=== PATIENT | male | born 1950 | race Caucasian/White ===

== ENCOUNTER 2020-09-08 09:23 | Observation (INO) | payer OTHER, MEDICARE, SELFPAY ==
[2020-09-08] VITALS (26 sets, daily range): BP systolic 119–148; BP diastolic 59–76; PULSE 53–84; RESP 10–21; TEMP 36–36.6; O2SAT 89–100; BMI 27.9
--- NOTE | 2020-09-08 09:50 | CT_ITS ---
WS: [id number] CT HEAD NONCONTRAST HISTORY: altered mental status TECHNIQUE: Contiguous axial imaging performed through the brain in 2.5 mm imaging. Bone and soft tiss ue windows. Sagittal and coronal reformats reviewed. All CT scans at [facility] use at ast one of these dose optimization techniques: automated exposure control; mA and/or kV adjustment pe r patient size (includes targeted exams where dose is matched to clinical indication); or iterative r econstruction. DLP: 1007.57 mGy.cm COMPARISON: 10/17/2017 No acute intracranial hemorrhage, midline shift or mass effect. Mild atrophy and mild chronic microvascular ischemic disease. No prior infarcts. Ventricles: Normal size with no hydrocephalus. No inferior displacement of the cerebellar tonsils. Paranasal sinuses: As visualized are clear. Mastoid air cells: Well pneumatized. Calvarium and scalp: Skull is intact with no soft tissue edema or swelling. CT/CT head wo con* 11032 IMPRESSION: 1. No acute intracranial hemorrhage or edema. 2. Mild atrophy and mild chronic microvascular ischemic disease. Similar to th e prior studies.
--- NOTE | 2020-09-08 09:50 | ECG_ITS ---
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 Measurements Intervals [place] Rate: 54 P: 44 [place]: 173 QRS: 5 QRSD: 89 T: 36 QT: 411 QTc: 390 Interpretive Statements SINUS BRADYCARDIA Compared to ECG 10/17/2017 16:15:09 No significant changes Electronically Signed On 09-08-2020 12:31:00 CDT by Gilmer Solomon M.D. [email or web address] Prenatalhighland community hospitalAltair Prepknox community hospitalNavis Holdings/store/OM/[id number]
--- NOTE | 2020-09-08 09:52 | PC.NURSE ---
Pt to CT
--- NOTE | 2020-09-08 10:09 | PC.NURSE ---
Pt returned from CT
--- NOTE | 2020-09-08 10:11 | PC.NURSE ---
RT at bedside to do EKG and ABG
[2020-09-08 10:12] LABS: Basophils % 0.2 %; Eosinophils % 0.3 %; Hematocrit 42.1 % (42.0-52.0); Hemoglobin 14.6 g/dL (11.7-16.6); Lymphocytes # 1.2 10^3/uL (0.8-4.8); Lymphocytes % 8.6 %; Mean Corpuscular HGB Conc 34.7 g/dL (30.0-36.0); Mean Platelet Volume 11.1 fL (7.4-10.4); Monocytes # 0.7 10^3/uL (0.2-0.9); Monocytes % 5.1 %; Neutrophils % 85.5 %; Nucleated Red Blood Cells % 0 %; Platelet Count 108 10^3/cmm (130-400); Red Blood Count 4.43 10^6/uL (4.1-5.3); Red Cell Distribution Width 13.2 % (12.1-15.1); White Blood Count 13.8 10^3/uL (4.0-10.0)
[2020-09-08 10:22] LABS: ABG PH Result 7.43 (7.35-7.45); Alveolar-Arterial Oxygen Gradi 3.2 mmHg (5-10); Arterial Blood Gas Hematocrit 47.3 % (42-52); Base Excess ABG 1.8 mmol/L (-2.0-2.0); Blood Gas Allen Test Pos; Blood Gas Operator Identificat MONRO; Blood Gas Sample Site Radial, left; Blood Gas Sample Type Arterial; Carboxyhemoglobin 1.8 %THgb (0.4-20.1); HCO3 ABG 26.3 mmol/L (22-26); Ionized Calcium Level - ABG 1.2 mmol/L (1.1-1.4); Methemoglobin 0.2 % (0.4-1.5); Oxygen Device ROOM AIR; PO2 ABG 74.7 mmHg (80.0-100.0); Potassium Level - ABG 4.1 mmol/L (3.5-5.0); Total Hemoglobin 15.4 g/dL (14-18)
[2020-09-08 10:31] LABS: Slide Review Slide Review Perform
[2020-09-08 10:34] LABS: Troponin(5th) Baseline 47 ng/L (0-15)
--- NOTE | 2020-09-08 10:36 | ED_ITS ---
HPI - Altered Mental Status General: Chief Complaint: Altered Mental Status Stated Complaint: Possible Seizure this morning/Sent from [place] Time Seen by Provider: 09/08/20 09:36 History of Present Illness: HPI narrative: 70-year-old male presents emergency room after an episode this morning in bed where he was twitching or groaning and did not seem to be very responsive. Patient has sleep apnea got up around 5 AM went to the bathroom he recalls he came back to bed and he seemed okay he did not put his CPAP on he was sleeping on his side and a little while later he began groaning and moaning described as twitching contractures of his upper extremities. He has no recollection of the event. He is not postictal at this time he remembers everything up to when this happened and recalls when the ambulance came to pick him up. He has no known history of seizures he had some episode of transient global ischemia evidently a few years ago which she was completely obtunded for a brief period of time and then resolved. He is not had a recurrence. Remote head injury as a child but has no significant long-term effects from it. Denies any chest pain or shortness of breath. MD complaint: altered mental status, confusion and decreased responsiveness Onset (ago): hour(s) Timing confirmed by: spouse Severity: moderate Context: diabetes Associated symptoms: Deny auditory hallucinations, visual hallucinations, delusions, depression, homicidal ideation, racing thoughts or suicidal ideation Review of Systems Const: Denies: fever(s), chills, body aches, change in appetite, fatigue or malaise ENMT: Denies: throat pain, ear or mastoid pain, nasal discharge or nasal congestion Card: Denies: chest pain, edema, dyspnea on exertion or orthopnea Resp: Denies: dyspnea, productive cough or non-productive cough GI: Denies: abdominal pain, nausea, vomiting, hematemesis, coffee ground emesis, diarrhea, constipation, bloating, hematochezia or melena : Denies: flank pain, dysuria, urinary frequency or urinary urgency Skin/Breast: Denies: rash or pruritus Psych: Denies: depression, visual hallucinations, auditory hallucinations, suicidal ideation or homicidal ideation [facility] ED PFSH: Medical History ASHD (arteriosclerotic heart disease) Bradycardia Cryptogenic stroke Diabetes Hyperlipidemia Hypertension Surgical History History of hernia repair History of loop recorder History of loop recorder Hx of shoulder surgery Stented coronary artery Family History Other CAD (coronary artery disease) Cancer Diabetes Social History Smoking and tobacco status: current some day smoker Alcohol intake: never Physical Exam Const: COMMON NORMALS: no acute distress GENERAL APPEARANCE: cooperative and comfortable ORIENTATION/CONSCIOUSNESS: Yes awake, Yes oriented to person, Yes oriented to place and Yes oriented to time HENMT: COMMON NORMALS: normocephalic, atraumatic, hearing grossly normal bilaterally and external ears normal HEAD & SCALP: normocephalic and atraumatic EXTERNAL EAR: Yes external ears normal Neck/C-Spine: COMMON NORMALS: no JVD Resp: COMMON NORMALS: normal respiratory effort, No retractions, No use of accessory muscles and clear to auscultation bilaterally AUSCULTATION: clear to auscultation bilaterally Cardio: COMMON NORMALS: no JVD, regular rate, regular rhythm and No murmurs present (Cardio) RATE: regular rate RHYTHM: regular rhythm GI: COMMON NORMALS: Soft to palpation and No hepatosplenomegaly present AUSCULTATION: Yes normoactive bowel sounds PALPATION: Yes Soft to palpation, No Tenderness to palpation present (GI), No Guarding due to palpation present (GI) and Yes No hepatosplenomegaly present Extremity: COMMON NORMALS: normal to inspection, capillary refill normal, no clubbing, cyanosis or edema, no calf tenderness and no pedal edema Neuro: SENSORIUM/ORIENTATION: Yes oriented to person, Yes oriented to place and Yes oriented to time Psych: THOUGHT CONTENT: No delusions Skin: COMMON NORMALS: no rashes or lesions noted GENERAL SKIN EXAM: no rashes or lesions noted Course ED course: Patient is feeling much better he was never really postictal when I talked to him he could remember everything except a particular event surrounding the episodes of his significant other called EMS for. His second troponin however was elevated EKGs did not show anything acute we will go ahead and admit him to observation for further evaluation as discussed Dr. Maher orders written. In addition of the cardiology work-up he may need further evaluation including possible EEG and MRI of the head Vital Signs: Vital signs: Vital Signs Temperature 96.8 F L 09/08/20 09:30 Pulse Rate 60 09/08/20 13:58 Respiratory Rate 18 09/08/20 13:58 Blood Pressure 148/76 09/08/20 13:58 Pulse Oximetry 96 09/08/20 13:58 MDM - Altered Mental Status Lab Data: Labs: Lab Results 09/08/20 09/08/20 09/08/20 Range/Units 10:02 10:02 10:02 WBC 13.8 H (4.0-10.0) 10^3/ uL RBC 4.43 (4.1-5.3) 10^6/u L Hgb 14.6 (11.7-16.6) g/dL Hct 42.1 (42.0-52.0) % MCV 95.0 H (80-94) fL MCH 33.0 (28.0-34.0) pg MCHC 34.7 (30.0-36.0) g/dL RDW 13.2 (12.1-15.1) % Plt Count 108 L (130-400) 10^3/c mm MPV 11.1 H (7.4-10.4) fL Neut % (Auto) 85.5 % Lymph % (Auto) 8.6 % Crane % (Auto) 5.1 % Eos % (Auto) 0.3 % Baso % (Auto) 0.2 % Neut # (Auto) 11.80 H (1.8-7.7) 10^3/u L Lymph # (Auto) 1.2 (0.8-4.8) 10^3/u L Crane # (Auto) 0.7 (0.2-0.9) 10^3/u L Eos # (Auto) 0.0 (0.0-0.8) 10^3/u L Baso # (Auto) 0.0 (0.0-0.1) 10^3/u L Nucleated RBC % (a uto) 0 % Nucleated RBCs # 0.0 /100WBC Specimen Type Sample Site ABG pH (7.35-7.45) ABG pCO2 (35-45) mmHg ABG pO2 (80.0-100.0) mmH g ABG HCO3 (22-26) mmol/L ABG O2 Saturation ABG Base Excess (-2.0-2.0) mmol/ L Bethel Test A-a O2 Gradient (5-10) mmHg Hematocrit (42-52) % Hgb O2 Saturation (95-100) % Carboxyhemoglobin (0.4-20.1) %THgb Methemoglobin (0.4-1.5) % Total Hemoglobin (14-18) g/dL Ionized Calcium (1.1-1.4) mmol/L O2 Delivery Device FiO2 % Product Manager E Commerce ID Sodium 139 (136-145) mmol/L Potassium 4.4 (3.5-5.1) mmol/L Chloride 102 (98-107) mmol/L Carbon Dioxide 28 (22-29) mmol/L Anion Gap 13.4 (5-19) BUN 14 (8-23) mg/dL Creatinine 0.9 (0.7-1.2) mg/dL GFR Calculation Not Reportable Glucose 137 H (65-115) mg/dL Calculated Osmolal ity 291 (285-295) mOsm/k g Lactic Acid 1.7 (0.5-2.2) mmol/L Calcium 8.8 (8.5-10.5) mg/dL Total Bilirubin 1.0 (0.15-1.2) mg/dL AST 17 (0-40) U/L ALT 14 (0-41) U/L Alkaline Phosphata se 95 (40-130) IU/L Creatine Kinase 157 (39-308) U/L Troponin T Baselin e (0-15) ng/L Troponin T 120 Min habematolel (0-15) ng/L Delta Troponin T (0-10) ABS# Total Protein 6.7 (6.6-8.7) g/dL Albumin 4.1 (3.5-5.2) g/dL Globulin 2.6 (1.3-4.6) g/dL Urine Color (Yellow) Urine Appearance (CLEAR) Urine pH (5-7) Ur Specific Gravit y (1.005-1.030) Urine Protein (Negative) Urine Glucose (UA) (Normal) Urine Ketones (Negative) Urine Blood (Negative) Urine Nitrate (Negative) Urine Bilirubin (Negative) Urine Urobilinogen (Negative) mg/dL Ur Leukocyte Raiza ase (Negative) 09/08/20 09/08/20 09/08/20 Range/Units 10:02 10:08 11:50 WBC (4.0-10.0) 10^3/ uL RBC (4.1-5.3) 10^6/u L Hgb (11.7-16.6) g/dL Hct (42.0-52.0) % MCV (80-94) fL MCH (28.0-34.0) pg MCHC (30.0-36.0) g/dL RDW (12.1-15.1) % Plt Count (130-400) 10^3/c mm MPV (7.4-10.4) fL Neut % (Auto) % Lymph % (Auto) % Crane % (Auto) % Eos % (Auto) % Baso % (Auto) % Neut # (Auto) (1.8-7.7) 10^3/u L Lymph # (Auto) (0.8-4.8) 10^3/u L Crane # (Auto) (0.2-0.9) 10^3/u L Eos # (Auto) (0.0-0.8) 10^3/u L Baso # (Auto) (0.0-0.1) 10^3/u L Nucleated RBC % (a uto) % Nucleated RBCs # /100WBC Specimen Type Arterial Sample Site Radial, left ABG pH 7.43 (7.35-7.45) ABG pCO2 40.0 (35-45) mmHg ABG pO2 74.7 L (80.0-100.0) mmH g ABG HCO3 26.3 H (22-26) mmol/L ABG O2 Saturation 96.0 ABG Base Excess 1.8 (-2.0-2.0) mmol/ L Bethel Test Pos A-a O2 Gradient 3.2 L (5-10) mmHg Hematocrit 47.3 (42-52) % Hgb O2 Saturation 94.0 L (95-100) % Carboxyhemoglobin 1.8 (0.4-20.1) %THgb Methemoglobin 0.2 L (0.4-1.5) % Total Hemoglobin 15.4 (14-18) g/dL Ionized Calcium 1.2 (1.1-1.4) mmol/L O2 Delivery Device Room air FiO2 21.0 % Product Manager E Commerce ID [place] Sodium 139.0 (136-145) mmol/L Potassium 4.1 (3.5-5.1) mmol/L Chloride (98-107) mmol/L Carbon Dioxide (22-29) mmol/L Anion Gap (5-19) BUN (8-23) mg/dL Creatinine (0.7-1.2) mg/dL GFR Calculation Glucose 133.0 H (65-115) mg/dL Calculated Osmolal ity (285-295) mOsm/k g Lactic Acid (0.5-2.2) mmol/L Calcium (8.5-10.5) mg/dL Total Bilirubin (0.15-1.2) mg/dL AST (0-40) U/L ALT (0-41) U/L Alkaline Phosphata se (40-130) IU/L Creatine Kinase (39-308) U/L Troponin T Baselin e 47 H (0-15) ng/L Troponin T 120 Min habematolel (0-15) ng/L Delta Troponin T (0-10) ABS# Total Protein (6.6-8.7) g/dL Albumin (3.5-5.2) g/dL Globulin (1.3-4.6) g/dL Urine Color Dark yellow (Yellow) Urine Appearance Clear (CLEAR) Urine pH 6 (5-7) Ur Specific Gravit y 1.010 (1.005-1.030) Urine Protein Neg (Negative) Urine Glucose (UA) Norm (Normal) Urine Ketones Negative (Negative) Urine Blood Neg (Negative) Urine Nitrate Negative (Negative) Urine Bilirubin Neg (Negative) Urine Urobilinogen Norm (Negative) mg/dL Ur Leukocyte Raiza ase Negative (Negative) 09/08/20 Range/Units 12:30 WBC (4.0-10.0) 10^3/ uL RBC (4.1-5.3) 10^6/u L Hgb (11.7-16.6) g/dL Hct (42.0-52.0) % MCV (80-94) fL MCH (28.0-34.0) pg MCHC (30.0-36.0) g/dL RDW (12.1-15.1) % Plt Count (130-400) 10^3/c mm MPV (7.4-10.4) fL Neut % (Auto) % Lymph % (Auto) % Crane % (Auto) % Eos % (Auto) % Baso % (Auto) % Neut # (Auto) (1.8-7.7) 10^3/u L Lymph # (Auto) (0.8-4.8) 10^3/u L Crane # (Auto) (0.2-0.9) 10^3/u L Eos # (Auto) (0.0-0.8) 10^3/u L Baso # (Auto) (0.0-0.1) 10^3/u L Nucleated RBC % (a uto) % Nucleated RBCs # /100WBC Specimen Type Sample Site ABG pH (7.35-7.45) ABG pCO2 (35-45) mmHg ABG pO2 (80.0-100.0) mmH g ABG HCO3 (22-26) mmol/L ABG O2 Saturation ABG Base Excess (-2.0-2.0) mmol/ L Bethel Test A-a O2 Gradient (5-10) mmHg Hematocrit (42-52) % Hgb O2 Saturation (95-100) % Carboxyhemoglobin (0.4-20.1) %THgb Methemoglobin (0.4-1.5) % Total Hemoglobin (14-18) g/dL Ionized Calcium (1.1-1.4) mmol/L O2 Delivery Device FiO2 % Product Manager E Commerce ID Sodium (136-145) mmol/L Potassium (3.5-5.1) mmol/L Chloride (98-107) mmol/L Carbon Dioxide (22-29) mmol/L Anion Gap (5-19) BUN (8-23) mg/dL Creatinine (0.7-1.2) mg/dL GFR Calculation Glucose (65-115) mg/dL Calculated Osmolal ity (285-295) mOsm/k g Lactic Acid (0.5-2.2) mmol/L Calcium (8.5-10.5) mg/dL Total Bilirubin (0.15-1.2) mg/dL AST (0-40) U/L ALT (0-41) U/L Alkaline Phosphata se (40-130) IU/L Creatine Kinase (39-308) U/L Troponin T Baselin e (0-15) ng/L Troponin T 120 Min habematolel 55.95 H (0-15) ng/L Delta Troponin T 8.95 (0-10) ABS# Total Protein (6.6-8.7) g/dL Albumin (3.5-5.2) g/dL Globulin (1.3-4.6) g/dL Urine Color (Yellow) Urine Appearance (CLEAR) Urine pH (5-7) Ur Specific Gravit y (1.005-1.030) Urine Protein (Negative) Urine Glucose (UA) (Normal) Urine Ketones (Negative) Urine Blood (Negative) Urine Nitrate (Negative) Urine Bilirubin (Negative) Urine Urobilinogen (Negative) mg/dL Ur Leukocyte Raiza ase (Negative) Discharge Plan Discharge Patient Disposition: Admitted As Inpatient Admit Provider: Narcisa Maher Clinical Impression: Elevated troponin, Diabetes, Hypertension, Central sleep apnea Condition: Stable Coding Level of Care Code ED Director Of Assisted Living for Noa Abdi
[2020-09-08 10:37] LABS: Lactic Sepsis W/Reflex 1.7 mmol/L (0.5-2.2)
--- NOTE | 2020-09-08 10:41 | PC.NURSE ---
Patient states he is unable to provide UA at this time.
[2020-09-08 10:57] LABS: Alanine Aminotransferase 14 U/L (0-41); Albumin Level 4.1 g/dL (3.5-5.2); Alkaline Phosphatase 95 IU/L (40-130); Anion Gap 13.4 (5-19); Aspartate Amino Transferase 17 U/L (0-40); Blood Urea Nitrogen 14 mg/dL (8-23); Calcium 8.8 mg/dL (8.5-10.5); Carbon Dioxide 28 mmol/L (22-29); Chloride 102 mmol/L (98-107); Creatine Phosphokinase 157 U/L (39-308); Globulin 2.6 g/dL (1.3-4.6); Glucose 137 mg/dL (65-115); Osmolality Calculated 291 mOsm/kg (285-295); Potassium 4.4 mmol/L (3.5-5.1); Sodium 139 mmol/L (136-145); Total Protein 6.7 g/dL (6.6-8.7)
--- NOTE | 2020-09-08 11:10 | PC.NURSE ---
Pt reports he is unable to void at this time.
--- NOTE | 2020-09-08 11:50 | ECG_ITS ---
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 Measurements Intervals [place] Rate: 52 P: 38 [place]: 177 QRS: -1 QRSD: 88 T: 35 QT: 419 QTc: 391 Interpretive Statements SINUS BRADYCARDIA Compared to ECG 09/08/2020 10:11:30 No significant changes Electronically Signed On 09-08-2020 12:34:54 CDT by Gilmer Solomon M.D. [email or web address] river gulfportHythiamuniversity hospitals [email or web address].Incipient/store/[id number]
[2020-09-08 12:06] LABS: Add Urine Microscopic? NO; Charge for UA Resulting for Rev; Urine Color Dark Yellow (Yellow)
[2020-09-08 12:07] LABS: Bilirubin Urine Neg (Negative); Blood Urine Neg (Negative); Glucose Urine UA Norm (Normal); Ketones Urine Negative (Negative); Leukocyte Esterase Urine Negative (Negative); Nitrate Urine Negative (Negative); Protein Urine Neg (Negative); Urine Appearance Clear (CLEAR); Urobilinogen Urine Norm (Negative); pH Urine 6 (5-7)
[2020-09-08 12:59] LABS: Troponin 5 2HR 55.95 ng/L (0-15); Troponin 5 2HR Delta 8.95 ABS# (0-10)
[2020-09-08] MEDS: enoxaparin 100 mg/mL Syringe SUBCUT (13:34)
--- NOTE | 2020-09-08 15:50 | ECG_ITS ---
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 Measurements Intervals [place] Rate: 55 P: 43 [place]: 176 QRS: 0 QRSD: 93 T: 31 QT: 425 QTc: 409 Interpretive Statements SINUS BRADYCARDIA Compared to ECG 09/08/2020 12:00:39 No significant changes Electronically Signed On 09-08-2020 19:08:40 CDT by Gilmer Solomon M.D. [email or web address].[employer]/store/[id number]
[2020-09-08 17:15] LABS: Troponin 5 6HR 40.02 ng/L (0-15)
[2020-09-08 17:16] LABS: Troponin 5 6HR Delta -6.98 ng/L (0-12)
--- NOTE | 2020-09-08 22:24 | PM.HP ---
Providers/Chief Complaint Admitting Physician: Narcisa Maher MD Primary Care Provider: Pietro Watts DO Chief Complaint: Possible Seizure this morning/Sent from CT History of Present Illness Enmanuel Ring is a 70 year old male with PMH as noted below presented emergency room after an episode this morning in bed where he was twitching or groaning and did not seem to be very responsive per his . Patient has sleep apnea got up around 5 AM went to the bathroom he recalls he came back to bed and he seemed okay he did not put his CPAP on he was sleeping on his side and a little while later he began groaning and moaning described as twitching contractures of his upper extremities. He has no recollection of the event. no incontinence. Tongue bite+. COnfused after the event for 10-15 minutes. . He has no known history of seizures he had some episode of transient global amnesia evidently a few years ago which resolved. He is not had a recurrence. Similar episode one month ago when while playing golf patient;s eyes glazed over and he was swinging from side to side as if to pass out. He has an imaplantable loop recorder that has not been transmitting recently per patient. He has previously been noted to have asymptomatic bradycardia with HR 40-50, often numbers as low as 30 during sleep. He did not check VS at time of events. Not hypoglycemic during events. ROS+ diarrhea 2 days ago, 4-5 episodes which resolved. no fever. chronic smoker's cough+ no chest pain, dyspnea, palpitations. Ekg without acute st-t changes, tropinins elevated but without significant delta. Review of Systems General: Reports: 10 or more systems reviewed and unremarkable except in HPI and below Const: Denies: fever(s), chills or body aches Eyes: Denies: change in vision, blurry vision or photophobia ENMT: Reports: hoarseness; Denies: throat pain, enlarged tonsils, odynophagia or nasal congestion Card: Denies: chest pain, palpitations, irregular heart rhythm, edema, swelling of feet/ankles, lightheadedness, pre-syncope, dyspnea on exertion or orthopnea Resp: Denies: dyspnea, productive cough, non-productive cough, wheezing, stridor, pain on inspiration, change in phlegm color, hemoptysis or chest congestion GI: Denies: abdominal pain, nausea, vomiting, hematemesis, coffee ground emesis, dysphagia, heartburn, diarrhea, constipation, GI cramping, change in stool character, hematochezia or melena : Denies: flank pain, dysuria, urinary frequency, urinary urgency, urinary hesitancy or hematuria Musc: Denies: neck pain, back pain, extremity pain, joint swelling, joint warmth or deformity Neuro: Denies: headache(s), numbness in extremities, weakness in extremities, sensory changes, difficulty walking, frequent falls, dizziness, vertigo, behavioral changes, Slurred speech present or seizure-like activity Psych: Denies: anxiety, depression, suicidal ideation or homicidal ideation Endo: Denies: polyuria, polydipsia, tired all the time, cold intolerance or hot flashes Roland/Lymph: Denies: easy bruising or easy bleeding Medications/Allergies Home Medications Medication Instructions Recorded Confirmed Last Taken Type allopurinol 300 mg tablet 300 mg PO DAILY 11/06/19 09/08/20 09/07/20 History amlodipine 10 mg tablet 10 mg PO DAILY 11/06/19 09/08/20 09/07/20 History aspirin 81 mg tablet,delayed 81 mg PO DAILY 11/06/19 09/08/20 09/07/20 History release atenolol 25 mg tablet 25 mg PO QA 11/06/19 09/08/20 09/07/20 History folic acid 1 mg tablet 1 mg PO QAM 11/06/19 09/08/20 09/07/20 History glipizide 5 mg tablet 2.5 mg PO QA 11/06/19 09/08/20 09/07/20 History lisinopril 40 mg tablet 20 mg PO DAILY 11/06/19 09/08/20 09/07/20 History multivitamin 1 tab PO DAILY 11/06/19 09/08/20 09/07/20 History simvastatin 20 mg tablet 20 mg PO DAILY 11/06/19 09/08/20 09/07/20 History turmeric 400 mg PO DAILY 09/08/20 09/08/20 09/07/20 History Allergies Allergy/AdvReac Type Severity Reaction Status Date / Time No Known Allergies Allergy Verified 09/08/20 11:56 PFSH Acute PFSH: Medical History (Updated 09/08/20 @ 22:32 by Narcisa Maher MD) ASHD (arteriosclerotic heart disease) Bradycardia Cryptogenic stroke Diabetes Hyperlipidemia Hypertension Surgical History History of hernia repair History of loop recorder History of loop recorder Hx of shoulder surgery Stented coronary artery Family History Other CAD (coronary artery disease) Cancer Diabetes Social History Smoking and tobacco status: current some day smoker Alcohol intake: never Vitals/I&O/Wt Last Vital Signs Temp 98 F 09/08/20 19:42 Pulse 59 L 09/08/20 19:42 Resp 21 H 09/08/20 19:42 BP 120/63 09/08/20 19:42 Pulse Ox 92 09/08/20 19:42 09/08/20 09/08/20 09/08/20 06:59 14:59 22:59 Intake Total 120 / 120 Balance 120 / 120 Weight last 48 hrs Weight 96.162 kg Physical Exam Narrative: EXAM NARRATIVE: General: No acute distress, AO x3 HEENT: PERRLA, pupils bilaterally equal and reactive, pallors not present Chest: Normal vesicular breath sounds, no added sounds, equal good air entry bilaterally CVS: S1-S2 regular, no murmurs, no tachycardia, no gallops, no rubs Abdomen: Soft, nontender, no organomegaly, bowel sounds present Neuro: No focal deficits, no facial deformity, AO x3, power 5/5 in all limbs Extremities: no edema clubbing Data : 09/08/20 10:02 09/08/20 10:02 A&P Assessment and plan (1) Witnessed seizure-like activity: Unclear if patient suffereed from seizure episode, it would be very unusual to present with first seizure at age 70 CT head negative differentials include TIA, transient hypoxia as a result of bradycardia, arrhythmia investigate loop recorder monitor on tele overnight Syncopal event cannot be excluded carotid duplex,echo Status: Acute (2) Bradycardia: Status: Acute (3) ASHD (arteriosclerotic heart disease): Status: Acute (4) Elevated troponin: Status: Acute Attestations Medical Necessity Statement*: anticipate less than 2 midnight Coding Level of Care Code Acute Accounting Coordinator for Chg Fwd Diagnoses Witnessed seizure-like activity R56.9 Bradycardia R00.1 ASHD (arteriosclerotic heart disease) I25.10 Elevated troponin R77.8
[2020-09-09 03:17] VITALS: BP 114/59; PULSE 50; RESP 22; TEMP 36.8; O2SAT 91
[2020-09-09 05:07] LABS: Basophils % 0.3 %; Eosinophils # 0.1 10^3/uL (0.0-0.8); Eosinophils % 1.6 %; Hematocrit 40.3 % (42.0-52.0); Hemoglobin 13.9 g/dL (11.7-16.6); Lymphocytes # 1.9 10^3/uL (0.8-4.8); Lymphocytes % 20.6 %; Mean Corpuscular HGB Conc 34.5 g/dL (30.0-36.0); Mean Corpuscular Hemoglobin 33.3 pg (28.0-34.0); Mean Corpuscular Volume 96.4 fL (80-94); Mean Platelet Volume 11.8 fL (7.4-10.4); Monocytes # 0.6 10^3/uL (0.2-0.9); Monocytes % 6.4 %; Neutrophils # 6.37 10^3/uL (1.8-7.7); Neutrophils % 70.7 %; Nucleated Red Blood Cells % 0 %; Platelet Count 108 10^3/cmm (130-400); Red Blood Count 4.18 10^6/uL (4.1-5.3); Red Cell Distribution Width 13.2 % (12.1-15.1)
[2020-09-09 05:20] VITALS: PULSE 48
[2020-09-09 05:26] LABS: Alanine Aminotransferase 11 U/L (0-41); Albumin Level 3.8 g/dL (3.5-5.2); Alkaline Phosphatase 86 IU/L (40-130); Anion Gap 15.4 (5-19); Aspartate Amino Transferase 16 U/L (0-40); Blood Urea Nitrogen 15 mg/dL (8-23); Calcium 8.3 mg/dL (8.5-10.5); Carbon Dioxide 24 mmol/L (22-29); Chloride 102 mmol/L (98-107); Creatinine Clr Calc Pharmacy 102.0057; Glucose 98 mg/dL (65-115); Osmolality Calculated 285 mOsm/kg (285-295); Potassium 4.4 mmol/L (3.5-5.1); Sodium 137 mmol/L (136-145); Total Bilirubin 1.1 mg/dL (0.15-1.2); Total Protein 5.8 g/dL (6.6-8.7)
[2020-09-09] MEDS: atenolol 50 mg Tablet 25 MG PO (05:49)
[2020-09-09] MEDS: folic acid 1 mg Tablet PO (05:49)
[2020-09-09 07:23] VITALS: BP 121/64; PULSE 50; RESP 15; TEMP 36.9; O2SAT 94
[2020-09-09 08:00] VITALS: BP 120/64; BP 122/76; BP 124/72
[2020-09-09] MEDS: lisinopril 20 mg Tablet PO (08:43)
[2020-09-09] MEDS: allopurinol 300 mg Tablet PO (08:43)
[2020-09-09] MEDS: atorvastatin 40 mg Tablet 20 MG PO (08:44)
[2020-09-09] MEDS: amlodipine 10 mg Tablet PO (08:44)
[2020-09-09] MEDS: aspirin 81 mg EC Tablet PO (08:44)
[2020-09-09 11:06] VITALS: BP 112/59; PULSE 47; RESP 12; TEMP 36.9; O2SAT 94
[2020-09-09 13:20] VITALS: PULSE 48
--- NOTE | 2020-09-09 15:26 | P.DS_ITS ---
Discharge Providers Date of Admission: 09/08/20 14:16 Date of Discharge: September 09, 2020 Attending Provider at Admission: Narcisa Maher MD Attending Provider at Discharge: Narcisa Maher MD Primary Care Provider: Pietro Watts DO Diagnoses at Discharge Discharge Diagnosis (1) Witnessed seizure-like activity: Status: Acute (2) Bradycardia: Status: Acute (3) ASHD (arteriosclerotic heart disease): Status: Acute (4) Elevated troponin: Status: Acute Reason for Visit Reason for Visit: Possible Seizure this morning/Sent from [place] Hospital Course Hospital Course Enmanuel Ring is a 70 year old male with PMH ASHD/high blood pressure/dyslipidemia/cryptogenic CVA who presented yesterday after an episode this morning in bed where he was twitching or groaning and did not seem to be very responsive per his . He was admitted to observation due to concern for possible seizures, no further episodes were noted in the hospital. CT head negative. Orthostatics were normal, Differentials include TIA, transient hypoxia after removing CPAP. loop recorder was investigated to check for any bradycardia events, however there were no events with HR less than 40. At a baseline patient's HR varies between 40-50 at a baseline for several years. No arrhythmia was noted on telemetry. Syncopal event could not be excluded- carotid duplex,echo were performed, remains pending at discharge. To follow up the latter at his appointment with Dr. Mcneil next week. If episodes are recurrent, recommend follow up with Dr. Chand, he was previously seen by neurology due to transient global amnesia. Physical Exam Narrative: EXAM NARRATIVE: GEN: Awake, alert and oriented, no acute distress CVS: S1S2 N RS: CTA B/L Abd: Soft, nt/nd , bs+ PROBATE PARALEGAL: no focal neuro deficits Discharge Data Data Completed and Pending: Completed Studies During Hospitalization Category Date Time Status CT head wo con* [id number] Stat Cat Scan 09/08/20 09:50 Completed Pending at discharge Category Date Time Status CV carotid duplex BI* [id number] Routine Ultrasound 09/09/20 22:45 Taken CV echo complete* [id number] Routine Ultrasound 09/09/20 22:45 Taken Labs from last 24 hours 09/09/20 09/09/20 09/08/20 04:21 04:21 16:20 WBC 9.0 RBC 4.18 Hgb 13.9 Hct 40.3 L MCV 96.4 H MCH 33.3 MCHC 34.5 RDW 13.2 Plt Count 108 L MPV 11.8 H Neut % (Auto) 70.7 Lymph % (Auto) 20.6 [place] % (Auto) 6.4 Eos % (Auto) 1.6 Baso % (Auto) 0.3 Neut # (Auto) 6.37 Lymph # (Auto) 1.9 [place] # (Auto) 0.6 Eos # (Auto) 0.1 Baso # (Auto) 0.0 Nucleated RBC % (a uto) 0 Nucleated RBCs # 0.0 Sodium 137 Potassium 4.4 Chloride 102 Carbon Dioxide 24 Anion Gap 15.4 BUN 15 Creatinine 0.7 GFR Calculation Not Reportable Glucose 98 Calculated Osmolal ity 285 Calcium 8.3 L Total Bilirubin 1.1 AST 16 ALT 11 Alkaline Phosphata se 86 Troponin T Hi Sens 6Hr 40.02 H Troponin T Hi Sens 6Hr Delta -6.98 L Total Protein 5.8 L Albumin 3.8 Globulin 2.0 Vitals: Last Vital Signs Temp 98.4 F 09/09/20 11:06 Pulse 48 L 09/09/20 13:20 Resp 12 09/09/20 11:06 BP 112/59 09/09/20 11:06 Pulse Ox 94 09/09/20 11:06 Discharge Plan Discharge Patient Disposition: Home Condition: Stable Prescriptions: Continued aspirin [Adult Low Dose Aspirin] 81 mg tablet,delayed release (DR/EC) 81 mg PO DAILY RF: 0 multivitamin Tablet 1 tab PO DAILY RF: 0 atenolol 25 mg tablet 25 mg PO QAM RF: 0 folic acid 1 mg tablet 1 mg PO QAM RF: 0 allopurinol 300 mg tablet 300 mg PO DAILY RF: 0 amlodipine 10 mg tablet 10 mg PO DAILY RF: 0 glipizide 5 mg tablet 2.5 mg PO QAM RF: 0 simvastatin 20 mg tablet 20 mg PO DAILY RF: 0 lisinopril 40 mg tablet 20 mg PO DAILY RF: 0 turmeric 400 mg Capsule 400 mg PO DAILY RF: 0 Discharge Orders: Discharge Order (Routine); Ordered 09/09/20 Ordered By: Narcisa Maher Referrals: Letitia Mcneil MD [Physician] - 1 week Pietro Watts DO [Primary Care Provider] - Discharge Diet: Cardiac Discharge Activity: Resume usual activity Patient Instructions: Opioid Safety Activity Restrictions/Additional Instructions: Case Management will call with appointments for an MRI and EEG and neurology follow up Discharge Attestations Time Spent in Discharge Care*: less than 30 min Quality Metrics Clinical Quality Measures During this hospital stay, did patient experience: None Coding Level of Care Code Acute Chg FW DC note Diagnoses Witnessed seizure-like activity R56.9 Bradycardia R00.1 ASHD (arteriosclerotic heart disease) I25.10 Elevated troponin R77.8
--- NOTE | 2020-09-09 22:45 | USCV_ITS ---
Enmanuel Ring Age: 70 Gender: M : 1950 Exam Date: 09/09/2020 06:43 Ordering Phys: Narcisa Maher MD Technologist: Yandy Hassan [place] [facility] [place]: SYNCOPE Risk Factors: Previous Vascular Surgery: Right Brachial BP: / Left Brachial BP: / Right Left Velocity (cm/s) Spectral Plaque Velocity (cm/s) Spectral Plaque Syst/Diast Broadening Syst/Diast Broadening 89.30/ 14.30 Prox CCA 81.00 / 12.10 66.20/ 13.20 Mid CCA 82.00 / 13.20 69.50/ 16.50 Distal CCA 70.90 / 10.10 40.80/ 16.50 Prox ICA 60.70 / 16.20 48.10/ 10.60 Mid ICA 61.70 / 15.20 73.00/ 17.30 Distal ICA 85.00 / 21.30 97.00 ECA 87.00 1.10 ICA/CCA 1.04 Antegrade Vertebral Antegrade 29.80/ 7.40 cm/s 27.80/ 9.10 cm/s Tri Subclavian Bi 100.9 121.9 0 0 FINDINGS Mild diffuse plaques of the bifurcations and the internal carotid arteries bilaterally. Intimal thickening and minimal plaques in the common carotid arteries bilaterally. Antegrade flow in the vertebral arteries bilaterally. No Doppler flow velocities in the extracranial vessels. CONCLUSIONS Mild diffuse plaques at the bifurcations and the internal carotid arteries bilaterally. No significant stenosis, based on the above findings Dr Letitia Mcneil MD [facility] (Electronically Signed) Final Date: 09 September 2020 16:06 S
--- NOTE | 2020-09-09 22:45 | USCV_ITS ---
Enmanuel Ring Age: 70 Gender: M : 1950 Exam Date: 09/09/2020 06:17 Ordering Phys: Narcsia Maher MD Technologist: Yandy Hassan Exam Location: [facility] – [place] Indication: SYNCOPE BP: 114 / 59 HR: 44 Rhythm: Sinus Technical Quality: Technically difficult study MEASUREMENTS (Male / Female) Normal Values 2D ECHO LV Diastolic Diameter PLAX 5.1 cm 4.2 - 5.9 / 3.9 - 5.3 cm LV Systolic Diameter PLAX 3.3 cm IVS Diastolic Thickness 1.0 cm 0.6 - 1.0 / 0.6 - 0.9 cm IVS Systolic Thickness 1.5 cm LVPW Diastolic Thickness 1.2 cm 0.6 - 1.0 / 0.6 - 0.9 cm LVPW Systolic Thickness 1.3 cm LVOT Diameter 2.0 cm LV Ejection Fraction 2D Teich 64.3 % LV Ejection Fraction MOD 2C 64.9 % LV Ejection Fraction 2C AL 66.5 % LA Diameter 3.5 cm LA Width 3.1 cm LA Height 4.6 cm RA Width 3.4 cm RA Height 4.7 cm Aorta at Sinotubular Diameter 2.2 cm M-MODE Aortic Annulus Diameter 2.9 cm LA Ao Ratio MM 1.1 MV E Point Septal Separation 0.4 cm DOPPLER AV Peak Velocity 131.0 cm/s LVOT Peak Velocity 83.0 cm/s AV Area Cont Eq vti 2.4 cm squared AV Area Cont Eq pk 2.0 cm squared MV Area PHT 5.0 cm squared Mitral E to A Ratio 0.8 MV E' Velocity 66.0 cm/s Mitral E to LV E' Septal Ratio 10.8 TR Peak Velocity 277.0 cm/s TR Peak Gradient 30.7 mmHg Right Atrial Pressure 3.0 mmHg Pulmonary Artery Systolic Pressu 33.7 mmHg PV Peak Velocity 111.0 cm/s RV Acceleration Time 0.1 s RV Ejection Time 0.4 s RV AcT/ET 0.3 FINDINGS Left Ventricle Normal left ventricular size and systolic function, EF 67 %. No regional wall motion abnormalities. Mild left ventricular hypertrophy. Grade I/IV diastolic dysfunction (abnormal relaxation filling pattern), normal to mildly elevated filling pressures. Right Ventricle Possibly normal RV size ejection fraction Right Atrium The right atrium is normal in size. Left Atrium The left atrium is normal in size. Mitral Valve No gross abnormalities noted Aortic Valve No gross abnormalities noted Tricuspid Valve Tricuspid valve not well visualized. Pulmonic Valve Pulmonic valve not well visualized. Pericardium Normal pericardium without effusion. Aorta Normal aortic annulus size. CONCLUSIONS Normal left ventricular size and systolic function, EF 67 %. No regional wall motion abnormalities. Mild left ventricular hypertrophy. Grade I/IV diastolic dysfunction (abnormal relaxation filling pattern), normal to mildly elevated filling pressures. The aortic and mitral appears to be of normal morphology. Possibly no significant stenotic or regurgitant lesions. Technically difficult study because of the poor ultrasonic window. Dr Letitia Mcneil MD [facility] (Electronically Signed) Final Date: 09 September 2020 17:21 S
--- NOTE | 2020-09-10 15:03 | PC.RESP ---
SMOKING CESSATION INFORMATION SENT TO PATIENT.
--- NOTE | 2020-09-12 09:35 | DCPLANNER ---
repertoire manager had message to schedule an outpatient MRI and EEG for patient and then a follow up with neurology. repertoire manager faxed signed order to centralized scheduling and to Dr. Murry office. repertoire manager emailed patients information to Krystal at Dr. Murry office for the EEG and the follow up. Patients information will be printed and reviewed. Clinic will call patient with appointment information.
--- NOTE | 2020-09-17 11:32 | DCPLANNER ---
Addendum entered by Sylvia العراقي 10/10/20 07:40: Patient has [facility] insurance, so patient will have to see Dr. Chand and she would have to be the one to order the EEG, for the [facility] to pay for the visit.. Patient seen Dr. Chand on 10.02.20 and attended that appointment. Patient has a EEG scheduled for 11.11.20. Addendum entered by Sylvia العراقي 09/17/20 11:40: hotel assistant manager sent patients records to [place] with [facility] for the authorization process could be started. Original Note: Patient has a follow up appointment scheduled for Tuesday, September 29, 2020 at 10:[address] Murry office will contact patient with appointment information.
== END 2020-09-09 16:03 | disposition home or self-care (01) ==
LOC: ER 13:02 → CSU 13:55
PROVIDERS: Admitting Provider Student in an Organized Health Care Education/Training Program; Emergency Provider Family Medicine; PCP Emergency Medicine Emergency Medical Services; Visit Provider Student in an Organized Health Care Education/Training Program
DX: R56.9 Unspecified convulsions (principal); I25.10 Atherosclerotic heart disease of native coronary artery without angina pectoris; R00.1 Bradycardia, unspecified; R77.8 Other specified abnormalities of plasma proteins; Z86.73 Personal history of transient ischemic attack (TIA), and cerebral infarction without residual deficits; R55 Syncope and collapse; I65.23 Occlusion and stenosis of bilateral carotid arteries; Z79.82 Long term (current) use of aspirin; E78.5 Hyperlipidemia, unspecified; F17.210 Nicotine dependence, cigarettes, uncomplicated
CPT/HCPCS: 36415; 36600; 70450; 80051; 80053; 81003; 82330; 82550; 82805; 83605; 84484; 85025; 93005; 93306; 93880; 96372; 99285; G0378; J1650

== ENCOUNTER → 2020-10-02 12:25 | Outpatient (BNVA) | payer OTHER, SELFPAY | PROVIDERS: PCP Emergency Medicine Emergency Medical Services; Visit Provider Specialist | DX: R56.9 Unspecified convulsions (principal); F17.210 Nicotine dependence, cigarettes, uncomplicated | CPT/HCPCS: 99205 ==

== ENCOUNTER → 2020-11-11 07:51 | Outpatient (BNVA) | payer OTHER, SELFPAY | PROVIDERS: PCP Emergency Medicine Emergency Medical Services; Referring Provider Specialist; Visit Provider Specialist | DX: R56.9 Unspecified convulsions (principal); F17.200 Nicotine dependence, unspecified, uncomplicated | CPT/HCPCS: 95816 ==

== ENCOUNTER 2020-11-17 10:42 | Outpatient (CLI) | payer OTHER, SELFPAY ==
--- NOTE | 2020-11-17 10:45 | MR_ITS ---
WS: [id number] MRI BRAIN WITH AND WITHOUT CONTRAST HISTORY: SEIZURE COMPARISON: 11/02/2017 TECHNIQUE: Multiplanar imaging performed through the brain with MultiHance 20 ml's IV. No acute infarcts are seen. Doran-white matter differentiation is well preserved. Numerous T2 and FLAI R signal hyperintensities throughout the white matter in a subcortical and periventricular distributi on. Very mild progression since the prior study from 2018. No focal cortical dysplasia. Hippocampal f ormations are symmetric without mesial temporal sclerosis. No susceptibility artifacts or prior lacunar infarcts. Ventricles and extra-axial spaces are normal. Clivus and pituitary gland are normal. Visualized posterior fossa and brainstem are also normal. Postcontrast images are negative for masses or vascular malformations. Dural venous sinuses are normal. Paranasal sinuses: Well aerated with no significant disease. Mastoid air cells: Normal. Calvarium and scalp: Normal. MR/MR head wo/w con [id number] IMPRESSION: 1. No acute infarct or hemorrhage. 2. No focal cortical dysplasia or mesial temporal sclerosis. 3. Moderate scattered T2 and FLAIR signal hyperintensities. This can be seen w ith history of smoking, small vessel ischemic disease, hypertension and migrain es. Mild progression since 2018.
[2020-11-17] MEDS: gadobenate dimeglumine 20 mL vial IV (12:53)
== END 2020-11-17 10:43 | disposition home or self-care (01) ==
LOC: RADSHAW 10:44
PROVIDERS: PCP Emergency Medicine Emergency Medical Services; Visit Provider Family Medicine
DX: R56.9 Unspecified convulsions (principal)
CPT/HCPCS: 70553; A9577

== ENCOUNTER 2020-11-20 09:36 | Outpatient (CLI) | payer OTHER, SELFPAY ==
--- NOTE | 2020-11-20 10:45 | NMCV_ITS ---
NM eneida perf SPECT r/s* [id number] Enmanuel Ring Age: 70 Gender: M : 1950 Exam Date: 11/20/2020 11:15 Ordering Phys: Letitia Mcneil MD ([email or web address]) Technologist: FLAVIA Day Exam Location: [facility] Indications: SHORTNESS OF BREATH STRESS TEST Please see separate stress test report in [facility] for full findings IMAGE PROTOCOL Rest/Stress 1 Lexiscan Day Radiopharmaceutical Dose (mCi) Administration Site Administered by Rest: Tc-99m 11.0 IV FLAVIA Davey Sestamibi Stress:Tc-99m 32.6 IV FLAVIA Davey Sestamibi Rest: 20-Nov-2020 60 Discovery 630 Stress: 20-Nov-2020 30 Discovery 630 0.4mg Lexiscan. Images obtained in supine and prone position. SPECT RESULTS Technical Quality: Excellent Raw Data Analysis: Normal Image Corrections: No attenuation or motion correction applied Summed Stress Score: 2 Summed Rest Score: 1 Summed Difference Score: 1 PERFUSION FINDINGS Small to moderate area of minimally decreased tracer uptake in the basal and mid inferolateral region with some reversibility in the mid inferolateral region, with the supine imaging. However the prone imaging, there was no significant reversibility FUNCTIONAL RESULTS (calculated via Gated SPECT) Stress Image LV EF (%): 64 Stress EDV (mL):127 TID: 0.86 Stress ESV (mL):46 FUNCTIONAL FINDINGS: Segmental wall motion analysis revealing no gross wall motion normalities. IMPRESSIONS 1. Myocardial perfusion imaging revealing small to moderate area of decreased tracer uptake in the basal and mid inferolateral region, with some reversibility suggesting ischemia in the distribution of the left circumflex artery. However in view of the inconsistency with the prone imaging, most likely this is artifactual. Clinical correlation is recommended. 2. Normal LV ejection fraction of 64%. 3. LV wall motion analysis revealing no gross wall motion normalities. 4. Near normal LV volume. No similar previous studies are available for comparison Dr Letitia Mcneil MD [facility] (Electronically Signed) Final Date: 20 November 2020 18:36 S
--- NOTE | 2020-11-20 10:45 | ECG_ITS ---
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 Interpretive Statements NAME OF STUDY: LEXISCAN SESTAMIBI STRESS TEST INDICATION: ASHD PROCEDURE: At the baseline, the EKG revealed sinus bradycardia with a rate of [address]-T changes. The baseline blood pressure was 155/78 mm Hg with a heart rate of44 beats/min. Lexiscan was infused over a period of 20 seconds. A total of 0.4 milligrams of Lexiscan was infused. The stress phase was continued for a total of 5 minutes. Heart rate at the end of the stress phase was 55 with a blood pressure 145/61. The EKG at the peak infusion revealed no significant changes. Sestamibi was injected 20 seconds after the Lexiscan infusion. Blood pressure at the end of the recovery phase was 136/67 with a heart rate of 53 per minute. CONCLUSION: 1. No significant EKG changes with the LexiScan infusion 2. No LexiScan induced chest pain or cardiac arrhythmia 3. Normal blood pressure and heart rate response 4. Sestamibi/sestamibi perfusion scan pending; see separate report. Electronically Signed On 11-21-2020 18:58:49 CDT by Letitia Mcneil M.D. [id number]
[2020-11-20 10:49] VITALS: BMI 28.5
[2020-11-20] MEDS: regadenoson 0.4 Mg/5 ml Syringe IVP (11:58)
[2020-11-20 12:20] VITALS: BP 155/63; PULSE 53
== END 2020-11-20 09:37 | disposition home or self-care (01) ==
LOC: RAD 09:39 → CDL 10:47
PROVIDERS: PCP Emergency Medicine Emergency Medical Services; Visit Provider Internal Medicine Cardiovascular Disease
DX: I25.10 Atherosclerotic heart disease of native coronary artery without angina pectoris (principal); R06.02 Shortness of breath
CPT/HCPCS: 78452; 93017; A9500; J2785

== ENCOUNTER 2020-11-24 01:37 | Emergency (ER) | payer OTHER, SELFPAY ==
[2020-11-24 01:54] VITALS: BP 162/110; PULSE 61; RESP 20; TEMP 36.7; O2SAT 95; BMI 28.5
--- NOTE | 2020-11-24 02:09 | XRR_ITS ---
PROCEDURE INFORMATION: Exam: XR Chest Exam date and time: 11/24/2020 2:09 AM Age: 70 years old Clinical indication: Other: Upper abd pain TECHNIQUE: Imaging protocol: XR of the chest. Views: 1 view. COMPARISON: CT chest w con* [id number] 12/12/2017 8:15 AM FINDINGS: Lungs: No CHF/pulmonary edema. Poor inspiration somewhat limits evaluation, especially of the lung bases. Stable small calcified granuloma in the right lateral mid lung. Visible lungs otherwise appear essentially clear. Pleural spaces: No visible pneumothorax. No definite pleural fluid. Heart/Mediastinum: Heart size is within normal limits. Bones/joints: No significant acute finding. XR/XR chest 1V portable [id number] IMPRESSION: 1. No CHF or pneumonia. 2. Other findings discussed above.
--- NOTE | 2020-11-24 02:09 | ECG_ITS ---
[facility] Test Date: 2020-11-24 Pat Name: Enmanuel Ring Department: Room: Gender: Male K 12 Principal: : 1950 Requested By: Kiko Eugene Order Number: [id number] Capo MD: Haylie Hansen M.D. Measurements Intervals [place] Rate: 57 P: 57 SC: 165 QRS: 12 QRSD: 96 T: 42 QT: 445 QTc: 434 Interpretive Statements SINUS BRADYCARDIA Compared to ECG 09/08/2020 17:16:47 No significant changes Electronically Signed On 11-24-2020 13:05:06 CDT by Haylie Hansen M.D. [id number]
--- NOTE | 2020-11-24 02:10 | W.ED.ABDPA2 ---
Documented by User: JOSELITO Xiong 11/24/20 02:12 HPI - Abdominal Pain General: Chief Complaint: Abdominal Pain Stated Complaint: Pain In ABD Time Seen by Provider: 11/24/20 02:10 History of Present Illness: HPI narrative: Patient complains about upper abdominal pain that started couple hours ago. Went to bed at 10 woke him up about 12 with pain right in the upper abdomen area he denies shortness of breath chest pain chest pressure diaphoresis nausea or vomiting. Has had 2 seizures recently was on Keppra. Has history of 2 stents placed in 2002. Patient sugars have been doing fine they state. MD elicited complaint: abdominal pain Pertinent past history: other (Heart stents) Onset (ago): hour(s) Pain Consistency: constant Location: Epigastric Severity: severe Quality: aching and sharp Radiation: none Migration to: no migration Exacerbating factors: nothing Relieving factors: nothing Associated Symptoms: Reports no associated symptoms and heartburn; Denies chills, fever(s), nausea and vomiting Review of Systems Const: Denies: fever(s), chills or body aches Eyes: Denies: change in vision or blurry vision ENMT: Denies: throat pain or nasal congestion Card: Denies: chest pain or dyspnea on exertion Resp: Denies: dyspnea, productive cough or non-productive cough GI: Reports: abdominal pain (Upper GI pain that woke him from his sleep of an hour or 2 after going to s) and heartburn; Denies: nausea or vomiting : Denies: difficulty urinating Musc: Denies: extremity pain Skin/Breast: Denies: rash Neuro: Denies: headache(s) Psych: Denies: anxiety or depression Roland/Lymph: Denies: easy bruising PFSH ED PFSH: Medical History ASHD (arteriosclerotic heart disease) Bradycardia Central sleep apnea Cryptogenic stroke Diabetes Elevated troponin Hyperlipidemia Hypertension Surgical History History of hernia repair History of loop recorder History of loop recorder Hx of shoulder surgery Stented coronary artery Family History Other CAD (coronary artery disease) Cancer Diabetes Suicide Denies family history of Clotting disorder Dementia Chronic kidney disease (CKD) Anesthesia complication Bleeding disorder Lung disease Stroke Social History Smoking and tobacco status: current some day smoker Alcohol intake: never History of recent travel: No Physical Exam Const: COMMON NORMALS: no acute distress, average body habitus and patient oriented x3 HENMT: COMMON NORMALS: normocephalic HEAD & SCALP: normal to inspection and normocephalic FACE & SINUS: normal facial exam Eye: COMMON NORMALS: conjunctivae normal GENERAL EYE: appearance normal, both eyes and all related structures CONJUNCTIVA: Yes conjunctivae normal Neck/C-Spine: COMMON NORMALS: no JVD Chest: COMMONS NORMALS: normal inspection of the chest Resp: COMMON NORMALS: normal respiratory effort and clear to auscultation bilaterally AUSCULTATION: clear to auscultation bilaterally Cardio: COMMON NORMALS: no JVD, regular rate and regular rhythm RATE: regular rate RHYTHM: regular rhythm GI: COMMON NORMALS: Normal to inspection, nondistended, normoactive bowel sounds present PALPATION: Yes Tenderness to palpation present (GI) (Upper epigastric area) Extremity: COMMON NORMALS: normal to inspection and full ROM Neuro: COMMON NORMALS: patient oriented x3 Course Vital Signs: Vital signs: Vital Signs Temperature 98.0 F 11/24/20 05:27 Pulse Rate 64 11/24/20 05:27 Respiratory Rate 16 11/24/20 05:27 Blood Pressure 126/63 11/24/20 05:27 Pulse Oximetry 94 11/24/20 05:27 MDM - Abdominal Pain Lab Data: Labs: Lab Results 11/24/20 11/24/20 11/24/20 Range/Units 02:30 02:30 02:30 WBC 9.0 (4.0-10.0) 10^3/ uL RBC 4.31 (4.1-5.3) 10^6/u L Hgb 14.5 (11.7-16.6) g/dL Hct 42.2 (42.0-52.0) % MCV 97.9 H (80-94) fl MCH 33.6 (28.0-34.0) pg MCHC 34.4 (30.0-36.0) g/dL RDW 13.3 (12.1-15.1) % Plt Count 113 L (130-400) 10^3/c mm MPV 11.5 H (7.4-10.4) fL Neut % (Auto) 75.4 % Lymph % (Auto) 17.4 % [place] % (Auto) 5.2 % Eos % (Auto) 1.3 % Baso % (Auto) 0.4 % Neut # (Auto) 6.79 (1.8-7.7) 10^3/u L Lymph # (Auto) 1.6 (0.8-4.8) 10^3/u L [place] # (Auto) 0.5 (0.2-0.9) 10^3/u L Eos # (Auto) 0.1 (0.0-0.8) 10^3/u L Baso # (Auto) 0.0 (0.0-0.1) 10^3/u L Nucleated RBC % (a uto) 0 % Nucleated RBCs # 0.0 /100WBC Sodium 142 (136-145) mmol/L Potassium 4.1 (3.5-5.1) mmol/L Chloride 103 (98-107) mmol/L Carbon Dioxide 29 (22-29) mmol/L Anion Gap 14.1 (5-19) BUN 16 (8-23) mg/dL Creatinine 0.7 (0.7-1.2) mg/dL GFR Calculation Not Reportable Glucose 148 H (65-115) mg/dL Calculated Osmolal ity 298 H (285-295) mOsm/k g Calcium 9.0 (8.5-10.5) mg/dL Total Bilirubin 0.8 (0.15-1.2) mg/dL AST 18 (0-40) U/L ALT 22 (0-41) U/L Alkaline Phosphata se 110 (40-130) IU/L Troponin T Baselin e 10 (0-15) ng/L Total Protein 6.5 L (6.6-8.7) g/dL Albumin 4.4 (3.5-5.2) g/dL Globulin 2.1 (1.3-4.6) g/dL Urine Color (Yellow) Urine Appearance (CLEAR) Urine pH (5-7) Ur Specific Gravit y (1.005-1.030) Urine Protein (Negative) Urine Glucose (UA) (Normal) Urine Ketones (Negative) Urine Blood (Negative) Urine Nitrate (Negative) Urine Bilirubin (Negative) Urine Urobilinogen (Negative) mg/dL Ur Leukocyte Raiza ase (Negative) 11/24/20 Range/Units 02:30 WBC (4.0-10.0) 10^3/ uL RBC (4.1-5.3) 10^6/u L Hgb (11.7-16.6) g/dL Hct (42.0-52.0) % MCV (80-94) fl MCH (28.0-34.0) pg MCHC (30.0-36.0) g/dL RDW (12.1-15.1) % Plt Count (130-400) 10^3/c mm MPV (7.4-10.4) fL Neut % (Auto) % Lymph % (Auto) % [place] % (Auto) % Eos % (Auto) % Baso % (Auto) % Neut # (Auto) (1.8-7.7) 10^3/u L Lymph # (Auto) (0.8-4.8) 10^3/u L [place] # (Auto) (0.2-0.9) 10^3/u L Eos # (Auto) (0.0-0.8) 10^3/u L Baso # (Auto) (0.0-0.1) 10^3/u L Nucleated RBC % (a uto) % Nucleated RBCs # /100WBC Sodium (136-145) mmol/L Potassium (3.5-5.1) mmol/L Chloride (98-107) mmol/L Carbon Dioxide (22-29) mmol/L Anion Gap (5-19) BUN (8-23) mg/dL Creatinine (0.7-1.2) mg/dL GFR Calculation Glucose (65-115) mg/dL Calculated Osmolal ity (285-295) mOsm/k g Calcium (8.5-10.5) mg/dL Total Bilirubin (0.15-1.2) mg/dL AST (0-40) U/L ALT (0-41) U/L Alkaline Phosphata se (40-130) IU/L Troponin T Baselin e (0-15) ng/L Total Protein (6.6-8.7) g/dL Albumin (3.5-5.2) g/dL Globulin (1.3-4.6) g/dL Urine Color Yellow (Yellow) Urine Appearance Clear (CLEAR) Urine pH 7 (5-7) Ur Specific Gravit y 1.010 (1.005-1.030) Urine Protein Neg (Negative) Urine Glucose (UA) Norm (Normal) Urine Ketones Negative (Negative) Urine Blood Neg (Negative) Urine Nitrate Negative (Negative) Urine Bilirubin Neg (Negative) Urine Urobilinogen Norm (Negative) mg/dL Ur Leukocyte Raiza ase Negative (Negative) Discharge Plan Discharge Patient Disposition: Home Clinical Impression: Gastritis Qualifiers: Gastritis type: unspecified gastritis Chronicity: acute Gastritis bleeding: without bleeding Qualified Code(s): K29.00 - Acute gastritis without bleeding Condition: Stable Prescriptions: New Prevacid 30 mg capsule,delayed release(DR/EC) 30 mg PO DAILY Qty: 30 RF: 1 Carafate 1 gram tablet 1 g PO Q6H 28 Days Qty: 112 RF: 0 No Action sennosides 8.6 mg tablet 8.6 mg PO DAILY RF: 0 cholecalciferol (vitamin D3) 125 mcg (5,000 unit) capsule 125 mcg PO DAILY RF: 0 aspirin [Adult Low Dose Aspirin] 81 mg tablet,delayed release (DR/EC) 81 mg PO DAILY RF: 0 multivitamin Tablet 1 tab PO DAILY RF: 0 atenolol 25 mg tablet 25 mg PO QAM RF: 0 folic acid 1 mg tablet 1 mg PO QAM RF: 0 allopurinol 300 mg tablet 300 mg PO DAILY RF: 0 amlodipine 10 mg tablet 10 mg PO DAILY RF: 0 glipizide 5 mg tablet 2.5 mg PO QAM RF: 0 simvastatin 20 mg tablet 20 mg PO DAILY RF: 0 lisinopril 40 mg tablet 20 mg PO DAILY RF: 0 levetiracetam 750 mg tablet 375 mg PO BID RF: 0 citalopram 20 mg tablet 20 mg PO DAILY Qty: 30 RF: 3 turmeric 400 mg Capsule 400 mg PO DAILY RF: 0 Discharge Orders: Discharge ED (Routine); Ordered 11/24/20 Ordered By: Rolando Bautista Referrals: Tom Carreon MD [Physician] - 2 weeks Stefanie,Pietro D, DO [Primary Care Provider] - Patient Instructions: Gastritis (ED) Activity Restrictions/Additional Instructions: Return for return of or worsening pain, vomiting liquids or medications, fever greater than 100, shortness of breath, any other concerning symptoms. Medications as directed. Use the sucralfate 30 minutes at least prior to meals. Coding Level of Care Code ED Farm Operations Technical Director for Chg Fwd Exam Comprehensive Documented by User: Rolando Bautista DO 11/24/20 05:39 HPI - Abdominal Pain General: Chief Complaint: Abdominal Pain Stated Complaint: Pain In ABD Time Seen by Provider: 11/24/20 02:10 PFSH ED PFSH: Medical History ASHD (arteriosclerotic heart disease) Bradycardia Central sleep apnea Cryptogenic stroke Diabetes Elevated troponin Hyperlipidemia Hypertension Surgical History History of hernia repair History of loop recorder History of loop recorder Hx of shoulder surgery Stented coronary artery Family History Other CAD (coronary artery disease) Cancer Diabetes Suicide Denies family history of Clotting disorder Dementia Chronic kidney disease (CKD) Anesthesia complication Bleeding disorder Lung disease Stroke Social History Smoking and tobacco status: current some day smoker Alcohol intake: never History of recent travel: No Course Vital Signs: Vital signs: Vital Signs Temperature 98.0 F 11/24/20 05:27 Pulse Rate 64 11/24/20 05:27 Respiratory Rate 16 11/24/20 05:27 Blood Pressure 126/63 11/24/20 05:27 Pulse Oximetry 94 11/24/20 05:27 MDM - Abdominal Pain MDM Narrative: Medical decision making narrative: 70-year-old male originally seen by JOSELITO [place]. I agree with his history, evaluation, and treatment. This gentleman presents with epigastric that woke him from sleep. It radiated up into the lower chest to some degree. He is not short of breath. He does not have a fever. His white blood cell count is 9. His platelet count is 113, but I believe he has a history of thrombocytopenia. CMP is not remarkable. Troponin is normal, and this patient had a stress test last week which he passed. His EKG showed a sinus bradycardia with a normal axis and no acute ST changes. CT of the abdomen and pelvis shows cholelithiasis. It also shows thickening of the gastric wall likely due to gastritis and some mild esophagitis. We will treat this. We will have him follow-up with surgery as an outpatient in case further testing is needed such as EGD, HIDA scan, etc. Lab Data: Labs: Lab Results 11/24/20 11/24/20 11/24/20 Range/Units 02:30 02:30 02:30 WBC 9.0 (4.0-10.0) 10^3/ uL RBC 4.31 (4.1-5.3) 10^6/u L Hgb 14.5 (11.7-16.6) g/dL Hct 42.2 (42.0-52.0) % MCV 97.9 H (80-94) fl MCH 33.6 (28.0-34.0) pg MCHC 34.4 (30.0-36.0) g/dL RDW 13.3 (12.1-15.1) % Plt Count 113 L (130-400) 10^3/c mm MPV 11.5 H (7.4-10.4) fL Neut % (Auto) 75.4 % Lymph % (Auto) 17.4 % [place] % (Auto) 5.2 % Eos % (Auto) 1.3 % Baso % (Auto) 0.4 % Neut # (Auto) 6.79 (1.8-7.7) 10^3/u L Lymph # (Auto) 1.6 (0.8-4.8) 10^3/u L [place] # (Auto) 0.5 (0.2-0.9) 10^3/u L Eos # (Auto) 0.1 (0.0-0.8) 10^3/u L Baso # (Auto) 0.0 (0.0-0.1) 10^3/u L Nucleated RBC % (a uto) 0 % Nucleated RBCs # 0.0 /100WBC Sodium 142 (136-145) mmol/L Potassium 4.1 (3.5-5.1) mmol/L Chloride 103 (98-107) mmol/L Carbon Dioxide 29 (22-29) mmol/L Anion Gap 14.1 (5-19) BUN 16 (8-23) mg/dL Creatinine 0.7 (0.7-1.2) mg/dL GFR Calculation Not Reportable Glucose 148 H (65-115) mg/dL Calculated Osmolal ity 298 H (285-295) mOsm/k g Calcium 9.0 (8.5-10.5) mg/dL Total Bilirubin 0.8 (0.15-1.2) mg/dL AST 18 (0-40) U/L ALT 22 (0-41) U/L Alkaline Phosphata se 110 (40-130) IU/L Troponin T Baselin e 10 (0-15) ng/L Total Protein 6.5 L (6.6-8.7) g/dL Albumin 4.4 (3.5-5.2) g/dL Globulin 2.1 (1.3-4.6) g/dL Urine Color (Yellow) Urine Appearance (CLEAR) Urine pH (5-7) Ur Specific Gravit y (1.005-1.030) Urine Protein (Negative) Urine Glucose (UA) (Normal) Urine Ketones (Negative) Urine Blood (Negative) Urine Nitrate (Negative) Urine Bilirubin (Negative) Urine Urobilinogen (Negative) mg/dL Ur Leukocyte Raiza ase (Negative) 11/24/20 Range/Units 02:30 WBC (4.0-10.0) 10^3/ uL RBC (4.1-5.3) 10^6/u L Hgb (11.7-16.6) g/dL Hct (42.0-52.0) % MCV (80-94) fl MCH (28.0-34.0) pg MCHC (30.0-36.0) g/dL RDW (12.1-15.1) % Plt Count (130-400) 10^3/c mm MPV (7.4-10.4) fL Neut % (Auto) % Lymph % (Auto) % [place] % (Auto) % Eos % (Auto) % Baso % (Auto) % Neut # (Auto) (1.8-7.7) 10^3/u L Lymph # (Auto) (0.8-4.8) 10^3/u L [place] # (Auto) (0.2-0.9) 10^3/u L Eos # (Auto) (0.0-0.8) 10^3/u L Baso # (Auto) (0.0-0.1) 10^3/u L Nucleated RBC % (a uto) % Nucleated RBCs # /100WBC Sodium (136-145) mmol/L Potassium (3.5-5.1) mmol/L Chloride (98-107) mmol/L Carbon Dioxide (22-29) mmol/L Anion Gap (5-19) BUN (8-23) mg/dL Creatinine (0.7-1.2) mg/dL GFR Calculation Glucose (65-115) mg/dL Calculated Osmolal ity (285-295) mOsm/k g Calcium (8.5-10.5) mg/dL Total Bilirubin (0.15-1.2) mg/dL AST (0-40) U/L ALT (0-41) U/L Alkaline Phosphata se (40-130) IU/L Troponin T Baselin e (0-15) ng/L Total Protein (6.6-8.7) g/dL Albumin (3.5-5.2) g/dL Globulin (1.3-4.6) g/dL Urine Color Yellow (Yellow) Urine Appearance Clear (CLEAR) Urine pH 7 (5-7) Ur Specific Gravit y 1.010 (1.005-1.030) Urine Protein Neg (Negative) Urine Glucose (UA) Norm (Normal) Urine Ketones Negative (Negative) Urine Blood Neg (Negative) Urine Nitrate Negative (Negative) Urine Bilirubin Neg (Negative) Urine Urobilinogen Norm (Negative) mg/dL Ur Leukocyte Raiza ase Negative (Negative) Discharge Plan Discharge Patient Disposition: Home Clinical Impression: Gastritis Qualifiers: Gastritis type: unspecified gastritis Chronicity: acute Gastritis bleeding: without bleeding Qualified Code(s): K29.00 - Acute gastritis without bleeding Condition: Stable Prescriptions: New Prevacid 30 mg capsule,delayed release(DR/EC) 30 mg PO DAILY Qty: 30 RF: 1 Carafate 1 gram tablet 1 g PO Q6H 28 Days Qty: 112 RF: 0 No Action sennosides 8.6 mg tablet 8.6 mg PO DAILY RF: 0 cholecalciferol (vitamin D3) 125 mcg (5,000 unit) capsule 125 mcg PO DAILY RF: 0 aspirin [Adult Low Dose Aspirin] 81 mg tablet,delayed release (DR/EC) 81 mg PO DAILY RF: 0 multivitamin Tablet 1 tab PO DAILY RF: 0 atenolol 25 mg tablet 25 mg PO QAM RF: 0 folic acid 1 mg tablet 1 mg PO QAM RF: 0 allopurinol 300 mg tablet 300 mg PO DAILY RF: 0 amlodipine 10 mg tablet 10 mg PO DAILY RF: 0 glipizide 5 mg tablet 2.5 mg PO QAM RF: 0 simvastatin 20 mg tablet 20 mg PO DAILY RF: 0 lisinopril 40 mg tablet 20 mg PO DAILY RF: 0 levetiracetam 750 mg tablet 375 mg PO BID RF: 0 citalopram 20 mg tablet 20 mg PO DAILY Qty: 30 RF: 3 turmeric 400 mg Capsule 400 mg PO DAILY RF: 0 Discharge Orders: Discharge ED (Routine); Ordered 11/24/20 Ordered By: Rolando Bautista Referrals: Tom Carreon MD [Physician] - 2 weeks Pietro Watts DO [Primary Care Provider] - Patient Instructions: Gastritis (ED) Activity Restrictions/Additional Instructions: Return for return of or worsening pain, vomiting liquids or medications, fever greater than 100, shortness of breath, any other concerning symptoms. Medications as directed. Use the sucralfate 30 minutes at least prior to meals. Coding Level of Care Code ED Farm Operations Technical Director for Chg Fwd Exam Comprehensive
[2020-11-24] MEDS: lidocaine 2% viscous 15 ML, aluminum-mag hydrox-simethicon 30 ML, sucralfate oral liq 1 GM PO (02:22)
[2020-11-24] MEDS: ondansetron 2 mg/ML SDV 2 mL 4 MG IVP (02:23)
[2020-11-24] MEDS: morphine 4 mg/mL SDV 1 mL IVP (02:23)
[2020-11-24] MEDS: sodium chloride 0.9% 1,000 ML 999 ML IV (02:23)
--- NOTE | 2020-11-24 02:36 | PC.NURSE ---
advised pt we need UA and provided him with urinal. pt states he will try to void soon. states he just went INTERLOCKER
[2020-11-24 02:49] LABS: Basophils % 0.4 %; Eosinophils # 0.1 10^3/uL (0.0-0.8); Eosinophils % 1.3 %; Hematocrit 42.2 % (42.0-52.0); Hemoglobin 14.5 g/dL (11.7-16.6); Lymphocytes # 1.6 10^3/uL (0.8-4.8); Lymphocytes % 17.4 %; Mean Corpuscular HGB Conc 34.4 g/dL (30.0-36.0); Mean Corpuscular Hemoglobin 33.6 pg (28.0-34.0); Mean Corpuscular Volume 97.9 fl (80-94); Mean Platelet Volume 11.5 fL (7.4-10.4); Monocytes # 0.5 10^3/uL (0.2-0.9); Monocytes % 5.2 %; Neutrophils # 6.79 10^3/uL (1.8-7.7); Neutrophils % 75.4 %; Nucleated Red Blood Cells % 0 %; Platelet Count 113 10^3/cmm (130-400); Red Blood Count 4.31 10^6/uL (4.1-5.3); Red Cell Distribution Width 13.3 % (12.1-15.1)
[2020-11-24 03:07] LABS: Troponin(5th) Baseline 10 ng/L (0-15)
[2020-11-24 03:09] LABS: Alanine Aminotransferase 22 U/L (0-41); Albumin Level 4.4 g/dL (3.5-5.2); Alkaline Phosphatase 110 IU/L (40-130); Anion Gap 14.1 (5-19); Aspartate Amino Transferase 18 U/L (0-40); Blood Urea Nitrogen 16 mg/dL (8-23); Carbon Dioxide 29 mmol/L (22-29); Chloride 103 mmol/L (98-107); Globulin 2.1 g/dL (1.3-4.6); Glucose 148 mg/dL (65-115); Osmolality Calculated 298 mOsm/kg (285-295); Potassium 4.1 mmol/L (3.5-5.1); Sodium 142 mmol/L (136-145); Total Bilirubin 0.8 mg/dL (0.15-1.2); Total Protein 6.5 g/dL (6.6-8.7)
[2020-11-24 03:47] LABS: Add Urine Microscopic? NO; Charge for UA Resulting for Rev
--- NOTE | 2020-11-24 03:52 | CTR_ITS ---
PROCEDURE INFORMATION: Exam: CT Abdomen And Pelvis With Contrast Exam date and time: 11/24/2020 3:52 AM Age: 70 years old Clinical indication: Abdominal pain; Epigastric; Prior surgery; Surgery date: 6+ months; Surgery type: Hernia; Additional info: Epigastric pain TECHNIQUE: Imaging protocol: Computed tomography of the abdomen and pelvis with contrast. Radiation optimization: All CT scans at this facility use at least one of these dose optimization techniques: automated exposure control; mA and/or kV adjustment per patient size (includes targeted exams where dose is matched to clinical indication); or iterative reconstruction. Contrast material: VISI; Contrast volume: 95 ml; Contrast route: INTRAVENOUS (IV); COMPARISON: CT chest w con* [id number] 12/12/2017 8:15 AM RADIATION DOSE METRICS: Total DLP (mGy-cm): 1882.68 FINDINGS: Lungs: The lung bases are clear. Mediastinal space: There may be some mucosal/wall thickening involving the lower esophagus. This is nonspecific, but could represent evidence for esophagitis. Neoplasm not entirely excluded. Please correlate clinically. Liver: There is mild periportal edema in the liver. This is a nonspecific finding, that can be seen in hepatitis and other hepatic abnormalities. It can also be a nonsignificant finding, sometimes seen in overhydration. Please correlate clinically. Gallbladder and bile ducts: Suspect a few small faintly calcified gallstones within the gallbladder, difficult to be completely certain. Ultrasound would be more specific/sensitive for detecting gallstones, if clinically needed. Possible mild gallbladder wall thickening. No definite pericholecystic inflammation or fluid. No biliary tree dilation. Pancreas: Unremarkable. Spleen: Unremarkable. Adrenal glands: Unremarkable. Kidneys and ureters: Mild perinephric stranding bilaterally. This is a nonspecific appearance and could well be chronic. Possibility of pyelonephritis is not entirely excluded, please correlate clinically. No hydronephrosis of either kidney. No visible ureteral calculus. Likely benign renal cysts bilaterally, largest in the right lower pole measures up 5 cm. The kidneys otherwise enhance homogeneously. Stomach and bowel: Possibility of slightly thickened mucosa/wall in the distal antrum of the stomach. This is a nonspecific appearance, and could be transient on CT, but could also represent evidence for gastritis or peptic ulcer disease. Please correlate clinically. There is diverticulosis involving the sigmoid and descending colon, without CT evidence of diverticulitis. Appendix: The appendix is visualized and appears normal. Intraperitoneal space: No free air, ascites, or significant bowel distention. Vasculature: No evidence for abdominal aortic aneurysm. Lymph nodes: No retroperitoneal adenopathy. Urinary bladder: There appears to be mild diffuse urinary bladder wall thickening. This may be related to the prostate enlargement. While nonspecific, this could also indicate evidence for cystitis. Please correlate clinically. Reproductive: Prominent prostate enlargement with transverse diameter of 7.0 cm. Correlation with PSA levels may be useful to help exclude prostate malignancy. Bones/joints: Moderate degenerative disc changes and facet joint arthritis in the lumbar spine. Soft tissues: No significant acute finding. CT/CT abdomen pelvis w con* [id number] IMPRESSION: 1. Suspected cholelithiasis, see additional details above. 2. Normal appendix. 3. Possible thickened mucosa/wall in the distal stomach, see above discussion. 4. Mild periportal edema in the liver, see above. 5. No free air or significant bowel distention. 6. Mild perinephric stranding bilaterally, see above discussion. No hydronephrosis of either kidney. No visible ureteral calculus. 7. Prostate enlargement and urinary bladder wall thickening, see above. 8. Possibly some thickening of the lower esophagus, see above discussion. 9. Other findings discussed above. COMMENTS: Consistent with the [employer]'s Incidental Findings Committee white paper (J Am Krishan Radiol 2018): Any incidental renal lesion less than 1 cm or classified as too small to characterize, or any incidental cystic renal lesion characterized as simple-appearing, is likely benign. No follow-up imaging is recommended for these lesions per consensus recommendations based on imaging criteria. Radiation Dose CTDIVOL = (mGy): DLP = 1882.68 (mGy-cm)
[2020-11-24 03:53] LABS: Bilirubin Urine Neg (Negative); Blood Urine Neg (Negative); Glucose Urine UA Norm (Normal); Ketones Urine Negative (Negative); Leukocyte Esterase Urine Negative (Negative); Nitrate Urine Negative (Negative); Protein Urine Neg (Negative); Urine Appearance Clear (CLEAR); Urine Color Yellow (Yellow); Urobilinogen Urine Norm (Negative); pH Urine 7 (5-7)
[2020-11-24] MEDS: iodixanol 320 mg/mL 100mL Btl IV (04:16)
[2020-11-24 05:27] VITALS: BP 126/63; PULSE 64; RESP 16; TEMP 36.7; O2SAT 94
[2020-11-24 06:08] LABS: Troponin 5 2HR 9.36 ng/L (0-15)
[2020-11-24 06:09] LABS: Troponin 5 2HR Delta -0.64 ABS# (0-10)
[2020-11-24 06:15] LABS: INR 1.08 (0.8-1.2)
== END 2020-11-24 05:28 | disposition home or self-care (01) ==
PROVIDERS: Nurse Practitioner Family; Emergency Provider Emergency Medicine; PCP Emergency Medicine Emergency Medical Services
DX: K29.00 Acute gastritis without bleeding (principal); K80.20 Calculus of gallbladder without cholecystitis without obstruction; E78.5 Hyperlipidemia, unspecified; I10 Essential (primary) hypertension; I25.10 Atherosclerotic heart disease of native coronary artery without angina pectoris; F17.200 Nicotine dependence, unspecified, uncomplicated; Z95.5 Presence of coronary angioplasty implant and graft
CPT/HCPCS: 36415; 71045; 74177; 80053; 81003; 84484; 85025; 85610; 93005; 96361; 96374; 96375; 99284; J2270; J2405; J7030; Q9967

== ENCOUNTER → 2020-12-10 12:40 | Outpatient (BNVA) | payer OTHER, SELFPAY | PROVIDERS: PCP Emergency Medicine Emergency Medical Services; Visit Provider Specialist | DX: R56.9 Unspecified convulsions (principal) | CPT/HCPCS: 99213 ==

== ENCOUNTER → 2021-01-26 11:33 | Outpatient (BNVA) | payer OTHER, SELFPAY | PROVIDERS: PCP Emergency Medicine Emergency Medical Services; Visit Provider Internal Medicine Cardiovascular Disease | DX: R06.02 Shortness of breath (principal); I25.10 Atherosclerotic heart disease of native coronary artery without angina pectoris | CPT/HCPCS: 85025 ==

== ENCOUNTER 2021-01-28 11:27 | Outpatient (CLI) | payer OTHER, SELFPAY ==
[2021-01-28 11:52] VITALS: BP 139/69; PULSE 48; RESP 16; TEMP 36.6; O2SAT 97; BMI 27.4
--- NOTE | 2021-01-28 12:47 | W.PM.OPSUD ---
Surgery/Procedure H&P Update DATE OF PROCEDURE: January 28, 2021 DATE H&P PERFORMED: 01/26/21 H&P UPDATE INFORMATION: I have reviewed H&P completed within last 30 days, I have examined patient prior to procedure, No changes to prior documentation, Changes to prior documentation as noted here and H&P to be scanned into chart PLANNED PROCEDURE: Operation Date: 01/28/21 12:00 Proposed Procedures p Loop Recorder Removal(Left) - Letitia Mcneil MD
--- NOTE | 2021-01-28 12:49 | P.OP_ITS ---
Operative Report Date of procedure: January 28, 2021 Procedure: LOCATION: [facility] REFERRING PROVIDER: Dr. Mcneil PREOPERATIVE DIAGNOSIS: Recurrent syncope. POSTOPERATIVE DIAGNOSIS: same ESTIMATED BLOOD LOSS: None COMPLICATIONS: None. BRIEF HISTORY: This is a 70-year-old white male with a history of recurrent syncope, had an ICM placement on 11/18/2017. This patient had no significant arrhythmias so far to explain the syncope. Device has reached end-of-life. So it was decided to explant the device PROCEDURE: The procedure was explained to the patient in detail with the risks and benefits. The patient understood this well and consented to proceed. The patient was brought to the [facility]. The left side of the neck and the precordial region were cleaned and draped in a sterile fashion. 1% Xylocaine was used as local anesthetic agent. A 1/3 inch long incision was made at the previous implantation scar. By sharp and blunt dissection, the residential monitor pocket was accessed. The device was delivered from the pocket. Complete he mostasis was achieved. The wound was approximated with a 3-0 absorbable suture. The Steri-Strips were applied over the skin. Complete hemostasis achieved EXPLANTED DEVICE: Reveal LINQ Model number: [id number] Serial number: [id number] Make: ConteXtream Pressure dressing was applied over the insertion site. The patient tolerated the procedure well. No complications.
[2021-01-28] MEDS: cephALEXin 500 mg Capsule 2000 MG PO (13:23)
[2021-01-28 13:28] VITALS: BP 133/70; PULSE 50; RESP 16; O2SAT 98
--- NOTE | 2021-01-28 13:29 | PC.NURSE ---
Loop recorder removal Loop recorder removed using sterile technique per Dr Mcneil. One suture placed in L upper chest after recorder removed. Pressure held and site steri-striped. No bleeding noted. Pt given discharge instructions and PO abx per Dr Mcneil orders. Walked pt and to front entrance and discharged from hospital via private vehicle.
== END 2021-01-28 11:28 | disposition home or self-care (01) ==
PROVIDERS: PCP Emergency Medicine Emergency Medical Services; Visit Provider Internal Medicine Cardiovascular Disease
PROC: (CPT 33286; principal; 2021-01-28 12:00)
DX: R55 Syncope and collapse (principal)
CPT/HCPCS: 33286; C1769

== ENCOUNTER → 2021-02-05 10:45 | Outpatient (BNVA) | payer OTHER, SELFPAY | PROVIDERS: PCP Emergency Medicine Emergency Medical Services | DX: K20.90 Esophagitis, unspecified without bleeding (principal); Z20.822 Contact with and (suspected) exposure to COVID-19 | CPT/HCPCS: 87635 ==

== ENCOUNTER 2021-02-11 06:45 | Day surgery (SDC) | payer OTHER, SELFPAY ==
[2021-02-09 11:54] VITALS: BMI 27.0
--- NOTE | 2021-02-11 06:58 | P.HP_ITS ---
Same Day Surgery H&P Indication for Procedure/HPI DATE OF PROCEDURE: February 11, 2021 CHIEF COMPLAINT/INDICATIONFOR SURGICAL PROCEDURE: Epigastric discomfort PREOP DIAGNOSIS: Epigastric pain PLANNED PROCEDRUE: Operation Date: 02/11/21 08:00 Proposed Procedures p EGD 75608 K20.90(Not Applicable) - Liam Vazquez MD 12/25/2020 This is a pleasant 70 years old gentleman recently was evaluated at the emergency department because of epigastric discomfort. Patient undergone a CT scan of the abdomen and pelvis. And findings shown below; 1. Suspected cholelithiasis, see additional details above. 2. Normal appendix. 3. Possible thickened mucosa/wall in the distal stomach, see above discussion. 4. Mild periportal edema in the liver, see above. 5. No free air or significant bowel distention. 6. Mild perinephric stranding bilaterally, see above discussion. No hydronephrosis of either kidney. No visible ureteral calculus. 7. Prostate enlargement and urinary bladder wall thickening, see above. 8. Possibly some thickening of the lower esophagus, see above discussion. Patient denies history of fatty dyspepsia or symptoms related to the incidental finding of the cholelithiasis. Yet because of the epigastric pain in the presence of esophagitis findings on the CT scan in addition to gastritis. But most importantly it was stated on the CT scan that neoplasm not entirely excluded on the comment of esophagitis, subsequently the patient is referred to me for EGD evaluation. Interim history 02/11/2021. Patient comes today for diagnostic EGD ROS All systems have been reviewed negative except as per the above or per problem list Medications/Allergies* Home Medications Medication Instructions Recorded Confirmed Type allopurinol 300 mg tablet 300 mg PO DAILY 11/06/19 02/09/21 History amlodipine 10 mg tablet 10 mg PO DAILY 11/06/19 02/09/21 History aspirin 81 mg tablet,delayed 81 mg PO DAILY 11/06/19 02/09/21 History release atenolol 25 mg tablet 25 mg PO QAM 11/06/19 02/09/21 History folic acid 1 mg tablet 1 mg PO QAM 11/06/19 02/09/21 History glipizide 5 mg tablet 2.5 mg PO QAM 11/06/19 02/09/21 History lisinopril 40 mg tablet 20 mg PO DAILY 11/06/19 02/09/21 History multivitamin 1 tab PO DAILY 11/06/19 02/09/21 History simvastatin 20 mg tablet 20 mg PO DAILY 11/06/19 02/09/21 History turmeric 400 mg PO DAILY 09/08/20 02/09/21 History cholecalciferol (vitamin D3) 125 125 mcg PO DAILY 10/02/20 02/09/21 History mcg (5,000 unit) capsule sennosides 8.6 mg tablet 8.6 mg PO DAILY 10/02/20 02/09/21 History Georgian Amarilis 2 tab PO BID 02/11/21 History Allergies/Adverse Reactions Allergy/AdvReac Type Severity Reaction Status Date / Time No Known Allergies Allergy Verified 01/26/21 08:18 Pertinent History/Comorbid Conditions* Medical History (Updated 01/26/21 @ 11:32 by Letitia Mcneil MD) ASHD (arteriosclerotic heart disease) Bradycardia Central sleep apnea Cryptogenic stroke Diabetes Elevated troponin Hyperlipidemia Hypertension Surgical History (Updated 11/06/19 @ 11:55 by Letitia Mcneil MD) History of hernia repair History of loop recorder History of loop recorder Hx of shoulder surgery Stented coronary artery Family History (Updated 10/27/20 @ 10:17 by Nina Ashley RN) Diabetes CAD (coronary artery disease) Suicide Cancer Denies family history of Clotting disorder Dementia Chronic kidney disease (CKD) Anesthesia complication Bleeding disorder Lung disease Stroke Social History Alcohol intake: never History of recent travel: No Pertinent Exam Findings alert, oriented x 3, regular rate & rhythm and procedure specific exam findings Recommendations Surgery/Procedure today (Diagnostic EGD) Other Plans: Plan of care; After thorough history and physical examination and reviewing the chart, plan to perform a diagnostic esophagogastroduodenoscopy with possible biopsy in the GI lab. I discussed with the patient in detail the risk,benefits,alternatives and indications.The risk of aspiration, bleeding, soft tissue injury, perforation of the stomach/esophagus and other potential concomitant complications were explained to the patient in details,aslo the potential need for Thoracic and or Abdominal surgery to repair any complications.The patient understood this well and did agree to proceed. Rationale was carefully and clearly discussed with the patient.Appropriate informed consent have been reviewed and signed All questions have been answered and all concerns have been addressed to patient's satisfaction. Coding Level of Care Code Acute Senior Chemical Engineer for Noa Abdi
--- NOTE | 2021-02-11 06:59 | ANES.PREANE2 ---
Pre-Anesthetic Assessment Pre-Anesthetic Assessment: Height/Weight: Height 1.85 m Weight 92.986 kg Preop Diagnosis: Epigastric pain Proposed Procedure: Operation Date: 02/11/21 08:00 Proposed Procedures p EGD 12367 K20.90(Not Applicable) - Liam Vazquez MD Familial anesthetic complications: none Was Beta Otis taken within 24 hours: Yes Was Clonidine taken within 24 hours: N/A Last intake: > 8hrs Social: Social History: Tobacco and No alcohol Exam: Pre-Anes Outpt Exam: alert, oriented x 3, clear to auscultation bilaterally and regular rate & rhythm Airway: Cervical ROM: WNL MP: 3 Dentition: Full Pulmonary: Pulmonary: Sleep apnea CV/HEM: CV/HEM: CAD (2 stents (2002)), HTN and MD (2002) Comments: loop recorder removed - HR was low, usually runs 48 to 50s Able to achieve 4 METS GI: Comments: esophagitis Metabolic: Metabolic: DM Neuropsych: Neuropsych: Seizure (last one october 15 - epilepsy) Anesthetic Plan: ASA status: 3 Anesthesia: MAC PFSH Anesthesia PFSH: Medical History ASHD (arteriosclerotic heart disease) Bradycardia Central sleep apnea Cryptogenic stroke Diabetes Elevated troponin Hyperlipidemia Hypertension Surgical History History of hernia repair History of loop recorder History of loop recorder Hx of shoulder surgery Stented coronary artery Family History Other CAD (coronary artery disease) Cancer Diabetes Suicide Denies family history of Clotting disorder Dementia Chronic kidney disease (CKD) Anesthesia complication Bleeding disorder Lung disease Stroke Social History Alcohol intake: never History of recent travel: No Data Anesthesia Cardiac Studies: No Data to Display
[2021-02-11 07:20] VITALS: BP 121/68; PULSE 45; RESP 18; TEMP 36.5; O2SAT 100
[2021-02-11] MEDS: sodium chloride 0.9% 1,000 ML 30 ML IV (07:56)
[2021-02-11 08:48] VITALS: BP 103/57; PULSE 49; RESP 16; TEMP 36.2; O2SAT 90
[2021-02-11 09:02] VITALS: BP 108/60; PULSE 43; RESP 16; O2SAT 92
--- NOTE | 2021-02-11 15:37 | ANE.PACU2 ---
Inpatient post-anesthesia follow up: Airway intact: Yes Vital signs: Temperature 97.2 F Pulse Rate 43 Respiratory Rate 16 Blood Pressure 108/60 Pulse Oximetry 92 Oxygen Delivery Me thod Room Air Oxygen Flow Rate Fraction of Inspir ed Oxygen Hydration adequate: Yes Nausea and vomiting: No Pain level: 1 Mental status: Baseline
[2021-02-18 12:32] LABS: Glucose Point of Care 97 mg/dL (70-110)
== END 2021-02-11 09:20 | disposition home or self-care (01) ==
PROVIDERS: PCP Emergency Medicine Emergency Medical Services; Visit Provider Surgery
PROC: 0DJ08ZZ Inspection of Upper Intestinal Tract, Via Natural or Artificial Opening Endoscopic (ICD-10-PCS; CPT 43235; principal; 2021-02-11 08:00)
DX: R93.5 Abnormal findings on diagnostic imaging of other abdominal regions, including retroperitoneum (principal); R11.0 Nausea; K21.00 Gastro-esophageal reflux disease with esophagitis, without bleeding; K29.80 Duodenitis without bleeding; K29.50 Unspecified chronic gastritis without bleeding; I25.10 Atherosclerotic heart disease of native coronary artery without angina pectoris; I10 Essential (primary) hypertension; E11.9 Type 2 diabetes mellitus without complications; G40.909 Epilepsy, unspecified, not intractable, without status epilepticus; G47.31 Primary central sleep apnea; E78.5 Hyperlipidemia, unspecified; Z95.5 Presence of coronary angioplasty implant and graft; I25.2 Old myocardial infarction
CPT/HCPCS: 36416; 43239; 82962; 88305; 96360; J2704; J7030

== ENCOUNTER 2021-06-05 18:08 | Emergency (ER) | payer OTHER, MEDICARE, SELFPAY ==
[2021-06-05 18:19] VITALS: BP 156/86; PULSE 53; RESP 16; TEMP 36.7; O2SAT 95; BMI 28.5
--- NOTE | 2021-06-05 18:31 | CTR_ITS ---
PROCEDURE INFORMATION: Exam: CT Angiography Head With Contrast, Arteriography Exam date and time: 06/05/2021 6:31 PM Age: 71 years old Clinical indication: Patient HX: C/O R sided weakness since fall 06/02 TECHNIQUE: Imaging protocol: Computed tomography angiography of the head with contrast. Exam focused on the arteries. 3D rendering (Not supervised by radiologist): MIP and/or 3D reconstructed images were created by the technologist. Radiation optimization: All CT scans at this facility use at least one of these dose optimization techniques: automated exposure control; mA and/or kV adjustment per patient size (includes targeted exams where dose is matched to clinical indication); or iterative reconstruction. Contrast material: VISI 320; Contrast volume: 90 ml; Contrast route: INTRAVENOUS (IV); COMPARISON: CT head wo con* [id number] 06/05/2021 8:13 PM RADIATION DOSE METRICS: Total DLP (mGy-cm): 2422.37 FINDINGS: ANTERIOR CIRCULATION: Right internal carotid artery: Unremarkable. Intracranial segment is patent with no significant stenosis. No aneurysm. Right middle cerebral artery: Unremarkable. No occlusion or significant stenosis. No aneurysm. Right anterior cerebral artery: Unremarkable. No occlusion or significant stenosis. No aneurysm. Left internal carotid artery: Unremarkable. Intracranial segment is patent with no significant stenosis. No aneurysm. Left middle cerebral artery: Unremarkable. No occlusion or significant stenosis. No aneurysm. Left anterior cerebral artery: There is a possible occlusion in the distal A3 segment area of the left anterior cerebral artery. POSTERIOR CIRCULATION: Right vertebral artery: Unremarkable. No occlusion or significant stenosis. No aneurysm. Left vertebral artery: Unremarkable. No occlusion or significant stenosis. No aneurysm. Basilar artery: Unremarkable. No occlusion or significant stenosis. No aneurysm. Right posterior cerebral artery: Unremarkable. No occlusion or significant stenosis. No aneurysm. Left posterior cerebral artery: Unremarkable. No occlusion or significant stenosis. No aneurysm. Brain: No definite mass, mass effect, or midline shift. Cerebral ventricles: No ventriculomegaly. Bones/joints: Unremarkable. No acute fracture. Soft tissues: Unremarkable. PROCEDURE INFORMATION: Exam: CT Angiography Neck With Contrast Exam date and time: 06/05/2021 6:31 PM Age: 71 years old Clinical indication: Patient HX: C/O R sided weakness since fall 06/02 TECHNIQUE: Imaging protocol: Computed tomography angiography of the neck with contrast. 3D rendering (Not supervised by radiologist): MIP and/or 3D reconstructed images were created by the technologist. Radiation optimization: All CT scans at this facility use at least one of these dose optimization techniques: automated exposure control; mA and/or kV adjustment per patient size (includes targeted exams where dose is matched to clinical indication); or iterative reconstruction. Contrast material: VISI 320; Contrast volume: 90 ml; Contrast route: INTRAVENOUS (IV); COMPARISON: CT head wo con* [id number] 06/05/2021 8:13 PM RADIATION DOSE METRICS: Total DLP (mGy-cm): 2422.37 FINDINGS: Right common carotid artery: No stenosis. No dissection or occlusion. Right internal carotid artery: No stenosis of the extracranial segment. No dissection or occlusion. Right external carotid artery: No occlusion or stenosis of the origin. Left common carotid artery: No stenosis. No dissection or occlusion. Left internal carotid artery: No stenosis of the extracranial segment. No dissection or occlusion. Left external carotid artery: No occlusion or stenosis of the origin. Right vertebral artery: No stenosis. No dissection or occlusion. Left vertebral artery: No stenosis. No dissection or occlusion. Soft tissues: Normal. No significant soft tissue swelling. Bones/joints: No acute fracture. CT/CT angio headneck* [id number] IMPRESSION: Possible occlusion in the distal A3 segment of the left anterior cerebral artery, however difficult to resolve. IMPRESSION: 1. Less than 50% carotid artery stenosis. 2. Negative for vascular occlusion in the neck. REFERENCES: NASCET CRITERIA. The degree of internal carotid artery stenosis is based on NASCET criteria. Normal is no stenosis. Mild is less than 50% stenosis. Moderate is 50-69% stenosis. Severe is 70% to 99% stenosis. Total occlusion is no detectable patent lumen.
--- NOTE | 2021-06-05 18:31 | ECG_ITS ---
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 Measurements Intervals [place] Rate: 55 P: 50 ID: [id number] QRS: -15 QRSD: 101 T: 13 QT: 444 QTc: 428 Interpretive Statements SINUS BRADYCARDIA WITH ISOLATED PVC'S NON SPECIFIC T WAVE CHANGES Compared to ECG 11/24/2020 02:09:33 No significant changes Electronically Signed On 06-06-2021 8:27:38 RECORDING ENGINEER by Haylie Hansen M.D. [email or web address] medical centerDomain [email or web address] Groupmercy [id number]
--- NOTE | 2021-06-05 18:31 | XRR_ITS ---
PROCEDURE INFORMATION: Exam: XR Chest Exam date and time: 06/05/2021 6:31 PM Age: 71 years old Clinical indication: Dyspnea; Additional info: Weakness TECHNIQUE: Imaging protocol: XR of the chest. Views: 1 view. COMPARISON: CR (CHEST, ) 11/24/2020 2:38 AM FINDINGS: Lungs: Unremarkable. No consolidation. Pleural spaces: Unremarkable. No pleural effusion. No pneumothorax. Heart/Mediastinum: Unremarkable. No cardiomegaly. Bones/joints: Unremarkable. XR/XR chest 1V portable [id number] IMPRESSION: No acute findings.
--- NOTE | 2021-06-05 18:31 | CTR_ITS ---
PROCEDURE INFORMATION: Exam: CT Head Without Contrast Exam date and time: 06/05/2021 6:31 PM Age: 71 years old Clinical indication: Weakness, extremity; Right; Patient HX: C/O R sided weakness since fall 06/02; Additional info: Symptoms of acute stroke TECHNIQUE: Imaging protocol: Computed tomography of the head without contrast. Radiation optimization: All CT scans at this facility use at least one of these dose optimization techniques: automated exposure control; mA and/or kV adjustment per patient size (includes targeted exams where dose is matched to clinical indication); or iterative reconstruction. COMPARISON: MR head wo/w con [id number] 11/17/2020 11:59 AM RADIATION DOSE METRICS: Total DLP (mGy-cm): 1009.05 FINDINGS: Brain: Normal. No hemorrhage. Unremarkable white matter. No mass effect. Cerebral ventricles: No ventriculomegaly. Paranasal sinuses: Visualized sinuses are unremarkable. No fluid levels. Mastoid air cells: Visualized mastoid air cells are well aerated. Bones/joints: Unremarkable. No acute fracture. Soft tissues: Unremarkable. CT/CT head wo con* [id number] IMPRESSION: No acute intracranial abnormality.
--- NOTE | 2021-06-05 19:11 | W.ED.WEAKNES ---
HPI - Weakness General: Chief complaint: Weakness Stated complaint: Lethargic/dragging leg Time Seen by Provider: 06/05/21 18:30 Source: patient and family History of Present Illness: 71-year-old male with a history of diabetes. He presents after having some on Tuesday, 4 days ago of problems with speech, and right-sided weakness. His speech seemed to improve, but his right side, particularly the right lower extremity is weak. No vision changes. No significant other language changes. He has been tired all week. Not had much energy. Denies headache or other illness including fever, does not believe his sugar has gotten low Complaint: focal weakness Onset (ago): day(s) Duration: constant Location: RUE and RLE Severity: mild Quality: tingling Relieving factors: none Exacerbating factors: none Associated symptoms: Denies chest pain, confusion, melena, fever(s), headache(s), nausea, short of breath, syncope or vomiting Review of Systems Const: Denies: fever(s) Eyes: Denies: change in vision or blurry vision Card: Denies: chest pain or syncope Resp: Denies: dyspnea GI: Denies: nausea, vomiting or melena Neuro: Denies: headache(s) or confusion PFSH ED PFSH: Medical History ASHD (arteriosclerotic heart disease) Bradycardia Central sleep apnea Cholelithiasis Cryptogenic stroke Diabetes Elevated troponin Hyperlipidemia Hypertension Surgical History History of hernia repair History of loop recorder History of loop recorder Hx of shoulder surgery Stented coronary artery Family History Other CAD (coronary artery disease) Cancer Diabetes Suicide Denies family history of Clotting disorder Dementia Chronic kidney disease (CKD) Anesthesia complication Bleeding disorder Lung disease Stroke Social History Alcohol intake: never History of recent travel: No Physical Exam Const: COMMON NORMALS: alert GENERAL APPEARANCE: cooperative and comfortable ORIENTATION/CONSCIOUSNESS: Yes awake, Yes oriented to person, Yes oriented to place and Yes oriented to time; not confused HENMT: COMMON NORMALS: normocephalic, atraumatic and Normal external nose present HEAD & SCALP: normocephalic and atraumatic FACE & SINUS: normal facial exam NOSE: Normal external nose present MOUTH: Normal oral and palatal mucosa present Eye: COMMON NORMALS: Equal, round and reactive pupils present and EOMs intact bilaterally PUPIL: Yes Equal, round and reactive pupils present Resp: COMMON NORMALS: normal respiratory effort, No use of accessory muscles and clear to auscultation bilaterally AUSCULTATION: clear to auscultation bilaterally Cardio: COMMON NORMALS: regular rate and regular rhythm RATE: regular rate and bradycardic RHYTHM: regular rhythm GI: COMMON NORMALS: Normal to inspection, nondistended, normoactive bowel sounds present Neuro: MARIBELL COMA SCALE: document GCS findings Maribell coma scale eye opening: Spontaneous Isabella coma scale verbal response: Orientated Isabella coma scale motor response: Obey commands Isabella coma scale total score: 15 SENSORIUM/ORIENTATION: Yes alert, Yes oriented to person, Yes oriented to place and Yes oriented to time COORDINATION/BALANCE: [id number]-[id number] test normal and mony-qk-lbmf test normal SPEECH: speech normal and abnormal speech MOTOR EXAM: Pronator motor function not present COORDINATION: rniqdg-lx-qspt test normal and kkcw-ol-bstz test normal Psych: COMMON NORMALS: cooperative and speech normal SPEECH: Yes normal speech Course Consultations: Consultation #1: yaima Vital Signs: Vital signs: Vital Signs Temperature 98.1 F 06/05/21 18:19 Pulse Rate 53 L 06/05/21 21:57 Respiratory Rate 16 06/05/21 21:57 Blood Pressure 178/85 06/05/21 21:57 Pulse Oximetry 97 06/05/21 21:57 MDM - Weakness Medical Decision Making NIH is 1 for very mild LE weakness. he does not drift. no sensory changes. CT pending. CT of the head reveals no acute ischemic event. However, CTA of the head and neck shows likely occlusion in a branch of the left anterior cerebral artery, which is consistent with his symptoms. Symptoms have been present for 4 days essentially. They are not worsening. I spoke with neurology. Recommendations are increasing simvastatin to 80, adding Plavix to 81 mg aspirin he is on. She will see him on Tuesday she notes if the patient wishes to stay, we can continue work-up as an inpatient versus further work-up as an outpatient. I discussed the risks and potential benefits with the patient and family. They chose to go home with outpatient work-up and neurology follow-up on Tuesday. Lab Data : 06/05/21 19:55 06/05/21 19:55 Radiology Impressions Chest X-Ray 06/05/21 18:31 IMPRESSION: No acute findings. Head CT 06/05/21 18:31 IMPRESSION: No acute intracranial abnormality. Head/Neck CTA 06/05/21 18:31 IMPRESSION: Possible occlusion in the distal A3 segment of the left anterior cerebral artery, however difficult to resolve. IMPRESSION: 1. Less than 50% carotid artery stenosis. 2. Negative for vascular occlusion in the neck. REFERENCES: NASCET CRITERIA. The degree of internal carotid artery stenosis is based on NASCET criteria. Normal is no stenosis. Mild is less than 50% stenosis. Moderate is 50-69% stenosis. Severe is 70% to 99% stenosis. Total occlusion is no detectable patent lumen. Laboratory Results WBC 9.9 10^3/uL (4.0-10.0) 06/05/21 19:55 RBC 4.66 10^6/uL (4.1-5.3) 06/05/21 19:55 Hgb 15.3 g/dL (11.7-16.6) 06/05/21 19:55 Hct 45.0 % (42.0-52.0) 06/05/21 19:55 MCV 96.6 fl (80-94) H 06/05/21 19:55 MCH 32.8 pg (28.0-34.0) 06/05/21 19:55 MCHC 34.0 g/dL (30.0-36.0) 06/05/21 19:55 RDW 12.6 % (12.1-15.1) 06/05/21 19:55 Plt Count 110 10^3/cmm (130-400) L 06/05/21 19:55 MPV 11.1 fL (7.4-10.4) H 06/05/21 19:55 Neut % (Auto) 68.2 % 06/05/21 19:55 Lymph % (Auto) 24.2 % 06/05/21 19:55 [place] % (Auto) 5.6 % 06/05/21 19:55 Eos % (Auto) 1.3 % 06/05/21 19:55 Baso % (Auto) 0.4 % 06/05/21 19:55 Neut # (Auto) 6.72 10^3/uL (1.8-7.7) 06/05/21 19:55 Lymph # (Auto) 2.4 10^3/uL (0.8-4.8) 06/05/21 19:55 [place] # (Auto) 0.6 10^3/uL (0.2-0.9) 06/05/21 19:55 Eos # (Auto) 0.1 10^3/uL (0.0-0.8) 06/05/21 19:55 Baso # (Auto) 0.0 10^3/uL (0.0-0.1) 06/05/21 19:55 Nucleated RBC % (auto) 0 % 06/05/21 19:55 Nucleated RBCs # 0.0 /100WBC 06/05/21 19:55 PT 14.20 SECONDS (12.1-14.9) 06/05/21 19:55 INR 1.07 (0.8-1.2) 06/05/21 19:55 APTT 85.8 SECONDS (23.9-36.7) H 06/05/21 19:55 Sodium 137 mmol/L (136-145) 06/05/21 19:55 Potassium 4.5 mmol/L (3.5-5.1) 06/05/21 19:55 Chloride 101 mmol/L (98-107) 06/05/21 19:55 Carbon Dioxide 25 mmol/L (22-29) 06/05/21 19:55 Anion Gap 15.5 (5-19) 06/05/21 19:55 BUN 17 mg/dL (8-23) 06/05/21 19:55 Creatinine 0.9 mg/dL (0.7-1.2) 06/05/21 19:55 GFR Calculation Not Reportable 06/05/21 19:55 Glucose 91 mg/dL (65-115) 06/05/21 19:55 Calculated Osmolality 285 mOsm/kg (285-295) 06/05/21 19:55 Calcium 9.9 mg/dL (8.5-10.5) 06/05/21 19:55 Total Bilirubin 0.8 mg/dL (0.15-1.2) 06/05/21 19:55 AST 18 U/L (0-40) 06/05/21 19:55 ALT 17 U/L (0-41) 06/05/21 19:55 Alkaline Phosphatase 115 IU/L (40-130) 06/05/21 19:55 Total Protein 7.2 g/dL (6.6-8.7) 06/05/21 19:55 Albumin 4.5 g/dL (3.5-5.2) 06/05/21 19:55 Globulin 2.7 g/dL (1.3-4.6) 06/05/21 19:55 Urine Color Yellow (Yellow) 06/05/21 19:55 Urine Appearance Clear (CLEAR) 06/05/21 19:55 Urine pH 6.5 (5-7) 06/05/21 19:55 Ur Specific [place] 1.010 (1.005-1.030) 06/05/21 19:55 Urine Protein Neg (Negative) 06/05/21 19:55 Urine Glucose (UA) Norm (Normal) 06/05/21 19:55 Urine Ketones Negative (Negative) 06/05/21 19:55 Urine Blood Neg (Negative) 06/05/21 19:55 Urine Nitrate Negative (Negative) 06/05/21 19:55 Urine Bilirubin Neg (Negative) 06/05/21 19:55 Urine Urobilinogen Norm mg/dL (Negative) 06/05/21 19:55 Ur Leukocyte Esterase Negative (Negative) 06/05/21 19:55 Discharge Plan Discharge Patient Disposition: Home Clinical Impression: Arterial ischemic stroke, HAL (anterior cerebral artery), left, acute Condition: Stable Prescriptions: New Plavix 75 mg tablet 75 mg PO DAILY Qty: 15 0RF Changed simvastatin 20 mg tablet 80 mg PO DAILY Qty: 15 0RF No Action sennosides 8.6 mg tablet 8.6 mg PO DAILY 0RF cholecalciferol (vitamin D3) 125 mcg (5,000 unit) capsule 125 mcg PO DAILY 0RF citalopram 20 mg tablet 10 mg PO DAILY Qty: 30 0RF Rx Instructions: take a half a tab then stop levetiracetam 750 mg tablet 375 mg PO BID Qty: 30 5RF aspirin [Adult Low Dose Aspirin] 81 mg tablet,delayed release (DR/EC) 81 mg PO DAILY 0RF Hold Instructions: Resume on 02/16/21. multivitamin Tablet 1 tab PO DAILY 0RF atenolol 25 mg tablet 25 mg PO QAM 0RF folic acid 1 mg tablet 1 mg PO QAM 0RF allopurinol 300 mg tablet 300 mg PO DAILY 0RF amlodipine 10 mg tablet 10 mg PO DAILY 0RF glipizide 5 mg tablet 2.5 mg PO QAM 0RF lisinopril 40 mg tablet 20 mg PO DAILY 0RF turmeric 400 mg Capsule 400 mg PO DAILY 0RF Eritrean Amarilis 2 tab PO BID 0RF Protonix 40 mg tablet,delayed release (DR/EC) 40 mg PO DAILY 30 Days Qty: 30 3RF Carafate 1 gram tablet 1 g PO BID 56 Days Qty: 112 1RF Discharge Orders: Discharge ED (Routine); Ordered 06/05/21 Ordered By: Rolando Bautista Referrals: Aicha Chand MD [Physician] - 4-7 days (as scheduled) Pietro Watts DO [Primary Care Provider] - 4-7 days Patient Instructions: Ischemic Stroke (DC) Activity Restrictions/Additional Instructions: Return immediately to the emergency room for worsening weakness, language problems, vision problems, syncope or passing out, any other concerning symptoms. Medications as ordered. Follow-up with your neurologist as scheduled. Coding Level of Care Code ED Door Operator for Noa Fwd Exam Comprehensive
[2021-06-05 20:02] VITALS: BP 138/75; PULSE 55; RESP 16; O2SAT 95
[2021-06-05 20:06] LABS: Add Urine Microscopic? NO; Charge for UA Resulting for Rev
[2021-06-05 20:12] LABS: Basophils % 0.4 %; Eosinophils # 0.1 10^3/uL (0.0-0.8); Eosinophils % 1.3 %; Hemoglobin 15.3 g/dL (11.7-16.6); Lymphocytes # 2.4 10^3/uL (0.8-4.8); Lymphocytes % 24.2 %; Mean Corpuscular Hemoglobin 32.8 pg (28.0-34.0); Mean Corpuscular Volume 96.6 fl (80-94); Mean Platelet Volume 11.1 fL (7.4-10.4); Monocytes # 0.6 10^3/uL (0.2-0.9); Monocytes % 5.6 %; Neutrophils # 6.72 10^3/uL (1.8-7.7); Neutrophils % 68.2 %; Nucleated Red Blood Cells % 0 %; Platelet Count 110 10^3/cmm (130-400); Red Blood Count 4.66 10^6/uL (4.1-5.3); Red Cell Distribution Width 12.6 % (12.1-15.1); White Blood Count 9.9 10^3/uL (4.0-10.0)
[2021-06-05 20:15] LABS: Bilirubin Urine Neg (Negative); Blood Urine Neg (Negative); Glucose Urine UA Norm (Normal); Ketones Urine Negative (Negative); Leukocyte Esterase Urine Negative (Negative); Nitrate Urine Negative (Negative); Protein Urine Neg (Negative); Urine Appearance Clear (CLEAR); Urine Color Yellow (Yellow); Urobilinogen Urine Norm (Negative); pH Urine 6.5 (5-7)
[2021-06-05] MEDS: iodixanol 320 mg/mL 100mL Btl IV (20:15)
[2021-06-05 20:19] LABS: INR 1.07 (0.8-1.2)
[2021-06-05 20:23] LABS: Alanine Aminotransferase 17 U/L (0-41); Albumin Level 4.5 g/dL (3.5-5.2); Alkaline Phosphatase 115 IU/L (40-130); Anion Gap 15.5 (5-19); Aspartate Amino Transferase 18 U/L (0-40); Blood Urea Nitrogen 17 mg/dL (8-23); Calcium 9.9 mg/dL (8.5-10.5); Carbon Dioxide 25 mmol/L (22-29); Chloride 101 mmol/L (98-107); Globulin 2.7 g/dL (1.3-4.6); Glucose 91 mg/dL (65-115); Osmolality Calculated 285 mOsm/kg (285-295); Potassium 4.5 mmol/L (3.5-5.1); Sodium 137 mmol/L (136-145); Total Bilirubin 0.8 mg/dL (0.15-1.2); Total Protein 7.2 g/dL (6.6-8.7)
[2021-06-05 20:29] LABS: Partial Thromboplastin Time 85.8 SECONDS (23.9-36.7)
[2021-06-05 21:57] VITALS: BP 178/85; PULSE 53; RESP 16; O2SAT 97
== END 2021-06-05 22:19 | disposition home or self-care (01) ==
PROVIDERS: Emergency Provider Emergency Medicine; PCP Emergency Medicine Emergency Medical Services
DX: I63.89 Other cerebral infarction (principal); Z79.82 Long term (current) use of aspirin; Z79.84 Long term (current) use of oral hypoglycemic drugs; E11.9 Type 2 diabetes mellitus without complications; E78.5 Hyperlipidemia, unspecified; I10 Essential (primary) hypertension
CPT/HCPCS: 70450; 70496; 70498; 71045; 80053; 81003; 85025; 85610; 85730; 93005; 99283; Q9967

== ENCOUNTER → 2021-06-10 10:58 | Outpatient (BNVA) | payer OTHER, SELFPAY | PROVIDERS: PCP Emergency Medicine Emergency Medical Services; Visit Provider Specialist | DX: I69.398 Other sequelae of cerebral infarction (principal); R53.83 Other fatigue; F32.A Depression, unspecified; G40.909 Epilepsy, unspecified, not intractable, without status epilepticus; D69.6 Thrombocytopenia, unspecified; G47.33 Obstructive sleep apnea (adult) (pediatric) | CPT/HCPCS: 99215 ==

== ENCOUNTER 2021-06-18 12:18 | Outpatient (CLI) | payer OTHER, SELFPAY ==
--- NOTE | 2021-06-18 12:30 | USCV_ITS ---
Enmanuel Ring Age: 71 Gender: M : 1950 Exam Date: 06/18/2021 12:36 Ordering Phys: Aicha Chand MD Technologist: Ariella Villalpando Exam Location: [facility] [place] Indication: CHES PAIN CVA 3 WEEKS AGO BP: 147 / 62 HR: 55 Rhythm: Sinus Technical Quality: Adequate MEASUREMENTS (Male / Female) Normal Values 2D ECHO LV Diastolic Diameter PLAX 4.4 cm 4.2 - 5.9 / 3.9 - 5.3 cm LV Systolic Diameter PLAX 2.8 cm LV Chamber Size 3.9 cm IVS Diastolic Thickness 1.0 cm 0.6 - 1.0 / 0.6 - 0.9 cm IVS Systolic Thickness 1.7 cm LVPW Diastolic Thickness 1.3 cm 0.6 - 1.0 / 0.6 - 0.9 cm LVPW Systolic Thickness 1.5 cm RV Chamber Size 3.0 cm LVOT Diameter 2.0 cm LV Ejection Fraction 2D Teich 67.0 % LV Ejection Fraction MOD 2C 54.6 % LV Ejection Fraction 2C AL 55.5 % LA Diameter 3.0 cm LA Width 3.1 cm LA Height 3.8 cm RA Width 2.8 cm RA Height 3.8 cm Aorta at Sinotubular Diameter 2.7 cm DOPPLER AV Peak Velocity 157.0 cm/s LVOT Peak Velocity 111.3 cm/s AV Area Cont Eq vti 2.2 cm squared AV Area Cont Eq pk 2.3 cm squared MV Area PHT 2.2 cm squared Mitral E to A Ratio 1.2 MV E' Velocity 55.5 cm/s Mitral E to MV E' Ratio 10.1 Mitral E to LV E' Lateral Ratio 10.7 Mitral E to LV E' Septal Ratio 9.7 TR Peak Velocity 175.3 cm/s TR Peak Gradient 12.3 mmHg TR Mean Velocity 119.1 cm/s TR Mean Gradient 6.6 mmHg TR Velocity Time Integral 42.8 cm TV Peak E Velocity 60.0 cm/s Right Atrial Pressure 3.0 mmHg Pulmonary Artery Systolic Pressu 15.3 mmHg PV Peak Velocity 78.0 cm/s RV Acceleration Time 0.1 s RV Ejection Time 0.3 s RV AcT/ET 0.3 FINDINGS Left Ventricle Normal left ventricular size. LV systolic function is normal with EF of 55-60%. No regional wall motion abnormalities. Normal diastolic filling pattern. Right Ventricle The right ventricle is normal in size and function. Right Atrium The right atrium is normal in size. Left Atrium The left atrium is normal in size. Mitral Valve Structurally normal mitral valve without significant stenosis or prolapse. There is trace mitral regurgitation. Aortic Valve Structurally normal aortic valve without significant sclerosis or stenosis. There is no aortic regurgitation. Tricuspid Valve Structurally normal tricuspid valve without significant stenosis or regurgitation. Pulmonary artery systolic pressure is normal. Pulmonic Valve Structurally normal pulmonic valve without significant stenosis. There is no pulmonic regurgitation. Pericardium Normal pericardium without effusion. Aorta Normal ascending aorta dimension. CONCLUSIONS LV systolic function is normal with EF of 55-60% Normal diastolic function Trace mitral regurgitation Compared to prior echocardiogram from 09/09/2020, no significant changes are seen Gilmer Solomon MD (Electronically Signed) Final Date: 30 June 2021 12:18 S
== END 2021-06-18 12:19 | disposition home or self-care (01) ==
LOC: RAD 12:22
PROVIDERS: PCP Emergency Medicine Emergency Medical Services; Visit Provider Specialist
DX: R00.2 Palpitations (principal); R07.9 Chest pain, unspecified; I63.9 Cerebral infarction, unspecified; I34.0 Nonrheumatic mitral (valve) insufficiency
CPT/HCPCS: 93306

== ENCOUNTER → 2021-06-25 12:53 | Outpatient (BNVA) | payer OTHER, SELFPAY | PROVIDERS: PCP Emergency Medicine Emergency Medical Services; Visit Provider Internal Medicine Cardiovascular Disease | DX: I63.9 Cerebral infarction, unspecified (principal); R00.1 Bradycardia, unspecified | CPT/HCPCS: 93270 ==

== ENCOUNTER → 2021-07-31 09:55 | Outpatient (BNVA) | payer OTHER, SELFPAY | PROVIDERS: PCP Emergency Medicine Emergency Medical Services; Visit Provider Internal Medicine Cardiovascular Disease | DX: I25.10 Atherosclerotic heart disease of native coronary artery without angina pectoris (principal); I10 Essential (primary) hypertension; G47.33 Obstructive sleep apnea (adult) (pediatric); Z86.73 Personal history of transient ischemic attack (TIA), and cerebral infarction without residual deficits; Z95.5 Presence of coronary angioplasty implant and graft; F17.210 Nicotine dependence, cigarettes, uncomplicated | CPT/HCPCS: 99213 ==

== ENCOUNTER → 2021-09-01 10:12 | Outpatient (BNVA) | payer OTHER, SELFPAY | PROVIDERS: PCP Emergency Medicine Emergency Medical Services; Visit Provider Specialist | DX: I69.354 Hemiplegia and hemiparesis following cerebral infarction affecting left non-dominant side (principal); M31.4 Aortic arch syndrome [Takayasu]; D69.6 Thrombocytopenia, unspecified; R56.9 Unspecified convulsions | CPT/HCPCS: 85025; 99214 ==

== ENCOUNTER → 2021-10-02 09:34 | Outpatient (BNVA) | payer OTHER, SELFPAY | PROVIDERS: PCP Emergency Medicine Emergency Medical Services; Visit Provider Surgery | DX: Z86.010 Personal history of colon polyps (principal) | CPT/HCPCS: 99203 ==

== ENCOUNTER → 2022-02-04 09:52 | Outpatient (BNVA) | payer OTHER, SELFPAY | PROVIDERS: PCP Emergency Medicine Emergency Medical Services; Visit Provider Internal Medicine Cardiovascular Disease | DX: I25.10 Atherosclerotic heart disease of native coronary artery without angina pectoris (principal); E78.2 Mixed hyperlipidemia; I10 Essential (primary) hypertension; G47.33 Obstructive sleep apnea (adult) (pediatric); R00.1 Bradycardia, unspecified; F17.200 Nicotine dependence, unspecified, uncomplicated; Z86.73 Personal history of transient ischemic attack (TIA), and cerebral infarction without residual deficits | CPT/HCPCS: 99214 ==

== ENCOUNTER 2022-02-10 06:26 | Day surgery (SDC) | payer OTHER, SELFPAY ==
[2022-02-08 14:25] VITALS: BMI 28.7
[2022-02-10 06:56] VITALS: BP 156/74; PULSE 48; RESP 18; O2SAT 96
[2022-02-10] MEDS: sodium chloride 0.9% 1,000 ML 30 ML IV (07:10)
--- NOTE | 2022-02-10 07:52 | ANES.PREANE2 ---
Pre-Anesthetic Assessment Height/Weight: Height 1.83 m Weight 96.162 kg Pulse Resp BP Pulse Ox O2 Del Method 48 L 18 156/74 96 02/10/22 06:56 02/10/22 06:56 02/10/22 06:56 02/10/22 06:56 02/10/22 06:56 Preop Diagnosis: Epigastric pain Operation Date: 02/10/22 08:00 Proposed Procedures p Colonoscopy 88795,Z86.010(Not Applicable) - Andrez Stewart DO Familial anesthetic complications: none Was Beta Otis taken within 24 hours: N/A Was Clonidine taken within 24 hours: N/A Last intake: Intake Last Liquid Date 02/09/22 Last Liquid Time 22:00 Last Solid Date 02/08/22 Last Solid Time 14:00 Last Intake: 22:00 Social No alcohol and No tobacco Exam alert and oriented x 3 Airway Submandibular: within normal limits Cervical ROM: within normal limits Mallampati: Class III Pulmonary Sleep Apnea (cpap) CV/HEM Coronary Artery Disease (stents x2) and Hypertension None reported Hepatic None reported GI Gastroesophageal Reflux Disease Metabolic Diabetes Mellitus and Hyperlipidemia [facility] [place] None reported Neuropsych Seizure (seizures x2- on linda sanchez[facility] dr erwin) and Transient Ischemic Attack (no residual) Anesthetic Plan ASA status: 3 Anesthesia: Anesthesia Evaluation and MAC Medications/Allergies Home Medications Medication Instructions Recorded Confirmed Last Taken Type amlodipine 10 mg tablet 10 mg PO DAILY 11/06/19 02/10/22 02/09/22 History aspirin 81 mg tablet,delayed 81 mg PO DAILY 11/06/19 02/10/22 02/09/22 History release (Adult Low Dose Aspirin) glipizide 5 mg tablet 2.5 mg PO QAM see pharmacy comment 11/06/19 02/10/22 02/08/22 History multivitamin 1 tab PO DAILY 11/06/19 02/10/22 02/09/22 History turmeric 400 mg capsule 400 mg PO DAILY 09/08/20 02/10/22 02/09/22 History cholecalciferol (vitamin D3) 125 125 mcg PO DAILY 10/02/20 02/10/22 02/09/22 History mcg (5,000 unit) capsule citalopram 20 mg tablet 10 mg PO DAILY #30 tabs 12/10/20 02/10/22 02/09/22 Rx [place] Amarilis 2 tab PO BID 02/11/21 02/10/22 02/08/22 History clopidogrel 75 mg tablet (Plavix) 75 mg PO DAILY #15 tabs 06/05/21 02/10/22 02/02/22 Rx simvastatin 20 mg tablet 80 mg PO DAILY #15 tabs 06/05/21 02/10/22 02/09/22 Rx levetiracetam 750 mg tablet 375 mg PO DAILY 02/04/22 02/10/22 02/09/22 History atenolol 50 mg tablet 50 mg PO DAILY 02/08/22 02/10/22 02/09/22 History peg 3350-electrolytes 236 240 ml PO Q10M #4,000 mL 02/09/22 02/09/22 Rx gram-22.74 gram-6.74 gram-5.86 gram solution (Golytely) Current Medications Generic Name Dose Route Start Last Admin Trade Name Freq PRN Reason Stop Dose Admin Sodium Chloride 1,000 mls @ 30 mls/hr 02/10/22 06:45 02/10/22 07:10 Sodium Chloride 0.9% IV 02/11/22 06:44 30 mls/hr .Q24H DELBERT Administration PFSH Anesthesia Medical History ASHD (arteriosclerotic heart disease) Bradycardia Central sleep apnea Cholelithiasis Cryptogenic stroke Diabetes Elevated troponin Grand mal seizure Hx of colonic polyps Hyperlipidemia Hypertension Surgical History History of hernia repair History of loop recorder History of loop recorder Hx of cataract extraction Hx of shoulder surgery Stented coronary artery Family History Other CAD (coronary artery disease) Cancer Diabetes Suicide Denies family history of Clotting disorder Dementia Chronic kidney disease (CKD) Anesthesia complication Bleeding disorder Lung disease Stroke Social History Smoking and tobacco status: current some day smoker Alcohol intake: never History of recent travel: No Data Anesthesia Cardiac Studies: Echocardiogram 06/18/21 Echocardiogram Ultrasound 09/09/20 Sestamibi Stress Test (Cardiology) 11/20/20 Cardiac Event Monitor 06/25/21
--- NOTE | 2022-02-10 08:05 | PM.HP ---
Providers/Chief Complaint Primary Care Provider: Pietro Watts DO Chief Complaint: Z86.010 History of Present Illness Enmanuel Ring is a 72 year old male here for colonoscopy Medications/Allergies Home Medications Medication Instructions Recorded Confirmed Last Taken Type amlodipine 10 mg tablet 10 mg PO DAILY 11/06/19 02/10/22 02/09/22 History aspirin 81 mg tablet,delayed 81 mg PO DAILY 11/06/19 02/10/22 02/09/22 History release (Adult Low Dose Aspirin) glipizide 5 mg tablet 2.5 mg PO QAM see pharmacy comment 11/06/19 02/10/22 02/08/22 History multivitamin 1 tab PO DAILY 11/06/19 02/10/22 02/09/22 History turmeric 400 mg capsule 400 mg PO DAILY 09/08/20 02/10/22 02/09/22 History cholecalciferol (vitamin D3) 125 125 mcg PO DAILY 10/02/20 02/10/22 02/09/22 History mcg (5,000 unit) capsule citalopram 20 mg tablet 10 mg PO DAILY #30 tabs 12/10/20 02/10/22 02/09/22 Rx Citizen Of [place] Amarilis 2 tab PO BID 02/11/21 02/10/22 02/08/22 History clopidogrel 75 mg tablet (Plavix) 75 mg PO DAILY #15 tabs 06/05/21 02/10/22 02/02/22 Rx simvastatin 20 mg tablet 80 mg PO DAILY #15 tabs 06/05/21 02/10/22 02/09/22 Rx levetiracetam 750 mg tablet 375 mg PO DAILY 02/04/22 02/10/22 02/09/22 History atenolol 50 mg tablet 50 mg PO DAILY 02/08/22 02/10/22 02/09/22 History peg 3350-electrolytes 236 240 ml PO Q10M #4,000 mL 02/09/22 02/09/22 Rx gram-22.74 gram-6.74 gram-5.86 gram solution (Golytely) PFSH Acute PFSH: Medical History ASHD (arteriosclerotic heart disease) Bradycardia Central sleep apnea Cholelithiasis Cryptogenic stroke Diabetes Elevated troponin Grand mal seizure Hx of colonic polyps Hyperlipidemia Hypertension Surgical History History of hernia repair History of loop recorder History of loop recorder Hx of cataract extraction Hx of shoulder surgery Stented coronary artery Family History Other CAD (coronary artery disease) Cancer Diabetes Suicide Denies family history of Clotting disorder Dementia Chronic kidney disease (CKD) Anesthesia complication Bleeding disorder Lung disease Stroke Social History Smoking and tobacco status: current some day smoker Alcohol intake: never History of recent travel: No Vitals/I&O/Wt Last Vital Signs Pulse 48 L 02/10/22 06:56 Resp 18 02/10/22 06:56 BP 156/74 02/10/22 06:56 Pulse Ox 96 02/10/22 06:56 O2 Del Method 02/10/22 06:56 Weight last 48 hrs Weight 212 lb A&P Assessment and plan (1) History of colon polyps: Plan Colonoscopy Attestations Medical Necessity Statement*: Home Coding Level of Care Code Acute Telephone Surveyor for Chg Fwd Diagnoses History of colon polyps Z86.010
[2022-02-10 08:47] VITALS: BP 153/87; PULSE 49; RESP 16; TEMP 36.3; O2SAT 93
--- NOTE | 2022-02-10 08:47 | ANE.PACU2 ---
Inpatient post-anesthesia follow up: Airway intact: Yes Vital signs: Temperature Pulse Rate 48 Respiratory Rate 18 Blood Pressure 156/74 Pulse Oximetry 96 Oxygen Delivery Me thod Room Air Oxygen Flow Rate Fraction of Inspir ed Oxygen Hydration adequate: Yes Nausea and vomiting: No Pain level: 1 Mental status: Baseline
[2022-02-10 08:50] VITALS: BP 158/76; PULSE 47; RESP 16; O2SAT 93
[2022-02-10 09:00] VITALS: BP 140/77; PULSE 45; RESP 14; O2SAT 97
[2022-02-10 11:06] LABS: Glucose Point of Care 106 mg/dL (70-110)
== END 2022-02-10 09:20 | disposition home or self-care (01) ==
PROVIDERS: PCP Emergency Medicine Emergency Medical Services; Visit Provider Surgery
PROC: 0DJD8ZZ Inspection of Lower Intestinal Tract, Via Natural or Artificial Opening Endoscopic (ICD-10-PCS; CPT 45378; principal; 2022-02-10 08:00)
DX: D12.0 Benign neoplasm of cecum (principal); D12.5 Benign neoplasm of sigmoid colon; Z86.010 Personal history of colon polyps; G47.30 Sleep apnea, unspecified; I25.10 Atherosclerotic heart disease of native coronary artery without angina pectoris; Z95.5 Presence of coronary angioplasty implant and graft; I10 Essential (primary) hypertension; K21.9 Gastro-esophageal reflux disease without esophagitis; E11.9 Type 2 diabetes mellitus without complications; E78.5 Hyperlipidemia, unspecified; Z86.73 Personal history of transient ischemic attack (TIA), and cerebral infarction without residual deficits; Z79.82 Long term (current) use of aspirin; F17.210 Nicotine dependence, cigarettes, uncomplicated
CPT/HCPCS: 36416; 45385; 82962; 88305; J2704; J7030

== ENCOUNTER → 2022-03-01 10:42 | Outpatient (BNVA) | payer OTHER, SELFPAY | PROVIDERS: PCP Emergency Medicine Emergency Medical Services; Visit Provider Specialist | DX: D12.6 Benign neoplasm of colon, unspecified (principal); R20.0 Anesthesia of skin; R20.2 Paresthesia of skin; I70.0 Atherosclerosis of aorta; G40.89 Other seizures; Z86.73 Personal history of transient ischemic attack (TIA), and cerebral infarction without residual deficits; F17.200 Nicotine dependence, unspecified, uncomplicated; Z79.01 Long term (current) use of anticoagulants | CPT/HCPCS: 36415; 85025; 99212; 99213 ==

== ENCOUNTER → 2022-06-03 11:27 | Outpatient (BNVA) | payer OTHER, SELFPAY | PROVIDERS: PCP Emergency Medicine Emergency Medical Services; Visit Provider Internal Medicine Cardiovascular Disease | DX: I25.10 Atherosclerotic heart disease of native coronary artery without angina pectoris (principal); I10 Essential (primary) hypertension; E78.2 Mixed hyperlipidemia; Z86.73 Personal history of transient ischemic attack (TIA), and cerebral infarction without residual deficits; F17.200 Nicotine dependence, unspecified, uncomplicated; Z79.82 Long term (current) use of aspirin | CPT/HCPCS: 36415; 80048; 99214 ==

== ENCOUNTER → 2022-12-23 09:55 | Outpatient (BNVA) | payer OTHER, SELFPAY | PROVIDERS: PCP Emergency Medicine Emergency Medical Services; Visit Provider Internal Medicine Cardiovascular Disease | DX: I25.10 Atherosclerotic heart disease of native coronary artery without angina pectoris (principal); E78.2 Mixed hyperlipidemia; I10 Essential (primary) hypertension; G47.33 Obstructive sleep apnea (adult) (pediatric); M79.89 Other specified soft tissue disorders; E11.9 Type 2 diabetes mellitus without complications; Z79.84 Long term (current) use of oral hypoglycemic drugs; Z86.73 Personal history of transient ischemic attack (TIA), and cerebral infarction without residual deficits; F17.200 Nicotine dependence, unspecified, uncomplicated | CPT/HCPCS: 99214 ==

== ENCOUNTER 2022-12-29 15:42 | Emergency (ER) | payer OTHER, SELFPAY ==
[2022-12-29 16:00] VITALS: BP 120/71; PULSE 77; RESP 18; TEMP 36.4; O2SAT 98
[2022-12-29 17:17] VITALS: RESP 18; O2SAT 95
[2022-12-29] MEDS: ondansetron 2 mg/ML SDV 2 mL 4 MG IVP (17:17)
[2022-12-29] MEDS: methylPREDNISolone sod succ 125 MG in water for injection-sterile 2 ML 24 MG IM (17:17)
[2022-12-29] MEDS: HYDROmorphone 1 mg/mL INJ 1 mL 0.5 MG IVP (17:17)
--- NOTE | 2022-12-29 18:38 | W.ED.ANIMALB ---
HPI - Animal Bite General: Chief Complaint: Animal Bite Stated Complaint: multiple yellow jacket stings Time Seen by Provider: 12/29/22 16:37 History of Present Illness: This patient is a 72-year-old white male who presents to the emergency department after being stung by numerous yellow jackets at 3:15 PM today. His did administer Benadryl and applied calamine lotion. Patient is having significant amount of pain. He is not having any swelling in his throat or difficulty breathing. Review of Systems General: Reports: 10 or more systems reviewed and unremarkable except in HPI and below PFSH ED PFSH: Medical History ASHD (arteriosclerotic heart disease) Bradycardia Central sleep apnea Cholelithiasis Cryptogenic stroke Diabetes Elevated troponin Grand mal seizure Hx of colonic polyps Hyperlipidemia Hypertension Tubular adenoma of colon Surgical History History of hernia repair History of loop recorder History of loop recorder Hx of cataract extraction Hx of shoulder surgery Stented coronary artery Family History Other CAD (coronary artery disease) Cancer Diabetes Suicide Denies family history of Clotting disorder Dementia Chronic kidney disease (CKD) Anesthesia complication Bleeding disorder Lung disease Stroke Social History Smoking and tobacco status: current some day smoker Alcohol intake: never Substance/Drug Use: never Physical Exam Const: COMMON NORMALS: no acute distress, patient oriented x3 and no limitations GENERAL APPEARANCE: cooperative and comfortable HENMT: COMMON NORMALS: normocephalic, atraumatic, Normal nasal mucous membranes and turbinates present, moist oral mucous membranes and oropharynx normal HEAD & SCALP: normal to inspection, normocephalic and atraumatic FACE & SINUS: normal facial exam NOSE: Normal nasal mucous membranes and turbinates present Eye: COMMON NORMALS: Equal, round and reactive pupils present, EOMs intact bilaterally and conjunctivae normal GENERAL EYE: appearance normal, both eyes and all related structures CONJUNCTIVA: Yes conjunctivae normal PUPIL: Yes Equal, round and reactive pupils present Neck/C-Spine: COMMON NORMALS: supple and no JVD Chest: COMMONS NORMALS: normal inspection of the chest Resp: COMMON NORMALS: normal respiratory effort and clear to auscultation bilaterally AUSCULTATION: clear to auscultation bilaterally Cardio: COMMON NORMALS: no JVD, regular rate, regular rhythm, No gallops present (Cardio), No murmurs present (Cardio) and No rub (Cardio) RATE: regular rate RHYTHM: regular rhythm GI: COMMON NORMALS: Normal to inspection, nondistended, normoactive bowel sounds present, Soft to palpation and non-tender AUSCULTATION: Yes normoactive bowel sounds PALPATION: Yes Soft to palpation : COMMON NORMALS: Yes no CVA tenderness BLADDER/KIDNEY EXAM: Yes no CVA tenderness Back/Pelvis: COMMON NORMALS: no CVA tenderness and thoracic and lumbar spine normal to inspection Extremity: COMMON NORMALS: normal to inspection Neuro: COMMON NORMALS: patient oriented x3 and CN's II-XII intact bilaterally Psych: COMMON NORMALS: mental status grossly normal, Normal thought process present and cooperative THOUGHT PROCESS: Normal thought process present Skin: OTHER: Numerous erythematous papules consistent with bee stings over the upper and lower extremities. Course Vital Signs: Vital signs: Vital Signs Temperature 97.5 F L 12/29/22 16:00 Pulse Rate 77 12/29/22 16:00 Respiratory Rate 18 12/29/22 17:17 Blood Pressure 120/71 12/29/22 16:00 Pulse Oximetry 95 12/29/22 17:17 Oxygen Delivery Me thod Room Air 12/29/22 16:00 MDM - Animal Bite Medical Decision Making Patient was given 125 mg of Solu-Medrol IV, Zofran and 0.5 mg of Dilaudid IV for his pain. On reexam he is feeling much better. Again lungs are clear and no swelling in the throat. He was discharged in stable condition with a prescription for prednisone burst and taper. Recommended he take Pepcid [id number] as well as Benadryl [id number] as needed for the itching and swelling. I also prescribed a short course of hydrocodone that he can take as needed for his pain. Follow-up with primary care physician as needed. No radiology studies performed this visit Discharge Plan Discharge Patient Disposition: Home Clinical Impression: Accidental bee sting Condition: Stable Prescriptions: New prednisone 5 mg tablets,dose pack See Rx Instructions .ROUTE .COMPLEX Qty: 21 0RF Rx Instructions: prednisone 5 mg: take 8 tablets (40 mg) on Day 1; 7 tablets (35 mg) on Day 2; then decrease by 1 tablet every day until finished hydrocodone-acetaminophen 5-325 mg tablet 1 tab PO Q4H PRN (Reason: pain) Qty: 10 0RF No Action cholecalciferol (vitamin D3) 125 mcg (5,000 unit) capsule 125 mcg PO DAILY levetiracetam 750 mg tablet 375 mg PO DAILY aspirin [Adult Low Dose Aspirin] 81 mg tablet,delayed release (DR/EC) 81 mg PO DAILY Hold Instructions: Resume on 02/16/21. multivitamin Tablet 1 tab PO DAILY amlodipine 10 mg tablet 10 mg PO DAILY glipizide 5 mg tablet 2.5 mg PO QAM carvedilol 6.25 mg tablet 6.25 mg PO BID 90 Days Qty: 180 0RF Rx Instructions: must administer with a meal/food chlorthalidone 25 mg tablet 25 mg PO DAILY 30 Days Qty: 30 5RF tamsulosin 0.4 mg capsule 0.4 mg PO DAILY peg 3350-electrolytes [Golytely] 236-22.74-6.74 -5.86 gram recon soln 240 ml PO Q10M Qty: 4000 0RF Rx Instructions: until fecal effluent is clear turmeric 400 mg Capsule 400 mg PO DAILY [place] Amarilis 2 tab PO BID clopidogrel [Plavix] 75 mg tablet 75 mg PO DAILY Qty: 15 0RF Hold Instructions: Resume on 02/12/22. 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
== END 2022-12-29 19:05 | disposition home or self-care (01) ==
PROVIDERS: Emergency Provider Emergency Medicine; PCP Emergency Medicine Emergency Medical Services
DX: T63.461A Toxic effect of venom of wasps, accidental (unintentional), initial encounter (principal); Z79.82 Long term (current) use of aspirin; Z79.02 Long term (current) use of antithrombotics/antiplatelets; Z79.84 Long term (current) use of oral hypoglycemic drugs; E11.9 Type 2 diabetes mellitus without complications; E78.5 Hyperlipidemia, unspecified; I10 Essential (primary) hypertension; F17.210 Nicotine dependence, cigarettes, uncomplicated
CPT/HCPCS: 96372; 96374; 96375; 99284; J1170; J2405; J2930

== ENCOUNTER → 2023-03-01 12:32 | Outpatient (BNVA) | payer OTHER, SELFPAY | PROVIDERS: PCP Emergency Medicine Emergency Medical Services; Visit Provider Specialist | DX: I63.429 Cerebral infarction due to embolism of unspecified anterior cerebral artery (principal) | CPT/HCPCS: 99213 ==

== ENCOUNTER → 2023-05-31 14:21 | Outpatient (BNVA) | payer OTHER, SELFPAY | PROVIDERS: PCP Emergency Medicine Emergency Medical Services; Visit Provider Podiatrist Foot & Ankle Surgery | DX: L60.0 Ingrowing nail (principal); E11.9 Type 2 diabetes mellitus without complications | CPT/HCPCS: 11750; 99203; A6219 ==

== ENCOUNTER → 2023-06-14 12:39 | Outpatient (BNVA) | payer OTHER, SELFPAY | PROVIDERS: PCP Emergency Medicine Emergency Medical Services; Visit Provider Podiatrist Foot & Ankle Surgery | DX: L60.0 Ingrowing nail (principal); E11.9 Type 2 diabetes mellitus without complications | CPT/HCPCS: 99213 ==

== ENCOUNTER → 2023-07-13 10:16 | Outpatient (BNVA) | payer OTHER, SELFPAY | PROVIDERS: PCP Emergency Medicine Emergency Medical Services; Visit Provider Nurse Practitioner Family | DX: I25.10 Atherosclerotic heart disease of native coronary artery without angina pectoris (principal); I10 Essential (primary) hypertension; F17.200 Nicotine dependence, unspecified, uncomplicated | CPT/HCPCS: 99214 ==

== ENCOUNTER → 2024-01-09 14:00 | Outpatient (BNVA) | payer OTHER, SELFPAY | PROVIDERS: PCP Emergency Medicine Emergency Medical Services; Visit Provider Internal Medicine Cardiovascular Disease | DX: I25.10 Atherosclerotic heart disease of native coronary artery without angina pectoris (principal); E78.2 Mixed hyperlipidemia; I10 Essential (primary) hypertension; D69.6 Thrombocytopenia, unspecified; F17.200 Nicotine dependence, unspecified, uncomplicated | CPT/HCPCS: 99214 ==

== ENCOUNTER 2024-02-29 23:56 | Emergency (ER) | payer OTHER, SELFPAY ==
[2024-03-01 00:05] VITALS: BP 122/70; PULSE 64; RESP 18; O2SAT 97; BMI 30.5
--- NOTE | 2024-03-01 00:22 | ED_ITS ---
HPI - Epistaxis General: Chief complaint: Epistaxis Stated complaint: nose bleed wont stop Time Seen by Provider: 03/01/24 00:15 History of Present Illness: 74-year-old man with a history of hypert ension, hyperlipidemia and diabetes who presents emergency room with nosebleed today. He is on 81 mg aspirin but no other anticoagulation. Says this started about 3 hours ago and he has been unable to get it stopped. On exam he does have some dried blood but does not appear to be actively bleeding any longer. Blood pressure is normal on presentation. Related Data Home Medications Medication Instructions Recorded Confirmed amlodipine 10 mg tablet 10 mg PO DAILY 11/06/19 02/21/24 aspirin 81 mg tablet,delayed 81 mg PO DAILY 11/06/19 02/21/24 release (Adult Low Dose Aspirin) glipizide 5 mg tablet 2.5 mg PO QAM see pharmacy comment 11/06/19 02/21/24 multivitamin 1 tab PO DAILY 11/06/19 02/21/24 turmeric 400 mg capsule 400 mg PO DAILY 09/08/20 02/21/24 cholecalciferol (vitamin D3) 125 125 mcg PO DAILY 10/02/20 02/21/24 mcg (5,000 unit) capsule Polish Amarilis 2 tab PO BID 02/11/21 02/21/24 tamsulosin 0.4 mg capsule 0.4 mg PO DAILY 12/23/22 02/21/24 Previous Rx's Medication Instructions Recorded clopidogrel 75 mg tablet (Plavix) 75 mg PO DAILY #15 tabs 06/05/21 simvastatin 20 mg tablet 80 mg (4 x 20 mg) PO DAILY #15 tabs 06/05/21 carvedilol 6.25 mg tablet 6.25 mg PO BID 90 days #180 tabs 03/01/22 chlorthalidone 25 mg tablet 25 mg PO DAILY 30 days #30 tabs 06/03/22 levetiracetam 750 mg tablet 750 mg PO DAILY #90 tabs 03/01/23 hydralazine 25 mg tablet 25 mg PO TID #90 tabs 01/09/24 Allergies Allergy/AdvReac Type Severity Reaction Status Date / Time No Known Allergies Allergy Verified 03/01/24 00:14 Review of Systems Narrative: Constitutional symptoms: Negative except as documented in HPI. Skin symptoms: Negative except as documented in HPI. Eye symptoms: Negative except as documented in HPI. ENMT symptoms: Negative except as documented in HPI. Respiratory symptoms: Negative except as documented in HPI. Cardiovascular symptoms: Negative except as documented in HPI. Gastrointestinal symptoms: Negative except as documented in HPI. Genitourinary symptoms: Negative except as documented in HPI. Musculoskeletal symptoms: Negative except as documented in HPI. Neurologic symptoms: Negative except as documented in HPI. Psychiatric symptoms: Negative except as documented in HPI. Endocrine symptoms: Negative except as documented in HPI. PFSH ED PFSH: Medical History Tubular adenoma of colon Grand mal seizure Hx of colonic polyps Cholelithiasis Elevated troponin Central sleep apnea Cryptogenic stroke Bradycardia ASHD (arteriosclerotic heart disease) Hypertension Hyperlipidemia Diabetes Surgical History Hx of cataract extraction History of loop recorder History of hernia repair Hx of shoulder surgery Stented coronary artery History of loop recorder Family History Other CAD (coronary artery disease) Cancer Diabetes Suicide Denies family history of Clotting disorder Dementia Chronic kidney disease (CKD) Anesthesia complication Bleeding disorder Lung disease Stroke Social History Smoking and tobacco/nicotine status: former use of tobacco/nicotine Alcohol intake: never Substance/Drug Use: never Physical Exam Narrative: EXAM NARRATIVE: General: Alert, no acute distress. Skin: warm and dry Head: Normocephalic Neck: Trachea midline Eye: Extraocular movements are intact. Ears, nose, mouth and throat: Oral mucosa moist, no blood in the posterior pharynx. He does have some dried blood in the left nare. No obvious active bleeding at this point in time. Respiratory: Respirations are non-labored Musculoskeletal: Normal ROM Neurological: Alert and oriented, No focal neurological deficit observed. Psychiatric: Cooperative, appropriate mood & affect. Course Vital Signs: Vital signs: Vital Signs Pulse Rate 61 03/01/24 01:30 Respiratory Rate 18 03/01/24 00:38 Blood Pressure 135/70 03/01/24 01:30 Pulse Oximetry 93 03/01/24 01:30 Oxygen Delivery Me thod Room Air 03/01/24 00:05 MDM - Epistaxis Medical Decision Making Patient has had no further bleeding while here. I did give some oxymetazoline while here and sent him home with some. Assessment and plan: Epistaxis - Discharged home - Discussed plan with patient. Answered any questions. - Evaluation and treatment of this problem were appropriate in the emergency setting. XR interpretation done by ED provider, pending radiology final review Discharge Plan Discharge Patient Disposition: Home Clinical Impression: Epistaxis Condition: Stable Prescriptions: No Action cholecalciferol (vitamin D3) 125 mcg (5,000 unit) capsule 125 mcg PO DAILY aspirin [Adult Low Dose Aspirin] 81 mg tablet,delayed release (DR/EC) 81 mg PO DAILY Hold Instructions: Resume on 02/16/21. multivitamin Tablet 1 tab PO DAILY amlodipine 10 mg tablet 10 mg PO DAILY glipizide 5 mg tablet 2.5 mg PO QAM carvedilol 6.25 mg tablet 6.25 mg PO BID 90 Days Qty: 180 0RF Rx Instructions: must administer with a meal/food chlorthalidone 25 mg tablet 25 mg PO DAILY 30 Days Qty: 30 5RF tamsulosin 0.4 mg capsule 0.4 mg PO DAILY hydralazine 25 mg tablet 25 mg PO TID Qty: 90 5RF levetiracetam 750 mg tablet 750 mg PO DAILY Qty: 90 3RF turmeric 400 mg Capsule 400 mg PO DAILY Polish Amarilis 2 tab PO BID clopidogrel [Plavix] 75 mg tablet 75 mg PO DAILY Qty: 15 0RF Hold Instructions: Resume on 02/12/22. simvastatin 20 mg tablet 80 mg PO DAILY Qty: 15 0RF Discharge Orders: Discharge ED (Routine); Ordered 03/01/24 Ordered By: Pily Nathan Referrals: Ellen Jang APRN [Primary Care Provider] - Discharge Diet: Usual diet Discharge Activity: Increase activity as tolerated Patient Instructions: Nosebleed (ED), Opioid Safety, Pain Management Activity Restrictions/Additional Instructions: Thank you for choosing [facility] for your healthcare needs today. Please realize this is an emergency room and that we are providing you with a medical screening exam and this may not be complete and all inclusive of all the testing and or work up that you may need to determine your ailment or severity of your illness. You have been screened and evaluated and felt safe for discharge. Health conditions do change or evolve sometimes and as such it is important that you follow up with your Primary Doctor to be re checked, 3-5 days is a general good time frame for follow up. You are always welcome to return to the ED for re assessment if your symptoms are worsening or you have new concerns Coding Level of Care Code ED Silo Worker for Noa Abdi
[2024-03-01] MEDS: oxymetazoline 0.05% Nasal Spray 15 mL 4 SPRAY NOSTRIL-L (00:29)
[2024-03-01 00:38] VITALS: BP 155/77; PULSE 57; RESP 18; O2SAT 93
[2024-03-01 01:30] VITALS: BP 135/70; PULSE 61; O2SAT 93
== END 2024-03-01 01:32 | disposition home or self-care (01) ==
PROVIDERS: Emergency Provider Emergency Medicine; PCP Nurse Practitioner Family
DX: R04.0 Epistaxis (principal); Z79.02 Long term (current) use of antithrombotics/antiplatelets; Z79.82 Long term (current) use of aspirin; Z87.891 Personal history of nicotine dependence; E11.9 Type 2 diabetes mellitus without complications; I10 Essential (primary) hypertension; E78.5 Hyperlipidemia, unspecified
CPT/HCPCS: 99283

== ENCOUNTER → 2024-03-27 07:41 | Outpatient (BNVA) | payer OTHER, SELFPAY | PROVIDERS: PCP Nurse Practitioner Family; Visit Provider Specialist | DX: I63.429 Cerebral infarction due to embolism of unspecified anterior cerebral artery (principal); R56.9 Unspecified convulsions | CPT/HCPCS: 99213 ==

== ENCOUNTER → 2024-07-10 13:44 | Outpatient (BNVA) | payer OTHER, SELFPAY | PROVIDERS: PCP Nurse Practitioner Family; Visit Provider Internal Medicine Cardiovascular Disease | DX: I25.10 Atherosclerotic heart disease of native coronary artery without angina pectoris (principal); E78.2 Mixed hyperlipidemia; I10 Essential (primary) hypertension; D69.6 Thrombocytopenia, unspecified; Z87.891 Personal history of nicotine dependence; Z86.73 Personal history of transient ischemic attack (TIA), and cerebral infarction without residual deficits | CPT/HCPCS: 99214 ==

== ENCOUNTER 2024-09-25 15:10 | Emergency (ER) | payer OTHER, SELFPAY ==
--- OUTSIDE RECORDS SUMMARY | 2023-11-16 10:00 | XMS_ITS | Encounter Summary ---
Author Name [facility] [place] [facility] [place] Address [address] [place] [address] Care Team Providers Care Imaging Account Manager Name Role Phone HOBSON, DINESH Primary Care Provider Unavailabl e Insurance Providers: All historical and current Section Date Range: From patient's date of to the date document was created. This section includes the names of all active insurance providers for the patient. Insurance Provider Type of Coverage Plan Name Start of Policy Coverage End of Policy Coverage Group Number Member ID Insurance Provider's Telephone Number Policy Martinez's Name Patient's Relationship to Policy Martinez MEDICARE (WNR) MEDICARE (M) PART A Jan 02, 2013 PART A [id number] [phone] [place] PATIENT MEDICARE (WNR) MEDICARE (M) PART A Jan 02, 2013 PART A [id number] [place] PATIENT Selected Encounter This section includes the information on record at [place] for the Encounter. 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 Date/Time Primary/Secondary Diagnosis Diagnosis Name Provider Source Nov 17, 2023 09:28 AM PRIMARY Segmental and somatic dysfunction of thoracic region [facility] Nov 17, 2023 09:28 AM SECONDARY Other intervertebral disc degeneration, lumbosacral region [facility] Nov 17, 2023 09:28 AM SECONDARY Pain in thoracic spine [facility] Nov 17, 2023 09:28 AM SECONDARY Segmental and somatic dysfunction of lumbar region [facility] Nov 17, 2023 09:28 AM SECONDARY Segmental and somatic dysfunction of pelvic region [facility] Plan of Treatment: Future Appointments (+ 6 months) and Future Tests (+/- 45 days) The Plan of Treatment section includes future care activities for the patient from all [place] [facility]. This section includes future appointments and future orders which are active, pending or scheduled. Future Appointments This section includes appointments that were scheduled to occur 6 months from the date of the Encounter, up to a maximum of 20 appointments. The data comes from all [place] treatment facilities. Appointment Date/Time Appointment Type Appointme nt Facility Name Nov 21, 2023 02:00 PM AMBULATORY - [facility]ICINE [facility] Dec 20, 2023 09:00 AM AMBULATORY - MEDICINE [facility] Jan 03, 2024 09:00 AM AMBULATORY - MEDICINE [facility] Jan 17, 2024 08:45 AM AMBULATORY - MEDICINE [facility] Jan 17, 2024 09:00 AM AMBULATORY - MEDICINE [facility] Jan 31, 2024 09:00 AM AMBULATORY - MEDICINE [facility] Feb 14, 2024 09:00 AM AMBULATORY - MEDICINE [facility] Feb 28, 2024 09:00 AM [facility] [place] [facility] [facility] Mar 06, 2024 09:00 AM AMBULATORY - MEDICINE [facility] Mar 16, 2024 01:30 PM AMBULATORY - NONE [facility] Mar 20, 2024 09:00 AM AMBULATORY - MEDICINE [facility] Mar 27, 2024 08:00 AM [facility]ORY [facility]IC[facility] Mar 30, 2024 10:45 AM AMBULATORY - MEDICINE [facility] Mar 30, 2024 12:00 PM AMBULATORY - MEDICINE [facility] Apr 10, 2024 11:00 AM AMBULATORY - MEDICINE [facility] Apr 10, 2024 11:30 AM AMBULATORY - MEDICINE [facility] May 08, 2024 09:20 AM AMBULATORY - MEDICINE [facility] May 17, 2024 10:00 AM AMBULATORY - MEDICINE [facility] Vital Signs: All taken on the encounter date This section contains inpatient and outpatient Vital Signs collected on the date of the Encounter. Date/Time Temperature Pulse Blood Pressure Respiratory Rate SP02 Pain Height Weight Body Mass Index Source Nov 16, 2023 03:00 PM 98.1 57 174/70 [facility] Social History: Smoking Status (Most current) and Tobacco Use (All prior to encounter date) This section includes the most current, and the historical, smoking and tobacco- related health factors from the [place] facility where the Encounter took place. Current Smoking Status This section includes the most current smoking, or tobacco-related health factor, from the [place] facility where the Encounter took place. Date/Time Current Smoking Status Comment Facil ity Oct 03, 2023 08:30 AM VA-TOBACCO FORMER USER [facility] Tobacco Use History This section includes a history of the smoking, or tobacco-related health factors, that were collected on or before the date of the Encounter. The data comes from the [place] facility where the Encounter took place. 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 NO [facility] Sep 18, 2021 10:30 AM VA-TOBACCO USE MED NO [facility] Sep 18, 2021 10:30 AM VA-TOBACCO USER SOME DAYS [facility] Sep 15, 2020 01:00 PM VA-TOBACCO DOESNT USE WI 30 MIN WAKEUP [facility] Sep 15, 2020 01:00 PM VA-TOBACCO USE 5 T O 15 YEARS [facility] Sep 15, 2020 01:00 PM VA-TOBACCO USE ADVICE [facility] Sep 15, 2020 01:00 PM VA-TOBACCO USE FREIGHT RATE CLERK NO [facility] Sep 15, 2020 01:00 PM VA-TOBACCO USE MED NO [facility] Sep 15, 2020 01:00 PM VA-TOBACCO USER EVERY DAY [facility] Nov 28, 2017 12:02 PM CURRENT TOBACCO USER [facility] Nov 28, 2017 12:02 PM CURRENT TOBACCO US ER (NOT READY TO QUIT) [facility] Nov 28, 2017 12:02 PM TOBACCO CESSATION REFERRAL DECLINED [facility] Nov 28, 2017 12:02 PM TOBACCO MEDS OFFER ED BUT DECLINED [facility] Nov 28, 2017 12:02 PM TOBACCO USER OFFERED MEDS [facility] Oct 14, 2017 01:11 PM CURRENT TOBACCO USER [facility] Oct 14, 2017 01:11 PM CURRENT TOBACCO US ER (NOT READY TO QUIT) [facility] Oct 14, 2017 01:11 PM TOBACCO CESSATION REFERRAL DECLINED [facility] Oct 14, 2017 01:11 PM TOBACCO MEDS OFFER ED BUT DECLINED [facility] Oct 14, 2017 01:11 PM TOBACCO USER OFFERED MEDS [facility] August 05, 2017 02:42 PM CURRENT TOBACCO USER [facility] August 05, 2017 02:42 PM CURRENT TOBACCO US ER (NOT READY TO QUIT) [facility] August 05, 2017 02:42 PM TOBACCO CESSATION REFERRAL DECLINED [facility] August 05, 2017 02:42 PM TOBACCO MEDS OFFER ED BUT DECLINED [facility] August 05, 2017 02:42 PM TOBACCO USER OFFERED MEDS [facility] Mar 18, 2017 09:26 AM CURRENT TOBACCO USER [facility] Mar 18, 2017 09:26 AM CURRENT TOBACCO US ER (NOT READY TO QUIT) [facility] Mar 18, 2017 09:26 AM TOBACCO CESSATION REFERRAL DECLINED [facility] Mar 18, 2017 09:26 AM TOBACCO MEDS OFFER ED BUT DECLINED [facility] Mar 18, 2017 09:26 AM TOBACCO USER OFFERED MEDS [facility] Apr 28, 2016 07:17 AM CURRENT TOBACCO USER [facility] Apr 28, 2016 07:[address] [facility] Aug 01, 2009 10:10 AM QUIT TOBACCO >7 YEARS AGO [facility] Sep 26, 2007 09:34 AM QUIT TOBACCO >7 YEARS AGO [facility] August 06, 2005 09:10 AM CURRENT NON-TOBACC O USER-HX OF USE [facility] Mar 23, 2005 08:38 AM CURRENT NON-TOBACC O USER-HX OF USE [facility] Oct 01, 2004 09:41 AM CURRENT NON-TOBACC O USER-HX OF USE [facility] Apr 07, 2004 09:49 AM CURRENT NON-TOBACC O USER-HX OF USE [facility] Oct 11, 2003 10:41 AM CURRENT NON-TOBACC O USER-HX OF USE [facility] Apr 05, 2003 10:43 AM CURRENT NON-TOBACC O USER-HX OF USE Quit 15 years ago. [facility] Oct 25, 2002 09:24 AM CURRENT NON-TOBACC O USER-HX OF USE [facility] Nov 17, 2001 10:31 AM TOB-CURRENT NON-SM OKER BUT HX [facility] Jul 27, 2001 01:43 PM CURRENT NON-TOBACC O USER-HX OF USE [facility] May 16, 2001 10:35 AM CURRENT NON-TOBACC O USER-HX OF USE Quit 18 years ago. [facility] Nov 29, 2000 02:03 PM CURRENT NON-TOBACC O USER-HX OF USE QUIT 13 YRS AGO, 1 PK DAY [facility] Encounter Notes: All associated encounter notes This section contains the clinical notes associated to the Encounter. Date/Time Encounter Note(s) Provider Source Nov 16, 2023 04:24 PM CHIROPRACTIC CONSU LT: LOCAL TITLE: CHIROPRACTIC INITIAL ASSESSMENT CONSULT PB STANDARD TITLE: CHIROPRACTIC CONSULT DATE OF NOTE: NOV 16, 2023@16:24 ENTRY DATE: NOV 16, 2023@16:24:15 AUTHOR: ALVAREZ FRITZ COSIGNER: URGENCY: STATUS: COMPLETED INITIAL CHIROPRACTOR ASSESSMENT The is a 73 year old MALE being seen in the Chiropractic clinic for the first time. The [place] reports today with a chief complaint of back pain. Patient's language preference for health information is Lithuanian. SUBJECTIVE: Onset of Event: The is seeking chiropractic treatment for his ongoing lower back pain. He states the lower back has been an issue for him for at least the past thirty years. He describes the lower back pain as a constant strong ache which becomes sharp with movement at the L/S junction with frequent radiating pain down the right leg to the right foot. The has been told that he has multiple bulging/herniated disc in his lower back, but has not sought treatment for the issues beyond frequent chiropractic treatment. The seeks chiropractic treatment when the lower back pain becomes severe, with his last adjustment 6-8 weeks ago. The rates his pain level as a 3-8/10 with today's pain level as a 6/10. PAST MEDICAL HISTORY: see problem list SOCIO-ECONOMIC HISTORY: Tobacco: No Prior Tobacco Use Status Available Alcohol: ____ ALLERGIES/ADVERSE REACTIONS: LISINOPRIL VITAL SIGNS Pulse: 57 (11/16/2023 15:00) Blood Pressure: 174/70 (11/16/2023 15:00) Respiratory Rate: 20 (10/03/2023 08:39) Temperature: 98.1 F [36.7 C] (11/16/2023 15:00) Weight: 230.2 lb [104.42 kg] (10/03/2023 08:39) Height: 73 in [185.4 cm] (09/12/2018 10:41) Pain: 5 (10/03/2023 08:39) OBJECTIVE: MOVEMENT/POSTURE: The ambulates_. SEGMENTAL DYSFUNCTION: Joint dysfunction was noted at T10, L4, and the right SI joint. PALPATION: Bone landmarks tender to palpation: T10, L4, and the right PSIS. LUMBAR ACTIVE RANGE OF MOTION: Moderate restrictions in all planes of motion with the reporting pain at the L/S junction. ORTHOPEDIC TESTING: Milgram's Test positive. Valsalva's Test negative. Bilateral Leg Raising Test positive. SLR (left) negative. SLR (right) negative. Fabere/Eric Test (left) negative. Fabere/Eric Test (right) negative. NEUROLOGICAL EVALUATION: DTRs: Patellar reflex +2 left +2 right. Achilles reflex +2 left +2 right. Muscle Testing: Hip flexors +5 left +5 right. Hip abductors +5 left +5 right. Hip adductors +5 left +5 right. Knee extension +5 left +5 right. Knee flexion +5 left +5 right. REVIEW OF DIAGNOSTIC IMAGING: No data available ASSESSMENT: Thoracic spine, lumbar spine, and SI joint dysfunction with associated myofascial pain. PLAN: I discussed the potential risks/benefits of Chiropractic treatment and alternative treatment options and the [place] agreed to a treatment trial. We will treat The L[place] once every two weeks for six treatments. Prognosis: Fair Today's treatment of the consisted of chiropractic spinal adjustment of the thoracic spine (prone), lumbar spine (prone), and the pelvis (prone) using Arthrostim and Zuniga technique. The treatment was well tolerated by the . GOALS: The goals of treatment include: 1) The reduction of symptomatology. 2) Instructing the in home exercises to improve core strength and flexibility. 3) Helping the to understand the benefits of long-term continuation of the home exercise program and to commit to a bed bug exterminator exercise plan. /[facility]ia esther/ [facility] Signed: 11/17/2023 11:12 ALVAREZ FRITZ
--- OUTSIDE RECORDS SUMMARY | 2023-12-20 04:00 | XMS_ITS | Encounter Summary ---
Author Name [facility] [place] [facility] [place] Address [address] [place] [address] Care Team Providers Care Educational Psychology Teacher Name Role Phone HOBSONDINESH Primary Care Provider Unavailabl e Insurance Providers: [...] PART A Jan 02, 2013 PART A [id number] [place] PATIENT MEDICARE (WNR) MEDICARE (M) PART A Jan 02, 2013 PART A [id number] [place] PATIENT Selected Encounter This section includes the information on record at [place] for the Encounter. 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 Date/Time Primary/Secondary Diagnosis Diagnosis Name Provider Source Dec 20, 2023 09:12 AM PRIMARY Segmental and somatic dysfunction of thoracic region [facility] Dec 20, 2023 09:12 AM SECONDARY Other intervertebral disc degeneration, lumbosacral region [facility] Dec 20, 2023 09:12 AM SECONDARY Pain in thoracic spine [facility] Dec 20, 2023 09:12 AM SECONDARY Segmental and somatic dysfunction of lumbar region [facility] Dec 20, 2023 09:12 AM SECONDARY Segmental and somatic dysfunction of pelvic region [facility] Plan of Treatment: Future Appointments (+ 6 months) and Future Tests (+/- 45 days) The Plan of Treatment section includes future care activities for the patient from all [place] [facility]. This section includes future appointments and future orders which are active, pending or scheduled. Future Appointments This section includes appointments that were scheduled to occur 6 months from the date of the Encounter, up to a maximum of 20 appointments. The data comes from all [place] treatment facilities. Appointment Date/Time Appointment Type Appointme nt Facility Name Jan 03, 2024 09:00 AM AMBULATORY - MEDICINE [facility] Jan 17, 2024 08:45 AM AMBULATORY - MEDICINE [facility] Jan 17, 2024 09:00 AM AMBULATORY - MEDICINE [facility] Jan 31, 2024 09:00 AM AMBULATORY - MEDICINE [facility] Feb 14, 2024 09:00 AM AMBULATORY - MEDICINE [facility] Feb 28, 2024 09:00 AM AMBULATORY - MEDICINE [facility] Mar 06, 2024 09:00 AM AMBULATORY - MEDICINE [facility] Mar 16, 2024 01:30 PM AMBULATORY - NONE [facility] Mar 20, 2024 09:00 AM AMBULATORY - MEDICINE [facility] Mar 27, 2024 08:00 AM AM[facility] - [facility] Mar 30, 2024 10:45 AM AMBULATORY - MEDICINE [facility] Mar 30, 2024 12:00 PM AMBULATORY - MEDICINE [facility] Apr 10, 2024 11:00 AM AMBULATORY - MEDICINE [facility] Apr 10, 2024 11:30 AM AMBULATORY - MEDICINE [facility] May 08, 2024 09:20 AM AMBULATORY - MEDICINE [facility] May 17, 2024 10:00 AM AMBULATORY - MEDICINE [facility] Jun 05, 2024 09:20 AM AMBULATORY - MEDICINE [facility] Vital Signs: All taken on the encounter date This section contains inpatient and outpatient Vital Signs collected on the date of the Encounter. Date/Time Temperature Pulse Blood Pressure Respiratory Rate SP02 Pain Height Weight Body Mass Index Source Dec 20, 2023 09:00 AM 98.1 43 134/68 [facility] Social History: Smoking Status (Most current) and Tobacco Use (All prior to encounter date) This section includes the most current, and the historical, smoking and tobacco- related health factors from the [place] facility where the Encounter took place. Current Smoking Status This section includes the most current smoking, or tobacco-related health factor, from the [place] facility where the Encounter took place. Date/Time Current Smoking Status Comment Facil ity Oct 03, 2023 08:30 AM VA-TOBACCO FORMER USER [facility] Tobacco Use History This section includes a history of the smoking, or tobacco-related health factors, that were collected on or before the date of the Encounter. The data comes from the [place] facility where the Encounter took place. Date/Time Smoking Status/Tobacco Use Comment F acility Oct 03, 2023 08:30 AM VA-TOBACCO QUIT 1 TO < 5 YRS [facility] Sep 18, 2021 10:30 AM VA-TOBACCO DOESNT USE WI 30 MIN WAKEUP [facility] Sep 18, 2021 10:30 AM VA-TOBACCO USE 30 YEARS OR MORE [facility] Sep 18, 2021 10:30 AM VA-TOBACCO USE ADVICE [facility] Sep 18, 2021 10:30 AM VA-TOBACCO USE MASTER OF CEREMONIES NO [facility] Sep 18, 2021 10:30 AM VA-TOBACCO USE MED NO [facility] Sep 18, 2021 10:30 AM VA-TOBACCO USER SOME DAYS [facility] Sep 15, 2020 01:00 PM VA-TOBACCO DOESNT USE WI 30 MIN WAKEUP [facility] Sep 15, 2020 01:00 PM VA-TOBACCO USE 5 T O 15 YEARS [facility] Sep 15, 2020 01:00 PM VA-TOBACCO USE ADVICE [facility] Sep 15, 2020 01:00 PM VA-TOBACCO USE MASTER OF CEREMONIES NO [facility] Sep 15, [...] 28, 2016 07:[address] [facility] Aug 01, 2009 10:10 AM QUIT TOBACCO >7 YEARS AGO [facility] Sep 26, 2007 09:34 AM QUIT TOBACCO >7 YEARS AGO [facility] August 06, 2005 09:10 AM CURRENT [facility]ACC O [facility] Mar 23, 2005 08:38 AM CURRENT NON-TOBACC O [facility] [place] [facility] Oct 01, 2004 09:41 AM CURRENT NON-TOBACC O [facility] [place] [facility] Apr 07, 2004 09:49 AM CURRENT NON-TOBACC O USER-HX OF USE [facility] Oct 11, 2003 10:41 AM CURRENT NON-TOBACC O USER-HX OF USE [facility] Apr 05, 2003 10:43 AM CURRENT NON-TOBACC O USER-HX OF USE Quit 15 years ago. [facility] [place] [facility] Oct 25, 2002 09:24 AM CURRENT NON-TOBACC O [facility] [place] [facility] Nov 17, 2001 10:31 AM TOB-CURRENT NON-SM OKER BUT [facility]X [facility] [place] [facility] Jul 27, 2001 01:43 PM CURRENT NON-TOBACC O USER-HX OF USE [facility] May 16, 2001 10:35 AM CURRENT NON-TOBACC O USER-HX OF USE Quit 18 years ago. [facility] [place] [facility] Nov 29, 2000 02:03 PM CURRENT NON-TOBACC O USER-HX OF USE QUIT 13 YRS AGO, 1 PK DAY [facility] Encounter Notes: All associated encounter notes This section contains the clinical notes associated to the Encounter. Date/Time Encounter Note(s) Provider Source Dec 20, 2023 09:01 AM CHIROPRACTIC NOTE: LOCAL TITLE: CHIROPRACTIC FOLLOW UP NOTE PB STANDARD TITLE: CHIROPRACTIC NOTE DATE OF NOTE: DEC 20, 2023@09:01 ENTRY DATE: DEC 20, 2023@09:01:16 AUTHOR: ALVAREZ FRITZ COSIGNER: URGENCY: STATUS: COMPLETED CHIROPRACTIC FOLLOW-UP VISIT Patient's language preference for health information: Vincentian Other Communication Methods Needed: SUBJECTIVE: The Alto is a 73 year old MALE being seen in the Chiropractic clinic for follow-up visit. The [place] reports slight relief of his lower back pain following his initial adjustment last month. He describes his lower back and right hip as sore. The rates his pain level as a 3/10. PAST MEDICAL HISTORY: see problem list SOCIO-ECONOMIC HISTORY: Tobacco: No Prior Tobacco Use Status Available Alcohol: ____ ALLERGIES/ADVERSE REACTIONS: LISINOPRIL OBJECTIVE: MOVEMENT/POSTURE: The Alto ambulates without issue. SEGMENTAL DYSFUNCTION: Joint dysfunction was noted at T10, L4, and the right SI joint. PALPATION: Bone landmarks tender to palpation: T10, L4, and the right PSIS. LUMBAR ACTIVE RANGE OF MOTION: Moderate restrictions in all planes of motion with the reporting pain at the L/S junction. REVIEW OF DIAGNOSTIC IMAGING: No data available ASSESSMENT: Thoracic spine, lumbar spine, and SI joint dysfunction with associated myofascial pain. PLAN: This is the first follow up treatment for the of a planned six treatments. We will treat The once every two weeks for six treatments. [...] exercise program and to commit to a jail exercise plan. /maria esther/ [facility] Signed: 12/20/2023 09:11 ALVAREZ FRITZ
--- OUTSIDE RECORDS SUMMARY | 2024-01-03 04:00 | XMS_ITS | Encounter Summary ---
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 Date/Time Primary/Secondary Diagnosis Diagnosis Name Provider Source Jan 03, 2024 10:00 AM PRIMARY Segmental and somatic dysfunction of thoracic region ALVAREZ FRITZ [facility] Jan 03, 2024 10:00 AM SECONDARY Intvrt disc disorders w radiculopathy, lumbosacral region [place]ARE[place] FRITZ [facility] Jan 03, 2024 10:00 AM SECONDARY Pain in thoracic spine ALVAREZ FRITZ [facility] Jan 03, 2024 10:00 AM SECONDARY Segmental and somatic dysfunction of lumbar region [facility] FRIT[facility] Jan 03, 2024 10:00 AM SECONDARY Segmental and somatic dysfunction of pelvic region ALVAREZ FRITZ [facility] Plan of Treatment: Future Appointments (+ 6 months) and Future Tests (+/- 45 days) The Plan of Treatment section includes future care activities for the patient from all [place] [facility]. This section includes future appointments and future orders which are active, pending or scheduled. Future Appointments This section includes appointments that were scheduled to occur 6 months from the date of the Encounter, up to a maximum of 20 appointments. The data comes from all [place] treatment facilities. Appointment Date/Time Appointment Type Appointme nt Facility Name Jan 17, 2024 08:45 AM AMBULATORY - MEDICINE [facility] Jan 17, 2024 09:00 AM AMBULATORY - MEDICINE [facility] Jan 31, 2024 09:00 AM AMBULATORY - MEDICINE [facility] Feb 14, 2024 09:00 AM AMBULATORY - MEDICINE [facility] Feb 28, 2024 09:00 AM AMBULATORY - MEDICINE [facility] Mar 06, 2024 09:00 AM AMBULATORY - MEDICINE [facility] Mar 16, 2024 01:30 PM AMBULATORY - NONE [facility] Mar 20, 2024 09:00 AM AMBULATORY - MEDICINE [facility] Mar 27, 2024 08:00 AM AMBULATORY - MEDICINE [place] [facility] Mar 30, 2024 10:45 AM AMBULATORY - MEDICINE [facility] Mar 30, 2024 12:00 PM AMBULATORY - MEDICINE [facility] Apr 10, 2024 11:00 AM AMBULATORY - MEDICINE [facility] Apr 10, 2024 11:30 AM AMBULATORY - MEDICINE [facility] May 08, 2024 09:20 AM AMBULATORY - MEDICINE [facility] May 17, 2024 10:00 AM AMBULATORY - MEDICINE [facility] Jun 05, 2024 09:20 AM AMBULATORY - MEDICINE [facility] Jun 19, 2024 09:00 AM AMBULATORY - MEDICINE [facility] Vital Signs: All taken on the encounter date This section contains inpatient and outpatient Vital Signs collected on the date of the Encounter. Date/Time Temperature Pulse Blood Pressure Respiratory Rate SP02 Pain Height Weight Body Mass Index Source Jan 03, 2024 09:00 AM 98 49 147/79 [facility] Social History: Smoking Status (Most current) and Tobacco Use (All prior to encounter date) This section includes the most current, and the historical, smoking and tobacco- related health factors from the [place] facility where the Encounter took place. Current Smoking Status This section includes the most current smoking, or tobacco-related health factor, from the [place] facility where the Encounter took place. Date/Time Current Smoking Status Comment Facil ity Oct 03, 2023 08:30 AM VA-TOBACCO FORMER USER [facility] Tobacco Use History This section includes a history of the smoking, or tobacco-related health factors, that were collected on or before the date of the Encounter. The data comes from the [place] facility where the Encounter took place. 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 [facility] Sep 18, 2021 10:30 AM VA-TOBACCO USE MED NO [facility] Sep 18, 2021 10:30 AM VA-TOBACCO USER SOME DAYS [facility] Sep 15, 2020 01:00 PM VA-TOBACCO DOESNT USE [place] 30 MIN WAKEUP [facility] Sep 15, 2020 01:00 PM VA-TOBACCO USE 5 T O 15 YEARS [facility] Sep 15, 2020 01:00 PM VA-TOBACCO USE ADVICE [place] [facility] Sep 15, 2020 01:00 PM 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 USE 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 [place] [facility] Sep 15, [...] AM TOBACCO OFFERED ST OP SMOKING CLINIC [facility] Aug 01, 2009 10:10 AM QUIT TOBACCO >7 YEARS AGO [facility] Sep 26, 2007 09:34 AM QUIT TOBACCO >7 YEARS AGO [facility] August 06, 2005 09:10 AM CURRENT NON-TOBACC O USER-HX OF USE [facility] Mar 23, 2005 08:38 AM CURRENT NON-TOBACC O USER-HX OF USE [facility] Oct 01, 2004 09:41 AM CURRENT NON-TOBACC O USER-HX OF USE [facility] Apr 07, 2004 09:49 AM CURRENT NON-TOBACC O USER-HX OF USE [facility] Oct 11, 2003 10:41 AM CURRENT NON-TOBACC O USER-HX OF USE [facility] Apr 05, 2003 10:43 AM CURRENT NON-TOBACC O USER-HX OF USE Quit 15 years ago. [facility] Oct 25, 2002 09:24 AM CURRENT NON-TOBACC O USER-HX OF USE [facility] Nov 17, 2001 10:31 AM TOB-CURRENT NON-SM OKER BUT HX [facility] Jul 27, 2001 01:43 PM CURRENT NON-TOBACC O USER-HX OF USE [facility] May 16, 2001 10:35 AM CURRENT NON-TOBACC O USER-HX OF USE Quit 18 years ago. [facility] Nov 29, 2000 02:03 PM CURRENT NON-TOBACC O USER-HX OF USE QUIT 13 YRS AGO, 1 PK DAY [facility] Encounter Notes: All associated encounter notes This section contains the clinical notes associated to the Encounter. Date/Time Encounter Note(s) Provider Source Jan 03, 2024 09:52 AM CHIROPRACTIC NOTE: LOCAL TITLE: CHIROPRACTIC FOLLOW UP NOTE PB STANDARD TITLE: CHIROPRACTIC NOTE DATE OF NOTE: JAN 03, 2024@09:52 ENTRY DATE: JAN 03, 2024@09:52:06 AUTHOR: ALVAREZ FRITZ COSIGNER: URGENCY: STATUS: COMPLETED CHIROPRACTIC FOLLOW-UP VISIT Patient's language preference for health information: Tongan Other Communication Methods Needed: SUBJECTIVE: The is a 73 year old MALE being seen in the Chiropractic clinic for follow-up visit. The [place] states his lower back into the right leg continues to bother him. He describes the lower back as achy with tingling sensation into the right leg. The rates his pain level as a 5/10. PAST MEDICAL HISTORY: see problem list SOCIO-ECONOMIC HISTORY: Tobacco: No Prior Tobacco Use Status Available Alcohol: ____ ALLERGIES/ADVERSE REACTIONS: LISINOPRIL OBJECTIVE: MOVEMENT/POSTURE: The ambulates without issue. SEGMENTAL DYSFUNCTION: Joint dysfunction [...] associated myofascial pain. PLAN: This is the second follow up treatment for the of a [...] exercise program and to commit to a longterm exercise plan. /maria esther/ [facility] Signed: 01/03/2024 09:59 ALVAREZ FRITZ
--- OUTSIDE RECORDS SUMMARY | 2024-01-17 04:00 | XMS_ITS | Encounter Summary ---
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 Date/Time Primary/Secondary Diagnosis Diagnosis Name Provider Source Jan 17, 2024 09:13 AM PRIMARY Segmental and somatic dysfunction of thoracic region [facility]Z [facility] Jan 17, 2024 09:13 AM SECONDARY Pain in thoracic spine AL[facility] FRITZ [facility] Jan 17, 2024 09:13 AM SECONDARY Segmental and somatic dysfunction of lumbar region [facility] Jan 17, 2024 09:13 AM SECONDARY Segmental and somatic dysfunction of pelvic region [facility] FRITZ [facility] Jan 17, 2024 09:13 AM SECONDARY Spondyls w/o myelopathy or radiculopathy, lumbosacr region ALVAREZ FRITZ [facility] Plan of Treatment: Future Appointments (+ 6 months) and Future Tests (+/- 45 days) The Plan of Treatment section includes future care activities for the patient from all [place] [facility]. This section includes future appointments and future orders which are active, pending or scheduled. Future Appointments This section includes appointments that were scheduled to occur 6 months from the date of the Encounter, up to a maximum of 20 appointments. The data comes from all [place] treatment facilities. Appointment Date/Time Appointment Type Appointme nt Facility Name Jan 31, 2024 09:00 AM AMBULATORY - MEDICINE [facility] Feb 14, 2024 09:00 AM AMBULATORY - MEDICINE [facility] Feb 28, 2024 09:00 AM AMBULATORY - MEDICINE [facility] Mar 06, 2024 09:00 AM AMBULATORY - MEDICINE [facility] Mar 16, 2024 01:30 PM AMBULATORY - NONE [facility] B [facility] Mar 20, 2024 09:00 AM AMBULATORY - MEDICINE [facility] Mar 27, 2024 08:00 AM AMBULATORY - MEDICINE [place] [facility] Mar 30, 2024 10:45 AM AMBULATORY - MEDICINE [facility] Mar 30, 2024 12:00 PM AMBULATORY - MEDICINE [facility] Apr 10, 2024 11:00 AM AMBULATORY - MEDICINE [facility] Apr 10, 2024 11:30 AM AMBULATORY - MEDICINE [facility] May 08, 2024 09:20 AM AMBULATORY - MEDICINE [facility] May 17, 2024 10:00 AM AMBULATORY - MEDICINE [facility] Jun 05, 2024 09:20 AM AM[place]ORY [place] MEDICINE [place] [facility] Jun 19, 2024 09:00 AM AMBULATORY [place] MEDICINE [place] [facility] Jul 05, 2024 09:20 AM AMBULATORY - MEDICINE [facility] Vital Signs: All taken on the encounter date This section contains inpatient and outpatient Vital Signs collected on the date of the Encounter. Date/Time Temperature Pulse Blood Pressure Respiratory Rate SP02 Pain Height Weight Body Mass Index Source Jan 17, 2024 09:00 AM 97.9 56 151/74 [facility] Social History: Smoking Status (Most current) and Tobacco Use (All prior to encounter date) This section includes the most current, and the historical, smoking and tobacco- related health factors from the [place] facility where the Encounter took place. Current Smoking Status This section includes the most current smoking, or tobacco-related health factor, from the [place] facility where the Encounter took place. Date/Time Current Smoking Status Comment Facil ity Oct 03, 2023 08:30 AM VA-TOBACCO FORMER USER [facility] Tobacco Use History This section includes a history of the smoking, or tobacco-related health factors, that were collected on or before the date of the Encounter. The data comes from the [place] facility where the Encounter took place. 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 [place] [facility] Sep 18, 2021 10:30 AM VA-TOBACCO USE MED NO [place] [facility] Sep 18, 2021 10:30 AM VA-TOBACCO USER SOME DAYS [place] [facility] Sep 15, 2020 01:00 PM VA-TOBACCO DOESNT USE [place] 30 MIN WAKEUP [place] [facility] Sep 15, 2020 01:00 PM VA-TOBACCO USE 5 T O 15 YEARS [place] [facility] Sep 15, 2020 01:00 PM VA-TOBACCO USE ADVICE [place] [facility] Sep 15, 2020 01:00 PM 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 [place] [facility] Sep 15, [...] AM QUIT TOBACCO >7 YEARS AGO [facility] [place] [facility] Sep 26, 2007 09:34 AM QUIT TOBACCO >7 YEARS AGO [facility] [place] [facility] August 06, 2005 09:10 AM CURRENT NON-TOBACC O USER-HX OF USE [place] [facility] Mar 23, 2005 08:38 AM CURRENT NON-TOBACC O USER-HX OF USE [place] [facility] Oct 01, 2004 09:41 AM CURRENT NON-TOBACC O USER-HX OF USE [place] [facility] Apr 07, 2004 09:49 AM CURRENT NON-TOBACC O USER-HX OF USE [place] [facility] Oct 11, 2003 10:41 AM CURRENT NON-TOBACC O USER-HX OF USE [place] [facility] Apr 05, 2003 10:43 AM CURRENT NON-TOBACC O USER-HX OF USE Quit 15 years ago. [place] [facility] Oct 25, 2002 09:24 AM CURRENT NON-TOBACC O USER-HX OF USE [facility] Nov 17, 2001 10:31 AM TOB-CURRENT NON-SM OKER BUT HX [place] [facility] Jul 27, 2001 01:43 PM CURRENT NON-TOBACC O USER-HX OF USE [facility] May 16, 2001 10:35 AM CURRENT NON-TOBACC O USER-HX OF USE Quit 18 years ago. [place] [facility] Nov 29, 2000 02:03 PM CURRENT NON-TOBACC O USER-HX OF USE QUIT 13 YRS AGO, 1 PK DAY [facility] Encounter Notes: All associated encounter notes This section contains the clinical notes associated to the Encounter. Date/Time Encounter Note(s) Provider Source Jan 17, 2024 08:58 AM CHIROPRACTIC NOTE: LOCAL TITLE: CHIROPRACTIC FOLLOW UP NOTE PB STANDARD TITLE: CHIROPRACTIC NOTE DATE OF NOTE: JAN 17, 2024@08:58 ENTRY DATE: JAN 17, 2024@08:58:13 AUTHOR: ALVAREZ FRITZ COSIGNER: URGENCY: STATUS: COMPLETED CHIROPRACTIC FOLLOW-UP VISIT Patient's language preference for health information: Bangladeshi Other Communication Methods Needed: SUBJECTIVE: The [place] is a 73 year old MALE being seen in the Chiropractic clinic for follow-up visit. The describes his back as doing well since his last adjustment. He notices mild lower back pain when he rolls over in bed or twists. The rates his pain level as a 2/10. PAST MEDICAL HISTORY: see problem list SOCIO-ECONOMIC HISTORY: Tobacco: No Prior Tobacco Use Status Available Alcohol: ____ ALLERGIES/ADVERSE REACTIONS: LISINOPRIL OBJECTIVE: MOVEMENT/POSTURE: The [place] ambulates without issue. SEGMENTAL DYSFUNCTION: Joint dysfunction [...] associated myofascial pain. PLAN: This is the third follow up treatment for the of a planned six treatments. We will treat The [place] once every two weeks for six treatments. 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 /maria esther/ [facility] Signed: 01/17/2024 09:11 ALVAREZ FRITZ
--- OUTSIDE RECORDS SUMMARY | 2024-01-31 04:00 | XMS_ITS | Encounter Summary ---
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 Date/Time Primary/Secondary Diagnosis Diagnosis Name Provider Source Jan 31, 2024 09:11 AM PRIMARY Segmental and somatic dysfunction of thoracic region [facility] Jan 31, 2024 09:11 AM SECONDARY Intvrt disc disorders w radiculopathy, lumbosacral region [facility] Jan 31, 2024 09:11 AM SECONDARY Pain in thoracic spine [facility] Jan 31, 2024 09:11 AM SECONDARY Segmental and somatic dysfunction of lumbar region [facility] Jan 31, 2024 09:11 AM SECONDARY Segmental and somatic dysfunction of pelvic region ALVAREZ FRITZ [facility] Plan of Treatment: Future Appointments (+ 6 months) and Future Tests (+/- 45 days) The Plan of Treatment section includes future care activities for the patient from all [place] [facility]. This section includes future appointments and future orders which are active, pending or scheduled. Future Appointments This section includes appointments that were scheduled to occur 6 months from the date of the Encounter, up to a maximum of 20 appointments. The data comes from all [place] treatment facilities. Appointment Date/Time Appointment Type Appointme nt Facility Name Feb 14, 2024 09:00 AM AMBULATORY - MEDICINE [facility] Feb 28, 2024 09:00 AM AMBULATORY - MEDICINE [facility] Mar 06, 2024 09:00 AM AMBULATORY - MEDICINE [facility] Mar 16, 2024 01:30 PM AMBULATORY - NONE [facility] Mar 20, 2024 09:00 AM AMBULATORY - MEDICINE [facility] Mar 27, 2024 08:00 AM AMBULATORY - MEDICINE [place] [facility] Mar 30, 2024 10:45 AM AMBULATORY - MEDICINE [facility] Mar 30, 2024 12:00 PM AMBULATORY - MEDICINE [facility] Apr 10, 2024 11:00 AM AMBULATORY - MEDICINE [facility] Apr 10, 2024 11:30 AM AM[place]IC[place] [facility] May 08, 2024 09:20 AM AMBULATORY - MEDICINE [facility] May 17, 2024 10:00 AM AMBULATORY - MEDICINE [facility] Jun 05, 2024 09:20 AM AMBULATORY - MEDICINE [facility] Jun 19, 2024 09:00 AM [facility]IC[place] [facility] Jul 05, 2024 09:20 AM [facility] [place]IC[place] [facility] Jul 19, 2024 09:20 AM AMBULATORY - MEDICINE [facility] Vital Signs: All taken on the encounter date This section contains inpatient and outpatient Vital Signs collected on the date of the Encounter. Date/Time Temperature Pulse Blood Pressure Respiratory Rate SP02 Pain Height Weight Body Mass Index Source Jan 31, 2024 09:00 AM 98 62 129/63 [facility] Social History: Smoking Status (Most current) and Tobacco Use (All prior to encounter date) This section includes the most current, and the historical, smoking and tobacco- related health factors from the [place] facility where the Encounter took place. Current Smoking Status This section includes the most current smoking, or tobacco-related health factor, from the [place] facility where the Encounter took place. Date/Time Current Smoking Status Comment Facil ity Oct 03, 2023 08:30 AM VA-TOBACCO FORMER USER [facility] Tobacco Use History This section includes a history of the smoking, or tobacco-related health factors, that were collected on or before the date of the Encounter. The data comes from the [place] facility where the Encounter took place. 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 [place] [facility] Sep 18, 2021 10:30 AM VA-TOBACCO USE MED NO [place] [facility] Sep 18, 2021 10:30 AM VA-TOBACCO USER SOME DAYS [place] [facility] Sep 15, 2020 01:00 PM VA-TOBACCO DOESNT USE WI 30 MIN WAKEUP [place] [facility] Sep 15, 2020 01:00 PM VA-TOBACCO USE 5 T O 15 YEARS [place] [facility] Sep 15, 2020 01:00 PM VA-TOBACCO USE ADVICE [place] [facility] Sep 15, 2020 01:00 PM 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 [place] [facility] Sep 15, [...] AM QUIT TOBACCO >7 YEARS AGO [facility] [place] [facility] Sep 26, 2007 09:34 AM QUIT TOBACCO >7 YEARS AGO [facility] [place] [facility] August 06, 2005 09:10 AM CURRENT NON-TOBACC O USER-HX OF USE [place] [facility] Mar 23, 2005 08:38 AM CURRENT NON-TOBACC O USER-HX OF USE [place] [facility] Oct 01, 2004 09:41 AM CURRENT NON-TOBACC O USER-HX OF USE [place] [facility] Apr 07, 2004 09:49 AM CURRENT NON-TOBACC O USER-HX OF USE [place] [facility] Oct 11, 2003 10:41 AM CURRENT NON-TOBACC O USER-HX OF USE [place] [facility] Apr 05, 2003 10:43 AM CURRENT NON-TOBACC O USER-HX OF USE Quit 15 years ago. [facility] Oct 25, 2002 09:24 AM CURRENT NON-TOBACC O USER-HX OF USE [facility] Nov 17, 2001 10:31 AM TOB-CURRENT NON-SM OKER BUT HX [place] [facility] Jul 27, 2001 01:43 PM CURRENT NON-TOBACC O USER-HX OF USE [facility] May 16, 2001 10:35 AM CURRENT NON-TOBACC O USER-HX OF USE Quit 18 years ago. [place] [facility] Nov 29, 2000 02:03 PM CURRENT NON-TOBACC O USER-HX OF USE QUIT 13 YRS AGO, 1 PK DAY [place] [facility] Encounter Notes: All associated encounter notes This section contains the clinical notes associated to the Encounter. Date/Time Encounter Note(s) Provider Source Jan 31, 2024 09:00 AM CHIROPRACTIC NOTE: LOCAL TITLE: CHIROPRACTIC FOLLOW UP NOTE PB STANDARD TITLE: CHIROPRACTIC NOTE DATE OF NOTE: JAN 31, 2024@09:00 ENTRY DATE: JAN 31, 2024@09:00:20 AUTHOR: ALVAREZ FRITZ COSIGNER: URGENCY: STATUS: COMPLETED CHIROPRACTIC FOLLOW-UP VISIT Patient's language preference for health information: French Other Communication Methods Needed: SUBJECTIVE: The is a 73 year old MALE being seen in the Chiropractic clinic for follow-up visit. The [place] states his lower back is a constantly painful, but better following his last adjustment. The rates his pain level as a 3/10. PAST MEDICAL HISTORY: see problem list SOCIO-ECONOMIC HISTORY: Tobacco: No Prior Tobacco Use Status Available Alcohol: ____ ALLERGIES/ADVERSE REACTIONS: LISINOPRIL OBJECTIVE: MOVEMENT/POSTURE: The [place] ambulates without issue. SEGMENTAL DYSFUNCTION: Joint dysfunction [...] associated myofascial pain. PLAN: This is the fourth follow up treatment for the of a [...] exercise program and to commit to a senior living exercise plan. /maria esther/ [facility] Signed: 01/31/2024 09:10 ALVAREZ FRITZ
--- OUTSIDE RECORDS SUMMARY | 2024-02-14 04:00 | XMS_ITS | Encounter Summary ---
Author Name [facility] [place] [facility] [place] Address [address] [place] [address] Care Team Providers Care Cable Installation Manager Name Role Phone HOBSONDINESH Primary Care Provider [...] PART A Jan 02, 2013 PART A [id number] [place] PATIENT MEDICARE ([place]NR) MEDICARE (M) PART A Jan 02, 2013 PART A [id number] [place] PATIENT Selected Encounter This section includes the information on record at [place] for the Encounter. 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 Date/Time Primary/Secondary Diagnosis Diagnosis Name Provider Source Feb 14, 2024 09:04 AM PRIMARY Segmental and somatic dysfunction of thoracic region [facility] Feb 14, 2024 09:04 AM SECONDARY Other intervertebral disc displacement, lumbosacral region [facility] Feb 14, 2024 09:04 AM SECONDARY Pain in thoracic spine [facility] Feb 14, 2024 09:04 AM SECONDARY Segmental and somatic dysfunction of lumbar region [facility] Feb 14, 2024 09:04 AM SECONDARY Segmental and somatic dysfunction of pelvic region [facility] Plan of Treatment: Future Appointments (+ 6 months) and Future Tests (+/- 45 days) The Plan of Treatment section includes future care activities for the patient from all [place] treatmentfacilities. This section includes future appointments and future orders which are active, pending or scheduled. Future Appointments This section includes appointments that were scheduled to occur 6 months from the date of the Encounter, up to a maximum of 20 appointments. The data comes from all [place] treatment facilities. Appointment Date/Time Appointment Type Appointme nt Facility Name Feb 28, 2024 09:00 AM [facility]BULATORY - [facility]IC[place] [facility] Mar 06, 2024 09:00 AM AM[facility]ATORY - MEDICINE [facility] Mar 16, 2024 01:30 PM AMBULATORY - NONE [facility] Mar 20, 2024 09:00 AM AMBULATORY - MEDICINE [facility] Mar 27, 2024 08:00 AM AMBULATORY - MEDICINE [facility] [facility] Mar 30, 2024 10:45 AM [facility] Mar 30, 2024 12:00 PM [facility] Apr 10, 2024 11:00 AM [facility] Apr 10, 2024 11:30 AM [facility] May 08, 2024 09:20 AM [facility] May 17, 2024 10:00 AM [facility] Jun 05, 2024 09:20 AM [facility] Jun 19, 2024 09:00 AM [facility] Jul 05, 2024 09:20 AM AMBULATORY - MEDICINE [facility] Jul 19, 2024 09:20 AM AMBULATORY - MEDICINE [facility] August 02, 2024 09:20 AM AMBULATORY - MEDICINE [facility] Vital Signs: All taken on the encounter date This section contains inpatient and outpatient Vital Signs collected on the date of the Encounter. Date/Time Temperature Pulse Blood Pressure Respiratory Rate SP02 Pain Height Weight Body Mass Index Source Feb 14, 2024 09:00 AM 97.9 57 147/67 [facility] Social History: Smoking Status (Most current) and Tobacco Use (All prior to encounter date) This section includes the most current, and the historical, smoking and tobacco- related health factors from the [place] facility where the Encounter took place. Current Smoking Status This section includes the most current smoking, or tobacco-related health factor, from the [place] facility where the Encounter took place. Date/Time Current Smoking Status Comment Facil ity Oct 03, 2023 08:30 AM VA-TOBACCO FORMER USER [facility] Tobacco Use History This section includes a history of the smoking, or tobacco-related health factors, that were collected on or before the date of the Encounter. The data comes from the [place] facility where the Encounter took place. Date/Time Smoking Status/Tobacco Use Comment F acility Oct 03, 2023 08:30 AM VA-TOBACCO QUIT 1 TO < 5 YRS [facility] Sep 18, 2021 10:30 AM VA-TOBACCO DOESNT USE WI 30 MIN WAKEUP [facility] Sep 18, 2021 10:30 AM VA-TOBACCO USE 30 YEARS OR MORE [facility] Sep 18, 2021 10:30 AM VA-TOBACCO USE ADVICE [facility] Sep 18, 2021 10:30 AM VA-TOBACCO USE DOCTOR OF DENTAL MEDICINE NO [facility] Sep 18, 2021 10:30 AM VA-TOBACCO USE MED NO [facility] Sep 18, 2021 10:30 AM VA-TOBACCO USER SOME DAYS [facility] Sep 15, 2020 01:00 PM VA-TOBACCO DOESNT USE WI 30 MIN WAKEUP [facility] Sep 15, 2020 01:00 PM VA-TOBACCO USE 5 T O 15 YEARS [facility] Sep 15, 2020 01:00 PM VA-TOBACCO USE ADVICE [facility] Sep 15, 2020 01:00 PM VA-TOBACCO USE DOCTOR OF DENTAL MEDICINE NO [facility] Sep 15, [...] 07:[address] [facility] Aug 01, 2009 10:10 AM QUIT TOBACCO >7 YEARS AGO [facility] [facility] Sep 26, 2007 09:34 AM QUIT TOBACCO >7 YEARS AGO [facility] August 06, 2005 09:10 AM CURRENT NON-TOBACC O USER-HX OF USE [facility] Mar 23, 2005 08:38 AM CURRENT NON-TOBACC O USER-HX OF USE [facility] Oct 01, 2004 09:41 AM CURRENT NON-TOBACC O USER-HX OF USE [facility] Apr 07, 2004 09:49 AM CURRENT NON-TOBACC O USER-HX OF USE [facility] Oct 11, 2003 10:41 AM CURRENT NON-TOBACC O USER-HX OF USE [facility] Apr 05, 2003 10:43 AM CURRENT NON-TOBACC O USER-HX OF USE Quit 15 years ago. [facility] Oct 25, 2002 09:24 AM CURRENT NON-TOBACC O USER-HX OF USE [facility] Nov 17, 2001 10:31 AM TOB-CURRENT NON-SM OKER BUT HX [facility] Jul 27, 2001 01:43 PM CURRENT NON-TOBACC O USER-HX OF USE [facility] May 16, 2001 10:35 AM CURRENT NON-TOBACC O USER-HX OF USE Quit 18 years ago. [facility] Nov 29, 2000 02:03 PM CURRENT NON-TOBACC O USER-HX OF USE QUIT 13 YRS AGO, 1 PK DAY [facility] Encounter Notes: All associated encounter notes This section contains the clinical notes associated to the Encounter. Date/Time Encounter Note(s) Provider Source Feb 14, 2024 08:53 AM CHIROPRACTIC NOTE: LOCAL TITLE: CHIROPRACTIC FOLLOW UP NOTE PB STANDARD TITLE: CHIROPRACTIC NOTE DATE OF NOTE: FEB 14, 2024@08:53 ENTRY DATE: FEB 14, 2024@08:53:55 AUTHOR: ALVAREZ FRITZ COSIGNER: URGENCY: STATUS: COMPLETED CHIROPRACTIC FOLLOW-UP VISIT Patient's language preference for health information: Hungarian Other Communication Methods Needed: SUBJECTIVE: The [place] is a 73 year old MALE being seen in the Chiropractic clinic for follow-up visit. The reports continued constant lower back pain. He states the lower back pain eased for about four days after his last adjustment. The rates his pain [...] associated myofascial pain. PLAN: This is the fifth follow up treatment for the of a planned six treatments. We will treat The [place] once every two weeks for six treatments. [...] exercise program and to commit to a detention exercise plan. /maria esther/ [facility] Signed: 02/14/2024 09:03 ALVAREZ FRITZ
--- OUTSIDE RECORDS SUMMARY | 2024-02-28 04:00 | XMS_ITS | Encounter Summary ---
Author Name [facility] [place] [facility] [place] Address [address] [place] [address] Care Team Providers Care Silk Screen Cutter Name Role Phone HOBSONDINESH Primary Care Provider [...] PART A Jan 02, 2013 PART A [id number] [place] PATIENT MEDICARE ([place]) MEDICARE (M) PART A Jan 02, 2013 PART A [id number] [place] PATIENT Selected Encounter This section includes the information on record at [place] for the Encounter. 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 Date/Time Primary/Secondary Diagnosis Diagnosis Name Provider Source Feb 28, 2024 09:20 AM PRIMARY Segmental and somatic dysfunction of thoracic region ALVAREZ FRITZ [facility] Feb 28, 2024 09:20 AM SECONDARY Oth intvrt disc degen, lumbosacr w discog bck & lw extrm pn [facility] Feb 28, 2024 09:20 AM SECONDARY Pain in thoracic spine [facility] Feb 28, 2024 09:20 AM SECONDARY Segmental and somatic dysfunction of lumbar region [facility] [place] [facility] Feb 28, 2024 09:20 AM SECONDARY Segmental and somatic dysfunction of pelvic region ALVAREZ FRITZ [facility] Plan of Treatment: Future Appointments (+ 6 months) and Future Tests (+/- 45 days) The Plan of Treatment section includes future care activities for the patient [facility] [place] [facility] This section includes future appointments and future orders which are active, pending or scheduled. Future Appointments This section includes appointments that were scheduled to occur 6 months from the date of the Encounter, up to a maximum of 20 appointments. The data comes from all [place] treatment facilities. Appointment Date/Time Appointment Type Appointme nt Facility Name Mar 06, 2024 09:00 AM AMBULATORY - MEDICINE [facility] Mar 16, 2024 01:30 PM AMBULATORY - NONE [facility] Mar 20, 2024 09:00 AM AMBULATORY - MEDICINE [facility] Mar 27, 2024 08:00 AM AMBULATORY - MEDICINE [facility] Mar 30, 2024 10:45 AM AMBULATORY - MEDICINE [facility] Mar 30, 2024 12:00 PM [facility] [facility] Apr 10, 2024 11:00 AM AMBULATORY - MEDICINE [facility] Apr 10, 2024 11:30 AM [facility] [place] [facility] May 08, 2024 09:20 AM AMBULATORY - MEDICINE [facility] May 17, 2024 10:00 AM [facility] [place] [facility] [place] [facility] Jun 05, 2024 09:20 AM [facility] [facility] Jun 19, 2024 09:00 AM [facility] [facility] Jul 05, 2024 09:20 AM AMBULATORY - MEDICINE [facility] Jul 19, 2024 09:20 AM AMBULATORY - MEDICINE [facility] August 02, 2024 09:20 AM AMBULATORY - MEDICINE [facility] August 16, 2024 09:20 AM AMBULATORY - MEDICINE [facility] August 23, 2024 09:00 AM AMBULATORY - MEDICINE [facility] Vital Signs: All taken on the encounter date This section contains inpatient and outpatient Vital Signs collected on the date of the Encounter. 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 [facility] Sep 18, 2021 10:30 AM VA-TOBACCO USE MED NO [facility] Sep 18, 2021 10:30 AM VA-TOBACCO USER SOME DAYS [place] [facility] Sep 15, 2020 01:00 PM VA-TOBACCO DOESNT USE WI 30 MIN WAKEUP [facility] Sep 15, 2020 01:00 PM VA-TOBACCO USE 5 T O 15 YEARS [place] [facility] Sep 15, 2020 01:00 PM VA-TOBACCO USE ADVICE [facility] Sep 15, 2020 01:00 PM VA-TOBACCO USE LINING CLOSER NO [facility] Sep 15, [...] 07:[address] [facility] Aug 01, 2009 10:10 AM QUIT TOBACCO >7 YEARS AGO [facility] Sep 26, 2007 09:34 AM QUIT TOBACCO >7 YEARS AGO [facility] August 06, 2005 09:10 AM CURRENT NON-TOBACC O USER-HX OF USE [facility] Mar 23, 2005 08:38 AM CURRENT NON-TOBACC O USER-HX OF USE [facility] Oct 01, 2004 09:41 AM CURRENT NON-TOBACC O USER-HX OF USE [facility] Apr 07, 2004 09:49 AM CURRENT NON-TOBACC O USER-HX OF USE [facility] Oct 11, 2003 10:41 AM CURRENT NON-TOBACC O USER-HX OF USE [facility] Apr 05, 2003 10:43 AM CURRENT NON-TOBACC O USER-HX OF USE Quit 15 years ago. [facility] Oct 25, 2002 09:24 AM CURRENT NON-TOBACC O USER-HX OF USE [facility] Nov 17, 2001 10:31 AM TOB-CURRENT NON-SM OKER BUT HX [facility] Jul 27, 2001 01:43 PM CURRENT NON-TOBACC O [facility] May 16, 2001 10:35 AM CURRENT NON-TOBACC O USER-HX OF USE Quit 18 years ago. [facility] Nov 29, 2000 02:03 PM CURRENT NON-TOBACC O USER-HX OF USE QUIT 13 YRS AGO, 1 PK [facility] Radiology Reports: +/- 30 days of the encounter Radiology Reports For cases when an order for radiology services may have been completed prior to the date of the Encounter, the report list includes the Radiology Reports that were completed up to 30 days before dateof the Encounter. For cases when an order for radiology services may have been completed after the date of the Encounter, the report list also includes the Radiology Reports that were completed up to30 days after date of the Encounter. The data comes from all [place] treatment facilities. 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 (Req'g Lo Img Loc: PB-CT IMAGING Service: Unknown ELENA MUSTAFA [facility] [place] SANTOS [id number] (Case [id number] COMPLETE) LDCT LUNG CANCER SCREENING (CT Detailed) CPT:81694 Reason for Study: smoker quit four years ago Clinical History: Responsible Attending: Ellen Jang Attending Contact Number: [id number] Resident Contact Number: Report Status: Verified Date Reported: MAR 16, 2024 Date Verified: MAR 16, 2024 [facility] E-Sig:/ES/ZOFIA MAHONEY Report: EXAM: LDCT LUNG CANCER SCREENING ADDITIONAL HISTORY: N/A COMPARISON: None PROTOCOL: Screening protocol, low dose, non-contrast CT chest was performed at the local [place] facility in accordance with Lung-Rads 2021. Additional coronal and sagittal reconstructions. MIP reconstructions were reviewed. Secondary computer-aided detection post-processing used. RADIATION DOSE: CTDI(vol): 2.8 mGy DLP: 109.9 mGy*cm INDEX NODULE: NONE OTHER NODULES: None. LUNG/AIRWAY FINDINGS: Interstitial scars. Rare calcified granuloma. No pleural effusion. No airway lesion. EMPHYSEMA: Mild HEART, MEDIASTINUM AND LYMPH NODES: 4.0 cm nondissecting aneurysmal dilatation of the ascending aorta. Conspicuous, though not obviously pathologic, mediastinal lymph nodes. VISUAL CORONARY ARTERY CALCIFICATIONS: Mild UPPER ABDOMEN: Unremarkable. BONES, SOFT TISSUES, AND ADDITIONAL FINDINGS: Degenerative skeletal changes with multilevel disc disease and small Schmorl's nodes. Minimal scoliosis. No acute osseous abnormality. Impression: 1. Chronic findings as noted 2. No acute intrathoracic process 3. No lung nodule 4. LUNG-RADS 1 LUNG-RADS: 1: Negative. RECOMMENDATION: 1 year follow-up low-dose CT LUNG-RADS MODIFIER: N/A. Primary Interpreting Staff: ZOFIA MAHONEY, RADIOLOGIST ([facility]) /ZOFIA Eason [facility] Encounter Notes: All associated encounter notes This section contains the clinical notes associated to the Encounter. Date/Time Encounter Note(s) Provider Source Feb 28, 2024 09:05 AM CHIROPRACTIC NOTE: LOCAL TITLE: CHIROPRACTIC FOLLOW UP NOTE PB STANDARD TITLE: CHIROPRACTIC NOTE DATE OF NOTE: FEB 28, 2024@09:05 ENTRY DATE: FEB 28, 2024@09:05:47 AUTHOR: ALVAREZ FRITZ EXP COSIGNER: URGENCY: STATUS: COMPLETED CHIROPRACTIC FOLLOW-UP VISIT Patient's language preference for health information: Togolese Other Communication Methods Needed: SUBJECTIVE: The [place] is a 74 year old MALE being seen in the Chiropractic clinic for follow-up visit. The describes his lower back as similar to past appointments, but with right hip burning pain into his right leg. The burning pain has lasted for the past 3-4 days, but has somewhat lessened in intensity. The rates his pain level as a 4/10. PAST MEDICAL HISTORY: see problem list SOCIO-ECONOMIC [...] associated myofascial pain. PLAN: This is the final follow up treatment for the of a planned six treatments. We will treat The [place] once every two weeks for six additional treatments. Prognosis: Fair Today's treatment of the [...] exercise program and to commit to a half-way exercise plan. /maria esther/ [facility] Signed: 02/28/2024 09:20 ALVAREZ FRITZ
--- OUTSIDE RECORDS SUMMARY | 2024-03-06 04:00 | XMS_ITS | Encounter Summary ---
Author Name [facility] [place] [facility] [place] Address [address] [place] [address] Care Team Providers Care Core Setter Name Role Phone JOCE DINESH Primary Care Provider Unavailabl e Insurance [...] PART A Jan 02, 2013 PART A [id number] [place] PATIENT MEDICARE (WNR) MEDICARE (M) PART A Jan 02, 2013 PART A [id number] [place] PATIENT Selected Encounter This section includes the information on record at [place] for the Encounter. Date/Time Encounter Type Encounter Description Reason Provider Source Mar 06, 2024 09:00 AM OFFICE O/P EST MOD 30 MIN PRIMARY CARE/MEDICINE ICD-10-CM J01.80 Other acute sinusitis ELLEN JANG Encounter Template Text not used by [facility] Assessments - Encounter Diagnoses This section includes the primary and secondary diagnoses documented for the Encounter. Date/Time Primary/Secondary Diagnosis Diagnosis Name Provider Source Mar 06, 2024 10:29 AM PRIMARY Other acute sinusitis ELLEN JANG [facility] Mar 06, 2024 10:29 AM SECONDARY Allergic rhinitis, unspecified ELLEN JAGN [facility] Mar 06, 2024 10:29 AM SECONDARY Benign prostatic hyperplasia with lower urinary tract symp ELLEN JANG [facility] Plan of Treatment: Future Appointments (+ 6 months) and Future Tests (+/- 45 days) The Plan of Treatment section includes future care activities for the patient from all [place] [facility] This section includes future appointments and future orders which are active, pending or scheduled. Future Appointments This section includes appointments that were scheduled to occur 6 months from the date of the Encounter, up to a maximum of 20 appointments. The data comes from all [place] treatment facilities. Appointment Date/Time Appointment Type Appointme nt Facility Name Mar 16, 2024 01:30 PM AMBULATORY - NONE [facility] Mar 20, 2024 09:00 AM AMBULATORY - MEDICINE [facility] Mar 27, 2024 08:00 AM AMBULATORY - MEDICINE [facility] Mar 30, 2024 10:45 AM AMBULATORY - [facility] Mar 30, 2024 12:00 PM [facility]BULATORY - [facility] Apr 10, 2024 11:00 AM AM[facility]ORY - [facility] Apr 10, 2024 11:30 AM [facility]ORY - [facility] May 08, 2024 09:20 AM [facility]ORY - [facility] May 17, 2024 10:00 AM [facility]ORY - [facility] Jun 05, 2024 09:20 AM AM[facility]ORY - [facility] Jun 19, 2024 09:00 AM [facility]ORY - [facility] Jul 05, 2024 09:20 AM [facility] Jul 19, 2024 09:20 AM [facility] August 02, 2024 09:20 AM [facility] August 16, 2024 09:20 AM [facility] August 23, 2024 09:00 AM AMBULATORY - MEDICINE [facility] Vital Signs: All taken on the encounter date This section contains inpatient and outpatient Vital Signs collected on the date of the Encounter. Date/Time Temperature Pulse Blood Pressure Respiratory Rate SP02 Pain Height Weight Body Mass Index Source Mar 06, 2024 09:13 AM 97.7 57 132/77 18 98 0 72.0 231.7 31 [facility] Social History: Smoking Status (Most current) and Tobacco Use (All prior to encounter date) This section includes the most current, and the historical, smoking and tobacco- related health factors from the [place] facility where the Encounter took place. Current Smoking Status This section includes the most current smoking, or tobacco-related health factor, from the [place] facility where the Encounter took place. Date/Time Current Smoking Status Comment Facil ity Oct 03, 2023 08:30 AM VA-TOBACCO FORMER USER [facility] Tobacco Use History This section includes a history of the smoking, or tobacco-related health factors, that were collected on or before the date of the Encounter. The data comes from the [place] facility where the Encounter took place. 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 [facility] Sep 18, 2021 10:30 AM VA-TOBACCO USE MED NO [facility] Sep 18, 2021 10:30 AM VA-TOBACCO USER SOME DAYS [facility] Sep 15, 2020 01:00 PM VA-TOBACCO DOESNT USE WI 30 MIN WAKEUP [facility] Sep 15, 2020 01:00 PM VA-TOBACCO USE 5 T O 15 YEARS [facility] Sep 15, 2020 01:00 PM VA-TOBACCO USE ADVICE [facility] Sep 15, 2020 01:00 PM VA-TOBACCO USE BIOLOGICAL SCIENCES 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 NO [facility] Sep 15, 2020 01:00 PM VA-TOBACCO USE MED NO [facility] Sep 15, 2020 01:00 PM [...] 2017 12:02 PM TOBACCO USER OFFERED MEDS [facility] Oct 14, 2017 01:11 [...] 2017 01:11 PM TOBACCO USER OFFERED MEDS [facility] August 05, 2017 02:42 PM CURRENT TOBACCO USER [facility] August 05, 2017 02:42 PM CURRENT TOBACCO US ER (NOT READY TO QUIT) [facility] August 05, 2017 02:42 PM TOBACCO CESSATION REFERRAL DECLINED [facility] August 05, 2017 02:42 PM TOBACCO MEDS OFFER ED BUT DECLINED [facility] August 05, 2017 02:42 PM TOBACCO USER OFFERED MEDS [facility] Mar 18, 2017 09:26 AM CURRENT TOBACCO USER [facility] Mar 18, 2017 09:26 AM CURRENT TOBACCO US ER (NOT READY TO QUIT) [facility] Mar 18, 2017 09:26 AM TOBACCO CESSATION REFERRAL DECLINED [facility] Mar 18, 2017 09:26 AM TOBACCO MEDS OFFER ED BUT DECLINED [facility] Mar 18, 2017 09:26 AM TOBACCO USER OFFERED MEDS [facility] Apr 28, 2016 07:17 AM CURRENT TOBACCO USER [facility] Apr 28, 2016 07:[address] [facility]MO[facility] Aug 01, 2009 10:10 AM QUIT TOBACCO >7 YEARS AGO [facility] Sep 26, 2007 09:34 AM QUIT TOBACCO >7 YEARS AGO [facility] August 06, 2005 09:10 AM CURRENT NON-TOBACC O USER-HX OF USE [facility] Mar 23, 2005 08:38 AM CURRENT NON-TOBACC O USER-HX OF USE [facility] Oct 01, 2004 09:41 AM CURRENT NON-TOBACC O USER-HX OF USE [facility] Apr 07, 2004 09:49 AM CURRENT NON-TOBACC O USER-HX OF USE [facility] Oct 11, 2003 10:41 AM CURRENT NON-TOBACC O USER-HX OF USE [facility] Apr 05, 2003 10:43 AM CURRENT NON-TOBACC O USER-HX OF USE Quit 15 years ago. [facility] Oct 25, 2002 09:24 AM CURRENT NON-TOBACC O USER-HX OF USE [facility] Nov 17, 2001 10:31 AM TOB-CURRENT NON-SM OKER BUT HX [facility] Jul 27, 2001 01:43 PM CURRENT NON-TOBACC O USER-HX OF USE [facility] May 16, 2001 10:35 AM CURRENT NON-TOBACC O USER-HX OF USE Quit 18 years ago. [facility] Nov 29, 2000 02:03 PM CURRENT NON-TOBACC O USER-HX OF USE QUIT 13 YRS AGO, 1 PK DAY [facility] Radiology Reports: +/- 30 days of the [...] the Encounter. The data comes from all [place] treatment facilities. Date/Time Radiology Report Provider Source Mar 16, 2024 01:12 PM LDCT LUNG CANCER S CREENING: NORMA PANDYA [id number] Exm Date: MAR 16, 2024@13:12 Req Phys: ELLEN JANG Loc: PB-RAGHU PACT NANDO MANAGER MEDICARE (Req'g Lo Img Loc: PB-CT IMAGING Service: Unknown ELENA MELENDEZNVMEY [facility] YAA SANTOS [id number] (Case [id number] COMPLETE) LDCT LUNG CANCER SCREENING (CT Detailed) CPT:08112 Reason for Study: smoker quit four years ago Clinical History: Responsible Attending: Ellen Jang Attending Contact Number: [id number] Resident Contact Number: Report Status: Verified Date Reported: MAR 16, 2024 Date Verified: MAR 16, 2024 Color Maker Formulator E-Sig:/ES/ZOFIA MAHONEY Report: EXAM: LDCT LUNG CANCER SCREENING ADDITIONAL HISTORY: N/A COMPARISON: None PROTOCOL: Screening protocol, low dose, non-contrast CT chest was performed at the local [place] facility in accordance with Lung-Rads 2021. Additional [...] LUNG-RADS MODIFIER: N/A. Primary Interpreting Staff: ZOFIA MAHONEY RADIOLOGIST (Color Maker Formulator) /ZOFIA Eason [facility] Encounter Notes: All associated encounter notes This section contains the clinical notes associated to the Encounter. Date/Time Encounter Note(s) Provider Source Mar 06, 2024 09:37 AM PRIMARY CARE PROGRESS NOTE: LOCAL TITLE: PRIMARY CARE CLINIC PROGRESS NOTE PB STANDARD TITLE: PRIMARY CARE PROGRESS NOTE DATE OF NOTE: MAR 06, 2024@09:37 ENTRY DATE: MAR 06, 2024@09:37:29 AUTHOR: ELLEN JANG EXP COSIGNER: URGENCY: STATUS: COMPLETED Date & Time:Mar@09:37 This is a 74 year old MALE Allergies: LISINOPRIL CC: sinus congestion HPI: Tima presented today for a scheduled appointment for nasal congestion for 2 weeks was seen in the ER about a week ago and told to use Afrin for 3 days and then stop has been using Afrin continually for quite some time he states this only way he can breathe does have some sinus congestion erythema noted in the oral and nasal membranes explained to how Afrin works and as a rebound effect and by continuing to use it will be down and caused him to be have nasal congestion. Tima understands and is willing to work to try and get off of that. Currently we are going to treat for a sinus infection call in some meds to help him rest and some steroids as well as switch over to Flonase and sertraline in agreement with this plan at this time I would like prescriptions called [facility] bilaterally bulging serous fluid noted, no erythema noted at this time. Temperature: 97.7 F [36.5 C] (03/06/2024 09:13) Respiratory Rate: 18 (03/06/2024 09:13) Pulse Rate: 57 (03/06/2024 09:13) Blood Pressure: 132/77 (03/06/2024 09:13) HT: 72.0 in [182.9 cm] (03/06/2024 09:13) WT: 231.7 lb [105.10 kg] (03/06/2024 09:13) BMI: 31.5 98% (03/06/2024 09:13) REVIEW OF SYSTEMS: HEENT: No headache. No blurry vision, vision loss, eye pain, red eyes, or foreign body. Runny nose with nasal congestion denies sinus headache but very congested eyes watering and irritated. No hearing loss, ringing in the ears, or vertigo. No sore throat or dental pain. RESPIRATORY: No cough, SOA, wheezing, or sputum production. MUSCULOSKELETAL: No muscle or joint pain. SKIN: No rash, lesions, or infection PSYCH: No depression and anxious at this time. Not suicidal. 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) 10) Tinea 11) Intertrigo * (ICD-9-CM 695.89) 12) Transient global amnesia (SNOMED CT 816662023) 13) Neck pain 14) Restless legs 15) Diabetes mellitus 16) Generalized seizure 17) Elevated PSA 18) CVA - Cerebrovascular accident 19) Bradycardia 20) Exposure to potentially hazardous substance Active Outpatient Medications (including Supplies): Active Outpatient Medications Status 1) AMLODIPINE BESYLATE 10MG TAB TAKE ONE TABLET BY MOUTH ACTIVE EVERY EVENING TO LOWER BLOOD PRESSURE 2) CALCIUM POLYCARBOPHIL 625MG TAB TAKE ONE TABLET BY ACTIVE MOUTH ONCE A DAY FOR FIBER SUPPLEMENTATION 3) CARVEDILOL 6.25MG TAB TAKE ONE TABLET BY MOUTH TWICE ACTIVE A DAY FOR HEART FAILURE TAKE WITH FOOD. 4) CHLORTHALIDONE 25MG TAB TAKE ONE TABLET BY MOUTH ONCE ACTIVE A DAY FOR HIGH BLOOD PRESSURE 5) CITALOPRAM HYDROBROMIDE 40MG TAB TAKE ONE-HALF TABLET ACTIVE BY MOUTH EVERY MORNING FOR DEPRESSION 6) CLOPIDOGREL BISULFATE 75MG TAB TAKE ONE TABLET BY ACTIVE MOUTH ONCE A DAY TO THIN BLOOD 7) FINASTERIDE 5MG TAB TAKE ONE TABLET BY MOUTH ONCE A ACTIVE DAY FOR 90 DAYS SWALLOW WHOLE, DO NOT CRUSH, SPLIT, OR CHEW. 8) GLIPIZIDE 5MG TAB TAKE ONE-HALF TABLET BY MOUTH ONCE ACTIVE (S) A DAY FOR DIABETES 30 MINUTES BEFORE MEAL(S) TO LOWER BLOOD SUGAR 9) HYDRALAZINE HCL 25MG TAB TAKE ONE TABLET BY MOUTH ACTIVE THREE TIMES A DAY 10) LEVETIRACETAM 750MG TAB TAKE ONE-HALF TABLET BY MOUTH ACTIVE TWICE A DAY FOR SEIZURES SWALLOW WHOLE, DO NOT CRUSH OR CHEW. 11) MUPIROCIN 2% OINT APPLY LIGHTLY TO AFFECTED AREA(S) ACTIVE TWICE DAILY NEEDED FOR BACTERIAL INFECTION EXTERNAL USE ONLY. 12) SENNOSIDES 8.6MG TAB TAKE THREE TABLETS BY MOUTH ONCE ACTIVE A DAY FOR CONSTIPATION 13) SIMVASTATIN 80MG TAB TAKE ONE TABLET BY MOUTH EVERY ACTIVE EVENING TO LOWER CHOLESTEROL (DO NOT TAKE WITH GRAPEFRUIT JUICE) 14) TAMSULOSIN HCL 0.4MG CAP TAKE TWO CAPSULES BY MOUTH ACTIVE EVERY EVENING FOR BENIGN PROSTATIC HYPERPLASIA APPROXIMATELY 30 MINUTES AFTER THE SAME MEAL EACH DAY 15) TRIAMCINOLONE ACETONIDE 0.1% CREAM APPLY SPARINGLY TO ACTIVE AFFECTED AREA(S) ... OF HANDS AND LEGS 2-3 TIMES WEEKLY NEEDED. MAY APPLY TWICE DAILY FOR UP TO 2 WEEKS FOR FLARES. (EXTERNAL USE ONLY) OBJECTIVE: Physical Exam General: NAD noted, A&Ox3, pleasant, appears stated age HEENT: NCAT, TM's bulging with serous fluid noted nares and oropharynx with erythema Neck: Supple with normal active ROM, lymphadenopathy noted to maxillary and neck Heart: RRR, no murmur, clicks, or rub Resp: Lungs CTA bilaterally, respirations even and unlabored Abdomen: Soft, non-distended, non-tender Ext: No clubbing, cyanosis, edema or obvious deformity Neuro: Grossly intact Psych: Affect normal, answers questions appropriately throughout visit Assessment/Plan: Sinusitis -current Plan to call Augmentin Flonase prednisone and Mucinex to [facility] in [place] Allergic rhinitis -current Plan to call prednisone Flonase and sertraline to [facility] in [place] BPH -current Plan to call short supply finasteride and tamsulosin to [facility] per request ran out and did not get it called in Follow-up: _ as needed. Discussed with patient that in the event of community imaging / testing being ordered in the future, once the imaging / testing has been completed, please notify PACT of completion at outside facility if not called with results within 1 week by a VA PACT member; this is due to intermittent lapses in notification of imaging completion within [facility]. All questions answered; agrees to plan of care. Follow up as listed above, annually, and as needed. Keep all appointments. Medications Reconciled. See AVS given to . Time spent 30 minutes. Ellen Jang OBSTETRICS GYNECOLOGY PHYSICIAN-BC Initial Lung Cancer Screen (Provider): No clinical exclusions, patient is a current candidate for the lung cancer screening program. Patient agrees to lung cancer screening. Lung cancer screening information provided and low dose CT will be ordered. /maria esther/ JOSELITO Delgado, MSN, Elena Castellano [facility] Signed: 03/06/2024 10:37 ELLEN JANG Kishore [facility] Mar 06, 2024 08:58 AM PRIMARY CARE NURSING NOTE: LOCAL TITLE: PRIMARY CARE NURSING PROGRESS NOTE (TEXT) NURSING P STANDARD TITLE: PRIMARY CARE NURSING NOTE DATE OF NOTE: MAR 06, 2024@08:58 ENTRY DATE: MAR 06, 2024@08:58:57 AUTHOR: SILVESTRE LANG EXP COSIGNER: URGENCY: STATUS: COMPLETED PRIMARY CARE NURSING PROGRESS NOTE (TEXT) NURSING PB Has ADDENDA Established Patient NORMA PANDYA IS A 74 YEAR OLD MALE BEING SEEN IN CLINIC MAR 06, 2024. REASON FOR VISIT: Nasal Congestion x 2 weeks started with cough which was better in 1 week. Went to ER 1 week ago for nose bleed and congestion was given afrin Nasal spray. is also taking OTC cold and sinus medicaiton with no relief. takes Tamsulosin and was taking finasteride 5mg for 90 days per urology and ahs completed the course but nor having urinary problem with urinary frequency Are you receiving care any where other than the [place]? No neurology, Urology, cardiology, podiatry, dermatology HEALTH AND SURGICAL HISTORY: no new surgeries Does patient report using home oxygen? No CURRENT ACTIVE MEDICATIONS FOR REVIEW: Allergies/ADRs (Tool #5) FACILITY ALLERGY/ADR -------- No Remote Allergy/ADR Data available for this patient [facility] LISINOPRIL Med. Reconciliation (Tool #1) INCLUDED IN THIS LIST: Alphabetical list of active outpatient prescriptions dispensed from this [place] (local) and dispensed from another [place] or [facility] facility (remote) as well as inpatient orders (local pending and active), local clinic medications, locally documented non-VA medications, and local prescriptions that have or been discontinued in the past 90 days. Non-VA Meds Last Documented On: Mar 15, 2018 NOTE The display of VA prescriptions dispensed from another [place] or [facility] facility (remote) is limited to active outpatient prescription entries matched to National Drug File at the originating site and may not include some items such as investigational drugs, compounds, etc. NOT INCLUDED IN THIS LIST: Medications self-entered by the patient into personal health records (i.e. [employer]) are NOT included in this list. Non-VA medications documented outside this [place], remote inpatient orders (regardless of status) and remote clinic medications are NOT included in this list. The patient and provider must always discuss medications the patient is taking, regardless of where the medication was dispensed or obtained. OUTPT AMLODIPINE BESYLATE 10MG TAB (Status = Active) TAKE ONE TABLET BY MOUTH EVERY EVENING TO LOWER BLOOD PRESSURE Rx# [id number] Last Released: 01/27/24 Qty/Days Supply: Rx Expiration Date: 03/11/24 Refills Remainin OUTPT CALCIUM POLYCARBOPHIL 625MG TAB (Status = Active) TAKE ONE TABLET BY MOUTH ONCE A DAY FOR FIBER SUPPLEMENTATION Rx# [id number] Last Released: 01/06/24 Qty/Days Supply: Rx Expiration Date: 10/03/24 Refills Remainin Indication: FOR FIBER SUPPLEMENTATION OUTPT CARVEDILOL 6.25MG TAB (Status = Active) TAKE ONE TABLET BY MOUTH TWICE A DAY FOR HEART FAILURE TAKE WITH FOOD. Rx# [id number] Last Released: 12/12/23 Qty/Days Supply: 180/90 Rx Expiration Date: 10/03/24 Refills Remainin Indication: FOR HEART FAILURE OUTPT CHLORTHALIDONE 25MG TAB (Status = Active) TAKE ONE TABLET BY MOUTH ONCE A DAY FOR HIGH BLOOD PRESSURE Rx# [id number] Last Released: 12/23/23 Qty/Days Supply: 90 Rx Expiration Date: 03/11/24 Refills Remainin Indication: FOR HIGH BLOOD PRESSURE OUTPT CITALOPRAM HYDROBROMIDE 40MG TAB (Status = Active) TAKE ONE-HALF TABLET BY MOUTH EVERY MORNING FOR DEPRESSION Rx# [id number] Last Released: 05/30/23 Qty/Days Supply: 45 Rx Expiration Date: 03/11/24 Refills Remainin OUTPT CLOPIDOGREL BISULFATE 75MG TAB (Status = Active) TAKE ONE TABLET BY MOUTH ONCE A DAY TO THIN BLOOD Rx# [id number] Last Released: 12/22/23 Qty/Days Supply: 90/ Rx Expiration Date: 03/11/24 Refills Remainin OUTPT FINASTERIDE 5MG TAB (Status = Active) TAKE ONE TABLET BY MOUTH ONCE A DAY FOR 90 DAYS SWALLOW WHOLE, DO NOT CRUSH, SPLIT, OR CHEW. Rx# [id number] Last Released: 11/25/23 Qty/Days Supply: 90 Rx Expiration Date: 11/21/24 Refills Remainin OUTPT GLIPIZIDE 5MG TAB (Status = Active/Suspended) TAKE ONE-HALF TABLET BY MOUTH ONCE A DAY FOR DIABETES 30 MINUTES BEFORE MEAL(S) TO LOWER BLOOD SUGAR Rx# [id number] Last Released: 02/09/24 Qty/Days Supply: 45 Rx Expiration Date: 10/03/24 Refills Remainin Indication: FOR DIABETES OUTPT HYDRALAZINE HCL 25MG TAB (Status = Active) TAKE ONE TABLET BY MOUTH THREE TIMES A DAY Rx# [id number] Last Released: 01/17/24 Qty/Days Supply: 270/90 Rx Expiration Date: 01/09/25 Refills Remainin OUTPT LEVETIRACETAM 750MG TAB (Status = Active) TAKE ONE-HALF TABLET BY MOUTH TWICE A DAY FOR SEIZURES SWALLOW WHOLE, DO NOT CRUSH OR CHEW. Rx# [id number] Last Released: 02/02/24 Qty/Days Supply: 90 Rx Expiration Date: 11/17/24 Refills Remainin Indication: FOR SEIZURES OUTPT MUPIROCIN 2% OINT (Status = Active) APPLY LIGHTLY TO AFFECTED AREA(S) TWICE DAILY NEEDED FOR BACTERIAL INFECTION EXTERNAL USE ONLY. Rx# [id number] Last Released: 07/12/23 Qty/Days Supply: Rx Expiration Date: 07/06/24 Refills Remainin Indication: FOR BACTERIAL INFECTION OUTPT SENNOSIDES 8.6MG TAB (Status = Active) TAKE THREE TABLETS BY MOUTH ONCE A DAY FOR CONSTIPATION Rx# [id number] Last Released: 01/06/24 Qty/Days Supply: 300/ Rx Expiration Date: 10/03/24 Refills Remainin Indication: FOR CONSTIPATION OUTPT SIMVASTATIN 80MG TAB (Status = Active) TAKE ONE TABLET BY MOUTH EVERY EVENING TO LOWER CHOLESTEROL (DO NOT TAKE WITH GRAPEFRUIT JUICE) Rx# [id number] Last Released: 01/06/24 Qty/Days Supply: 90 Rx Expiration Date: 03/11/24 Refills Remainin OUTPT TAMSULOSIN HCL 0.4MG CAP (Status = Active) TAKE TWO CAPSULES BY MOUTH EVERY EVENING FOR BENIGN PROSTATIC HYPERPLASIA APPROXIMATELY 30 MINUTES AFTER THE SAME MEAL EACH DAY Rx# [id number] Last Released: 02/29/24 Qty/Days Supply: 180/90 Rx Expiration Date: 03/11/24 Refills Remainin Indication: FOR BENIGN PROSTATIC HYPERPLASIA OUTPT TRIAMCINOLONE ACETONIDE 0.1% CREAM (Status = Active) APPLY SPARINGLY TO AFFECTED AREA(S) ... OF HANDS AND LEGS 2-3 TIMES WEEKLY NEEDED. MAY APPLY TWICE DAILY FOR UP TO 2 WEEKS FOR FLARES. (EXTERNAL USE ONLY) Rx# [id number] Last Released: 11/14/23 Qty/Days Supply: Rx Expiration Date: 11/09/24 Refills Remainin SUPPLIES OUTPT ACCU-CHEK GUIDE ME (GLUCOSE) METER (Status = ) USE GLUCOSE METER FOR DIRECTED FOR BLOOD SUGAR MONITORING -CONTACT COMPANY FOR REPLACEMENT OR PROBLEM Rx# [id number] Last Released: 10/18/23 Qty/Days Supply: Rx Expiration Date: 01/16/24 Refills Remainin Indication: FOR BLOOD SUGAR MONITORING PHARMACY TERMS AND POSSIBLE PATIENT ACTIONS INPT = MT inpatient order IV = MT intravenous medication OUTPT = [place] outpatient prescription PHARMACY POSSIBLE PATIENT TERMS EXPLANATION ACTIONS -------- - ACTIVE A prescription that can be If you have refills, filled at the local [place] pharmacy. you may request a refill of this prescription from your [place] pharmacy. CLINIC A medication you received during If you have questions a visit to a [place] clinic or about this medication emergency department. contact your [place] healthcare team. DISCONTINUED A prescription your provider has Contact your VA stopped. It is no longer healthcare team if you available to be sent to you or need more of this picked up at the [place] pharmacy medication. window. A prescription which is too old Contact your VA to fill. This does not refer to healthcare team if you the expiration date of the need more of this medication in the container. medication. NON-VA A medication that came from If this medication someplace other than a VA information is pharmacy. This may be a incorrect or out of prescription from either the VA date, please tell your or non VA providers that was VA healthcare team. filled outside the VA. Or, it may be an mwid-yod-liwuetk (OTC), herbal, dietary supplements or sample medication. ON HOLD An active prescription that will Contact your VA not be filled until pharmacy pharmacy when you need resolves the issue. more of this medication. PARKED An active prescription that will Contact your VA not be filled until the patient pharmacy when you need requests it. this medication. PENDING This prescription order has been If you have been sent to the pharmacy for review instructed to start and is not ready yet. this medication now, contact your VA pharmacy. SUSPENDED An active prescription that is Contact your VA not scheduled to be filled yet. pharmacy if you need You should receive it before this medication now. you run out. ==== Patient reports taking medications as Not taking finasteride or citipopram IS PATIENT TAKING ANY OVER THE COUNTER MEDICATIONS, SUCH VITAMINS OR HERBAL SUPPLEMENTS, INCLUDING ANY MEDICATIONS PRESCRIBED BY ANOTHER PHYSICIAN? Yes, List: turmeric, Aspirin 81mg, Multi Vitamin, Vitamin D3 ALLERGIES/ADVERSE REACTIONS: LISINOPRIL Does patient have any new allergies to report since last visit? NO VITALS: TEMPERATURE: 98 F [36.7 C] (02/28/2024 09:00) BP: 138/76 (02/28/2024 09:00) RESP: 20 (10/03/2023 08:39) PULSE: 59 (02/28/2024 09:00) HT: 73 in [185.4 cm] (09/12/2018 10:41) WT: 230.2 lb [104.42 kg] (10/03/2023 08:39) BMI: 30.4 PAIN ASSESSMENT: (Most Recent Pain Score in Vitals Package: 5 (10/03/2023 08:39) ) The patient indicated that they and their close contacts have not traveled outside of the [place] in the past 21 days. The patient reports the following symptoms: No symptoms present The patient is not immunocompromised. The patient does not report having a history of Multi Drug Resistant Organism (MDRO) within the last five years. The patient does not report having been exposed to measles, chickenpox, or zoster in last 30 days. Patient reports no pain at this visit. Pain Score = 0. STRESS: Thank you for your service. Now let us serve you. At the [facility], we strive to provide you with exceptional health care that improves your health and well-being. Are you feeling sad, empty, or depressed? No Do you need to talk about things in your life that worry you or cause you stress? No Do you need to talk about personal problems, family problems, alcohol use, drug use, or mental or emotional illness? No SUICIDE SCREENING: The patient was asked, Over the past two weeks, how often have you been bothered by thoughts that you would be better off or of hurting yourself in some way? Not At All SPIRITUAL ASSESSMENT: Are there gnosticism practices or spiritual concerns you want the direct care provider, your physician, and other health care team members to immediately know about? No Patient advised to call the clinic for any concerns, questions, or symptoms. Patient and/or caregiver verbalized understanding of plan of care. Frail/Elderly Screen: Falls Screen: One fall with no injury within the last 12 months. COVID-19 Immunization - L,N,P,PH,U: Refused Moderna Monovalent COVID-19 vaccine Immunization: COVID-19 (MODERNA), MRNA, LNP-S, PF, 50 MCG/0.5 ML (AGES 12+ YEARS) Refusal Reason: PATIENT DECISION Patient refuses all immunization(s) in the COVID-19 group Date Documented: 03/06/24 09:18 Pain Assessment: - PAIN ASSESSMENT: .. Patient reports no pain at this visit. Pain Score = 0. Patient's self identified pain goal: 0 HIV Screening-Routine: Patient has been offered HIV testing and has declined. I have explained that HIV testing is recommended for all adults, even if all risk factors are absent. Herpes Zoster (Shingles) Vaccine - L,N,P,PH,U: The patient declines to receive the recommended dose of zoster (shingles) vaccine. Immunization: ZOSTER RECOMBINANT Refusal Reason: PATIENT DECISION Patient refuses all immunization(s) in the ZOSTER group Date Documented: 03/06/24 09:19 Patient/Nurse Interview: * * Patient stated that adequate information was received regarding the condition and/or treatment. /maria esther/ LEELA Paulson [facility] Signed: 03/06/2024 09:19 03/06/2024 ADDENDUM STATUS: COMPLETED Per [facility] Directive 1605.06, wristband documentation: Patient wristband was removed and destroyed by (staff name) Silvestre lang and placed in the designated [employer] bin. /maria esther/ LEELA Paulson [facility] Signed: 03/06/2024 09:21 SILVESTRE LANG [facility]
--- OUTSIDE RECORDS SUMMARY | 2024-03-19 05:28 | XMS_ITS | Encounter Summary ---
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 Date/Time Encounter Type Encounter Description Reason Provider Source Mar 19, 2024 10:28 AM Outpatient Encounter ADMIN PAT ACTIVTIES (MASNONCT) SEGUN HINTON Encounter Template Text not used by VA Plan of Treatment: Future Appointments (+ 6 months) and Future Tests (+/- 45 days) The Plan of Treatment section includes future care activities for the patient from all VA treatmentfacilities. This section includes future appointments and future orders which are active, pending or scheduled. Future Appointments This section includes appointments that were scheduled to occur 6 months from the date of the Encounter, up to a maximum of 20 appointments. The data comes from all [place] treatment facilities. Appointment Date/Time Appointment Type Appointme nt Facility Name Mar 20, 2024 09:00 AM [facility] [place] [facility] Mar 27, 2024 08:00 AM AMBULATORY - MEDICINE [facility] Mar 30, 2024 10:45 AM [facility]BULATORY - MEDICINE [facility] Mar 30, 2024 12:00 PM [facility] [place] [facility] [place] [facility] Apr 10, 2024 11:00 AM [facility] [place] Apr 10, 2024 11:30 AM AMBULATORY - MEDICINE [facility] May 08, 2024 09:20 AM [facility] [place] [facility] May 17, 2024 10:00 AM [facility]BULATORY - MEDICINE [facility] Jun 05, 2024 09:20 AM [facility]BULATORY - MEDICINE [facility] Jun 19, 2024 09:00 AM [facility]BULATORY - MEDICINE [facility] Jul 05, 2024 09:20 AM [facility] [place] [facility] [facility] Jul 19, 2024 09:20 AM [facility] [place] [facility] August 02, 2024 09:20 AM [facility]BULATORY - MEDICINE [facility] August 16, 2024 09:20 AM [facility] [place] [facility] August 23, 2024 09:00 AM [facility]ATORY - MEDICINE [facility] Sep 06, 2024 09:20 AM [facility]ATORY - MEDICINE [facility] Sep 12, 2024 09:30 AM [facility] [place] [facility] [facility] Radiology Reports: +/- 30 days of [...] the Encounter. The data comes from all [place] treatment [facility]. Date/Time Radiology Report Provider Source Mar 16, 2024 01:12 PM LDCT LUNG CANCER S CREENING: NORMA PANDYA [id number] -1950 M Exm Date: MAR 16, 2024@13:12 Req Phys: ELLEN JANG Loc: PB-RAGHU PACT NANDO TRAFFIC CLERK (Req'g Lo Img Loc: PB-CT IMAGING Service: Unknown ELENA MUSTAFA [facility] [place] [id number] (Case [id number] COMPLETE) LDCT LUNG CANCER SCREENING (CT Detailed) CPT:64138 Reason for Study: smoker quit four years ago Clinical History: Responsible Attending: Ellen Jang Attending Contact Number: [id number] Resident Contact Number: Report Status: Verified Date Reported: MAR 16, 2024 Date Verified: MAR 16, 2024 [place] E-Sig:/ES/ZOFIA MAHONEY Report: EXAM: LDCT LUNG CANCER SCREENING ADDITIONAL HISTORY: N/A COMPARISON: None PROTOCOL: Screening protocol, low dose, non-contrast CT chest was performed at the local [place] facility in accordance with Lung-Rads 2021. Additional [...] N/A. Primary Interpreting Staff: ZOFIA MAHONEY, RADIOLOGIST ([place]) /ZOFIA Eason [facility] Encounter Notes: All associated encounter notes This section contains the clinical notes associated to the Encounter. Date/Time Encounter Note(s) Provider Source Mar 19, 2024 10:32 AM PRIMARY CARE YA RS: LOCAL TITLE: TEST RESULT LETTER PB STANDARD TITLE: PRIMARY CARE LETTERS DATE OF NOTE: MAR 19, 2024@10:32 ENTRY DATE: MAR 19, 2024@10:32:57 AUTHOR: SEGUN HINTON COSIGNER: URGENCY: STATUS: COMPLETED [facility] [address], [place] [address] MAR 19, 2024 NORMA PANDYA [address] [place], [place] [address] Dear Tima Nolascock, Thank you for completing your Lung Cancer Screening Imaging. You are very important to us. Lung cancer is treatable, and patients do better if it is found early. The national recommendation for Lung Cancer Screening is to continue through age 80 and/or until you have been cigarette free for 15 years. RADIOLOGY(NON-INVASIVE TEST RESULTS):Low Dose CT for Lung Cancer Screening DATE of EXAM: Lung-RADS category 1: Negative. MANAGEMENT RECOMMENDATION: Continue annual screening with low-dose CT in 12 months. You will be due for your next Lung Cancer Screen imaging March 2025. If you have a cold or any lung congestion when you are due for your next screen, it is best to reschedule for 3-4 weeks to allow time for potential mucous to clear. Lung cancer screening can detect lung cancer, but it does not prevent it. Rarely, a CT scan can miss a small lung cancer. Contact your primary care provider if you develop new symptoms like worsening shortness of breath, change in a cough, or coughing up blood. Should you have any questions, and/or need assistance to stop if remain smoking, please contact your Primary Care provider. Please continue to refrain from smoking as our records indicate you had quit. Great work! We understand that quitting cigarette smoking is difficult, but it is the best way to improve your health. FUTURE APPOINTMENTS: 03/20/2024 09:00 PB-RAGHU CHIRO 03/27/2024 08:00 [facility] CARE-NEUROLOGY [id number] 04/10/2024 11:00 PB-RAGHU CHIRO 04/12/2024 08:30 PB-RAGHU PACT COLLIER TRAFFIC CLERK 04/25/2024 09:00 PB-RAGHU CHIRO 05/08/2024 09:20 PB-RAGHU CHIRO 05/23/2024 09:00 PB-RAGHU CHIRO 06/05/2024 09:20 PB-RAGHU CHIRO SEGUN HINTON [facility] Mar 19, 2024 10:28 AM PRIMARY CARE DIAGN OSTIC STUDY NOTE: LOCAL TITLE: LDCT INITIAL NOTE PB STANDARD TITLE: PRIMARY CARE DIAGNOSTIC STUDY NOTE DATE OF NOTE: MAR 19, 2024@10:28 ENTRY DATE: MAR 19, 2024@10:28:30 AUTHOR: SEGUN HINTON COSIGNER: URGENCY: STATUS: COMPLETED NO LUNG NODULES or TRACKING OF NODULE NOT INDICATED per guidelines (e.g., clearly benign/some small nodules). Date of image: Date: March 16, 2024 LDCT Scan Results: Most recent LDCT Scan negative for lung nodules Lung RADS Score: 1 Incidental Findings: No incidental findings were noted. Plan: Continue routine annual lung cancer screening. Patient Notification of results: Results letter sent to patient. Comment: .5ppd x 50yrs. Quit in '. /maria esther/ Segun Hinton RN [facility] Signed: 03/19/2024 10:48 SEGUN HINTON [facility]
--- OUTSIDE RECORDS SUMMARY | 2024-03-20 04:00 | XMS_ITS | Encounter Summary ---
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 Date/Time Primary/Secondary Diagnosis Diagnosis Name Provider Source Mar 21, 2024 12:53 PM PRIMARY Segmental and somatic dysfunction of thoracic region [facility]VAREZ FRITZ [facility] Mar 21, 2024 12:53 PM SECONDARY Oth intvrt disc degen, lumbosacr w discog bck & lw extrm pn [facility] Mar 21, 2024 12:53 PM SECONDARY Pain in thoracic spine [facility] FR[facility] Mar 21, 2024 12:53 PM SECONDARY Segmental and somatic dysfunction of lumbar region [facility] Mar 21, 2024 12:53 PM SECONDARY Segmental and somatic dysfunction of pelvic region ALVAREZ FRITZ [facility] Plan of Treatment: Future Appointments (+ 6 months) and Future Tests (+/- 45 days) The Plan of Treatment section includes future care activities for the patient from all [place] treatmentfacilities. This section includes future appointments and future orders which are active, pending or scheduled. Future Appointments This section includes appointments that were scheduled to occur 6 months from the date of the Encounter, up to a maximum of 20 appointments. The data comes from all [place] treatment facilities. Appointment Date/Time Appointment Type Appointme nt Facility Name Mar 27, 2024 08:00 AM [facility] Mar 30, 2024 10:45 AM AMBULATORY - MEDICINE [facility] Mar 30, 2024 12:00 PM AMBULATORY - MEDICINE [facility] Apr 10, 2024 11:00 AM AMBULATORY - MEDICINE [facility] Apr 10, 2024 11:30 AM AMBULATORY - MEDICINE [facility] May 08, 2024 09:20 AM AMBULATORY - MEDICINE [facility] May 17, 2024 10:00 AM [facility] [place] [facility] Jun 05, 2024 09:20 AM [facility] Jun 19, 2024 09:00 AM [facility] Jul 05, 2024 09:20 AM [facility] Jul 19, 2024 09:20 AM [facility] August 02, 2024 09:20 AM [facility] August 16, 2024 09:20 AM [facility] August 23, 2024 09:00 AM [facility] [facility] Sep 06, 2024 09:20 AM [facility] Sep 12, 2024 09:30 AM [facility]ORY - MEDICINE [facility] Vital Signs: All taken on the encounter date This section contains inpatient and outpatient Vital Signs collected on the date of the Encounter. Date/Time Temperature Pulse Blood Pressure Respiratory Rate SP02 Pain Height Weight Body Mass Index Source Mar 20, 2024 09:00 AM 98.2 57 135/78 [facility] Social History: Smoking Status (Most current) and Tobacco Use (All prior to encounter date) This section includes the most current, and the historical, smoking and tobacco- related health factors from the [place] facility where the Encounter took place. Current Smoking Status This section includes the most current smoking, or tobacco-related health factor, from the [place] facility where the Encounter took place. Date/Time Current Smoking Status Comment Facil ity Oct 03, 2023 08:30 AM VA-TOBACCO FORMER USER [facility] Tobacco Use History This section includes a history of the smoking, or tobacco-related health factors, that were collected on or before the date of the Encounter. The data comes from the [place] facility where the Encounter took place. Date/Time Smoking Status/Tobacco Use Comment F acility Oct 03, 2023 08:30 AM VA-TOBACCO QUIT 1 TO < 5 YRS [facility] Sep 18, 2021 10:30 AM VA-TOBACCO DOESNT USE WI 30 MIN WAKEUP [facility] Sep 18, 2021 10:30 AM VA-TOBACCO USE 30 YEARS OR MORE [facility] Sep 18, 2021 10:30 AM VA-TOBACCO USE ADVICE [facility] Sep 18, 2021 10:30 AM VA-TOBACCO USE LSW NO [facility] Sep 18, 2021 10:30 AM VA-TOBACCO USE MED NO [facility] Sep 18, 2021 10:30 AM VA-TOBACCO USER SOME DAYS [facility] Sep 15, 2020 01:00 PM VA-TOBACCO DOESNT USE WI 30 MIN WAKEUP [facility] Sep 15, 2020 01:00 PM VA-TOBACCO USE 5 T O 15 YEARS [facility] Sep 15, 2020 01:00 PM VA-TOBACCO USE ADVICE [facility] Sep 15, 2020 01:00 PM VA-TOBACCO USE LSW NO [facility] Sep 15, [...] >7 YEARS AGO [facility] Sep 26, 2007 09:34 AM QUIT TOBACCO >7 YEARS AGO [facility] August 06, 2005 09:10 AM CURRENT NON-TOBACC O USER-HX OF USE [facility] Mar 23, 2005 08:38 AM CURRENT NON-TOBACC O [facility] Oct 01, 2004 09:41 AM CURRENT NON-TOBACC O USER-HX OF USE [facility] Apr 07, 2004 09:49 AM CURRENT NON-TOBACC O USER-HX OF USE [facility] Oct 11, 2003 10:41 AM CURRENT NON-TOBACC O USER-HX OF USE [facility] Apr 05, 2003 10:43 AM CURRENT NON-TOBACC O USER-HX OF USE Quit 15 years ago. [facility] Oct 25, 2002 09:24 AM CURRENT NON-TOBACC O USER-HX OF USE [facility] Nov 17, 2001 10:31 AM TOB-CURRENT NON-SM OKER BUT HX [facility] Jul 27, 2001 01:43 PM CURRENT NON-TOBACC O USER-HX OF USE [facility] May 16, 2001 10:35 AM CURRENT NON-TOBACC O USER-HX OF USE Quit 18 years ago. [facility] Nov 29, 2000 02:03 PM CURRENT NON-TOBACC O USER-HX OF USE QUIT 13 YRS AGO, 1 PK DAY [facility] Radiology Reports: +/- 30 days of [...] the Encounter. The data comes from all [place] treatment facilities. Date/Time Radiology Report Provider Source Mar 16, 2024 01:12 PM LDCT LUNG CANCER S CREENING: NORMA PANDYA [id number] -1950 M Exm Date: MAR 16, 2024@13:12 Req Phys: ELLEN JANG Loc: PB-RAGHU PACT COLLIER REGISTERED REPRESENTATIVE (Req'g Lo Img Loc: PB-CT IMAGING Service: Unknown [facility] [place] [id number] (Case [id number] COMPLETE) LDCT LUNG CANCER SCREENING (CT Detailed) CPT:15433 Reason for Study: smoker quit four years ago Clinical History: Responsible Attending: Ellen Jang Attending Contact Number: [id number] Resident Contact Number: Report Status: Verified Date Reported: MAR 16, 2024 Date Verified: MAR 16, 2024 Blood Bank Technologist E-Sig:/ES/ZOFIA MAHONEY Report: EXAM: LDCT LUNG CANCER SCREENING ADDITIONAL HISTORY: N/A COMPARISON: None PROTOCOL: Screening protocol, low dose, non-contrast CT chest was performed at the local [place] facility in accordance with Lung-Rads 2021. Additional [...] N/A. Primary Interpreting Staff: ZOFIA MAHONEY, RADIOLOGIST (Blood Bank Technologist) /ZOFIA [facility] Encounter Notes: All associated encounter notes This section contains the clinical notes associated to the Encounter. Date/Time Encounter Note(s) Provider Source Mar 20, 2024 09:02 AM CHIROPRACTIC NOTE: LOCAL TITLE: CHIROPRACTIC FOLLOW UP NOTE PB STANDARD TITLE: CHIROPRACTIC NOTE DATE OF NOTE: MAR 20, 2024@09:02 ENTRY DATE: MAR 20, 2024@09:02:40 AUTHOR: ALVAREZ FRITZ COSIGNER: URGENCY: STATUS: COMPLETED CHIROPRACTIC FOLLOW-UP VISIT Patient's language preference for health information: Lao Other Communication Methods Needed: SUBJECTIVE: [place] is a 74 year old MALE being seen in the Chiropractic clinic for follow-up visit. [place] states his back is similar to past appointments, with burning pain after sitting for an extended period of time, such as driving to [place]. The rates his pain level as a [...] exercise program and to commit to a extermination inspector exercise plan. /maria esther/ [facility] Signed: 03/20/2024 09:08 ALVAREZ FRITZ
--- OUTSIDE RECORDS SUMMARY | 2024-03-30 05:45 | XMS_ITS | Encounter Summary ---
Author Name [facility] [place] [facility] [place] Address [address] [place] [address] Care Team Providers Care Bank Guard Name Role Phone JOCE DINESH Primary Care [...] PART A Jan 02, 2013 PART A [id number] [phone] [place] PATIENT MEDICARE (WNR) MEDICARE (M) PART A Jan 02, 2013 PART A [id number] [place] PATIENT Selected Encounter This section includes the information on record at [place] for the Encounter. Date/Time Encounter Type Encounter Description Reason Provider Source Mar 30, 2024 10:45 AM OFF/OP EST AUGUST X REQ PHY/QHP PRIMARY CARE/MEDICINE ICD-10-CM R09.81 Nasal congestion SILVESTRE TOWNSEND IHLetha Encounter Template Text not used by VA Assessments - Encounter Diagnoses This section includes the primary and secondary diagnoses documented for the Encounter. Date/Time Primary/Secondary Diagnosis Diagnosis Name Provider Source Mar 30, 2024 12:41 PM PRIMARY Nasal congestion SILVESTRE TOWNSEND [facility] Plan of Treatment: Future Appointments (+ [...] Date/Time Appointment Type Appointme nt Facility Name Apr 10, 2024 11:00 AM AMBULATORY - MEDICINE [facility] Apr 10, 2024 11:30 AM [facility] May 08, 2024 09:20 AM [facility] [place] [facility] May 17, 2024 10:00 AM [facility] Jun 05, 2024 09:20 AM [facility] Jun 19, 2024 09:00 AM [facility] Jul 05, 2024 09:20 AM [facility] Jul 19, 2024 09:20 AM [facility] August 02, 2024 09:20 AM [facility] August 16, 2024 09:20 AM [facility] August 23, 2024 09:00 AM [facility] Sep 06, 2024 09:20 AM [facility] Sep 12, 2024 09:30 AM [facility] Sep 19, 2024 01:40 PM AMBULATORY - MEDICINE [place] [facility] Sep 24, 2024 02:40 PM [facility] Sep 25, 2024 02:20 PM [facility] Sep 25, 2024 02:30 PM [facility]ULATORY - MEDICINE [facility] Vital Signs: All taken on the encounter date This section contains inpatient and outpatient Vital Signs collected on the date of the Encounter. Date/Time Temperature Pulse Blood Pressure Respiratory Rate SP02 Pain Height Weight Body Mass Index Source Mar 30, 2024 11:19 AM 97.4 55 126/75 20 95 235.4 32 [facility] Social History: Smoking Status (Most current) [...] 03, 2023 08:30 AM VA-TOBACCO FORMER USER [facility] Tobacco Use History This section includes a history of the smoking, or tobacco-related health factors, that were collected on or before the date of the Encounter. The data comes from the [place] facility where the Encounter took place. Date/Time Smoking Status/Tobacco Use Comment F acility Oct 03, 2023 08:30 AM VA-TOBACCO QUIT 1 TO < 5 YRS [facility] Sep 18, 2021 10:30 AM VA-TOBACCO DOESNT USE WI 30 MIN WAKEUP [facility] Sep 18, 2021 10:30 AM VA-TOBACCO USE 30 YEARS OR MORE [facility] Sep 18, 2021 10:30 AM VA-TOBACCO USE ADVICE [facility] Sep 18, 2021 10:30 AM VA-TOBACCO USE WALLET ASSEMBLER NO [facility] Sep 18, 2021 10:30 AM VA-TOBACCO USE MED NO [facility] Sep 18, 2021 10:30 AM VA-TOBACCO USER SOME DAYS [facility] Sep 15, 2020 01:00 PM VA-TOBACCO DOESNT USE WI 30 MIN WAKEUP [facility] Sep 15, 2020 01:00 PM VA-TOBACCO USE 5 T O 15 YEARS [facility] Sep 15, 2020 01:00 PM VA-TOBACCO USE ADVICE [facility] Sep 15, 2020 01:00 PM VA-TOBACCO USE WALLET ASSEMBLER NO [facility] Sep 15, 2020 01:00 PM VA-TOBACCO USE MED NO [facility] Sep 15, 2020 01:00 PM VA-TOBACCO USER EVERY DAY [facility] Nov 28, 2017 12:02 PM CURRENT TOBACCO USER [facility] Nov 28, 2017 12:02 PM CURRENT TOBACCO US ER (NOT READY TO QUIT) [facility] Nov 28, 2017 12:02 PM TOBACCO CESSATION REFERRAL DECLINED [facility] Nov 28, 2017 12:02 PM TOBACCO MEDS OFFER ED BUT DECLINED [facility] Nov 28, 2017 12:02 PM TOBACCO USER OFFERED MEDS [facility] Oct 14, 2017 01:11 PM CURRENT TOBACCO USER [facility] Oct 14, 2017 01:11 PM CURRENT TOBACCO US ER (NOT READY TO QUIT) [facility] Oct 14, 2017 01:11 PM TOBACCO CESSATION REFERRAL DECLINED [facility] Oct 14, 2017 01:11 PM TOBACCO MEDS OFFER ED BUT DECLINED [facility] Oct 14, 2017 01:11 PM TOBACCO USER OFFERED MEDS [facility] August 05, 2017 02:42 PM CURRENT TOBACCO USER [facility] August 05, 2017 02:42 PM CURRENT TOBACCO US ER (NOT READY TO QUIT) [facility] August 05, 2017 02:42 PM TOBACCO CESSATION REFERRAL DECLINED [facility] August 05, 2017 02:42 PM TOBACCO MEDS OFFER ED BUT DECLINED [facility] August 05, 2017 02:42 PM TOBACCO USER OFFERED MEDS [facility] Mar 18, 2017 09:26 AM CURRENT TOBACCO USER [facility] Mar 18, 2017 09:26 AM CURRENT TOBACCO US ER (NOT READY TO QUIT) [facility] Mar 18, 2017 09:26 AM TOBACCO CESSATION REFERRAL DECLINED [facility] Mar 18, 2017 09:26 AM TOBACCO MEDS OFFER ED BUT DECLINED [facility] Mar 18, 2017 09:26 AM TOBACCO USER OFFERED MEDS [facility] Apr 28, 2016 07:17 AM CURRENT TOBACCO USER [facility] Apr 28, 2016 07:[address] [facility]MO[facility] Aug 01, 2009 10:10 AM QUIT TOBACCO >7 YEARS AGO [facility] Sep 26, 2007 09:34 AM QUIT TOBACCO >7 YEARS AGO [facility] August 06, 2005 09:10 AM CURRENT NON-TOBACC O USER-HX OF USE [facility] Mar 23, 2005 08:38 AM CURRENT NON-TOBACC O USER-HX OF USE [facility] Oct 01, 2004 09:41 AM CURRENT NON-TOBACC O USER-HX OF USE [facility] Apr 07, 2004 09:49 AM CURRENT NON-TOBACC O USER-HX OF USE [facility] Oct 11, 2003 10:41 AM CURRENT NON-TOBACC O USER-HX OF USE [facility] Apr 05, 2003 10:43 AM CURRENT NON-TOBACC O USER-HX OF USE Quit 15 years ago. [facility] Oct 25, 2002 09:24 AM CURRENT NON-TOBACC O USER-HX OF USE [facility] Nov 17, 2001 10:31 AM TOB-CURRENT NON-SM OKER BUT HX [facility] Jul 27, 2001 01:43 PM CURRENT NON-TOBACC O USER-HX OF USE [facility] May 16, 2001 10:35 AM CURRENT NON-TOBACC O USER-HX OF USE Quit 18 years ago. [facility] Nov 29, 2000 02:03 PM CURRENT NON-TOBACC O USER-HX OF USE QUIT 13 YRS AGO, 1 PK DAY [facility] Radiology Reports: +/- 30 days of [...] the Encounter. The data comes from all [place] treatment facilities. Date/Time Radiology Report Provider Source Mar 16, 2024 01:12 PM LDCT LUNG CANCER S CREENING: NORMA PANDYA [id number] -1950 M Exm Date: MAR 16, 2024@13:12 Req Phys: ELLEN JANG Pat Loc: PB-RAGHU PACT COLLIER BLAST SETTER (Diq'g Lo Img Loc: PB-CT IMAGING Service: Torie ELENA MELENDEZJUDY [facility] [place] [id number] (Case [id number] COMPLETE) LDCT LUNG CANCER SCREENING (CT Detailed) CPT:06629 Reason for Study: smoker quit four years ago Clinical History: Responsible Attending: Ellen Jang Attending Contact Number: [id number] Resident Contact Number: Report Status: Verified Date Reported: MAR 16, 2024 Date Verified: MAR 16, 2024 W[place] Site Coordinator E-Sig:/ES/ZOFIA MAHONEY Report: EXAM: LDCT LUNG CANCER SCREENING ADDITIONAL HISTORY: N/A COMPARISON: None PROTOCOL: Screening protocol, low dose, non-contrast CT chest was performed at the local [place] facility in accordance with Lung-Rads 2021. Additional [...] N/A. Primary Interpreting Staff: ZOFIA MAHONEY, RADIOLOGIST ([place] Site Coordinator) /ZOFIA Eason [facility] Encounter Notes: All associated encounter notes This section contains the clinical notes associated to the Encounter. Date/Time Encounter Note(s) Provider Source Mar 30, 2024 12:08 PM NURSING PROGRESS N OTE: LOCAL TITLE: NURSING NOTE PB STANDARD TITLE: NURSING PROGRESS NOTE DATE OF NOTE: MAR 30, 2024@12:08 ENTRY DATE: MAR 30, 2024@12:08:24 AUTHOR: SILVETSRE TOWNSEND COSIGNER: URGENCY: STATUS: COMPLETED NURSING NOTE PB Has ADDENDA This is a 74 year old MALE with known Allergies as noted: LISINOPRIL On the following Active Medications: Active Outpatient Medications (including Supplies): Active Outpatient Medications Status 1) ACCU-CHEK GUIDE (GLUCOSE) TEST STRIP USE 1 STRIP FOR BLOOD ACTIVE TEST TWO TIMES PER WEEK Indication: FOR BLOOD SUGAR MONITORING 2) AMLODIPINE BESYLATE 10MG TAB TAKE ONE TABLET BY MOUTH EVERY ACTIVE (S) EVENING TO LOWER BLOOD PRESSURE 3) CALCIUM POLYCARBOPHIL 625MG TAB TAKE ONE TABLET BY MOUTH ACTIVE ONCE A DAY Indication: FOR FIBER SUPPLEMENTATION 4) CARVEDILOL 6.25MG TAB TAKE ONE TABLET BY MOUTH TWICE A DAY ACTIVE TAKE WITH FOOD. Indication: FOR HEART FAILURE 5) CETIRIZINE HCL 10MG TAB TAKE ONE TABLET BY MOUTH ONCE A DAY ACTIVE Indication: FOR ALLERGY SYMPTOMS 6) CHLORTHALIDONE 25MG TAB TAKE ONE TABLET BY MOUTH ONCE A DAY HOLD Indication: FOR HIGH BLOOD PRESSURE 7) CLOPIDOGREL BISULFATE 75MG TAB TAKE ONE TABLET BY MOUTH ONCE ACTIVE (S) A DAY TO THIN BLOOD 8) FINASTERIDE 5MG TAB TAKE ONE TABLET BY MOUTH ONCE A DAY ACTIVE SWALLOW WHOLE, DO NOT CRUSH, SPLIT, OR CHEW. Indication: FOR BENIGN PROSTATIC HYPERPLASIA 9) FLUTICASONE PROP 50MCG 120D NASAL INHL INSTILL 1 SPRAY IN ACTIVE NOSTRIL(S) ONCE A DAY (MUST BE USED DIRECTED FOR MINIMUM OF 21 DAYS TO PROVIDE ADEQUATE BENEFITS) Indication: FOR RHINITIS 10) GLIPIZIDE 5MG TAB TAKE ONE-HALF TABLET BY MOUTH ONCE A DAY ACTIVE (S) 30 MINUTES BEFORE MEAL(S) TO LOWER BLOOD SUGAR Indication: FOR DIABETES 11) HYDRALAZINE HCL 25MG TAB TAKE ONE TABLET BY MOUTH THREE ACTIVE TIMES A DAY 12) LEVETIRACETAM 750MG TAB TAKE ONE-HALF TABLET BY MOUTH TWICE ACTIVE A DAY SWALLOW WHOLE, DO NOT CRUSH OR CHEW. Indication: FOR SEIZURES 13) MUPIROCIN 2% OINT APPLY LIGHTLY TO AFFECTED AREA(S) TWICE ACTIVE DAILY NEEDED EXTERNAL USE ONLY. Indication: FOR BACTERIAL INFECTION 14) SENNOSIDES 8.6MG TAB TAKE THREE TABLETS BY MOUTH ONCE A DAY ACTIVE Indication: FOR CONSTIPATION 15) SIMVASTATIN 80MG TAB TAKE ONE TABLET BY MOUTH EVERY EVENING ACTIVE TO LOWER CHOLESTEROL (DO NOT TAKE WITH GRAPEFRUIT JUICE) 16) TAMSULOSIN HCL 0.4MG CAP TAKE TWO CAPSULES BY MOUTH EVERY ACTIVE (S) EVENING APPROXIMATELY 30 MINUTES AFTER THE SAME MEAL EACH DAY Indication: FOR BENIGN PROSTATIC HYPERPLASIA 17) TRIAMCINOLONE ACETONIDE 0.1% CREAM APPLY SPARINGLY TO ACTIVE AFFECTED AREA(S) ... OF HANDS AND LEGS 2-3 TIMES WEEKLY NEEDED. MAY APPLY TWICE DAILY FOR UP TO 2 WEEKS FOR FLARES. (EXTERNAL USE ONLY) C/C: Sinus congestion S: Tima presents to the clinic as a walk-in. reports he is still having sinus congestion with occasional clear sinus drainage. Clarence is having no other symptoms. Clarence has been having these ongoing symptoms for approximately 6 weeks. was seen in clinic 03/06/24 for this. was treated with Ceftriaxone 1gm IM in clinic and Augmentin, Medrol dose pack, Flonase, cetirizine. reports he did start to feel better but then feels the same now. O/A: ambulated to exam room with steady gait and no assistance. Clarence alert and oriented x4 with unlabored breathing. sound like he has nasal congestion. Clarence eyes are watery and blood shot. Lungs clear to auscultation bilaterally. Unable to completely visualize TM r/t cerumen. No erythema noted in throat. Vital Signs: see cover sheet. Weight: 235.4 pounds P: Reviewed with Provider. Provider to call Levaquin and Azelastine nasal spray. to purchase OTC Xyzal. Immediate need called and form given to . Educated Clarence on the medications and to contact clinic and let us know if nasal spray is working so it can be ordered for him through the [place] mail program. voiced understanding and all questions and concerns addressed at this time. escorted to lobby in satisfactory condition. RTC: Advised to return to clinic as needed or report to ER if symptoms worsen. /maria esther/ Silvestre Townsend RN BSN ELENA Sprague [facility] Signed: 03/30/2024 12:39 Receipt Acknowledged By: 04/02/2024 06:54 /maria esther/ JOSELITO Delgado, MSN, Elena Sprague [facility] 03/30/2024 ADDENDUM STATUS: COMPLETED Per [facility] Directive 1605.06, wristband documentation: Patient wristband was removed and destroyed by (staff name) Silvestre Townsend and placed in the designated [employer] bin. /maria esther/ Silvestre Townsend RN BSN ELENA MELENDEZARMEY [facility] Signed: 03/30/2024 12:44 [facility]OWNSEND [facility]
--- OUTSIDE RECORDS SUMMARY | 2024-04-10 06:00 | XMS_ITS | Encounter Summary ---
Author Name [facility] [place] Address [address] [place] [address] Care Team Providers Care Production Underwriter Name Role Phone HOBSONDINESH Primary Care Provider [...] PART A Jan 02, 2013 PART A [id number] [place] PATIENT MEDICARE ([place]NR) MEDICARE ([place]) PART A Jan 02, 2013 PART A [id number] [place] PATIENT Selected Encounter This section includes the information on record at [place] for the Encounter. Date/Time Encounter Type Encounter Description Reason Provider Source Apr 10, 2024 11:00 AM CHIROPRACT MANJ 3-4 REGIONS READING ASSISTANT ICD-10-CM M99.02 Segmental and somatic dysfunction of thoracic region ALVAREZ FRITZ Encounter Template Text not used by VA Assessments - Encounter Diagnoses This section includes the primary and secondary diagnoses documented for the Encounter. Date/Time Primary/Secondary Diagnosis Diagnosis Name Provider Source Apr 10, 2024 11:01 AM PRIMARY Segmental and somatic dysfunction of thoracic region [facility] Apr 10, 2024 11:01 AM SECONDARY Oth intvrt disc degen, lumbosacr w discog bck & lw extrm pn [facility] Apr 10, 2024 11:01 AM SECONDARY Pain in thoracic spine [facility] Apr 10, 2024 11:01 AM SECONDARY Segmental and somatic dysfunction of lumbar region [facility] Apr 10, 2024 11:01 AM SECONDARY Segmental and somatic dysfunction of pelvic region ALVAREZ FRITZ [facility] Plan of Treatment: Future Appointments (+ 6 months) and Future Tests (+/- 45 days) The Plan of Treatment section includes future care activities for the patient from all [place] treatmentfacilities. This section includes future appointments and future orders which are active, pending or scheduled. Future Appointments This section includes appointments that were scheduled to occur 6 months from the date of the Encounter, up to a maximum of 20 appointments. The data comes from all [place] treatment facilities. Appointment Date/Time Appointment Type Appointme nt Facility Name May 08, 2024 09:20 AM AMBULATORY - MEDICINE [facility] May 17, 2024 10:00 AM AM[facility]UL[facility]ORY - MEDICINE [facility] Jun 05, 2024 09:20 AM AM[facility]ULATORY - MEDICINE [facility] Jun 19, 2024 09:00 AM AMBULATORY - MEDICINE [facility] Jul 05, 2024 09:20 AM [facility] - [facility]INE [facility] Jul 19, 2024 09:20 AM [facility] [place] [facility]IC[place] [facility] August 02, 2024 09:20 AM [facility]IC[facility] [place] [facility] August 16, 2024 09:20 AM [facility]ICINE [place] [facility] August 23, 2024 09:00 AM AM[facility]UL[facility]ORY [place] [facility]ICINE [place] [facility] Sep 06, 2024 09:20 AM [facility]ORY [facility]ICINE [place] [facility] Sep 12, 2024 09:30 AM [facility] Sep 19, 2024 01:40 PM AMB[facility]ORY - MEDICINE [facility] Sep 24, 2024 02:40 PM [facility]ORY - [facility]ICINE [place] [facility] Sep 25, 2024 02:20 PM AMBULATORY - MEDICINE [facility] Sep 25, 2024 02:30 PM AMBULATORY - MEDICINE [facility] Vital Signs: All taken on the encounter date This section contains inpatient and outpatient Vital Signs collected on the date of the Encounter. Date/Time Temperature Pulse Blood Pressure Respiratory Rate SP02 Pain Height Weight Body Mass Index Source Apr 10, 2024 11:30 AM 97.9 59 125/72 20 97 3 233.0 32 [facility] Apr 10, 2024 11:00 AM 97.9 57 144/66 [facility] Social History: Smoking Status (Most current) and Tobacco Use (All prior to encounter date) This section includes the most current, and the historical, smoking and tobacco- related health factors from the [place] facility where the Encounter took place. Current Smoking Status This section includes the most current smoking, or tobacco-related health factor, from the [place] facility where the Encounter took place. Date/Time Current Smoking Status Comment Facil ity Oct 03, 2023 08:30 AM VA-TOBACCO FORMER USER [facility] Tobacco Use History This section includes a history of the smoking, or tobacco-related health factors, that were collected on or before the date of the Encounter. The data comes from the [place] facility where the Encounter took place. Date/Time Smoking Status/Tobacco Use Comment F acility Oct 03, 2023 08:30 AM VA-TOBACCO QUIT 1 TO < 5 YRS [facility] Sep 18, 2021 10:30 AM VA-TOBACCO DOESNT USE WI 30 MIN WAKEUP [facility] Sep 18, 2021 10:30 AM VA-TOBACCO USE 30 YEARS OR MORE [facility] Sep 18, 2021 10:30 AM VA-TOBACCO USE ADVICE [facility] Sep 18, 2021 10:30 AM VA-TOBACCO USE SAWYER HELPER NO [facility] Sep 18, 2021 10:30 AM VA-TOBACCO USE MED NO [facility] Sep 18, 2021 10:30 AM VA-TOBACCO USER SOME DAYS [facility] Sep 15, 2020 01:00 PM VA-TOBACCO DOESNT USE WI 30 MIN WAKEUP [facility] Sep 15, 2020 01:00 PM VA-TOBACCO USE 5 T O 15 YEARS [facility] Sep 15, 2020 01:00 PM VA-TOBACCO USE ADVICE [facility] Sep 15, 2020 01:00 PM VA-TOBACCO USE SAWYER HELPER NO [facility] Sep 15, [...] AM TOBACCO [facility]ERED [facility] Aug 01, 2009 10:10 AM QUIT TOBACCO >7 YEARS AGO [facility] Sep 26, 2007 09:34 AM QUIT TOBACCO >7 YEARS AGO [facility] August 06, 2005 09:10 AM CURRENT NON-TOBACC O USER-HX OF USE [facility] Mar 23, 2005 08:38 AM CURRENT NON-TOBACC O USER-HX OF USE [facility] Oct 01, 2004 09:41 AM CURRENT NON-TOBACC O USER-HX OF USE [facility] Apr 07, 2004 09:49 AM CURRENT NON-TOBACC O USER-HX OF USE [facility] Oct 11, 2003 10:41 AM CURRENT NON-TOBACC O USER-HX [facility] Apr 05, 2003 10:43 AM CURRENT NON-TOBACC O USER-HX OF USE Quit 15 years ago. [facility] Oct 25, 2002 09:24 AM CURRENT NON-TOBACC O USER-HX OF [facility] [place] [facility] Nov 17, 2001 10:31 AM TOB-CURRENT NON-SM OKER BUT HX [facility] [place] [facility] Jul 27, 2001 01:43 PM CURRENT NON-TOBACC O USER-HX OF [facility] May 16, 2001 10:35 AM CURRENT NON-TOBACC O USER-HX OF USE Quit 18 years ago. [facility] Nov 29, 2000 02:03 PM CURRENT NON-TOBACC O USER-HX OF USE QUIT 13 YRS AGO, 1 PK DAY [facility] Radiology Reports: +/- 30 days of [...] the Encounter. The data comes from all [place] treatment facilities. Date/Time Radiology Report Provider Source Mar 16, 2024 01:12 PM LDCT LUNG CANCER S CREENING: NORMA PANDYA [id number] -1950 M Exm Date: MAR 16, 2024@13:12 Req Phys: ELLEN JANG Kishore Pat Loc: PB-RAGHU PACT COLLIER FLAVOR MAKER (Req'g Lo Img Loc: PB-CT IMAGING Service: Unknown ELENA MUSTAFA [facility] [place] [id number] (Case [id number] COMPLETE) LDCT LUNG CANCER SCREENING (CT Detailed) CPT:11374 Reason for Study: smoker quit four years ago Clinical History: Responsible Attending: Ellen Jang Attending Contact Number: [phone] Resident Contact Number: Report Status: Verified Date Reported: MAR 16, 2024 Date Verified: MAR 16, 2024 Animal Care Service Worker E-Sig:/ES/ZOFIA MAHONEY Report: EXAM: LDCT LUNG CANCER SCREENING ADDITIONAL HISTORY: N/A COMPARISON: None PROTOCOL: Screening protocol, low dose, non-contrast CT chest was performed at the local [place] facility in accordance with Lung-Rads 2021. Additional [...] N/A. Primary Interpreting Staff: ZOFIA MAHONEY, RADIOLOGIST (Animal Care Service Worker) /ZOFIA Eason [facility] Encounter Notes: All associated encounter notes This section contains the clinical notes associated to the Encounter. Date/Time Encounter Note(s) Provider Source Apr 10, 2024 10:50 AM CHIROPRACTIC NOTE: LOCAL TITLE: CHIROPRACTIC FOLLOW UP NOTE PB STANDARD TITLE: CHIROPRACTIC NOTE DATE OF NOTE: APR 10, 2024@10:50 ENTRY DATE: APR 10, 2024@10:50:31 AUTHOR: ALVAREZ FRITZ COSIGNER: URGENCY: STATUS: COMPLETED CHIROPRACTIC FOLLOW-UP VISIT Patient's language preference for health information: Samoan Other Communication Methods Needed: SUBJECTIVE: The is a 74 year old MALE being seen in the Chiropractic clinic for follow-up visit. The reports increasing lower back pain, which he attributes to the amount of time since his last chiropractic adjustment. He describes his lower back as very sore with pain into the right hip and leg. The rates his pain level as a 6/10. PAST MEDICAL [...] exercise program and to commit to a ch[facility] /[facility] Signed: 04/10/2024 11:00 ALVAREZ FRITZ
--- OUTSIDE RECORDS SUMMARY | 2024-04-10 06:30 | XMS_ITS | Encounter Summary ---
Author Name [facility] [place] [facility] [place] Address [address] [place] [address] Care Team Providers Care Operational Assistant Name Role Phone JOCE DINESH Primary Care [...] PART A Jan 02, 2013 PART A [id number] [place] PATIENT MEDICARE (WNR) MEDICARE (M) PART A Jan 02, 2013 PART A [id number] [place] PATIENT Selected Encounter This section includes the information on record at [place] for the Encounter. Date/Time Encounter Type Encounter Description Reason Provider Source Apr 10, 2024 11:30 AM OFFICE O/P EST MOD 30 MIN PRIMARY CARE/MEDICINE ICD-10-CM K59.00 Constipation, unspecified ELLEN JANG Encounter Template Text not used by VA Assessments - Encounter Diagnoses This section includes the primary and secondary diagnoses documented for the Encounter. Date/Time Primary/Secondary Diagnosis Diagnosis Name Provider Source Apr 10, 2024 11:58 AM PRIMARY Constipation, unspecified JANGRICKELLEN Kishore [facility] Plan of Treatment: Future Appointments (+ 6 months) and Future Tests (+/- 45 days) The Plan of Treatment section includes future care activities for the patient from [facility] [place] [facility] This section includes future appointments and future orders which are active, pending or scheduled. Future Appointments This section includes appointments that were scheduled to occur 6 months from the date of the Encounter, up to a maximum of 20 appointments. The data comes from all [place] treatment facilities. Appointment Date/Time Appointment Type Appointme nt Facility Name May 08, 2024 09:20 AM AMBULATORY - MEDICINE [facility] May 17, 2024 10:00 AM [facility] Jun 05, 2024 09:20 AM [facility] Jun 19, 2024 09:00 AM [facility] Jul 05, 2024 09:20 AM AMBULATORY - MEDICINE [facility] Jul 19, 2024 09:20 AM [facility] August 02, 2024 09:20 AM [facility] August 16, 2024 09:20 AM [facility] August 23, 2024 09:00 AM [facility] Sep 06, 2024 09:20 AM [facility] Sep 12, 2024 09:30 AM [facility] Sep 19, 2024 01:40 PM AMBULATORY - MEDICINE [facility] Sep 24, 2024 02:40 PM [facility] Sep 25, 2024 02:20 PM [facility] Sep 25, 2024 02:30 PM AMBULATORY - MEDICINE [facility] Vital Signs: All taken on the encounter date This section contains inpatient and outpatient Vital Signs collected on the date of the Encounter. Date/Time Temperature Pulse Blood Pressure Respiratory Rate SP02 Pain Height Weight Body Mass Index Source Apr 10, 2024 11:30 AM 97.9 59 125/72 20 97 3 233.0 32 [facility] Apr 10, 2024 11:00 AM 97.9 57 144/66 [facility] Social History: Smoking Status (Most current) and Tobacco Use (All prior to encounter date) This section includes the most current, and the historical, smoking and tobacco- related health factors from the [place] facility where the Encounter took place. Current Smoking Status This section includes the most current smoking, or tobacco-related health factor, from the [place] facility where the Encounter took place. Date/Time Current Smoking Status Comment Facil ity Oct 03, 2023 08:30 AM VA-TOBACCO FORMER USER [facility] Tobacco Use History This section includes a history of the smoking, or tobacco-related health factors, that were collected on or before the date of the Encounter. The data comes from the [place] facility where the Encounter took place. Date/Time Smoking Status/Tobacco Use Comment F acility Oct 03, 2023 08:30 AM VA-TOBACCO QUIT 1 TO < 5 YRS [facility] Sep 18, 2021 10:30 AM VA-TOBACCO DOESNT USE WI 30 MIN WAKEUP [facility] Sep 18, 2021 10:30 AM VA-TOBACCO USE 30 YEARS OR MORE [facility] Sep 18, 2021 10:30 AM VA-TOBACCO USE ADVICE [facility] Sep 18, 2021 10:30 AM VA-TOBACCO USE STAFF RADIOGRAPHER NO [facility] Sep 18, 2021 10:30 AM VA-TOBACCO USE MED NO [facility] Sep 18, 2021 10:30 AM VA-TOBACCO USER SOME DAYS [facility] Sep 15, 2020 01:00 PM VA-TOBACCO DOESNT USE WI 30 MIN WAKEUP [facility] Sep 15, 2020 01:00 PM VA-TOBACCO USE 5 T O 15 YEARS [facility] Sep 15, 2020 01:00 PM VA-TOBACCO USE ADVICE [facility] Sep 15, 2020 01:00 PM VA-TOBACCO USE STAFF RADIOGRAPHER NO [facility] Sep 15, 2020 01:00 PM VA-TOBACCO USE MED NO [facility] Sep 15, 2020 01:00 PM VA-TOBACCO USER EVERY DAY [facility] Nov 28, 2017 12:02 PM CURRENT TOBACCO USER [facility] Nov 28, 2017 12:02 PM CURRENT TOBACCO US ER (NOT READY TO QUIT) [facility] Nov 28, 2017 12:02 PM [...] 2017 09:26 AM TOBACCO USER OFFERED MEDS [facility] Apr 28, 2016 07:17 AM CURRENT TOBACCO USER [facility] Apr 28, 2016 07:[address] OP SMOKING CLINIC [facility] Aug 01, 2009 10:10 AM QUIT TOBACCO >7 YEARS AGO [facility] Sep 26, 2007 09:34 AM QUIT TOBACCO >7 YEARS AGO [facility] August 06, 2005 09:10 AM CURRENT NON-TOBACC O USER-HX OF USE [facility] Mar 23, 2005 08:38 AM CURRENT NON-TOBACC O USER-HX OF USE [facility] Oct 01, 2004 09:41 AM CURRENT NON-TOBACC O USER-HX OF USE [facility] Apr 07, 2004 09:49 AM CURRENT NON-TOBACC O USER-HX OF USE [facility] Oct 11, 2003 10:41 AM CURRENT NON-TOBACC O USER-HX OF USE [facility] Apr 05, 2003 10:43 AM CURRENT NON-TOBACC O USER-HX OF USE Quit 15 years ago. [facility] Oct 25, 2002 09:24 AM CURRENT NON-TOBACC O USER-HX OF USE [facility] Nov 17, 2001 10:31 AM TOB-CURRENT NON-SM OKER BUT HX [facility] Jul 27, 2001 01:43 PM CURRENT NON-TOBACC O USER-HX OF USE [facility] May 16, 2001 10:35 AM CURRENT NON-TOBACC O USER-HX OF USE Quit 18 years ago. [facility] Nov 29, 2000 02:03 PM CURRENT NON-TOBACC O USER-HX OF USE QUIT 13 YRS AGO, 1 PK DAY [facility] Radiology Reports: +/- 30 days [...] the Encounter. The data comes from all [place] treatment facilities. Date/Time Radiology Report Provider Source Mar 16, 2024 01:12 PM LDCT LUNG CANCER S CREENING: NORMA PANDYA [id number] -[id number] M Exm Date: MAR 16, 2024@13:12 Req Phys: ELLEN JANG Pat Loc: PB-RAGHU PACT COLLIER AMBULATORY ANALYST (Req'g Lo Img Loc: PB-CT IMAGING Service: Torie CASTELLANO [facility] YAA SANTOS [id number] (Case [id number] COMPLETE) LDCT LUNG CANCER SCREENING (CT Detailed) CPT:04286 Reason for Study: smoker quit four years ago Clinical History: Responsible Attending: Ellen Jang Attending Contact Number: [id number] Resident Contact Number: Report Status: Verified Date Reported: MAR 16, 2024 Date Verified: MAR 16, 2024 Director Video E-Sig:/ES/ZOFIA MAHONEY Report: EXAM: LDCT LUNG CANCER SCREENING ADDITIONAL HISTORY: N/A COMPARISON: None PROTOCOL: Screening protocol, low dose, non-contrast CT chest was performed at the local [facility] facility in accordance with Lung-Rads 2021. Additional [...] N/A. Primary Interpreting Staff: ZOFIA MAHONEY, RADIOLOGIST (Director Video) /ZOFIA Eason [facility] Encounter Notes: All associated encounter notes This section contains the clinical notes associated to the Encounter. Date/Time Encounter Note(s) Provider Source Apr 11, 2024 09:59 AM COMMUNICATION NOTE: LOCAL TITLE: SELF ALERT NOTE STANDARD TITLE: COMMUNICATION NOTE DATE OF NOTE: APR 11, 2024@09:59 ENTRY DATE: APR 11, 2024@09:59:59 AUTHOR: ELLEN JANG EXP COSIGNER: URGENCY: STATUS: COMPLETED Tickler/Reminder: remind me on: March 04, 2025@00:00 Tickler/Reminder Text: Remind me to schedule a abdominal aortic ultrasound related to incidental finding on LDCT from March 19, 2024 /JOSELITO Hopson, MSN, Elena Castellano [facility] Signed: 04/11/2024 10:01 Receipt Acknowledged By: 04/16/2024 16:31 /es/ Silvestre Townsend RN BSN ELENA CASTELLANO [facility] GAYLAELLEN [facility] Apr 10, 2024 11:35 AM PRIMARY CARE NURSING NOTE: LOCAL TITLE: PRIMARY CARE NURSING PROGRESS NOTE (TEXT) NURSING P STANDARD TITLE: PRIMARY CARE NURSING NOTE DATE OF NOTE: APR 10, 2024@11:35 ENTRY DATE: SEP 17, 2024@12:43:10 AUTHOR: SILVESTRE TOWNSEND EXP COSIGNER: URGENCY: STATUS: COMPLETED PRIMARY CARE NURSING PROGRESS NOTE (TEXT) NURSING PB Has ADDENDA Established Patient NORMA PANDYA IS A 74 YEAR OLD MALE BEING SEEN IN CLINIC APR 10, 2024. REASON FOR VISIT: 6 Month follow up for constipation. [place] was started on Sennosides 8.6mg 3 tabs daily. [place] reports this does not work for him. reports he has been taking Miralax with good results. Are you receiving care any where other than the [place]? No HEALTH AND SURGICAL HISTORY: No new surgeries Does patient report using home oxygen? No CURRENT ACTIVE MEDICATIONS FOR REVIEW: Allergies/ADRs (Tool #5) FACILITY ALLERGY/ADR -------- No Remote Allergy/ADR Data available for this patient [facility] No Known Allergies Med. Reconciliation (Tool #1) INCLUDED IN THIS LIST: Alphabetical list of active outpatient prescriptions dispensed from this [place] (local) and dispensed from another [place] or [facility] facility (remote) as well as inpatient orders (local pending and active), local clinic medications, locally documented non-VA medications, and local prescriptions that have or been discontinued in the past 90 days. Non-VA Meds Last Documented On: Feb 02, 2017 NOTE The display of VA prescriptions dispensed from another [place] or [facility] facility (remote) is limited to active outpatient prescription entries matched to National Drug File at the originating site and may not include some items such as investigational drugs, compounds, etc. NOT INCLUDED IN THIS LIST: Medications self-entered by the patient into personal health records (i.e. [employer]) are NOT included in this list. Non-VA medications documented outside this [place], remote inpatient orders (regardless of status) and remote clinic medications are NOT included in this list. The patient and provider must always discuss medications the patient is taking, regardless of where the medication was dispensed or obtained. OUTPT AMITRIPTYLINE HCL 10MG TAB (Status = Discontinued) TAKE ONE TABLET BY MOUTH AT BEDTIME FOR SLEEP Rx# [id number] Last Released: 12/28/23 Qty/Days Supply: Rx Expiration Date: 02/10/24 Refills Remainin OUTPT AMITRIPTYLINE HCL 10MG TAB (Status = Active) TAKE ONE TABLET BY MOUTH AT BEDTIME FOR SLEEP Rx# [id number] Last Released: 03/17/24 Qty/Days Supply: Rx Expiration Date: 03/16/25 Refills Remainin Non-VA ASPIRIN 81MG EC TAB TAKE ONE TABLET BY MOUTH ONCE A DAY Patient wants to buy from Non-VA pharmacy. OUTPT CETIRIZINE HCL 10MG TAB (Status = Active) TAKE ONE TABLET BY MOUTH ONCE A DAY FOR ALLERGY SYMPTOMS Rx# [id number] Last Released: 02/24/24 Qty/Days Supply: Rx Expiration Date: 09/16/24 Refills Remainin Indication: FOR ALLERGY SYMPTOMS OUTPT CHOLECALCIF 50MCG (D3-2,000UNIT) TAB (Status = Active) TAKE ONE TABLET BY MOUTH ONCE A DAY FOR VITAMIN D DEFICIENCY Rx# [id number] Last Released: 03/07/24 Qty/Days Supply: 100 Rx Expiration Date: 12/27/24 Refills Remainin Indication: FOR VITAMIN D DEFICIENCY OUTPT DICLOFENAC NA 1% TOP GEL (Status = Active) APPLY 4 GM TO AFFECTED AREA(S) FOUR TIMES A DAY FOR OSTEOARTHRITIS DO NOT EXCEED MORE THAN 16 GRAMS DAILY TO ANY LOWER EXTREMITY JOINT. NOT MORE THAN 8 GRAMS DAILY TO ANY UPPER EXTREMITY JOINT. MAX 32GM/DAY OVER ALL JOINTS. (MEASURE DOSE WITH RULER ATTACHED INSIDE BOX) Rx# [id number] Last Released: 07/07/23 Qty/Days Supply: 200 Rx Expiration Date: 07/06/24 Refills Remainin Indication: FOR OSTEOARTHRITIS OUTPT FAMOTIDINE 20MG TAB (Status = Active) TAKE ONE TABLET BY MOUTH TWICE A DAY TO LOWER STOMACH ACID Rx# [id number] Last Released: 02/27/24 Qty/Days Supply: 180/ Rx Expiration Date: 09/16/24 Refills Remainin OUTPT FLUTICASONE PROP 50MCG 120D NASAL INHL (Status = Active) INSTILL 1 SPRAY IN NOSTRIL(S) EVERY MORNING FOR RHINITIS (MUST BE USED DIRECTED FOR MINIMUM OF 21 DAYS TO PROVIDE ADEQUATE BENEFITS) Rx# [id number] Last Released: 02/17/24 Qty/Days Supply: Rx Expiration Date: 09/16/24 Refills Remainin Indication: FOR RHINITIS OUTPT HYDROCHLOROTHIAZIDE 25MG TAB (Status = Active) TAKE ONE TABLET BY MOUTH ONCE A DAY FOR HIGH BLOOD PRESSURE Rx# [id number] Last Released: 02/23/24 Qty/Days Supply: 90 Rx Expiration Date: 08/31/24 Refills Remainin Indication: FOR HIGH BLOOD PRESSURE OUTPT INSULIN,ASPART(EQV-NOVLG)100UN/ ML FLXPEN (Status = Active) INJECT 5 UNITS UNDER THE SKIN THREE TIMES A DAY BEFORE MEALS ADMINISTER 10 MINUTES BEFORE FOOD DIRECTED. REFRIGERATE UN-OPENED PENS. DISCARD CARTRIDGE 28 DAYS AFTER OPENING. Rx# [id number] Last Released: 03/29/24 Qty/Days Supply: Rx Expiration Date: 03/23/25 Refills Remainin OUTPT INSULIN,GLARGINE-YFGN 100UNIT/ML PEN 3ML (Status = Active) INJECT 19 UNITS UNDER THE SKIN ONCE A DAY FOR DIABETES ADMINISTER AT SAME TIME EACH DAY DIRECTED. DISCARD ANY OPEN CARTRIDGE AFTER 28 DAYS. Rx# [id number] Last Released: 10/10/23 Qty/Days Supply: Rx Expiration Date: 10/03/24 Refills Remainin Indication: FOR DIABETES OUTPT LATANOPROST 0.005% OPH SOLN (Status = Active) INSTILL 1 DROP IN BOTH EYES EVERY EVENING . KEEP REFRIGERATED UNTIL READY TO USE, THEN STORE AT ROOM TEMPERATURE FOR MAXIMUM OF 42 DAYS. Rx# [id number] Last Released: 01/13/24 Qty/Days Supply: Rx Expiration Date: 01/06/25 Refills Remainin OUTPT LIDOCAINE 5% PATCH (Status = Active) APPLY 1 PATCH TO SKIN SITE ONCE A DAY FOR LOCAL ANESTHESIA APPLY PATCH AND PRESS FIRMLY FOR 10-15 SECONDS. KEEP ON FOR 12 HOURS THEN REMOVE PATCH FOR 12 HOURS. Rx# [id number] Last Released: 07/11/23 Qty/Days Supply: Rx Expiration Date: 07/06/24 Refills Remainin Indication: FOR LOCAL ANESTHESIA OUTPT LISINOPRIL 40MG TAB (Status = ) TAKE ONE-HALF TABLET BY MOUTH ONCE A DAY FOR HEART OR BLOOD PRESSURE Rx# [id number] Last Released: 02/10/24 Qty/Days Supply: Rx Expiration Date: 02/10/24 Refills Remainin OUTPT LOVASTATIN 40MG TAB (Status = Discontinued) TAKE ONE TABLET BY MOUTH EVERY EVENING TO LOWER CHOLESTEROL (REPORT ANY MUSCLE PAIN OR WEAKNESS) Rx# [id number] Last Released: 11/11/23 Qty/Days Supply: Rx Expiration Date: 02/10/24 Refills Remainin OUTPT LOVASTATIN 40MG TAB (Status = Active) TAKE ONE TABLET BY MOUTH EVERY EVENING TO LOWER CHOLESTEROL (REPORT ANY MUSCLE PAIN OR WEAKNESS) Rx# [id number] Last Released: 02/16/24 Qty/Days Supply: Rx Expiration Date: 02/14/25 Refills Remainin OUTPT METFORMIN HCL 1000MG TAB (Status = Active) TAKE ONE-HALF TABLET BY MOUTH TWICE A DAY WITH MEALS FOR DIABETES TAKE WITH FOOD. AVOID ALCOHOL. DISCONTINUE BEFORE GETTING XRAY DYE. Rx# [id number] Last Released: 02/27/24 Qty/Days Supply: 9090 Rx Expiration Date: 10/03/24 Refills Remainin Indication: FOR DIABETES OUTPT METOPROLOL TARTRATE 100MG TAB (Status = ) TAKE ONE TABLET BY MOUTH TWICE A DAY FOR HEART/BLOOD PRESSURE. TAKE WITH OR IMMEDIATELY FOLLOWING FOOD. Rx# [id number] Last Released: 02/08/24 Qty/Days Supply: 180/90 Rx Expiration Date: 02/10/24 Refills Remainin OUTPT SITAGLIPTIN (EQV-ZITUVIO) 50MG TAB (Status = ) TAKE ONE TABLET BY MOUTH ONCE A DAY FOR DIABETES (REPLACES ALOGLIPTIN) Rx# [id number] Last Released: 01/28/24 Qty/Days Supply: 90 Rx Expiration Date: 02/10/24 Refills Remainin Indication: FOR DIABETES OUTPT TAMSULOSIN HCL 0.4MG CAP (Status = ) TAKE ONE CAPSULE BY MOUTH TWICE A DAY FOR BENIGN PROSTATIC HYPERPLASIA APPROXIMATELY 30 MINUTES AFTER THE SAME MEAL EACH DAY Rx# [id number] Last Released: 11/10/23 Qty/Days Supply: 180/90 Rx Expiration Date: 02/10/24 Refills Remainin Indication: FOR BENIGN PROSTATIC HYPERPLASIA OUTPT TRIAMCINOLONE ACETONIDE 0.025% CREAM (Status = ) APPLY THIN LAYER TO AFFECTED AREA(S) DIRECTED 1-2X DAILY NEEDED. REDUCE USE WITH IMPROVEMENT. AVOID EXCESSIVE SUN EXPOSURE. (EXTERNAL USE ONLY) Rx# [id number] Last Released: 01/18/23 Qty/Days Supply: 80/30 Rx Expiration Date: 01/13/24 Refills Remainin OUTPT TRIAMCINOLONE ACETONIDE 0.1% CREAM (Status = ) APPLY SPARINGLY TO AFFECTED AREA(S) TWICE A DAY (EXTERNAL USE ONLY) Rx# [id number] Last Released: 11/11/23 Qty/Days Supply: 8030 Rx Expiration Date: 02/08/24 Refills Remainin SUPPLIES OUTPT GLUCOSE SENSOR DEXCOM G7 (Status = Active) USE 1 SENSOR UNDER THE SKIN EVERY 10 DAYS CHANGE SENSOR/SITE EVERY 10 DAYS. CONTACT DEXCOM CUSTOMER SERVICE AT FOR REPLACEMENT OF DAMAGED/MALFUNCTIONING SENSORS. Rx# [id number] Last Released: 03/30/24 Qty/Days Supply: 07/01 Rx Expiration Date: 03/23/25 Refills Remainin OUTPT NEEDLE,PEN 31G,5MM (Status = Active/Suspended) USE 1 NEEDLE UNDER THE SKIN ONCE A DAY Rx# [id number] Last Released: 01/24/24 Qty/Days Supply: / Rx Expiration Date: 10/03/24 Refills Remainin PHARMACY TERMS AND POSSIBLE PATIENT ACTIONS INPT = [place] inpatient order IV = [place] intravenous medication OUTPT = [place] outpatient prescription PHARMACY POSSIBLE PATIENT TERMS EXPLANATION ACTIONS -------- - ACTIVE A prescription that can be If you have refills, filled at the local [place] pharmacy. you may request a refill of this prescription from your [place] pharmacy. CLINIC A medication you received during If you have questions a visit to a [place] clinic or about this medication emergency department. contact your VA healthcare team. DISCONTINUED A prescription your provider has Contact your VA stopped. It is no longer healthcare team if you available to be sent to you or need more of this picked up at the [place] pharmacy medication. window. A prescription which is [...] the VA. Or, it may be an spig-[id number] (OTC), herbal, dietary supplements or sample medication. [...] out. ==== Patient reports taking medications as IS PATIENT TAKING ANY OVER THE COUNTER MEDICATIONS, SUCH VITAMINS OR HERBAL SUPPLEMENTS, INCLUDING ANY MEDICATIONS PRESCRIBED BY ANOTHER PHYSICIAN? No ALLERGIES/ADVERSE REACTIONS: Patient has answered NKA Does patient have any new allergies to report since last visit? NO VITALS: TEMPERATURE: 98.0 F [36.7 C] (01/11/2024 13:10) BP: 128/76 (01/11/2024 13:10) RESP: 18 (01/11/2024 13:10) PULSE: 82 (01/11/2024 13:10) HT: 203.2 in [516.1 cm] (01/11/2024 13:10) WT: 70.0 lb [31.75 kg] (01/11/2024 13:10) BMI: 1.2 PAIN ASSESSMENT: (Most Recent Pain Score in Vitals Package: 0 (01/11/2024 13:10) ) The patient indicated that they and [...] chickenpox, or zoster in last 30 days. STRESS: Thank you for your service. Now let us serve you. At the [facility], we strive to provide [...] Not At All SPIRITUAL ASSESSMENT: Are there holiness practices or spiritual concerns you want the publishing director, your physician, and other health care team members to immediately know about? Patient advised to call the clinic for any concerns, questions, or symptoms. Patient and/or caregiver verbalized understanding of plan of care. COVID-19 Immunization - L,N,P,PH,U: Refused Moderna Monovalent COVID-19 vaccine Immunization: COVID-19 (MODERNA), MRNA, LNP-S, PF, 50 MCG/0.5 ML (AGES 12+ YEARS) Refusal Reason: PATIENT DECISION Patient refuses all immunization(s) in the COVID-19 group Date Documented: 04/10/24 11:27 Pain Assessment: - PAIN ASSESSMENT: .. Patient is reporting some pain. PAIN SCORE TODAY: 3 Patient's self identified pain goal: 0 Patient/Nurse Interview: * * Patient stated that adequate information was received regarding the condition and/or treatment. /maria esther/ Silvestre Townsend RN BSN [facility] Signed: 04/10/2024 11:37 04/10/2024 ADDENDUM STATUS: COMPLETED Per [facility] Directive 1605.06, wristband documentation: Patient wristband was removed and destroyed by (staff name) Silvestre Townsend and placed in the designated [employer] bin. /maria esther/ [facility] Signed: 04/10/2024 15:59 /maria esther/ LEELA Paulson [facility] Signed: 09/17/2024 12:46 SILVESTRE TOWNSEND 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 Currently medication sennosides are not working and has currently switched over to taking MiraLAX and he states that he is taking 2 cups daily and it makes Stool really soft and he feels like it is working really good. [place] states that he is doing really good his sinuses are doing really good he is not having any problems his blood pressure today was 125/72 he is feeling really good. Did some education with on the reason he is constipated and increasing his water intake instructed him to start out with just drinking 1 cup large cup of water every morning before he starts his day 1 bottle cup whatever he wants to start with and then increasing to 2 and as he can increase it up to 3-4 he will see a difference in his bowel movements and how the constipation will decrease and he will have the need to have MiraLAX less and less. Currently because he is to suffer with constipation so much nothing is working and he is requiring MiraLAX to get him going. Allergies: LISINOPRIL REVIEW OF SYSTEMS: HEENT: No visual or auditory symptoms. RESPIRATORY: No shortness of breath, cough or sputum. CARDIOVASCULAR: No chest pain or palpitation. GI: No abdominal pain, nausea, vomiting or bowel changes., Constipation MUSCULOSKELETAL: No muscle aches or pains. SKIN: No new rashes, no unhealing lesions, no moles. : No urinary symptoms. PSYCH: Denies being depressed or anxious. VITALS: Temperature: 97.9 F [36.6 C] (04/10/2024 11:30) Respiratory Rate: 20 (04/10/2024 11:30) Pulse Rate: 59 (04/10/2024 11:30) Blood Pressure: 125/72 (04/10/2024 11:30) HT: 72.0 in [182.9 cm] (03/06/2024 09:13) WT: 233.0 lb [105.69 kg] (04/10/2024 11:30) BMI: 31.7 97% (04/10/2024 11:30) PHYSICAL EXAM: General: NAD noted, A&Ox3, pleasant, appears stated age HEENT: NCAT, TM's clear, nares and oropharynx clear Neck: Supple with normal active ROM, without any lymphadenopathy Heart: RRR, no murmur, clicks, or rub Resp: Lungs CTA bilaterally, respirations even and unlabored Abdomen: Soft, non-distended, non-tender Ext: No clubbing, cyanosis, edema or obvious deformity Neuro: Grossly intact Psych: Affect normal, answers questions appropriately throughout visit DIAGNOSTIC STUDIES: Labs Performed/Reviewed at Today's Visit: Radiology/Imaging Performed/Reviewed at Today's Visit: Reason for studies: On the following Active Medications: Active Outpatient Medications (including Supplies): Active Outpatient Medications Status 1) ACCU-CHEK GUIDE (GLUCOSE) TEST STRIP USE 1 STRIP FOR BLOOD ACTIVE TEST TWO TIMES PER WEEK Indication: FOR BLOOD SUGAR MONITORING 2) AMLODIPINE BESYLATE 10MG TAB TAKE ONE TABLET BY MOUTH EVERY ACTIVE EVENING TO LOWER BLOOD PRESSURE 3) CALCIUM [...] TABLET BY MOUTH ONCE ACTIVE A DAY TO THIN BLOOD 8) FINASTERIDE [...] 2 WEEKS FOR FLARES. 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.82) 10) Tinea 11) Intertrigo * (ICD-9-CM 695.89) 12) Transient global amnesia (SNOMED CT 416006326) 13) Neck pain 14) Restless legs 15) Diabetes mellitus 16) Generalized seizure 17) Elevated PSA 18) CVA - Cerebrovascular accident 19) Bradycardia 20) Exposure to potentially hazardous substance 21) Benign prostatic hyperplasia MEDICATION RECONCILIATION: ACTIVE/ OUTPATIENT MEDICATIONS: MRT1 - Med Reconciliation INCLUDED IN THIS LIST: Alphabetical list of active outpatient prescriptions dispensed from this [place] (local) and dispensed from another [place] or [place] facility (remote) as well as inpatient orders (local pending and active), local clinic medications, locally documented non-VA medications, and local prescriptions that have or been discontinued in the past 90 days. Non-VA Meds Last Documented On: Mar 15, 2018 NOTE The display of VA prescriptions dispensed from another [place] or [place]D facility (remote) is limited to active outpatient prescription entries matched to National Drug File at the originating site and may not include some items such as investigational drugs, compounds, etc. NOT INCLUDED IN THIS LIST: Medications self-entered by the patient into personal health records (i.e. [employer]) are NOT included in this list. Non-VA medications documented outside this [place], remote inpatient orders (regardless of status) and remote clinic medications are NOT included in this list. The patient and provider must always discuss medications the patient is taking, regardless of where the medication was dispensed or obtained. OUTPT AMLODIPINE BESYLATE 10MG TAB (Status = Discontinued) TAKE ONE TABLET BY MOUTH EVERY EVENING TO LOWER BLOOD PRESSURE Rx# [id number] Last Released: 01/27/24 Qty/Days Supply: 90 Rx Expiration Date: 03/11/24 Refills Remainin OUTPT AMLODIPINE BESYLATE 10MG TAB (Status = Active) TAKE ONE TABLET BY MOUTH EVERY EVENING TO LOWER BLOOD PRESSURE Rx# [id number] Last Released: 04/06/24 Qty/Days Supply: 90/ Rx Expiration Date: 03/23/25 Refills Remainin OUTPT CALCIUM POLYCARBOPHIL 625MG TAB (Status = Active) TAKE ONE TABLET BY MOUTH ONCE A DAY FOR FIBER SUPPLEMENTATION Rx# [id number] Last Released: 03/22/24 Qty/Days Supply: 90 Rx Expiration Date: 10/03/24 Refills Remainin Indication: FOR FIBER SUPPLEMENTATION OUTPT CARVEDILOL 6.25MG TAB (Status = Active) TAKE ONE TABLET BY MOUTH TWICE A DAY FOR HEART FAILURE TAKE WITH FOOD. Rx# [id number] Last Released: 03/22/24 Qty/Days Supply: 180/ Rx Expiration Date: 10/03/24 Refills Remainin Indication: FOR HEART FAILURE OUTPT CETIRIZINE HCL 10MG TAB (Status = Active) TAKE ONE TABLET BY MOUTH ONCE A DAY FOR ALLERGY SYMPTOMS Rx# [id number] Last Released: 03/08/24 Qty/Days Supply: 90 Rx Expiration Date: 03/07/25 Refills Remainin Indication: FOR ALLERGY SYMPTOMS OUTPT CHLORTHALIDONE 25MG TAB (Status = Discontinued) TAKE ONE TABLET BY MOUTH ONCE A DAY FOR HIGH BLOOD PRESSURE Rx# [id number] Last Released: 12/23/23 Qty/Days Supply: Rx Expiration Date: 03/11/24 Refills Remainin Indication: FOR HIGH BLOOD PRESSURE OUTPT CHLORTHALIDONE 25MG TAB (Status = Discontinued) TAKE ONE TABLET BY MOUTH ONCE A DAY FOR HIGH BLOOD PRESSURE Rx# [id number] Last Released: 03/23/24 Qty/Days Supply: Rx Expiration Date: 03/22/25 Refills Remainin Indication: FOR HIGH BLOOD PRESSURE OUTPT CHLORTHALIDONE 25MG TAB (Status = On Hold) TAKE ONE TABLET BY MOUTH ONCE A DAY FOR HIGH BLOOD PRESSURE Rx# [id number] Last Released: Qt/Days Supply: Rx Expiration Date: 03/23/25 Refills Remainin Indication: FOR HIGH BLOOD PRESSURE OUTPT CITALOPRAM HYDROBROMIDE 40MG TAB (Status = Discontinued) TAKE ONE-HALF TABLET BY MOUTH EVERY MORNING FOR DEPRESSION Rx# [id number] Last Released: 05/30/23 Qty/Days Supply: 45 Rx Expiration Date: 03/11/24 Refills Remainin OUTPT CLOPIDOGREL BISULFATE 75MG TAB (Status = Discontinued) TAKE ONE TABLET BY MOUTH ONCE A DAY TO THIN BLOOD Rx# [id number] Last Released: 12/22/23 Qty/Days Supply: Rx Expiration Date: 03/11/24 Refills Remainin OUTPT CLOPIDOGREL BISULFATE 75MG TAB (Status = Active) TAKE ONE TABLET BY MOUTH ONCE A DAY TO THIN BLOOD Rx# [id number] Last Released: 04/05/24 Qty/Days Supply: Rx Expiration Date: 03/31/25 Refills Remainin OUTPT FINASTERIDE 5MG TAB (Status = Discontinued) TAKE ONE TABLET BY MOUTH ONCE A DAY FOR 90 DAYS SWALLOW WHOLE, DO NOT CRUSH, SPLIT, OR CHEW. Rx# [id number] Last Released: 11/25/23 Qty/Days Supply: Rx Expiration Date: 11/21/24 Refills Remainin OUTPT FINASTERIDE 5MG TAB (Status = Active) TAKE ONE TABLET BY MOUTH ONCE A DAY FOR BENIGN PROSTATIC HYPERPLASIA SWALLOW WHOLE, DO NOT CRUSH, SPLIT, OR CHEW. Rx# [id number] Last Released: 03/09/24 Qty/Days Supply: Rx Expiration Date: 03/07/25 Refills Remainin Indication: FOR BENIGN PROSTATIC HYPERPLASIA OUTPT FLUTICASONE PROP 50MCG 120D NASAL INHL (Status = Active) INSTILL 1 SPRAY IN NOSTRIL(S) ONCE A DAY FOR RHINITIS (MUST BE USED DIRECTED FOR MINIMUM OF 21 DAYS TO PROVIDE ADEQUATE BENEFITS) Rx# [id number] Last Released: 03/09/24 Qty/Days Supply: Rx Expiration Date: 03/07/25 Refills Remainin Indication: FOR RHINITIS OUTPT GLIPIZIDE 5MG TAB (Status = Active/Suspended) TAKE ONE-HALF TABLET BY MOUTH ONCE A DAY FOR DIABETES 30 MINUTES BEFORE MEAL(S) TO LOWER BLOOD SUGAR Rx# [id number] Last Released: 02/09/24 Qty/Days Supply: 45 Rx Expiration Date: 10/03/24 Refills Remainin Indication: FOR DIABETES OUTPT HYDRALAZINE HCL 25MG TAB (Status = Active) TAKE ONE TABLET BY MOUTH THREE TIMES A DAY Rx# [id number] Last Released: 03/22/24 Qty/Days Supply: 270 Rx Expiration Date: 01/09/25 Refills Remainin OUTPT LEVETIRACETAM 750MG TAB (Status = Active) TAKE ONE-HALF TABLET BY MOUTH TWICE A DAY FOR SEIZURES SWALLOW WHOLE, DO NOT CRUSH OR CHEW. Rx# [id number] Last Released: 02/02/24 Qty/Days Supply: 90 Rx Expiration Date: 11/17/24 Refills Remainin Indication: FOR SEIZURES OUTPT MUPIROCIN 2% OINT (Status = Active) APPLY LIGHTLY TO AFFECTED AREA(S) TWICE DAILY NEEDED FOR BACTERIAL INFECTION EXTERNAL USE ONLY. Rx# [id number] Last Released: 07/12/23 Qty/Days Supply: Rx Expiration Date: 07/06/24 Refills Remainin Indication: FOR BACTERIAL INFECTION OUTPT SENNOSIDES 8.6MG TAB (Status = Active) TAKE THREE TABLETS BY MOUTH ONCE A DAY FOR CONSTIPATION Rx# [id number] Last Released: 03/22/24 Qty/Days Supply: 300/ Rx Expiration Date: 10/03/24 Refills Remainin Indication: FOR CONSTIPATION OUTPT SIMVASTATIN 80MG TAB (Status = Discontinued) TAKE ONE TABLET BY MOUTH EVERY EVENING TO LOWER CHOLESTEROL (DO NOT TAKE WITH GRAPEFRUIT JUICE) Rx# [id number] Last Released: 01/06/24 Qty/Days Supply: Rx Expiration Date: 03/11/24 Refills Remainin OUTPT SIMVASTATIN 80MG TAB (Status = Active) TAKE ONE TABLET BY MOUTH EVERY EVENING TO LOWER CHOLESTEROL (DO NOT TAKE WITH GRAPEFRUIT JUICE) Rx# [id number] Last Released: 03/23/24 Qty/Days Supply: Rx Expiration Date: 03/23/25 Refills Remainin OUTPT TAMSULOSIN HCL 0.4MG CAP (Status = Discontinued) TAKE TWO CAPSULES BY MOUTH EVERY EVENING FOR BENIGN PROSTATIC HYPERPLASIA APPROXIMATELY 30 MINUTES AFTER THE SAME MEAL EACH DAY Rx# [id number] Last Released: 02/29/24 Qty/Days Supply: 180 Rx Expiration Date: 03/11/24 Refills Remainin Indication: FOR BENIGN PROSTATIC HYPERPLASIA OUTPT TAMSULOSIN HCL 0.4MG CAP (Status = Active/Suspended) TAKE TWO CAPSULES BY MOUTH EVERY EVENING FOR BENIGN PROSTATIC HYPERPLASIA APPROXIMATELY 30 MINUTES AFTER THE SAME MEAL EACH DAY Rx# [id number] Last Released: Qt Supply: Rx Expiration Date: 03/23/25 Refills Remainin Indication: FOR BENIGN PROSTATIC HYPERPLASIA OUTPT TRIAMCINOLONE ACETONIDE 0.1% CREAM (Status = Active) APPLY SPARINGLY TO AFFECTED AREA(S) ... OF HANDS AND LEGS 2-3 TIMES WEEKLY NEEDED. MAY APPLY TWICE DAILY FOR UP TO 2 WEEKS FOR FLARES. (EXTERNAL USE ONLY) Rx# [id number] Last Released: 11/14/23 Qty/Days Supply: Rx Expiration Date: 11/09/24 Refills Remainin SUPPLIES OUTPT ACCU-CHEK GUIDE (GLUCOSE) TEST STRIP (Status = Active) USE 1 STRIP FOR BLOOD TEST TWO TIMES PER WEEK FOR BLOOD SUGAR MONITORING Rx# [id number] Last Released: 03/23/24 Qty/Days Supply: Rx Expiration Date: 06/19/24 Refills Remainin Indication: FOR BLOOD SUGAR MONITORING OUTPT ACCU-CHEK GUIDE ME (GLUCOSE) METER (Status = ) USE GLUCOSE METER FOR DIRECTED FOR BLOOD SUGAR MONITORING -CONTACT COMPANY FOR REPLACEMENT OR PROBLEM Rx# [id number] Last Released: 10/18/23 Qty/Days Supply: Rx Expiration Date: 01/16/24 Refills Remainin Indication: FOR BLOOD SUGAR MONITORING PHARMACY TERMS AND POSSIBLE PATIENT ACTIONS INPT = [place] inpatient order IV = [place] intravenous medication OUTPT = [place] outpatient prescription PHARMACY POSSIBLE PATIENT TERMS EXPLANATION ACTIONS -------- - ACTIVE A prescription that can be If you have refills, filled at the local [place] pharmacy. you may request a refill of this prescription from your [place] pharmacy. CLINIC A medication you received during If you have questions a visit to a [place] clinic or about this medication emergency department. contact your [place] healthcare team. DISCONTINUED A prescription your provider has Contact your VA stopped. It is no longer healthcare team if you available to be sent to you or need more of this picked up at the [place] pharmacy medication. window. A prescription which is too old Contact your VA to fill. This does not refer to healthcare team if you the expiration date of the need more of this medication in the container. medication. NON-VA A medication that came from If this medication someplace other than a VA information is pharmacy. This may be an incorrect or out of prescription from either the VA date, please tell your or non-VA providers that was VA healthcare team. filled outside the VA. Or, it may be an phan-[id number] (OTC), herbal, dietary supplements or sample medication. [...] this medication now. you run out. ==== DISCONTINUED: Discontinue sennosides ADDED/CHANGES: Order MiraLAX NON-VA MEDICATIONS NOT LISTED ABOVE (List, including Herbals and OTC): Reviewed with patient/family members. Copy given to patient. Patient verbalized understanding? Yes ASSESSMENT/IMPRESSION: Constipation -current PLAN OF CARE: Constipation plan to discontinue senna side and changed to MiraLAX currently using and it is working well Follow-up: _6 months_ and/or as needed and keep regularly scheduled appointment. Discussed diet and exercise as relevant to patient conditions. Patient is advised this primary care clinic has open access and he can make a same day appointment anytime a problem/concern arises. Patient further advised he can be seen on a walk-in basis as needed. Patient is provided clinic contact information. Treatment plan as noted above and the After Visit Summary was reviewed with [place]; opportunity provided to report concerns and ask question regarding aspects of care or treatment or services; concurrence reached and verbalized understanding. Discussed with patient that in the event of community imaging/testing being ordered in the future, once the imaging testing has been completed, please notify PACT of within 1 week by a VA PACT member; this is due to intermittent lapses in notification of imaging completion within [facility]. All questions answered; agrees to plan of care. Follow up as listed above, annually, and as needed. Keep all completion at outside facility if not called with results appointments. Medications Reconciled. Time spent 30 minutes. Ellen [facility] APR Float /es/ JOSELITO Delgado, MSN, Elena Castellano [facility] Signed: 04/10/2024 11:59 ELLEN JANG [facility]
--- OUTSIDE RECORDS SUMMARY | 2024-05-08 04:20 | XMS_ITS | Encounter Summary ---
Author Name [facility] [place] [facility] [place] Address [address] [place] [address] Care Team Providers Care Photo Tube Assembler Name Role Phone HOBSONDINESH Primary Care [...] PART A Jan 02, 2013 PART A [id number] [phone] [place] PATIENT MEDICARE (WNR) MEDICARE (M) PART A Jan 02, 2013 PART A [id number] [place] PATIENT Selected Encounter This section includes the information on record at [place] for the Encounter. Date/Time Encounter Type Encounter Description Reason Provider Source May 08, 2024 09:20 AM CHIROPRACT MANJ 3-4 [employer] ICD-10-CM M99.02 Segmental and somatic dysfunction of thoracic region ALVAREZ FRITZ Encounter Template Text not used by VA Assessments - Encounter Diagnoses This section includes the primary and secondary diagnoses documented for the Encounter. Date/Time Primary/Secondary Diagnosis Diagnosis Name Provider Source May 08, 2024 09:30 AM PRIMARY Segmental and somatic dysfunction of thoracic region [facility] May 08, 2024 09:30 AM SECONDARY Oth intvrt disc degen, lumbosacr w discog bck & lw extrm pn [facility] May 08, 2024 09:30 AM SECONDARY Pain in thoracic spine [facility] May 08, 2024 09:30 AM SECONDARY Segmental and somatic dysfunction of lumbar region [facility] May 08, 2024 09:30 AM SECONDARY Segmental and somatic dysfunction of pelvic region [facility] Plan of Treatment: Future Appointments (+ 6 months) and Future Tests (+/- 45 days) The Plan of Treatment section includes future care activities for the patient from all [place] treatmentfacilities. This section includes future appointments and future orders which are active, pending or scheduled. Future Appointments This section includes appointments that were scheduled to occur 6 months from the date of the Encounter, up to a maximum of 20 appointments. The data comes from all [place] treatment facilities. Appointment Date/Time Appointment Type Appointme nt Facility Name May 17, 2024 10:00 AM [facility] Jun 05, 2024 09:20 AM [facility] Jun 19, 2024 09:00 AM [facility] Jul 05, 2024 09:20 AM [facility] Jul 19, 2024 09:20 AM [facility] August 02, 2024 09:20 AM [facility] August 16, 2024 09:20 AM [facility] August 23, 2024 09:00 AM [facility] Sep 06, 2024 09:20 AM [facility] Sep 12, 2024 09:30 AM [facility] Sep 19, 2024 01:40 PM [facility] [place] [facility] Sep 24, 2024 02:40 PM [facility] Sep 25, 2024 02:20 PM [facility] Sep 25, 2024 02:30 PM AMBULATORY - MEDICINE [facility] Oct 17, 2024 08:40 AM AMBULATORY - MEDICINE [facility] Oct 31, 2024 08:40 AM AMBULATORY - MEDICINE [facility] Vital Signs: All taken on the encounter date This section contains inpatient and outpatient Vital Signs collected on the date of the Encounter. Date/Time Temperature Pulse Blood Pressure Respiratory Rate SP02 Pain Height Weight Body Mass Index Source May 08, 2024 09:20 AM 97.8 56 147/77 [facility] Social History: Smoking Status (Most current) and Tobacco Use (All prior to encounter date) This section includes the most current, and the historical, smoking and tobacco- related health factors from the [place] facility where the Encounter took place. Current Smoking Status This section includes the most current smoking, or tobacco-related health factor, from the [place] facility where the Encounter took place. Date/Time Current Smoking Status Comment Facil ity Oct 03, 2023 08:30 AM VA-TOBACCO FORMER USER [facility] Tobacco Use History This section includes a history of the smoking, or tobacco-related health factors, that were collected on or before the date of the Encounter. The data comes from the [place] facility where the Encounter took place. 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 [facility] Sep 18, 2021 10:30 AM VA-TOBACCO USE MED NO [facility] Sep 18, 2021 10:30 AM VA-TOBACCO USER SOME DAYS [facility] Sep 15, 2020 01:00 PM VA-TOBACCO DOESNT USE WI 30 MIN WAKEUP [facility] Sep 15, 2020 01:00 PM VA-TOBACCO USE 5 T O 15 YEARS [facility] Sep 15, 2020 01:00 PM VA-TOBACCO USE ADVICE [facility] Sep 15, 2020 01:00 PM VA-TOBACCO USE 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 [facility] Sep 15, 2020 01:00 PM VA-TOBACCO USE MED NO [facility] Sep 15, 2020 01:00 [...] 10:10 AM QUIT TOBACCO >7 YEARS AGO [facility] Sep 26, 2007 09:34 AM QUIT TOBACCO >7 YEARS AGO [facility] August 06, 2005 09:10 AM CURRENT NON-TOBACC O USER-HX OF USE [facility] Mar 23, 2005 08:38 AM CURRENT NON-TOBACC O USER-HX OF USE [facility] Oct 01, 2004 09:41 AM CURRENT NON-TOBACC O USER-HX OF USE [facility] Apr 07, 2004 09:49 AM CURRENT NON-TOBACC O USER-HX OF USE [facility] Oct 11, 2003 10:41 AM CURRENT NON-TOBACC O USER-HX OF USE [facility] Apr 05, 2003 10:43 AM CURRENT NON-TOBACC O USER-HX OF USE Quit 15 years ago. [facility] Oct 25, 2002 09:24 AM CURRENT NON-TOBACC O USER-HX OF USE [facility] Nov 17, 2001 10:31 AM TOB-CURRENT NON-SM OKER BUT HX [facility] Jul 27, 2001 01:43 PM CURRENT NON-TOBACC O USER-HX OF USE [facility] May 16, 2001 10:35 AM CURRENT NON-TOBACC O USER-HX OF USE Quit 18 years ago. [facility] Nov 29, 2000 02:03 PM CURRENT NON-TOBACC O USER-HX OF USE QUIT 13 YRS AGO, 1 PK DAY [facility] Encounter Notes: All associated encounter notes This section contains the clinical notes associated to the Encounter. Date/Time Encounter Note(s) Provider Source May 08, 2024 09:16 AM CHIROPRACTIC NOTE: LOCAL TITLE: CHIROPRACTIC FOLLOW UP NOTE PB STANDARD TITLE: CHIROPRACTIC NOTE DATE OF NOTE: MAY 08, 2024@09:16 ENTRY DATE: MAY 08, 2024@09:16:53 AUTHOR: ALVAREZ FRITZ COSIGNER: URGENCY: STATUS: COMPLETED CHIROPRACTIC FOLLOW-UP VISIT Patient's language preference for health information: Azeri Other Communication Methods Needed: SUBJECTIVE: The is a 74 year old MALE being seen in the Chiropractic clinic for follow-up visit. The [place] states his lower back is very painful, which he attributes to the amount of time since his last adjustment. He states he missed his last appointment due to an illness. The rates his pain level as a 7/10. PAST MEDICAL HISTORY: see problem list SOCIO-ECONOMIC HISTORY: Tobacco: No Prior Tobacco Use Status Available Alcohol: ____ ALLERGIES/ADVERSE REACTIONS: LISINOPRIL OBJECTIVE: MOVEMENT/POSTURE: The [place] ambulates without issue. SEGMENTAL DYSFUNCTION: Joint dysfunction [...] exercise program and to commit to a assisted /maria esther/ [facility] Signed: 05/08/2024 09:29 ALVAREZ FRITZ
--- OUTSIDE RECORDS SUMMARY | 2024-05-17 05:00 | XMS_ITS | Encounter Summary ---
Author Name [facility] [place] [facility] [place] Address [address] [place] [address] Care Team Providers Care Timing Inspector Name Role Phone HOBSONDINESH Primary Care Provider [...] PART A Jan 02, 2013 PART A [id number] [place] PATIENT MEDICARE (WNR) MEDICARE (M) PART A Jan 02, 2013 PART A [id number] [place] PATIENT Selected Encounter This section includes the information on record at [place] for the Encounter. 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 Date/Time Primary/Secondary Diagnosis Diagnosis Name Provider Source May 17, 2024 10:02 AM PRIMARY Segmental and somatic dysfunction of thoracic region [facility] May 17, 2024 10:02 AM SECONDARY Oth intvrt disc degen, lumbosacr w discog bck & lw extrm pn [facility] May 17, 2024 10:02 AM SECONDARY Pain in thoracic spine [facility] May 17, 2024 10:02 AM SECONDARY Segmental and somatic dysfunction of lumbar region [facility] May 17, 2024 10:02 AM SECONDARY Segmental and somatic dysfunction of pelvic region [facility] Plan of Treatment: Future Appointments (+ 6 months) and Future Tests (+/- 45 days) The Plan of Treatment section includes future care activities for the patient from all [place] treatmentfacilities. This section includes future appointments and future orders which are active, pending or scheduled. Future Appointments This section includes appointments that were scheduled to occur 6 months from the date of the Encounter, up to a maximum of 20 appointments. The data comes from all [place] treatment facilities. Appointment Date/Time Appointment Type Appointme nt Facility Name Jun 05, 2024 09:20 AM AMBULATORY - MEDICINE [facility] Jun 19, 2024 09:00 AM AMBULATORY - MEDICINE [facility] Jul 05, 2024 09:20 AM AMBULATORY - MEDICINE [facility] Jul 19, 2024 09:20 AM [facility] [place] [facility] August 02, 2024 09:20 AM [facility] [place] [facility] [facility] August 16, 2024 09:20 AM [facility] [place] [facility] [place] [facility] August 23, 2024 09:00 AM [facility] [place] [facility] [place] [facility] Sep 06, 2024 09:20 AM [facility] [place] [facility] [place] [facility] Sep 12, 2024 09:30 AM [facility] [place] [facility] [facility] Sep 19, 2024 01:40 PM [facility]ORY [place] [facility] Sep 24, 2024 02:40 PM [facility] [place] [facility] [place] [facility] Sep 25, 2024 02:20 PM [facility] [place] [facility] [place] [facility] Sep 25, 2024 02:30 PM [facility] [place] [facility] [place] [facility] Oct 17, 2024 08:40 AM AMBULATORY - MEDICINE [facility] Oct 31, 2024 08:40 AM AMBULATORY - MEDICINE [facility] Nov 14, 2024 08:40 AM AMBULATORY - MEDICINE [facility] Vital Signs: All taken on the encounter date This section contains inpatient and outpatient Vital Signs collected on the date of the Encounter. Date/Time Temperature Pulse Blood Pressure Respiratory Rate SP02 Pain Height Weight Body Mass Index Source May 17, 2024 10:00 AM 97.8 56 154/80 [facility] Social History: Smoking Status (Most current) and Tobacco Use (All prior to encounter date) This section includes the most current, and the historical, smoking and tobacco- related health factors from the [place] facility where the Encounter took place. Current Smoking Status This section includes the most current smoking, or tobacco-related health factor, from the [place] facility where the Encounter took place. Date/Time Current Smoking Status Comment Facil ity Oct 03, 2023 08:30 AM VA-TOBACCO FORMER USER [facility] Tobacco Use History This section includes a history of the smoking, or tobacco-related health factors, that were collected on or before the date of the Encounter. The data comes from the [place] facility where the Encounter took place. 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 [facility] Sep 18, 2021 10:30 AM VA-TOBACCO USE MED NO [place] [facility] Sep 18, 2021 10:30 AM VA-TOBACCO USER SOME DAYS [place] [facility] Sep 15, 2020 01:00 PM VA-TOBACCO DOESNT USE WI 30 MIN WAKEUP [facility] Sep 15, 2020 01:00 PM VA-TOBACCO USE 5 T O 15 YEARS [place] [facility] Sep 15, 2020 01:00 PM VA-TOBACCO USE ADVICE [place] [facility] Sep 15, 2020 01:00 PM VA-TOBACCO USE [place]FIELD 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 SITE 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 NO [place] [facility] Sep [...] 10:10 AM QUIT TOBACCO >7 YEARS AGO [facility] Sep 26, 2007 09:34 AM QUIT TOBACCO >7 YEARS AGO [place] [facility] August 06, 2005 09:10 AM CURRENT NON-TOBACC O USER-HX OF USE [facility] Mar 23, 2005 08:38 AM CURRENT NON-TOBACC O USER-HX OF USE [facility] Oct 01, 2004 09:41 AM CURRENT NON-TOBACC O USER-HX OF USE [place] [facility] Apr 07, 2004 09:49 AM CURRENT NON-TOBACC O USER-HX OF USE [facility] Oct 11, 2003 10:41 AM CURRENT NON-TOBACC O USER-HX OF USE [facility] Apr 05, 2003 10:43 AM CURRENT NON-TOBACC O USER-HX OF USE Quit 15 years ago. [place] [facility] Oct 25, 2002 09:24 AM CURRENT NON-TOBACC O USER-HX OF USE [facility] Nov 17, 2001 10:31 AM TOB-CURRENT NON-SM OKER BUT HX [facility] Jul 27, 2001 01:43 PM CURRENT NON-TOBACC O USER-HX OF USE [facility] May 16, 2001 10:35 AM CURRENT NON-TOBACC O USER-HX OF USE Quit 18 years ago. [place] [facility] Nov 29, 2000 02:03 PM CURRENT NON-TOBACC O USER-HX OF USE QUIT 13 YRS AGO, 1 PK DAY [facility] Encounter Notes: All associated encounter notes This section contains the clinical notes associated to the Encounter. Date/Time Encounter Note(s) Provider Source May 17, 2024 09:54 AM CHIROPRACTIC NOTE: LOCAL TITLE: CHIROPRACTIC FOLLOW UP NOTE PB STANDARD TITLE: CHIROPRACTIC NOTE DATE OF NOTE: MAY 17, 2024@09:54 ENTRY DATE: MAY 17, 2024@09:54:23 AUTHOR: ALVAREZ FRITZ COSIGNER: URGENCY: STATUS: COMPLETED CHIROPRACTIC FOLLOW-UP VISIT Patient's language preference for health information: Maltese Other Communication Methods Needed: SUBJECTIVE: The is a 74 year old MALE being seen in the Chiropractic clinic for follow-up visit. The [place] reports some relief of his lower back pain following his last adjustment, but the pain gradually returned after three days. He does not recall any aggravating activities or event. The rates his pain level as a 8/10. PAST MEDICAL HISTORY: see problem list SOCIO-ECONOMIC HISTORY: Tobacco: No Prior Tobacco Use Status Available Alcohol: ____ ALLERGIES/ADVERSE REACTIONS: LISINOPRIL OBJECTIVE: MOVEMENT/POSTURE: The [place] ambulates without issue. SEGMENTAL DYSFUNCTION: Joint dysfunction [...] exercise program and to commit to a epic anesthesia analyst /maria esther/ [facility] Signed: 05/17/2024 10:02 ALVAREZ FRITZ
--- OUTSIDE RECORDS SUMMARY | 2024-06-05 04:20 | XMS_ITS | Encounter Summary ---
Author Name [facility] [place] [facility] [place] [facility] [place] Address [address] [place] [address] Care Team Providers Care Aircraft Inspection Record Clerk Name Role Phone HOBSONDINESH Primary Care Provider [...] PART A Jan 02, 2013 PART A [id number] [phone] [place] PATIENT MEDICARE (WNR) MEDICARE (M) PART A Jan 02, 2013 PART A [id number] [place] PATIENT Selected Encounter This section includes the information on record at [place] for the Encounter. 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 Date/Time Primary/Secondary Diagnosis Diagnosis Name Provider Source Jun 05, 2024 09:23 AM PRIMARY Segmental and somatic dysfunction of thoracic region [facility] [place] [facility] Jun 05, 2024 09:23 AM SECONDARY Oth intvrt disc degen, lumbosacr w discog bck & lw extrm pn [facility] Jun 05, 2024 09:23 AM SECONDARY Pain in thoracic spine [facility] Jun 05, 2024 09:23 AM SECONDARY Segmental and somatic dysfunction of lumbar region [facility] Jun 05, 2024 09:23 AM SECONDARY Segmental and somatic dysfunction of pelvic region AL[facility]AREZ FRITZ [facility] Plan of Treatment: Future Appointments (+ 6 months) and Future Tests (+/- 45 days) The Plan of Treatment section includes future care activities for the patient from all [place] treatmentfacilities. This section includes future appointments and future orders which are active, pending or scheduled. Future Appointments This section includes appointments that were scheduled to occur 6 months from the date of the Encounter, up to a maximum of 20 appointments. The data comes from all [place] treatment facilities. Appointment Date/Time Appointment Type Appointme nt Facility Name Jun 19, 2024 09:00 AM [facility] [place] [facility] Jul 05, 2024 09:20 AM AMBULATORY - MEDICINE [facility] Jul 19, 2024 09:20 AM [facility] [place] [facility] [facility] August 02, 2024 09:20 AM [facility] [facility] August 16, 2024 09:20 AM [facility] [facility] August 23, 2024 09:00 AM [facility] [facility] Sep 06, 2024 09:20 AM [facility] [place] [facility] Sep 12, 2024 09:30 AM [facility] [facility] Sep 19, 2024 01:40 PM [facility] [place] [facility] Sep 24, 2024 02:40 PM [facility] [facility] Sep 25, 2024 02:20 PM [facility] [facility] Sep 25, 2024 02:30 PM [facility] [place] [facility] Oct 17, 2024 08:40 AM [facility] [place] [facility] Oct 31, 2024 08:40 AM [facility] [place] [facility] Nov 14, 2024 08:40 AM [facility] [place] [facility] Nov 28, 2024 08:40 AM AMBULATORY - MEDICINE [facility] Vital Signs: All taken on the encounter date This section contains inpatient and outpatient Vital Signs collected on the date of the Encounter. Date/Time Temperature Pulse Blood Pressure Respiratory Rate SP02 Pain Height Weight Body Mass Index Source Jun 05, 2024 09:20 AM 98 55 150/76 [facility] Social History: Smoking Status (Most current) and Tobacco Use (All prior to encounter date) This section includes the most current, and the historical, smoking and tobacco- related health factors from the [place] facility where the Encounter took place. Current Smoking Status This section includes the most current smoking, or tobacco-related health factor, from the [place] facility where the Encounter took place. Date/Time Current Smoking Status Comment Facil ity Oct 03, 2023 08:30 AM VA-TOBACCO FORMER USER [facility] Tobacco Use History This section includes a history of the smoking, or tobacco-related health factors, that were collected on or before the date of the Encounter. The data comes from the [place] facility where the Encounter took place. 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 [place] [facility] Sep 18, 2021 10:30 AM VA-TOBACCO USE MED NO [place] [facility] Sep 18, 2021 10:30 AM VA-TOBACCO USER SOME DAYS [place] [facility] Sep 15, 2020 01:00 PM VA-TOBACCO DOESNT USE WI 30 MIN WAKEUP [place] [facility] Sep 15, 2020 01:00 PM VA-TOBACCO USE 5 T O 15 YEARS [facility] [facility] Sep 15, 2020 01:00 PM VA-TOBACCO USE ADVICE [place] [facility] Sep 15, 2020 01:00 PM VA-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 USE 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 [place] [facility] Sep [...] AM QUIT TOBACCO >7 YEARS AGO [facility] [place] [facility] Sep 26, 2007 09:34 AM QUIT TOBACCO >7 YEARS AGO [facility] August 06, 2005 09:10 AM CURRENT NON-TOBACC O [facility] Mar 23, 2005 08:38 AM CURRENT NON-TOBACC O USER-HX OF USE [facility] [facility] Oct 01, 2004 09:41 AM CURRENT NON-TOBACC O US[facility] Apr 07, 2004 09:49 AM CURRENT NON-TOBACC O [facility] Oct 11, 2003 10:41 AM CURRENT NON-TOBACC O USER-HX OF USE [facility] Apr 05, 2003 10:43 AM CURRENT NON-TOBACC O USER-HX OF USE [facility] 15 [facility] ago. [facility] Oct 25, 2002 09:24 AM CURRENT NON-TOBACC O USER-HX OF USE [facility] [facility] Nov 17, 2001 10:31 AM TOB-CURRENT NON-[facility] BUT [facility] Jul 27, 2001 01:43 PM CURRENT NON-TOBACC O USER-HX OF USE [facility] May 16, 2001 10:35 AM CURRENT NON-TOBACC O USER-HX OF USE Q[place] 18 years ago. [facility] Nov 29, 2000 02:03 PM CURRENT NON-TOBACC O USER-HX OF USE QUIT 13 YRS AGO, 1 PK [facility] Encounter Notes: All associated encounter notes This section contains the clinical notes associated to the Encounter. Date/Time Encounter Note(s) Provider Source Jun 05, 2024 09:12 AM CHIROPRACTIC NOTE: LOCAL TITLE: CHIROPRACTIC FOLLOW UP NOTE PB STANDARD TITLE: CHIROPRACTIC NOTE DATE OF NOTE: JUN 05, 2024@09:12 ENTRY DATE: JUN 05, 2024@09:12:31 AUTHOR: ALVAREZ FRITZ COSIGNER: URGENCY: STATUS: COMPLETED CHIROPRACTIC FOLLOW-UP VISIT Patient's language preference for health information: Greenlandic Other Communication Methods Needed: SUBJECTIVE: The [place] is a 74 year old MALE being seen in the Chiropractic clinic for follow-up visit. The states he had about a week of relief following his last adjustment, but gradually the lower back pain returns and is woken by the lower back pain at 3am. The rates his pain level as a 7/10. PAST MEDICAL HISTORY: see problem list SOCIO-ECONOMIC HISTORY: Tobacco: No Prior Tobacco Use Status Available Alcohol: ____ ALLERGIES/ADVERSE REACTIONS: LISINOPRIL OBJECTIVE: MOVEMENT/POSTURE: The [place] ambulates without issue. SEGMENTAL DYSFUNCTION: Joint dysfunction [...] planned six treatments. We will treat The [place] once every two weeks for six treatments. [...] exercise program and to commit to a buttermaker /maria esther/ [facility] Signed: 06/05/2024 09:22 ALVAREZ FRITZ
--- OUTSIDE RECORDS SUMMARY | 2024-06-19 04:00 | XMS_ITS | Encounter Summary ---
Author Name [facility] [place] [facility] [place] Address [address] [place] [address] Care Team Providers Care Beautician Apprentice Name Role Phone HOBSONDINESH Primary Care Provider [...] PART A Jan 02, 2013 PART A [id number] [place] PATIENT MEDICARE (WNR) MEDICARE (M) PART A Jan 02, 2013 PART A [id number] [place] PATIENT Selected Encounter This section includes the information on record at [place] for the Encounter. 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 Date/Time Primary/Secondary Diagnosis Diagnosis Name Provider Source Jun 19, 2024 08:58 AM PRIMARY Segmental and somatic dysfunction of thoracic region ALVAREZ FRITZ [facility] Jun 19, 2024 08:58 AM SECONDARY Oth intvrt disc degen, lumbosacr w discog bck & lw extrm pn [facility] Jun 19, 2024 08:58 AM SECONDARY [facility] Jun 19, 2024 08:58 AM SECONDARY Segmental and somatic dysfunction of lumbar region [facility] [place] [facility] Jun 19, 2024 08:58 AM SECONDARY Segmental and somatic dysfunction of pelvic region ALVAREZ FRITZ [facility] Plan of Treatment: Future Appointments (+ 6 months) and Future Tests (+/- 45 days) The Plan of Treatment section includes future care activities for the patient from all [place] treatmentfacilities. This section includes future appointments and future orders which are active, pending or scheduled. Future Appointments This section includes appointments that were scheduled to occur 6 months from the date of the Encounter, up to a maximum of 20 appointments. The data comes from all [place] treatment facilities. Appointment Date/Time Appointment Type Appointme nt Facility Name Jul 05, 2024 09:20 AM AMBULATORY - MEDICINE [facility] Jul 19, 2024 09:20 AM [facility] [place] [facility]IC[place] [facility] August 02, 2024 09:20 AM [facility] MEDICINE [facility] August 16, 2024 09:20 AM AMBULATORY - MEDICINE [facility] August 23, 2024 09:00 AM [facility]ORY - MEDICINE [facility] Sep 06, 2024 09:20 AM [facility] - MEDICINE [facility] Sep 12, 2024 09:30 AM [facility]ORY - MEDICINE [facility] Sep 19, 2024 01:40 PM [facility] [place] [facility] Sep 24, 2024 02:40 PM AMB[facility]ORY - MEDICINE [facility] [place] Sep 25, 2024 02:20 PM [facility] - MEDICINE [facility] Sep 25, 2024 02:30 PM [facility] - MEDICINE [facility] Oct 17, 2024 08:40 AM [facility] - MEDICINE [facility] Oct 31, 2024 08:40 AM [facility] - MEDICINE [facility] Nov 14, 2024 08:40 AM [facility] - [facility]ICINE [facility] Nov 28, 2024 08:40 AM [facility] - [facility]ICINE [facility] Dec 12, 2024 08:40 AM AMBULATORY - MEDICINE [facility] Vital Signs: All taken on the encounter date This section contains inpatient and outpatient Vital Signs collected on the date of the Encounter. Date/Time Temperature Pulse Blood Pressure Respiratory Rate SP02 Pain Height Weight Body Mass Index Source Jun 19, 2024 08:58 AM 98 59 151/77 [facility] Social History: Smoking Status (Most [...] 03, 2023 08:30 AM VA-TOBACCO FORMER USER [facility] Tobacco Use History This section includes a history of the smoking, or tobacco-related health factors, that were collected on or before the date of the Encounter. The data comes from the [place] facility where the Encounter took place. Date/Time Smoking Status/Tobacco Use Comment F acility Oct 03, 2023 08:30 AM VA-TOBACCO QUIT 1 TO < 5 YRS [facility] Sep 18, 2021 10:30 AM VA-TOBACCO DOESNT USE WI 30 MIN WAKEUP [facility] Sep 18, 2021 10:30 AM VA-TOBACCO USE 30 YEARS OR MORE [facility] Sep 18, 2021 10:30 AM VA-TOBACCO USE ADVICE [facility] Sep 18, 2021 10:30 AM VA-TOBACCO USE CONVICT GUARD NO [facility] Sep 18, 2021 10:30 AM VA-TOBACCO USE MED NO [facility] [place] Sep 18, 2021 10:30 AM VA-TOBACCO USER SOME DAYS [facility] Sep 15, 2020 01:00 PM VA-TOBACCO DOESNT USE WI 30 MIN WAKEUP [facility] Sep 15, 2020 01:00 PM VA-TOBACCO USE 5 T O 15 YEARS [facility] Sep 15, 2020 01:00 PM VA-TOBACCO USE ADVICE [facility] Sep 15, 2020 01:00 PM VA-TOBACCO USE CONVICT GUARD NO [place] [facility] Sep 15, [...] AM QUIT TOBACCO >7 YEARS AGO [facility] [place] [facility] Sep 26, 2007 09:34 AM QUIT TOBACCO >7 YEARS AGO [facility] [place] [facility] August 06, 2005 09:10 AM CURRENT NON-TOBACC O [facility] Mar 23, 2005 08:38 AM CURRENT NON-TOBACC O USER-HX OF USE [facility] [place] [facility] Oct 01, 2004 09:41 AM CURRENT NON-TOBACC O USER-HX OF USE [facility] [place] [facility] Apr 07, 2004 09:49 AM CURRENT NON-TOBACC O USER-HX OF [facility] Oct 11, 2003 10:41 AM CURRENT NON-TOBACC O USER-HX OF USE [facility] [facility] Apr 05, 2003 10:43 AM CURRENT NON-TOBACC O USER-HX OF USE Quit 15 years ago. [facility] [place] [facility] Oct 25, 2002 09:24 AM CURRENT NON-TOBACC O USER-HX OF USE [facility] Nov 17, 2001 10:31 AM TOB-CURRENT NON-SM OKER BUT HX [facility] Jul 27, 2001 01:43 PM CURRENT NON-TOBACC O USER-HX OF USE [facility] [place] [facility] May 16, 2001 10:35 AM CURRENT NON-TOBACC O USER-HX OF USE Quit 18 years ago. [facility] [place] [facility] Nov 29, 2000 02:03 PM CURRENT NON-TOBACC O USER-HX OF USE QUIT 13 YRS AGO, 1 PK DAY [facility] Encounter Notes: All associated encounter notes This section contains the clinical notes associated to the Encounter. Date/Time Encounter Note(s) Provider Source Jun 19, 2024 08:51 AM CHIROPRACTIC NOTE: LOCAL TITLE: CHIROPRACTIC FOLLOW UP NOTE PB STANDARD TITLE: CHIROPRACTIC NOTE DATE OF NOTE: JUN 19, 2024@08:51 ENTRY DATE: JUN 19, 2024@08:51:24 AUTHOR: ALVAREZ FRITZ COSIGNER: URGENCY: STATUS: COMPLETED CHIROPRACTIC FOLLOW-UP VISIT Patient's language preference for health information: Afghan Other Communication Methods Needed: SUBJECTIVE: The [place] is a 74 year old MALE being seen in the Chiropractic clinic for follow-up visit. The describes his lower back as a little better than previously, but has limited his level of activity due to the weather. The rates his pain level as a 310. PAST MEDICAL HISTORY: see problem list SOCIO-ECONOMIC HISTORY: Tobacco: No Prior Tobacco Use Status Available Alcohol: ____ ALLERGIES/ADVERSE REACTIONS: LISINOPRIL OBJECTIVE: MOVEMENT/POSTURE: The [place] ambulates without issue. SEGMENTAL DYSFUNCTION: Joint dysfunction [...] for the of a planned six treatments. Due to the persistent back pain, We will treat The once every two weeks for six additional [...] exercise program and to commit to a ad terminal makeup operator /maria esther/ [facility] Signed: 06/19/2024 08:57 ALVAREZ FRITZ
--- OUTSIDE RECORDS SUMMARY | 2024-07-05 04:20 | XMS_ITS | Encounter Summary ---
Author Name [facility] [facility] [place] [facility] [place] [facility] [place] Address [address] [place] [address] Care Team Providers Care Geophysical Laboratory Director Name Role Phone HOBSONDINESH Primary Care Provider [...] PART A Jan 02, 2013 PART A [id number] [place] PATIENT MEDICARE (WNR) MEDICARE (M) PART A Jan 02, 2013 PART A [id number] [phone] [place] PATIENT Selected Encounter This section includes the information on record at [place] for the Encounter. 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 Date/Time Primary/Secondary Diagnosis Diagnosis Name Provider Source Jul 05, 2024 09:29 AM PRIMARY Segmental and somatic dysfunction of thoracic region [facility] Jul 05, 2024 09:29 AM SECONDARY Oth intvrt disc degen, lumbosacr w discog bck & lw extrm pn [facility] Jul 05, 2024 09:29 AM SECONDARY Pain in thoracic spine [facility] Jul 05, 2024 09:29 AM SECONDARY Segmental and somatic dysfunction of lumbar region [facility] Jul 05, 2024 09:29 AM SECONDARY Segmental and somatic dysfunction of pelvic region ALVAREZ FRITZ [facility] Plan of Treatment: Future Appointments (+ 6 months) and Future Tests (+/- 45 days) The Plan of Treatment section includes future care activities for the patient from all [place] treatmentfacilities. This section includes future appointments and future orders which are active, pending or scheduled. Future Appointments This section includes appointments that were scheduled to occur 6 months from the date of the Encounter, up to a maximum of 20 appointments. The data comes from all [place] treatment facilities. Appointment Date/Time Appointment Type Appointme nt Facility Name Jul 19, 2024 09:20 AM [facility] August 02, 2024 09:20 AM [facility] August 16, 2024 09:20 AM [facility]INE [facility] August 23, 2024 09:00 AM [facility] Sep 06, 2024 09:20 AM [facility] Sep 12, 2024 09:30 AM [facility] Sep 19, 2024 01:40 PM [facility] Sep 24, 2024 02:40 PM [facility] Sep 25, 2024 02:20 PM [facility] Sep 25, 2024 02:30 PM [facility] Oct 17, 2024 08:40 AM [facility] Oct 31, 2024 08:40 AM [facility] Nov 14, 2024 08:40 AM [facility] Nov 28, 2024 08:40 AM [facility] Dec 12, 2024 08:40 AM [facility] Dec 26, 2024 08:40 AM [facility]INE [facility] Vital Signs: All taken on the encounter date This section contains inpatient and outpatient Vital Signs collected on the date of the Encounter. Date/Time Temperature Pulse Blood Pressure Respiratory Rate SP02 Pain Height Weight Body Mass Index Source Jul 05, 2024 09:20 AM 98 90 125/79 [facility] Social History: Smoking Status (Most current) and Tobacco Use (All prior to encounter date) This section includes the most current, and the historical, smoking and tobacco- related health factors from the [place] facility where the Encounter took place. Current Smoking Status This section includes the most current smoking, or tobacco-related health factor, from the [place] facility where the Encounter took place. Date/Time Current Smoking Status Comment Facil ity Oct 03, 2023 08:30 AM VA-TOBACCO FORMER USER [facility] Tobacco Use History This section includes a history of the smoking, or tobacco-related health factors, that were collected on or before the date of the Encounter. The data comes from the [place] facility where the Encounter took place. 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 [facility] Sep 18, 2021 10:30 AM VA-TOBACCO USE MED NO [facility] Sep 18, 2021 10:30 AM VA-TOBACCO USER SOME DAYS [facility] Sep 15, 2020 01:00 PM VA-TOBACCO DOESNT USE WI 30 MIN WAKEUP [facility] Sep 15, 2020 01:00 PM VA-TOBACCO USE 5 T O 15 YEARS [facility] Sep 15, 2020 01:00 PM VA-TOBACCO USE ADVICE [facility] Sep 15, 2020 01:00 PM VA-TOBACCO USE SENIOR FUND ACCOUNTANT NO [facility] Sep 15, [...] AM QUIT TOBACCO >7 YEARS AGO [facility] Sep 26, 2007 09:34 AM QUIT TOBACCO >7 YEARS AGO [facility] August 06, 2005 09:10 AM CURRENT NON-TOBACC O USER-HX OF USE [facility] Mar 23, 2005 08:38 AM CURRENT NON-TOBACC O USER-HX OF USE [facility] Oct 01, 2004 09:41 AM CURRENT NON-TOBACC O USER-HX OF USE [facility] Apr 07, 2004 09:49 AM CURRENT NON-TOBACC O USER-HX OF USE [facility] Oct 11, 2003 10:41 AM CURRENT NON-TOBACC O USER-HX OF USE [facility] Apr 05, 2003 10:43 AM CURRENT NON-TOBACC O USER-HX OF USE Quit 15 years ago. [facility] Oct 25, 2002 09:24 AM CURRENT NON-TOBACC O USER-HX OF USE [facility] Nov 17, 2001 10:31 AM TOB-CURRENT NON-SM [facility] Jul 27, 2001 01:43 PM CURRENT NON-TOBACC O USER-HX OF USE [facility] May 16, 2001 10:35 AM CURRENT NON-TOBACC O USER-HX OF USE Quit 18 years ago. [facility] Nov 29, 2000 02:03 PM CURRENT NON-TOBACC O USER-HX OF USE QUIT 13 YRS AGO, 1 PK DAY [facility] Encounter Notes: All associated encounter notes This section contains the clinical notes associated to the Encounter. Date/Time Encounter Note(s) Provider Source Jul 05, 2024 09:18 AM CHIROPRACTIC NOTE: LOCAL TITLE: CHIROPRACTIC FOLLOW UP NOTE PB STANDARD TITLE: CHIROPRACTIC NOTE DATE OF NOTE: JUL 05, 2024@09:18 ENTRY DATE: JUL 05, 2024@09:18:45 AUTHOR: ALVAREZ FRITZ COSIGNER: URGENCY: STATUS: COMPLETED CHIROPRACTIC FOLLOW-UP VISIT Patient's language preference for health information: Mauritanian Other Communication Methods Needed: SUBJECTIVE: The [place] is a 74 year old MALE being seen in the Chiropractic clinic for follow-up visit. The states his back is not too bad today, but experienced a flare up last week. The rates his pain level as a 2/10. PAST MEDICAL HISTORY: see problem list SOCIO-ECONOMIC HISTORY: Tobacco: No Prior Tobacco Use Status Available Alcohol: ____ ALLERGIES/ADVERSE REACTIONS: LISINOPRIL OBJECTIVE: MOVEMENT/POSTURE: The [place] ambulates without issue. 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
--- OUTSIDE RECORDS SUMMARY | 2024-07-19 04:20 | XMS_ITS | Encounter Summary ---
Author Name [facility] [place] Organization [facility] [place] Address [address] [place] [address] Care Team Providers Care Display Carver Name Role Phone HOBSONDINESH Primary Care Provider [...] PART A Jan 02, 2013 PART A [id number] [place] PATIENT MEDICARE (WNR) MEDICARE (M) PART A Jan 02, 2013 PART A [id number] [place] PATIENT Selected Encounter This section includes the information on record at [place] for the Encounter. 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 Date/Time Primary/Secondary Diagnosis Diagnosis Name Provider Source Jul 19, 2024 09:19 AM PRIMARY Segmental and somatic dysfunction of thoracic region [facility] Jul 19, 2024 09:19 AM SECONDARY Oth intvrt disc degen, lumbosacr w discog bck & lw extrm pn [facility] Jul 19, 2024 09:19 AM SECONDARY Pain in thoracic spine [facility] Jul 19, 2024 09:19 AM SECONDARY Segmental and somatic dysfunction of lumbar region [facility] Jul 19, 2024 09:19 AM SECONDARY Segmental and somatic dysfunction of pelvic region ALVAREZ FRITZ [facility] Plan of Treatment: Future Appointments (+ 6 months) and Future Tests (+/- 45 days) The Plan of Treatment section includes future care activities for the patient from all [place] treatmentfacilities. This section includes future appointments and future orders which are active, pending or scheduled. Future Appointments This section includes appointments that were scheduled to occur 6 months from the date of the Encounter, up to a maximum of 20 appointments. The data comes from all [place] treatment facilities. Appointment Date/Time Appointment Type Appointme nt Facility Name August 02, 2024 09:20 AM [facility]ULATORY [facility] MEDICINE [facility] August 16, 2024 09:20 AM AM[facility]ORY - MEDICINE [facility] August 23, 2024 09:00 AM AMBULATORY - MEDICINE [facility] Sep 06, 2024 09:20 AM [facility] Sep 12, 2024 09:30 AM [facility] Sep 19, 2024 01:40 PM [facility] Sep 24, 2024 02:40 PM [facility] Sep 25, 2024 02:20 PM [facility] Sep 25, 2024 02:30 PM [facility] Oct 17, 2024 08:40 AM [facility] Oct 31, 2024 08:40 AM [facility] Nov 14, 2024 08:40 AM [facility] Nov 28, 2024 08:40 AM [facility] Dec 12, 2024 08:40 AM [facility] Dec 26, 2024 08:40 AM [facility] Social History: Smoking Status (Most current) and Tobacco Use (All prior to encounter date) This section includes the most current, and the historical, smoking and tobacco- related health factors from the [place] facility where the Encounter took place. Current Smoking Status This section includes the most current smoking, or tobacco-related health factor, from the [place] facility where the Encounter took place. Date/Time Current Smoking Status Comment Facil ity Oct 03, 2023 08:30 AM VA-TOBACCO FORMER USER [facility] Tobacco Use History This section includes a history of the smoking, or tobacco-related health factors, that were collected on or before the date of the Encounter. The data comes from the [place] facility where the Encounter took place. 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 [facility] Sep 18, 2021 10:30 AM VA-TOBACCO USE MED NO [facility] Sep 18, 2021 10:30 AM VA-TOBACCO USER SOME DAYS [facility] Sep 15, 2020 01:00 PM VA-TOBACCO DOESNT USE WI 30 MIN WAKEUP [facility] Sep 15, 2020 01:00 PM VA-TOBACCO USE 5 T O 15 YEARS [facility] Sep 15, 2020 01:00 PM VA-TOBACCO USE ADVICE [facility] Sep 15, 2020 01:00 PM VA-TOBACCO USE 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 NO [facility] Sep 15, 2020 01:00 PM VA-TOBACCO USE MED NO [facility] Sep 15, 2020 01:00 PM VA-TOBACCO USER EVERY DAY [facility] Nov 28, 2017 12:02 PM CURRENT TOBACCO USER [facility] Nov 28, 2017 12:02 PM CURRENT TOBACCO US ER (NOT READY TO QUIT) [facility] Nov 28, 2017 12:02 PM TOBACCO CESSATION REFERRAL DECLINED [facility] Nov 28, 2017 12:02 PM TOBACCO MEDS OFFER ED BUT DECLINED [facility] Nov 28, 2017 12:02 PM TOBACCO USER OFFERED MEDS [facility] Oct 14, 2017 01:11 [...] 2017 01:11 PM TOBACCO USER OFFERED MEDS [facility] August 05, 2017 02:42 PM CURRENT TOBACCO USER [facility] August 05, 2017 02:42 PM CURRENT TOBACCO US ER (NOT READY TO QUIT) [facility] August 05, 2017 02:42 PM TOBACCO CESSATION REFERRAL DECLINED [facility] August 05, 2017 02:42 PM TOBACCO MEDS OFFER ED BUT DECLINED [facility] August 05, 2017 02:42 PM TOBACCO USER OFFERED MEDS [facility] Mar 18, 2017 09:26 [...] 2017 09:26 AM TOBACCO USER OFFERED MEDS [facility] Apr 28, 2016 07:17 AM CURRENT TOBACCO USER [facility] Apr 28, 2016 07:[address] [facility] Aug 01, 2009 10:10 AM QUIT TOBACCO >7 YEARS AGO [facility] Sep 26, 2007 09:34 AM QUIT TOBACCO >7 YEARS AGO [facility] August 06, 2005 09:10 AM CURRENT NON-TOBACC O USER-HX OF USE [facility] Mar 23, 2005 08:38 AM CURRENT NON-TOBACC O USER-HX OF USE [facility] Oct 01, 2004 09:41 AM CURRENT NON-TOBACC O USER-HX OF USE [facility] Apr 07, 2004 09:49 AM CURRENT NON-TOBACC O USER-HX OF USE [facility] Oct 11, 2003 10:41 AM CURRENT NON-TOBACC O USER-HX OF USE [facility] Apr 05, 2003 10:43 AM CURRENT NON-TOBACC O USER-HX OF USE Quit 15 years ago. [facility] Oct 25, 2002 09:24 AM CURRENT NON-TOBACC O USER-HX OF USE [facility] Nov 17, 2001 10:31 AM TOB-CURRENT NON-SM OKER BUT HX [facility] Jul 27, 2001 01:43 PM CURRENT NON-TOBACC O USER-HX OF USE [facility] May 16, 2001 10:35 AM CURRENT NON-TOBACC O USER-HX OF USE Quit 18 years ago. [facility] Nov 29, 2000 02:03 PM CURRENT NON-TOBACC O USER-HX OF USE QUIT 13 YRS AGO, 1 PK DAY [facility] Encounter Notes: All associated encounter notes This section contains the clinical notes associated to the Encounter. Date/Time Encounter Note(s) Provider Source Jul 19, 2024 09:06 AM CHIROPRACTIC NOTE: LOCAL TITLE: CHIROPRACTIC FOLLOW UP NOTE PB STANDARD TITLE: CHIROPRACTIC NOTE DATE OF NOTE: JUL 19, 2024@09:06 ENTRY DATE: JUL 19, 2024@09:06:03 AUTHOR: ALVAREZ FRITZ COSIGNER: URGENCY: STATUS: COMPLETED CHIROPRACTIC FOLLOW-UP VISIT Patient's language preference for health information: [place] Other Communication Methods Needed: SUBJECTIVE: The is a 74 year old MALE being seen in the Chiropractic clinic for follow-up visit. The [place] describes his back as doing well since his last adjustment, though sore with yard work. The rates his pain level as a [...] program and to commit to a half-way /maria esther/ [facility] Signed: 07/19/2024 09:18 ALVAREZ FRITZ
--- OUTSIDE RECORDS SUMMARY | 2024-08-16 04:20 | XMS_ITS | Encounter Summary ---
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 Date/Time Primary/Secondary Diagnosis Diagnosis Name Provider Source August 16, 2024 09:19 AM PRIMARY Segmental and somatic dysfunction of thoracic region ALVAREZ FRITZ [facility] August 16, 2024 09:19 AM SECONDARY Oth intvrt disc degen, lumbosacr w discog bck & lw extrm pn [place] [facility] [place] [facility] August 16, 2024 09:19 AM SECONDARY Pain in thoracic spine [place] [facility] August 16, 2024 09:19 AM SECONDARY Segmental and somatic dysfunction of lumbar region [facility] August 16, 2024 09:19 AM SECONDARY Segmental and somatic dysfunction of pelvic region ALVAREZ FRITZ [facility] Plan of Treatment: Future Appointments (+ 6 months) and Future Tests (+/- 45 days) The Plan of Treatment section includes future care activities for the patient from all [place] treatmentfacilities. This section includes future appointments and future orders which are active, pending or scheduled. Future Appointments This section includes appointments that were scheduled to occur 6 months from the date of the Encounter, up to a maximum of 20 appointments. The data comes from all [place] treatment facilities. Appointment Date/Time Appointment Type Appointme nt Facility Name August 23, 2024 09:00 AM [facility] Sep 06, 2024 09:20 AM [facility] Sep 12, 2024 09:30 AM [facility] Sep 19, 2024 01:40 PM [facility] [place] [facility] Sep 24, 2024 02:40 PM [facility] Sep 25, 2024 02:20 PM [facility] Sep 25, 2024 02:30 PM [facility] Oct 17, 2024 08:40 AM [facility] Oct 31, 2024 08:40 AM [facility] Nov 14, 2024 08:40 AM [facility] Nov 28, 2024 08:40 AM [facility] Dec 12, 2024 08:40 AM [facility] [place] Dec 26, 2024 08:40 AM [facility]ORY - MEDICINE [facility] Active, Pending, and Scheduled Orders This section includes a listing of several types of active, pending, and scheduled orders, including clinic medications orders, diagnostic test orders, procedure orders and consult orders; where the start date of the order is 45 days before the date of the Encounter or 45 days after the date of theEncounter. The data comes from all [place] treatment facilities. Test Date/Time Test Type Test Details Facility Name Sep 07, 2024 12:23 PM Consult Order [facility] PB [id number] Cons Door Operator's Choice [facility] Lab Results: +/- 30 days of the encounter This section includes the Chemistry and Hematology Lab Results on record with [place] for the patient. Radiology Reports and Pathology Reports are provided separately, in subsequent sections. Lab Results This section contains the Chemistry/Hematology Results that were resulted 30 days before or 30 daysafter the date of the Encounter. Date/Time Source Result Type Result - Unit Interpretation Reference Range Specimen Type Comment Sep 12, 2024 10:18 AM [facility] B12 SERUM Specimen Type: SERUM No comment entered. Ordering Provider: KELLI SHUKLA Report Released Date/Time: Sep 12, 2024 09:54 AM Reporting Lab: [place] [facility] [address] [place] [address] Performing Lab: [place] [facility] [address] [place] [address] B12 579 pg/mL 213-816 Sep 12, 2024 10:18 AM [facility] FOLATE (PB) SERUM Specimen Typ e: SERUM No comment entered. Ordering Provider: KELLI SHUKLA Report Released Date/Time: Sep 12, 2024 09:54 AM Reporting Lab: [place] [facility] [address] [place] [address] Performing Lab: [place] [facility] [address] [place] [address] FOLATE (PB) 15.5 ng/mL 7-20 Sep 12, 2024 10:18 AM [facility] HGA1C BLOOD Specimen Type: BLOOD No comment entered. Ordering Provider: KELLI SHUKLA Report Released Date/Time: Sep 12, 2024 09:54 AM Reporting Lab: [place] [facility] [address] [place] [address] Performing Lab: [place] [facility] [address] [place] [address] HGA1C 6.5 H 4.0-6.0 Sep 12, 2024 10:18 AM [facility] CHOLESTEROL PANEL (PB) PLASMA Specimen Type: P LASMA No comment entered. Ordering Provider: KELLI SHUKLA Report Released Date/Time: Sep 12, 2024 09:54 AM Reporting Lab: [place] [facility] [address] [place] [address] Performing Lab: [place] [facility] [address] [place] [address] CHOLESTEROL 121 mg/dL 0-200 TRIGLYCERIDE 128 mg/dL 0-150 CALCULATED LDL 53.2 mg/dL HDL(New) 42.2 mg/dL H >40 HDL % OF TOTAL CHOLESTEROL (PB) 34.9 >25 Sep 12, 2024 10:18 AM [facility] VITAMIN D, 25-HYDROXY SERUM Specimen Type: SE RUM No comment entered. Ordering Provider: KELLI SHUKLA Report Released Date/Time: Sep 12, 2024 09:54 AM Reporting Lab: [place] [facility] [address] [place] [address] Performing Lab: [place] [facility] [address] [place] [id number] VITAMIN D, 25-HYDROXY 69.3 ng/mL 30-96 Sep 12, 2024 10:18 AM [facility] TSH (MA-PB) SERUM Specimen Typ e: SERUM No comment entered. Ordering Provider: KELLI SHUKLA Report Released Date/Time: Sep 12, 2024 09:54 AM Reporting Lab: [place] [facility] [address] [place] [address] Performing Lab: [place] [facility] [address] [place] [address] TSH 0.941 u[IU]/mL 0.47-5 Sep 12, 2024 10:18 AM [facility] URINE ALBUMIN PROFILE-ih (PB) URINE Specimen Type: URINE No comment entered. Ordering Provider: KELLI SHUKLA Report Released Date/Time: Sep 12, 2024 09:54 AM Reporting Lab: [place] [facility] [address] [place] [address] Performing Lab: [place] [facility] [address] [place] [address] URINE ALBUMIN (PB-STL) 40.74 mg/L uACR (PB-MA) 35.61 mg/g H 0-30 CREATININE URINE/OTHERS 114.41 mg/dL Sep 12, 2024 10:18 AM [facility] COMPREHENSIVE METABOLIC PANEL PLASMA Specimen Type: PLASMA No comment entered. Ordering Provider: KELLI SHUKLA Report Released Date/Time: Sep 12, 2024 09:54 AM Reporting Lab: [place] [facility] [address] [place] [address] Performing Lab: [place] [facility] [address] [place] [address] CREATININE 0.91 mg/dL 0.7-1.3 UREA NITROGEN 14 mg/dL 9-25 GLUCOSE 119 mg/dL H 72-99 SODIUM 133 meq/L L 136-145 POTASSIUM 3.3 meq/L L 3.5-5 CHLORIDE 95 meq/L L 98-107 CARBON DIOXIDE 29 meq/L 22-31 CALCIUM 9.6 mg/dL 8.4-10.4 PROTEIN 7.3 g/dL 6-8.6 ALBUMIN 4.7 g/dL 3.4-5 TOTAL BILIRUBIN 1.2 mg/dL 0.2-1.2 ALKALINE PHOSPHATASE 82 U/L 40-150 AST/SGOT 25 U/L 5-34 ALT/SGPT 18 U/L 8-40 EGFR (CKD-EPI 2020) 87 Sep 12, 2024 10:18 AM [facility] CBC BLOOD Specimen Type: BLOOD No comment entered. Ordering Provider: KELLI SHUKLA Report Released Date/Time: Sep 12, 2024 09:54 AM Reporting Lab: [place] [facility] [address] [place] [address] Performing Lab: [place] [facility] [address] [place] [address] WBC 7.9 10*3/uL 3.6-11.2 RBC 4.75 10*6/uL 4.10-5.70 HGB 15.2 g/dL 13.1-16.8 HCT 41.6 38.2-48.4 MCV 87.6 fL 80.0-100.0 MCH 32.0 pg 27.0-34.0 MCHC 36.5 g/dL H 33.0-36.0 PLT 222 10*3/uL 150-400 MPV 9.7 fL 7.5-11.2 RDW 12.0 11.8-15.1 LYMPHOCYTES, AUTO % 16.1 MONOCYTES, AUTO % 9.4 NEUTROPHILS, AUTO % 71.4 EOSINOPHILS, AUTO % 2.3 BASOPHILS, AUTO % 0.5 LYMPHOCYTES, ABSOLUTE 1.27 10*3/uL 0.77- 4.50 MONOCYTES, ABSOLUTE 0.74 10*3/uL 0.19-0. 8 NEUTROPHILS, ABSOLUTE 5.66 10*3/uL 2.10- 8.00 EOSINOPHILS, ABSOLUTE 0.18 10*3/uL 0.00- 0.60 BASOPHILS, ABSOLUTE 0.04 10*3/uL 0.00-0. 20 IMMATURE GRANS, AUTO % 0.3 IMMATURE GRANS, AUTO ABS 0.02 10*3/uL 0. 00-0.05 Sep 12, 2024 10:18 AM [facility] BRAIN NATRIURETIC PEPTIDE PLASMA Specimen Type : PLASMA No comment entered. Ordering Provider: KELLI SHUKLA Report Released Date/Time: Sep 12, 2024 10:14 AM Reporting Lab: [place] [facility] [address] [place] [address] Performing Lab: [place] [facility] [address] [place] [address] BRAIN NATRIURETIC PEPTIDE 20 pg/mL 0-100 Sep 12, 2024 10:18 AM [facility] TESTOSTERONE, TOTAL (PB-MA) SERUM Specimen Ty pe: SERUM No comment entered. Ordering Provider: KELLI SHUKLA Report Released Date/Time: Sep 12, 2024 10:13 AM Reporting Lab: [place] [facility] [address] [place] [address] Performing Lab: [place] [facility] [address] [place] [address] TESTOSTERONE, TOTAL (PB-MA) 615.0 ng/dL 221.0-871.0 Social History: Smoking Status (Most current) and Tobacco Use (All prior to encounter date) This section includes the most current, and the historical, smoking and tobacco- related health factors from the [place] facility where the Encounter took place. Current Smoking Status This section includes the most current smoking, or tobacco-related health factor, from the [place] facility where the Encounter took place. Date/Time Current Smoking Status Comment Facil ity Oct 03, 2023 08:30 AM VA-TOBACCO FORMER USER [facility] Tobacco Use History This section includes a history of the smoking, or tobacco-related health factors, that were collected on or before the date of the Encounter. The data comes from the [place] facility where the Encounter took place. Date/Time Smoking Status/Tobacco Use Comment F acility Oct 03, 2023 08:30 AM VA-TOBACCO QUIT 1 TO < 5 YRS [facility] Sep 18, 2021 10:30 AM VA-TOBACCO DOESNT USE WI 30 MIN WAKEUP [facility] Sep 18, 2021 10:30 AM VA-TOBACCO USE 30 YEARS OR MORE [facility] Sep 18, 2021 10:30 AM [place]BAC[place] USE ADVICE [facility] Sep 18, 2021 10:30 AM VA-TOBACCO USE CHICKEN RAISER NO [facility] Sep 18, 2021 10:30 AM VA-TOBACCO USE MED NO [facility] Sep 18, 2021 10:30 AM VA-TOBACCO USER SOME DAYS [facility] Sep 15, 2020 01:00 PM VA-TOBACCO DOESNT USE WI 30 MIN [place] [facility] Sep 15, 2020 01:00 PM VA-TOBACCO USE 5 T O 15 YEARS [facility] Sep 15, 2020 01:00 PM VA-TOBACCO USE ADVICE [facility] Sep 15, 2020 01:00 PM VA-TOBACCO USE [place] RAISER NO [facility] Sep 15, 2020 01:00 PM VA-TOBACCO USE MED NO [facility] Sep 15, 2020 01:00 PM VA-TOBACCO USER EVERY DAY [facility] [place] [facility] Nov 28, 2017 12:02 PM CURRENT TOBACCO USER [facility] Nov 28, 2017 12:02 PM CURRENT TOBACCO US ER (NOT READY TO QUIT) [facility] [place] [facility] Nov 28, 2017 12:02 PM [...] 2017 02:42 PM TOBACCO USER [facility] [place] [facility] Mar 18, 2017 09:26 [...] 2017 09:26 AM TOBACCO USER [facility] [place] [facility] Apr 28, 2016 07:17 AM CURRENT [place]BACCO USER [facility] [place] Apr 28, 2016 07:[address] [facility] Aug 01, 2009 10:10 AM QUIT TOBACCO >7 YEARS AGO [place] [facility] Sep 26, 2007 09:34 AM QUIT TOBACCO >7 YEARS AGO [facility] [place] [facility] August 06, 2005 09:10 AM CURRENT NON-TOBACC O USER-HX OF USE [facility] Mar 23, 2005 08:38 AM CURRENT NON-TOBACC O USER-HX OF USE [facility] Oct 01, 2004 09:41 AM CURRENT NON-TOBACC O USER-HX OF USE [facility] Apr 07, 2004 09:49 AM CURRENT NON-TOBACC O USER-HX OF USE [facility] Oct 11, 2003 10:41 AM CURRENT NON-TOBACC O USER-HX OF USE [facility] Apr 05, 2003 10:43 AM CURRENT NON-TOBACC O USER-HX OF USE Quit 15 years ago. [facility] Oct 25, 2002 09:24 AM CURRENT NON-TOBACC O USER-HX OF USE [facility] Nov 17, 2001 10:31 AM TOB-CURRENT NON-SM OKER BUT HX [facility] Jul 27, 2001 01:43 PM CURRENT NON-TOBACC O USER-HX OF USE [facility] May 16, 2001 10:35 AM CURRENT NON-TOBACC O USER-HX OF USE Quit 18 years ago. [facility] Nov 29, 2000 02:03 PM CURRENT NON-TOBACC O USER-HX OF USE QUIT 13 YRS AGO, 1 PK DAY [facility] Encounter Notes: All associated encounter notes This section contains the clinical notes associated to the Encounter. Date/Time Encounter Note(s) Provider Source August 16, 2024 09:07 AM CHIROPRACTIC NOTE: LOCAL TITLE: CHIROPRACTIC FOLLOW UP NOTE PB STANDARD TITLE: CHIROPRACTIC NOTE DATE OF NOTE: AUGUST 16, 2024@09:07 ENTRY DATE: AUGUST 16, 2024@09:07:58 AUTHOR: ALVAREZ FRITZ COSIGNER: URGENCY: STATUS: COMPLETED CHIROPRACTIC FOLLOW-UP VISIT Patient's language preference for health information: Polish Other Communication Methods Needed: SUBJECTIVE: The is a 74 year old MALE being seen in the Chiropractic clinic for follow-up visit. The [place] describes his back as feeling fairly good with noticeable pain with certain positions. The rates his pain level as a 2/10. PAST MEDICAL HISTORY: see problem list SOCIO-ECONOMIC HISTORY: Tobacco: No Prior Tobacco Use Status Available Alcohol: ____ ALLERGIES/ADVERSE REACTIONS: LISINOPRIL OBJECTIVE: MOVEMENT/POSTURE: The [place] ambulates without issue. SEGMENTAL DYSFUNCTION: Joint dysfunction [...] program and to commit to a detention /maria esther/ [facility] Signed: 08/16/2024 09:18 ALVAREZ FRITZ
--- OUTSIDE RECORDS SUMMARY | 2024-08-23 04:00 | XMS_ITS | Encounter Summary ---
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 Date/Time Primary/Secondary Diagnosis Diagnosis Name Provider Source August 23, 2024 09:06 AM PRIMARY Segmental and somatic dysfunction of thoracic region ALVAREZ FRITZ [facility] August 23, 2024 09:06 AM SECONDARY Oth intvrt disc degen, lumbosacr w discog bck & lw extrm pn [facility] August 23, 2024 09:06 AM SECONDARY Pain in thoracic spine [facility] August 23, 2024 09:06 AM SECONDARY Segmental and somatic dysfunction of lumbar region [facility] August 23, 2024 09:06 AM SECONDARY Segmental and somatic dysfunction of pelvic region ALVAREZ FRITZ [facility] Plan of Treatment: Future Appointments (+ 6 months) and Future Tests (+/- 45 days) The Plan of Treatment section includes future care activities for the patient from all [place] treatmentfacilities. This section includes future appointments and future orders which are active, pending or scheduled. Future Appointments This section includes appointments that were scheduled to occur 6 months from the date of the Encounter, up to a maximum of 20 appointments. The data comes from all [place] treatment facilities. Appointment Date/Time Appointment Type Appointme nt Facility Name Sep 06, 2024 09:20 AM AMBULATORY - MEDICINE [facility] Sep 12, 2024 09:30 AM AMBULATORY - MEDICINE [facility] Sep 19, 2024 01:40 PM AMBULATORY - MEDICINE [facility] Sep 24, 2024 02:40 PM AMBULATORY - MEDICINE [facility] Sep 25, 2024 02:20 PM AMBULATORY - MEDICINE [facility] Sep 25, 2024 02:30 PM AMBULATORY - MEDICINE [facility] Oct 17, 2024 08:40 AM AMBULATORY - MEDICINE [facility] Oct 31, 2024 08:40 AM AMBULATORY - MEDICINE [facility] Nov 14, 2024 08:40 AM AMBULATORY - MEDICINE [facility] Nov 28, 2024 08:40 AM [facility] [place] [facility] Dec 12, 2024 08:40 AM AMBULATORY - MEDICINE [facility] Dec 26, 2024 08:40 AM AMBULATORY - MEDICINE [facility] Active, Pending, and Scheduled Orders This section includes a listing of several types of active, pending, and scheduled orders, including clinic medications orders, diagnostic test orders, procedure orders and consult orders; where the start date of the order is 45 days before the date of the Encounter or 45 days after the date of theEncounter. The data comes from all [place] treatment facilities. Test Date/Time Test Type Test Details Facility Name Sep 07, 2024 12:23 PM Consult Order [facility] PB [id number] Cons Block Sealer's Choice [facility] Lab Results: +/- 30 days of the encounter This section includes the Chemistry and Hematology Lab Results on record with [place] for the patient. Radiology Reports and Pathology Reports are provided separately, in subsequent sections. Lab Results This section contains the Chemistry/Hematology Results that were resulted 30 days before or 30 daysafter the date of the Encounter. Date/Time Source Result Type Result - Unit Interpretation Reference Range Specimen Type Comment Sep 12, 2024 10:18 AM [id number] CHOLESTEROL PANEL (PB) PLASMA Specimen Type: PLASMA No comment entered. Ordering Provider: KELLI SHUKLA Report Released Date/Time: Sep 12, 2024 09:54 AM Reporting Lab: [facility] [address] [facility] [address] Performing Lab: DAY [facility]NA[facility] [address] [facility] [address] CHOLESTEROL 121 mg/dL 0-200 TRIGLYCERIDE 128 mg/dL 0-150 CALCULATED LDL 53.2 mg/dL HDL(New) 42.2 mg/dL H >40 HDL % OF TOTAL CHOLESTEROL (PB) 34.9 >25 Sep 12, 2024 10:18 AM [facility] URINE ALBUMIN PROFILE-ih (PB) URINE Specimen Type: URINE No comment entered. Ordering Provider: KELLI SHUKLA Report Released Date/Time: Sep 12, 2024 09:54 AM Reporting Lab: [facility] [address] [facility] [address] Performing Lab: [facility] [address] [facility] [address] URINE ALBUMIN (PB-STL) 40.74 mg/L uACR (PB-MA) 35.61 mg/g H 0-30 CREATININE URINE/OTHERS 114.41 mg/dL Sep 12, 2024 10:18 AM [facility] [place] [place] [facility] VITAMIN D, 25-HYDROXY SERUM Specimen Type: SE RUM No comment entered. Ordering Provider: KELLI SHUKLA Report Released Date/Time: Sep 12, 2024 09:54 AM Reporting Lab: [place] [facility] [address] [place] [address] Performing Lab: [place] [facility] [address] [place] [address] VITAMIN D, 25-HYDROXY 69.3 ng/mL 30-96 Sep 12, 2024 10:18 AM [facility] TSH (MA-PB) SERUM Specimen Typ e: SERUM No comment entered. Ordering Provider: KELLI SHUKLA Report Released Date/Time: Sep 12, 2024 09:54 AM Reporting Lab: [place] [facility] [address] [place] [address] Performing Lab: [place] [facility] [address] [place] [address] TSH 0.941 u[IU]/mL 0.47-5 Sep 12, 2024 10:18 AM [facility] TESTOSTERONE, TOTAL (PB-MA) SERUM Specimen Ty pe: SERUM No comment entered. Ordering Provider: KELLI SHUKLA Report Released Date/Time: Sep 12, 2024 10:13 AM Reporting Lab: [place] [facility] [address] [place] [address] Performing Lab: [place] [facility] [address] [place] [address] TESTOSTERONE, TOTAL (PB-MA) 615.0 ng/dL 221.0-871.0 Sep 12, 2024 10:18 AM [facility] BRAIN NATRIURETIC PEPTIDE PLASMA Specimen Type : PLASMA No comment entered. Ordering Provider: KELLI SHUKLA Report Released Date/Time: Sep 12, 2024 10:14 AM Reporting Lab: [place] [facility] [address] [place] [address] Performing Lab: [place] [facility] [address] [place] [address] BRAIN NATRIURETIC PEPTIDE 20 pg/mL 0-100 Sep 12, 2024 10:18 AM [facility] B12 SERUM Specimen Type: SERUM No comment entered. Ordering Provider: KELLI SHUKLA Report Released Date/Time: Sep 12, 2024 09:54 AM Reporting Lab: [place] [facility] [address] [place] [address] Performing Lab: [place] [facility] [address] [place] [address] B12 579 pg/mL 213-816 Sep 12, 2024 10:18 AM [facility] FOLATE (PB) SERUM Specimen Typ e: SERUM No comment entered. Ordering Provider: KELLI SHUKLA Report Released Date/Time: Sep 12, 2024 09:54 AM Reporting Lab: [place] [facility] [address] [place] [address] Performing Lab: [place] [facility] [address] [place] [address] FOLATE (PB) 15.5 ng/mL 7-20 Sep 12, 2024 10:18 AM [facility] HGA1C BLOOD Specimen Type: BLOOD No comment entered. Ordering Provider: KELLI SHUKLA Report Released Date/Time: Sep 12, 2024 09:54 AM Reporting Lab: [place] [facility] [address] [place] [address] Performing Lab: [place] [facility] [address] [place] [address] HGA1C 6.5 H 4.0-6.0 Sep 12, 2024 10:18 AM [facility] COMPREHENSIVE METABOLIC PANEL PLASMA Specimen Type: PLASMA No comment entered. Ordering Provider: KELLI SHUKLA Report Released Date/Time: Sep 12, 2024 09:54 AM Reporting Lab: [place] [facility] [address] [place] [address] Performing Lab: [place] [facility] [address] [place] [address] CREATININE 0.91 mg/dL 0.7-1.3 UREA NITROGEN 14 [...] 2020) 87 Sep 12, 2024 10:18 AM [facility] CBC BLOOD Specimen Type: BLOOD No comment entered. Ordering Provider: KELLI SHUKLA Report Released Date/Time: Sep 12, 2024 09:54 AM Reporting Lab: [place] [facility] [address] [facility] [address] Performing Lab: [place] [facility] [address] [facility] [address] WBC 7.9 10*3/uL 3.6-11.2 RBC 4.75 10*6/uL [...] GRANS, AUTO ABS 0.02 10*3/uL 0. 00-0.05 Vital Signs: All taken on the encounter date This section contains inpatient and outpatient Vital Signs collected on the date of the Encounter. Date/Time Temperature Pulse Blood Pressure Respiratory Rate SP02 Pain Height Weight Body Mass Index Source August 23, 2024 09:00 AM 97.8 58 158/72 [facility] [place] [facility] Social History: Smoking Status (Most current) and Tobacco Use (All prior to encounter date) This section includes the most current, and the historical, smoking and tobacco- related health factors from the [place] facility where the Encounter took place. Current Smoking Status This section includes the most current smoking, or tobacco-related health factor, from the [place] facility where the Encounter took place. Date/Time Current Smoking Status Comment Facil ity Oct 03, 2023 08:30 AM VA-TOBACCO FORMER USER [facility] [place] [facility] Tobacco Use History This section includes a history of the smoking, or tobacco-related health factors, that were collected on or before the date of the Encounter. The data comes from the [place] facility where the Encounter took place. 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 [facility] Sep 18, 2021 10:30 AM VA-TOBACCO USE MED NO [facility] Sep 18, 2021 10:30 AM VA-TOBACCO USER SOME DAYS [facility] Sep 15, 2020 01:00 PM VA-TOBACCO DOESNT USE WI 30 MIN WAKEUP [facility] Sep 15, 2020 01:00 PM VA-TOBACCO USE 5 T O 15 YEARS [facility] Sep 15, 2020 01:00 PM VA-TOBACCO USE ADVICE [facility] Sep 15, 2020 01:00 PM 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 [facility] Sep 15, 2020 01:00 PM VA-TOBACCO USE MED NO [facility] [facility] Sep 15, 2020 01:00 PM VA-TOBACCO USER EVERY DAY [facility] [place] Nov 28, 2017 12:02 PM CURRENT TOBACCO USER [facility] Nov 28, 2017 12:02 PM CURRENT TOBACCO US ER (NOT READY TO QUIT) [facility] Nov 28, 2017 12:02 PM TOBACCO CESSATION REFERRAL DECLINED [facility] [place] Nov 28, 2017 12:02 PM TOBACCO MEDS OFFER ED BUT DECLINED [facility] Nov 28, 2017 12:02 PM TOBACCO USER OFFERED MEDS [facility] Oct 14, 2017 01:11 PM CURRENT TOBACCO USER [facility] Oct 14, 2017 01:11 PM CURRENT TOBACCO US ER (NOT READY TO QUIT) [facility] Oct 14, 2017 01:11 PM TOBACCO CESSATION REFERRAL DECLINED [facility] Oct 14, 2017 01:11 PM TOBACCO MEDS OFFER ED BUT DECLINED [facility] Oct 14, 2017 01:11 PM TOBACCO USER OFFERED MEDS [facility] August 05, 2017 02:42 PM CURRENT TOBACCO USER [facility] August 05, 2017 02:42 PM CURRENT TOBACCO US ER (NOT READY TO QUIT) [facility] August 05, 2017 02:42 PM TOBACCO CESSATION REFERRAL DECLINED [facility] August 05, 2017 02:42 PM TOBACCO MEDS OFFER ED BUT DECLINED [facility] [place] August 05, 2017 02:42 PM TOBACCO USER OFFERED MEDS [facility] Mar 18, 2017 09:26 AM CURRENT TOBACCO USER [facility] Mar 18, 2017 09:26 AM CURRENT TOBACCO US ER (NOT READY TO QUIT) [facility] Mar 18, 2017 09:26 AM TOBACCO CESSATION REFERRAL DECLINED [facility] Mar 18, 2017 09:26 AM TOBACCO MEDS OFFER ED BUT DECLINED [facility] [place] Mar 18, 2017 09:26 AM TOBACCO USER OFFERED MEDS [facility] Apr 28, 2016 07:17 AM CURRENT TOBACCO USER [facility] Apr 28, 2016 07:[address] SMOKING CLINIC [facility] Aug 01, 2009 10:10 AM QUIT TOBACCO >7 YEARS AGO [facility] Sep 26, 2007 09:34 AM QUIT TOBACCO >7 YEARS AGO [facility] August 06, 2005 09:10 AM CURRENT NON-TOBACC O USER-HX OF USE [facility] Mar 23, 2005 08:38 AM CURRENT NON-TOBACC O USER-HX OF USE [facility] [place] [facility] Oct 01, 2004 09:41 AM CURRENT NON-TOBACC O USER-HX OF USE [facility] [place] [facility] Apr 07, 2004 09:49 AM CURRENT NON-TOBACC O USER-HX OF USE [facility] Oct 11, 2003 10:41 AM CURRENT NON-TOBACC O USER-HX OF USE [facility] Apr 05, 2003 10:43 AM CURRENT NON-TOBACC O USER-HX OF USE Quit 15 years ago. [facility] [place] [facility] Oct 25, 2002 09:24 AM CURRENT NON-TOBACC O USER-HX OF USE [facility] Nov 17, 2001 10:31 AM TOB-CURRENT NON-SM OKER BUT HX [facility] Jul 27, 2001 01:43 PM CURRENT NON-TOBACC O USER-HX OF USE [facility] May 16, 2001 10:35 AM CURRENT NON-TOBACC O USER-HX OF USE Quit 18 years ago. [facility] Nov 29, 2000 02:03 PM CURRENT NON-TOBACC O USER-HX OF USE QUIT 13 YRS AGO, 1 PK DAY [facility] Encounter Notes: All associated encounter notes This section contains the clinical notes associated to the Encounter. Date/Time Encounter Note(s) Provider Source August 23, 2024 09:00 AM CHIROPRACTIC NOTE: LOCAL TITLE: CHIROPRACTIC FOLLOW UP NOTE PB STANDARD TITLE: CHIROPRACTIC NOTE DATE OF NOTE: AUGUST 23, 2024@09:00 ENTRY DATE: AUGUST 23, 2024@09:00:30 AUTHOR: ALVAREZ FRITZIGNER: URGENCY: STATUS: COMPLETED CHIROPRACTIC FOLLOW-UP VISIT Patient's language preference for health information: Sami Other Communication Methods Needed: SUBJECTIVE: The Norris is a 74 year old MALE being seen in the Chiropractic clinic for follow-up visit. The states his lower back is doing well overall, with pain in his lower back with certain movements. The rates his pain level as a 2/10. PAST MEDICAL HISTORY: see problem list SOCIO-ECONOMIC HISTORY: Tobacco: No Prior Tobacco Use Status Available Alcohol: ____ ALLERGIES/ADVERSE REACTIONS: LISINOPRIL OBJECTIVE: MOVEMENT/POSTURE: The Norris ambulates without issue. SEGMENTAL DYSFUNCTION: Joint dysfunction [...] exercise program and to commit to a shelter /maria esther/ [facility] Signed: 08/23/2024 09:05 ALVAREZ FRITZ
--- OUTSIDE RECORDS SUMMARY | 2024-09-06 04:20 | XMS_ITS ---
Author Name [facility] Address [address] [place] [address] Care Team Providers Care Therapeutic Mentor Name Role Phone HOBSONDINESH Primary Care Provider [...] PART A Jan 02, 2013 PART A [id number] [place] PATIENT MEDICARE (WNR) MEDICARE (M) PART A Jan 02, 2013 PART A [id number] [phone] [place] PATIENT Selected Encounter This section includes the information on record at [place] for the Encounter. 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 Date/Time Primary/Secondary Diagnosis Diagnosis Name Provider Source Sep 06, 2024 09:33 AM PRIMARY Segmental and somatic dysfunction of thoracic region ALVAREZ FRITZ [facility] Sep 06, 2024 09:33 AM SECONDARY Oth intvrt disc degen, lumbosacr w discog bck & lw extrm pn [facility] Sep 06, 2024 09:33 AM SECONDARY Pain in thoracic spine [facility] Sep 06, 2024 09:33 AM SECONDARY Segmental and somatic dysfunction of lumbar region [facility] Sep 06, 2024 09:33 AM SECONDARY Segmental and somatic dysfunction of pelvic region ALVAREZ FRITZ [facility] Plan of Treatment: Future Appointments (+ 6 months) and Future Tests (+/- 45 days) The Plan of Treatment section includes future care activities for the patient from all [place] treatmentfacilities. This section includes future appointments and future orders which are active, pending or scheduled. Future Appointments This section includes appointments that were scheduled to occur 6 months from the date of the Encounter, up to a maximum of 20 appointments. The data comes from all [place] treatment facilities. Appointment Date/Time Appointment Type Appointme nt Facility Name Sep 12, 2024 09:30 AM AMBULATORY - MEDICINE [facility] Sep 19, 2024 01:40 PM AMBULATORY - MEDICINE [place] [facility] Sep 24, 2024 02:40 PM AMBULATORY - MEDICINE [facility] Sep 25, 2024 02:20 PM [facility] MEDICINE [facility] Sep 25, 2024 02:30 PM AMBULATORY - MEDICINE [facility] Oct 17, 2024 08:40 AM [facility] [place] [facility] [facility] Oct 31, 2024 08:40 AM [facility] Nov 14, 2024 08:40 AM [facility] Nov 28, 2024 08:40 AM [facility] Dec 12, 2024 08:40 AM [facility] Dec 26, 2024 08:40 AM AMBULATORY - MEDICINE [facility] Active, Pending, and Scheduled Orders This section includes a listing of several types of active, pending, and scheduled orders, including clinic medications orders, diagnostic test orders, procedure orders and consult orders; where the start date of the order is 45 days before the date of the Encounter or 45 days after the date of theEncounter. The data comes from all [place] treatment facilities. Test Date/Time Test Type Test Details Facility Name Sep 07, 2024 12:23 PM Consult Order [facility] PB [id number] Cons Exhibit Display Representative's Choice [place] [facility] Lab Results: +/- 30 days of the encounter This section includes the Chemistry and Hematology Lab Results on record with [place] for the patient. Radiology Reports and Pathology Reports are provided separately, in subsequent sections. Lab Results This section contains the Chemistry/Hematology Results that were resulted 30 days before or 30 daysafter the date of the Encounter. Date/Time Source Result Type Result - Unit Interpretation Reference Range Specimen Type Comment Sep 12, 2024 10:18 AM [facility] FOLATE (PB) SERUM Specimen Type: SERUM No comment entered. Ordering Provider: KELLI SHUKLA Report Released Date/Time: Sep 12, 2024 09:54 AM Reporting Lab: [place] [facility] [address] [place] [address] Performing Lab: [place] [facility] [address] [place] [address] FOLATE (PB) 15.5 ng/mL 7-20 Sep 12, 2024 10:18 AM [facility] B12 SERUM Specimen Type: SERUM No comment entered. Ordering Provider: KELLI SHUKLA Report Released Date/Time: Sep 12, 2024 09:54 AM Reporting Lab: [place] [facility] [address] [place] [address] Performing Lab: [place] [facility] [address] [place] [address] B12 579 pg/mL 213-816 Sep 12, 2024 10:18 AM [facility] HGA1C BLOOD Specimen Type: BLOOD No comment entered. Ordering Provider: KELLI SHUKLA Report Released Date/Time: Sep 12, 2024 09:54 AM Reporting Lab: [place] [facility] [address] [place] [address] Performing Lab: [place] [facility] [address] [place] [address] HGA1C 6.5 H 4.0-6.0 Sep 12, 2024 10:18 AM [facility] VITAMIN D, 25-HYDROXY SERUM Specimen Type: SE RUM No comment entered. Ordering Provider: KELLI SHUKLA Report Released Date/Time: Sep 12, 2024 09:54 AM Reporting Lab: [place] [facility] [address] [place] [address] Performing Lab: [place] [facility] [address] [place] [address] VITAMIN D, 25-HYDROXY 69.3 ng/mL 30-96 Sep 12, 2024 10:18 AM [facility] CHOLESTEROL PANEL (PB) PLASMA Specimen Type: P LASMA No comment entered. Ordering Provider: KELLI SHUKLA Report Released Date/Time: Sep 12, 2024 09:54 AM Reporting Lab: [place] [facility] [address] [place] [address] Performing Lab: [place] [facility] [address] [place] [address] CHOLESTEROL 121 mg/dL 0-200 TRIGLYCERIDE 128 mg/dL 0-150 CALCULATED LDL 53.2 mg/dL HDL(New) 42.2 mg/dL H >40 HDL % OF TOTAL CHOLESTEROL (PB) 34.9 >25 Sep 12, 2024 10:18 AM [facility] URINE ALBUMIN PROFILE-ih (PB) URINE Specimen Type: URINE No comment entered. Ordering Provider: KELLI SHUKLA Report Released Date/Time: Sep 12, 2024 09:54 AM Reporting Lab: [place] [facility] [address] [place] [address] Performing Lab: [place] [facility] [address] [place] [address] URINE ALBUMIN (PB-STL) 40.74 mg/L uACR (PB-MA) 35.61 mg/g H 0-30 CREATININE URINE/OTHERS 114.41 mg/dL Sep 12, 2024 10:18 AM [facility] TSH (MA-PB) SERUM Specimen Typ e: SERUM No comment entered. Ordering Provider: KELLI SHUKLA Report Released Date/Time: Sep 12, 2024 09:54 AM Reporting Lab: [place] [facility] [address] [place] [address] Performing Lab: [place] [facility] [address] [place] [phone] TSH 0.941 u[IU]/mL 0.47-5 Sep 12, 2024 10:18 AM [facility] COMPREHENSIVE METABOLIC PANEL PLASMA Specimen Type: PLASMA No comment entered. Ordering Provider: KELLI SHUKLA Report Released Date/Time: Sep 12, 2024 09:54 AM Reporting Lab: [place] [facility] [address] [place] [address] Performing Lab: [place] [facility] [address] [place] [address] CREATININE 0.91 mg/dL 0.7-1.3 UREA NITROGEN 14 [...] 2020) 87 Sep 12, 2024 10:18 AM [facility] TESTOSTERONE, TOTAL (PB-[place]) SERUM Specimen Ty pe: SERUM No comment entered. Ordering Provider: KELLI SHUKLA Report Released Date/Time: Sep 12, 2024 10:13 AM Reporting Lab: [place] [facility] [address] [place] [facility] Performing Lab: [place] [facility] [address] [place] [address] TESTOSTERONE, TOTAL (PB-MA) 615.0 ng/dL 221.0-871.0 Sep 12, 2024 10:18 AM [facility] BRAIN NATRIURETIC PEPTIDE PLASMA Specimen Type : PLASMA No comment entered. Ordering Provider: KELLI SHUKLA Report Released Date/Time: Sep 12, 2024 10:14 AM Reporting Lab: [place] [facility] [address] [place] [address] Performing Lab: [place] [facility] [address] [place] [address] BRAIN NATRIURETIC PEPTIDE 20 pg/mL 0-100 Sep 12, 2024 10:18 AM [facility] CBC BLOOD Specimen Type: BLOOD No comment entered. Ordering Provider: KELLI SHUKLA Report Released Date/Time: Sep 12, 2024 09:54 AM Reporting Lab: [place] [facility] [address] [place] [address] Performing Lab: [place] [facility] [address] [place] [address] WBC 7.9 10*3/uL 3.6-11.2 RBC 4.75 10*6/uL [...] Pain Height Weight Body Mass Index Source Sep 06, 2024 09:20 AM 97.8 65 139/65 [facility] Social History: Smoking Status (Most [...] 03, 2023 08:30 AM VA-TOBACCO FORMER USER [facility] Tobacco Use History This section includes a history of the smoking, or tobacco-related health factors, that were collected on or before the date of the Encounter. The data comes from the [place] facility where the Encounter took place. Date/Time Smoking Status/Tobacco Use Comment F acility Oct 03, 2023 08:30 AM VA-TOBACCO QUIT 1 TO < 5 YRS [facility] Sep 18, 2021 10:30 AM VA-TOBACCO DOESNT USE WI 30 MIN WAKEUP [place] Sep 18, 2021 10:30 AM VA-TOBACCO USE 30 YEARS OR MORE [facility] Sep 18, 2021 10:30 AM VA-TOBACCO USE ADVICE [facility] Sep 18, 2021 10:30 AM VA-TOBACCO USE PROVIDER RELATIONS CONSULTANT NO [facility] Sep 18, 2021 10:30 AM VA-TOBACCO USE MED NO [place] Sep 18, 2021 10:30 AM VA-TOBACCO USER SOME DAYS [facility] Sep 15, 2020 01:00 PM VA-TOBACCO DOESNT USE WI 30 MIN WAKEUP [facility] Sep 15, 2020 01:00 PM VA-TOBACCO USE 5 T O 15 YEARS [facility] Sep 15, 2020 01:00 PM VA-TOBACCO USE ADVICE [facility] Sep 15, 2020 01:00 PM VA-TOBACCO USE PROVIDER RELATIONS CONSULTANT NO [place] [facility] Sep 15, 2020 01:00 PM VA-TOBACCO USE MED NO [place] [facility] Sep 15, 2020 01:00 PM VA-TOBACCO USER EVERY DAY [facility] Nov 28, 2017 12:02 PM CURRENT TOBACCO USER [facility] Nov 28, 2017 12:02 PM CURRENT TOBACCO US ER (NOT READY TO QUIT) [place] [facility] Nov 28, 2017 12:02 PM TOBACCO CESSATION REFERRAL DECLINED [place] [facility] Nov 28, 2017 12:02 PM TOBACCO MEDS OFFER ED BUT DECLINED [place] [facility] Nov 28, 2017 12:02 PM TOBACCO USER OFFERED MEDS [facility] Oct 14, 2017 01:11 PM CURRENT TOBACCO USER [place] [facility] Oct 14, 2017 01:11 PM CURRENT TOBACCO US ER (NOT READY TO QUIT) [place] [facility] Oct 14, 2017 01:11 PM TOBACCO CESSATION REFERRAL DECLINED [place] [facility] Oct 14, 2017 01:11 PM TOBACCO MEDS OFFER ED BUT DECLINED [place] [facility] Oct 14, 2017 01:11 PM TOBACCO USER OFFERED MEDS [facility] August 05, 2017 02:42 PM CURRENT TOBACCO USER [facility] August 05, 2017 02:42 PM CURRENT TOBACCO US ER (NOT READY TO QUIT) [facility] August 05, 2017 02:42 PM TOBACCO CESSATION REFERRAL DECLINED [facility] August 05, 2017 02:42 PM TOBACCO MEDS OFFER ED BUT DECLINED [place] [facility] August 05, 2017 02:42 PM TOBACCO USER OFFERED MEDS [facility] Mar 18, 2017 09:26 AM CURRENT TOBACCO USER [facility] Mar 18, 2017 09:26 AM CURRENT TOBACCO US ER (NOT READY TO QUIT) [facility] Mar 18, 2017 09:26 AM TOBACCO CESSATION REFERRAL DECLINED [facility] Mar 18, 2017 09:26 AM TOBACCO MEDS OFFER ED BUT DECLINED [place] [facility] Mar 18, 2017 09:26 AM TOBACCO USER OFFERED MEDS [facility] Apr 28, 2016 07:17 AM CURRENT TOBACCO USER [facility] Apr 28, 2016 07:[address] [facility] Aug 01, 2009 10:10 AM QUIT TOBACCO >7 YEARS AGO [facility] [place] [facility] Sep 26, 2007 09:34 AM QUIT TOBACCO >7 YEARS AGO [facility] [place] August 06, 2005 09:10 AM CURRENT NON-TOBACC O USER-HX OF USE [facility] Mar 23, 2005 08:38 AM CURRENT NON-TOBACC O USER-HX OF USE [facility] Oct 01, 2004 09:41 AM [...] CURRENT NON-TOBACC O USER-HX OF USE [facility] Nov 17, 2001 10:31 AM TOB-CURRENT NON-SM OKER BUT HX [facility] Jul 27, 2001 01:43 PM CURRENT NON-TOBACC O USER-HX OF USE [facility] [place] [facility] May 16, 2001 10:35 AM CURRENT NON-TOBACC O USER-HX OF USE Quit 18 years ago. [facility] Nov 29, 2000 02:03 PM CURRENT NON-TOBACC O USER-HX OF USE QUIT 13 YRS AGO, 1 PK DAY [facility] Encounter Notes: All associated encounter notes This section contains the clinical notes associated to the Encounter. Date/Time Encounter Note(s) Provider Source Sep 06, 2024 09:11 AM CHIROPRACTIC NOTE: LOCAL TITLE: CHIROPRACTIC FOLLOW UP NOTE PB STANDARD TITLE: CHIROPRACTIC NOTE DATE OF NOTE: SEP 06, 2024@09:11 ENTRY DATE: SEP 06, 2024@09:11:17 AUTHOR: ALVAREZ FRITZ COSIGNER: URGENCY: STATUS: COMPLETED CHIROPRACTIC FOLLOW-UP VISIT Patient's language preference for health information: [place] Other Communication Methods Needed: SUBJECTIVE: The is a 74 year old MALE being seen in the Chiropractic clinic for follow-up visit. The reports continued lower back pain similar to past appointments. The rates his pain level as a [...] exercise program and to commit to a fci /maria esther/ [facility] Signed: 09/06/2024 09:33 ALVAREZ FRITZ
--- OUTSIDE RECORDS SUMMARY | 2024-09-12 04:30 | XMS_ITS | Encounter Summary ---
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 Date/Time Encounter Type Encounter Description Reason Provider Source Sep 12, 2024 09:30 AM OFFICE O/P EST MOD 30 MIN PRIMARY CARE/MEDICINE ICD-10-CM Z00.01 Encounter for general adult medical exam w abnormal findings ELLEN JANG IHLetha Encounter Template Text not used by [facility] Assessments - Encounter Diagnoses This section includes the primary and secondary diagnoses documented for the Encounter. Date/Time Primary/Secondary Diagnosis Diagnosis Name Provider Source Sep 13, 2024 08:18 AM PRIMARY Encounter for general adult medical exam w abnormal findings [facility] Sep 13, 2024 08:18 AM SECONDARY Constipation, unspecified [facility] Sep 13, 2024 08:18 AM SECONDARY Essential (primary) hypertension [facility] Sep 13, 2024 08:18 AM SECONDARY Hyperlipidemia, unspecified [facility] Sep 13, 2024 08:18 AM SECONDARY Type 2 diabetes mellitus without complications [facility] Plan of Treatment: Future Appointments (+ 6 months) and Future Tests (+/- 45 days) The Plan of Treatment section includes future care activities for the patient from all [place] [facility]. This section includes future appointments and future orders which are active, pending or scheduled. Future Appointments This section includes appointments that were scheduled to occur 6 months from the date of the Encounter, up to a maximum of 20 appointments. The data comes from all [place] treatment facilities. Appointment Date/Time Appointment Type Appointme nt Facility Name Sep 19, 2024 01:40 PM [facility] [place] [facility] Sep 24, 2024 02:40 PM [facility] Sep 25, 2024 02:20 PM [facility] [place] [facility] Sep 25, 2024 02:30 PM [facility] Oct 17, 2024 08:40 AM [facility] Oct 31, 2024 08:40 AM [facility] Nov 14, 2024 08:40 AM [facility] Nov 28, 2024 08:40 AM [facility] Dec 12, 2024 08:40 AM [facility] Dec 26, 2024 08:40 AM [facility] Active, Pending, and Scheduled Orders This section includes a listing of several types of active, pending, and scheduled orders, including clinic medications orders, diagnostic test orders, procedure orders and consult orders; where the start date of the order is 45 days before the date of the Encounter or 45 days after the date of theEncounter. The data comes from all [place] treatment facilities. Test Date/Time Test Type Test Details Facility Name Sep 07, 2024 12:23 PM Consult Order [facility]ITY [facility]-UROLOGY PB 657A4 Cons It Help Desk Technician's Choice [place] [facility] Lab Results: +/- 30 days of the encounter This section includes the Chemistry and Hematology Lab Results on record with [facility] for the patient. Radiology Reports and Pathology Reports are provided separately, in subsequent sections. Lab Results This section contains the Chemistry/Hematology Results that were resulted 30 days before or 30 daysafter the date of the Encounter. Date/Time Source Result Type Result - Unit Interpretation Reference Range Specimen Type Comment Sep 12, 2024 10:18 AM [facility] FOLATE (PB) SERUM Specimen Type: SERUM No comment entered. Ordering Provider: ELLEN JANG Report Released Date/Time: Sep 12, 2024 09:54 AM Reporting Lab: [place] [facility] [address] [place] [address] Performing Lab: [place] [facility] [address] [place] [address] FOLATE (PB) 15.5 ng/mL 7-20 Sep 12, 2024 10:18 AM [facility] HGA1C BLOOD Specimen Type: BLOOD No comment entered. Ordering Provider: ELLEN JANG Report Released Date/Time: Sep 12, 2024 09:54 AM Reporting Lab: [place] [facility] [address] [place] [address] Performing Lab: [place] [facility] [address] [place] [address] HGA1C 6.5 H 4.0-6.0 Sep 12, 2024 10:18 AM [facility] B12 SERUM Specimen Type: SERUM No comment entered. Ordering Provider: ELLEN JANG Report Released Date/Time: Sep 12, 2024 09:54 AM Reporting Lab: [place] [facility] [address] [place] [address] Performing Lab: [place] [facility] [address] [place] [address] B12 579 pg/mL 213-816 Sep 12, 2024 10:18 AM [facility] VITAMIN D, 25-HYDROXY SERUM Specimen Type: SE RUM No comment entered. Ordering Provider: ELLEN JANG Report Released Date/Time: Sep 12, 2024 09:54 AM Reporting Lab: [place] [facility] [address] [place] [address] Performing Lab: [place] [facility] [address] [place] [address] VITAMIN D, 25-HYDROXY 69.3 ng/mL 30-96 Sep 12, 2024 10:18 AM [facility] TSH (MA-PB) SERUM Specimen Typ e: SERUM No comment entered. Ordering Provider: ELLEN JANG Report Released Date/Time: Sep 12, 2024 09:54 AM Reporting Lab: [place] [facility] [address] [place] [address] Performing Lab: [place] [facility] [address] [place] [address] TSH 0.941 u[IU]/mL 0.47-5 Sep 12, 2024 10:18 AM [facility] URINE ALBUMIN PROFILE-ih (PB) URINE Specimen Type: URINE No comment entered. Ordering Provider: ELLEN JANG Report Released Date/Time: Sep 12, 2024 09:54 AM Reporting Lab: [place] [facility] [address] [place] [address] Performing Lab: [place] [facility] [address] [place] [address] URINE ALBUMIN (PB-STL) 40.74 mg/L uACR (PB-MA) 35.61 mg/g H 0-30 CREATININE URINE/OTHERS 114.41 mg/dL Sep 12, 2024 10:18 AM [facility] CHOLESTEROL PANEL (PB) PLASMA Specimen Type: P LASMA No comment entered. Ordering Provider: ELLEN JANG Report Released Date/Time: Sep 12, 2024 09:54 AM Reporting Lab: [place] [facility] [address] [place] [address] Performing Lab: [place] [facility] [address] [place] [address] CHOLESTEROL 121 mg/dL 0-200 TRIGLYCERIDE 128 mg/dL 0-150 CALCULATED LDL 53.2 mg/dL HDL(New) 42.2 mg/dL H >40 HDL % OF TOTAL CHOLESTEROL (PB) 34.9 >25 Sep 12, 2024 10:18 AM [facility] COMPREHENSIVE METABOLIC PANEL PLASMA Specimen Type: PLASMA No comment entered. Ordering Provider: ELLEN JANG Report Released Date/Time: Sep 12, 2024 09:54 AM Reporting Lab: [place] [facility] [address] [place] [address] Performing Lab: [place] [facility] [address] [place] [address] CREATININE 0.91 mg/dL 0.7-1.3 UREA NITROGEN 14 [...] 2020) 87 Sep 12, 2024 10:18 AM [facility] B[facility] NATRIURETIC PEPTIDE PLASMA Specimen Type : PLASMA No comment entered. Ordering Provider: ELLEN JANG Report Released Date/Time: Sep 12, 2024 10:14 AM Reporting Lab: [place] [facility] [address] [place] [address] Performing Lab: [place] [facility] [address] [place] [address] BRAIN NATRIURETIC PEPTIDE 20 pg/mL 0-100 Sep 12, 2024 10:18 AM [facility] TESTOSTERONE, TOTAL (PB-MA) SERUM Specimen Ty pe: SERUM No comment entered. Ordering Provider: ELLEN JANG Report Released Date/Time: Sep 12, 2024 10:13 AM Reporting Lab: [place] [facility] [address] [place] [address] Performing Lab: [facility] [address] [facility] [address] TESTOSTERONE, TOTAL (PB-MA) 615.0 ng/dL 221.0-871.0 Sep 12, 2024 10:18 AM [facility] CBC BLOOD Specimen Type: BLOOD No comment entered. Ordering Provider: ELLEN JAGN Report Released Date/Time: Sep 12, 2024 09:54 AM Reporting Lab: [facility] [address] [facility] [address] Performing Lab: [facility] [address] [facility] [address] WBC 7.9 10*3/uL 3.6-11.2 RBC 4.75 10*6/uL [...] Height Weight Body Mass Index Source Sep 12, 2024 09:31 AM 97.5 57 133/80 18 95 5 235.5 32 [facility] Social History: Smoking Status (Most current) and Tobacco Use (All prior to encounter date) This section includes the most current, and the historical, smoking and tobacco- related health factors from the [place] facility where the Encounter took place. Current Smoking Status This section includes the most current smoking, or tobacco-related health factor, from the [place] facility where the Encounter took place. Date/Time Current Smoking Status Comment Facil ity Sep 12, 2024 09:30 AM VA-TOBACCO USE FORMER CIGARETTES [facility] Tobacco Use History This section includes a history of the smoking, or tobacco-related health factors, that were collected on or before the date of the Encounter. The data comes from the [place] facility where the Encounter took place. 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 [facility] Sep 18, 2021 10:30 AM VA-TOBACCO USE MED NO [facility] Sep 18, 2021 10:30 AM VA-TOBACCO USER SOME DAYS [facility] Sep 15, 2020 01:00 PM VA-TOBACCO DOESNT USE WI 30 MIN WAKEUP [facility] Sep 15, 2020 01:00 PM VA-TOBACCO USE 5 T O 15 YEARS [facility] Sep 15, 2020 01:00 PM VA-TOBACCO USE ADVICE [facility] Sep 15, 2020 01:00 PM VA-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 USE 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 & 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 NO [facility] Sep 15, 2020 01:00 PM VA-TOBACCO USE MED NO [facility] Sep 15, 2020 01:00 PM VA-TOBACCO USER EVERY DAY [facility] Nov 28, 2017 12:02 PM CURRENT TOBACCO USER [facility] Nov 28, 2017 12:02 PM CURRENT TOBACCO US ER (NOT READY TO QUIT) [facility] Nov 28, 2017 12:02 PM TOBACCO CESSATION REFERRAL DECLINED [facility] Nov 28, 2017 12:02 PM TOBACCO MEDS OFFER ED BUT DECLINED [facility] Nov 28, 2017 12:02 PM TOBACCO USER OFFERED MEDS [place] [facility] Oct 14, 2017 01:11 PM CURRENT TOBACCO USER [facility] Oct 14, 2017 01:11 PM CURRENT TOBACCO US ER (NOT READY TO QUIT) [facility] Oct 14, 2017 01:11 PM TOBACCO CESSATION REFERRAL DECLINED [facility] Oct 14, 2017 01:11 PM TOBACCO MEDS OFFER ED BUT DECLINED [facility] Oct 14, 2017 01:11 PM TOBACCO USER OFFERED MEDS [facility] August 05, 2017 02:42 PM CURRENT [facility]BACCO USER [facility] August 05, 2017 02:42 PM CURRENT TOBACCO US ER (NOT READY TO QUIT) [facility] August 05, 2017 02:42 PM TOBACCO CESSATION REFERRAL DECLINED [facility] August 05, 2017 02:42 PM TOBACCO MEDS OFFER ED BUT DECLINED [facility] August 05, 2017 02:42 PM TOBACCO USER OFFERED MEDS [facility] Mar 18, 2017 09:26 AM CURRENT TOBACCO USER [facility] Mar 18, 2017 09:26 AM CURRENT TOBACCO US ER (NOT READY TO QUIT) [facility] Mar 18, 2017 09:26 AM TOBACCO CESSATION REFERRAL DECLINED [facility] Mar 18, 2017 09:26 AM TOBACCO MEDS OFFER ED BUT DECLINED [facility] Mar 18, 2017 09:26 AM TOBACCO USER OFFERED MEDS [facility] Apr 28, 2016 07:17 AM CURRENT TOBACCO USER [facility] Apr 28, 2016 07:[address] [facility] Aug 01, 2009 10:10 AM QUIT TOBACCO >7 YEARS AGO [facility] Sep 26, 2007 09:34 AM QUIT TOBACCO >7 YEARS AGO [facility] August 06, 2005 09:10 AM [...] 13 YRS AGO, 1 PK DAY [facility] Encounter Notes: All associated encounter notes This section contains the clinical notes associated to the Encounter. Date/Time Encounter Note(s) Provider Source Sep 13, 2024 08:22 AM PHYSICIAN LETTERS: LOCAL TITLE: TEST RESULT GENERAL LETTER STL STANDARD TITLE: PHYSICIAN LETTERS DATE OF NOTE: SEP 13, 2024@08:22 ENTRY DATE: SEP 13, 2024@08:23:02 AUTHOR: ELLEN JANG COSIGNER: URGENCY: STATUS: COMPLETED [facility] [address] [place] [address] SEP 13, 2024 NORMA PANDYA [address] [place] [id number] Dear Norma Pandya, I would like to update you on your recent test results. LIPID PROFILE - High cholesterol and triglycerides (lipids) are risk factors for heart disease. Your cholesterol should fall between 140 and 200, and your triglycerides levels should be less than or equal to 150. HDL is the good cholesterol and should ideally be greater than 40. LDL is the bad cholesterol and optimal levels should be less than 100 (near optimal is between 100 and 129). TRIGLYCERIDE 128 mg/dL 09/12/2024 10:19 CHOLESTEROL 121 mg/dL 09/12/2024 10:19 HDL(New) 42.2 H mg/dL 09/12/2024 10:19 CALCULATED LDL 53.2 mg/dL 09/12/2024 10:19 HDL % OF TOTAL CHOLESTEROL (PB) 34.9 % 09/12/2024 10:19 No DIRECT LDL EO data found These readings are within normal limits. GLUCOSE - Your blood sugar or glucose level result GLUCOSE GLUCOSE 119 H mg/dL 09/12/2024 10:19 These readings are within normal limits. HEMOGLOBIN A1C - Gives us information about your diabetes (sugar or glucose) control over the past 3 months. Your target is to keep your A1C below 6 %. HGA1C 6.5 H % 09/12/2024 10:18 These results are abnormal. slightly elevated MICROALBUMIN - The microalbumin to creatinine ratio test is most commonly used to screen for kidney problems. MICROALBUMIN No MICRAL/CREAT RATIO (STL) data found These readings are within normal limits. uACR (PB-MA) 35.61 H mg/g 0 - 30 CREATININE URINE/OTHERS 114.41 mg/dL URINE ALBUMIN (PB-STL) 40.74 mg/L CBC - A complete blood count (CBC) gives important information about the kinds and numbers of cells in the blood, especially red blood cells, white blood cells, and platelets. HGB 15.2 g/dL 09/12/2024 10:18 HEMATOCRIT 41.6 % (09/12/24 10:18) PLT 222 10*3/uL 09/12/2024 10:18 WHITE BLOOD COUNT 7.9 10*3/uL (09/12/24 10:18) These readings are within normal limits. B12 - Helps maintain healthy nerve cells, red blood cells, and is also needed to make DNA. B12 579 pg/mL 09/12/2024 10:19 These readings are within normal limits. CHEM 7 - This is important information about the current status of your kidneys, liver, and electrolyte and acid/base balance as well as of your blood sugar and blood proteins. SODIUM 133 L mEq/L 09/12/2024 10:19 POTASSIUM 3.3 L mEq/L 09/12/2024 10:19 CHLORIDE 95 L mEq/L 09/12/2024 10:19 UREA NITROGEN 14 mg/dL 09/12/2024 10:19 CREATININE 0.91 mg/dL 09/12/2024 10:19 CALCIUM 9.6 mg/dL 09/12/2024 10:19 CARBON DIOXIDE 29 mEq/L 09/12/2024 10:19 GLUCOSE 119 H mg/dL 09/12/2024 10:19 EGFR (CKD-EPI 2020) 87 09/12/2024 10:19 These results are abnormal. sodium and potassium slightly low LIVER FUNCTION PANEL - These are tests for liver function: PROTEIN 7.3 g/dL 09/12/2024 10:19 ALBUMIN 4.7 g/dL 09/12/2024 10:19 TOTAL BILIRUBIN 1.2 mg/dL 09/12/2024 10:19 ALKALINE PHOSPHATASE 82 U/L 09/12/2024 10:19 AST/SGOT 25 U/L 09/12/2024 10:19 ALT/SGPT 18 U/L 09/12/2024 10:19 These readings are within normal limits. TSH - Thyroid-stimulating hormone (also known as TSH or thyrotropin) is a peptide hormone synthesized and secreted by thyrotrope cells in the anterior pituitary gland, which regulates the endocrine function of the thyroid gland. TSH TSH 0.941 uIU/mL 09/12/2024 10:19 These readings are within normal limits. BRAIN NATRIURETIC PEPTIDE 20 pg/mL 0 - 100 FOLATE (PB) 15.5 ng/mL 7 - 20 TESTOSTERONE 615.0 ng/dL 221.0 - 871.0 VITAMIN D - Helps promote the proper utilization of calcium and phosphorus, thereby producing proper bone maintenance. VITAMIN D, 25-HYDROXY 69.3 ng/mL 09/12/2024 10:19 These readings are within normal limits. PLAN Please continue your treatment as we discussed during your visit. If you have any questions please call your case aide. I look forward to seeing you at your next clinic appointment. Thank you for choosing the [facility] for your healthcare. FUTURE APPOINTMENTS: 09/19/2024 13:40 [facility] CARE-UROLOGY PB [id number] 09/24/2024 14:40 PB-RAGHU TELE EYE SCREENING 09/25/2024 14:20 PB-RAGHU CHIRO 10/17/2024 08:40 PB-RAGHU CHIRO 10/31/2024 08:40 PB-RAGHU CHIRO 11/14/2024 08:40 PB-RAGHU CHIRO 11/28/2024 08:40 PB-RAGHU CHIRO 12/12/2024 08:40 PB-RAGHU CHIRO 12/26/2024 08:40 PB-RAGHU CHIRO 03/18/2025 13:30 PB-CT APPT([place]) Mr. Singer got your labs back everything looks okay except your electrolytes were a little off your sodium was a little low and your potassium was a little low if you could maybe drink a couple electrolyte replacement drinks and us do that leg daily for couple days and then we can recheck your electrolytes maybe it could be if you work outside and you are behind on your fluids he could have caused it was just a little low I just do not want to ignore it your hemoglobin A1c was 6.5 and it was 6.6 last time so it is around the same so everything stayed basically around the same so if you have any questions let me know when the nurses give you a call Sincerely, Ellen Jang, JOSELITO, MSN, Elena Castellano [facility] NORMA PANDYA ELLEN JANG [facility] Sep 12, 2024 09:57 AM PRIMARY CARE PROGRESS NOTE: LOCAL TITLE: PRIMARY CARE CLINIC PROGRESS NOTE PB STANDARD TITLE: PRIMARY CARE PROGRESS NOTE DATE OF NOTE: SEP 12, 2024@09:57 ENTRY DATE: SEP 12, 2024@09:58:04 AUTHOR: ELLEN JANG EXP COSIGNER: URGENCY: STATUS: COMPLETED This is a 74 year old MALE DS - Disabilities Eligibility: SERVICE CONNECTED 50% to 100% VERIFIED Total S/C %: 80 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 10% S/C PARALYSIS OF ALL RADICULAR NERVE GROUPS 20% S/C HYPERTENSIVE VASCULAR DISEASE 0% S/C TINNITUS 10% S/C ARTERIOSCLEROTIC HEART DISEASE 30% S/C DIABETES MELLITUS 20% S/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 has no other complaints at this time. With further conversation does not complain of any chest pain or shortness of breath except with exertion with heavy activity when he is like cutting the grass or moving things around states normal for him. Allergies: LISINOPRIL REVIEW OF SYSTEMS: HEENT: No visual or auditory symptoms. RESPIRATORY: No shortness of breath, cough or sputum. CARDIOVASCULAR: No chest pain or palpitation. GI: No abdominal pain, nausea, vomiting or bowel changes. MUSCULOSKELETAL: No muscle aches or pains. SKIN: No new rashes, no unhealing lesions, no moles. : No urinary symptoms. PSYCH: Denies being depressed or anxious. VITALS: Temperature: 97.5 F [36.4 C] (09/12/2024 09:31) Respiratory Rate: 18 (09/12/2024 09:31) Pulse Rate: 57 (09/12/2024 09:31) Blood Pressure: 133/80 (09/12/2024 09:31) HT: 72.0 in [182.9 cm] (03/06/2024 09:13) WT: 235.5 lb [106.82 kg] (09/12/2024 09:31) BMI: 32.0 95% (09/12/2024 09:31) PHYSICAL EXAM: General: NAD noted, A&Ox3, pleasant, [...] EVERY ACTIVE EVENING TO LOWER BLOOD PRESSURE 2) CALCIUM POLYCARBOPHIL 625MG TAB TAKE ONE TABLET BY MOUTH ACTIVE ONCE A DAY Indication: FOR FIBER SUPPLEMENTATION 3) CARVEDILOL 6.25MG TAB TAKE ONE TABLET BY MOUTH TWICE A DAY ACTIVE TAKE WITH FOOD. Indication: FOR HEART FAILURE 4) CETIRIZINE HCL 10MG TAB TAKE ONE TABLET BY MOUTH ONCE A DAY ACTIVE Indication: FOR ALLERGY SYMPTOMS 5) CHLORTHALIDONE 25MG TAB TAKE ONE TABLET BY MOUTH ONCE A DAY ACTIVE Indication: FOR HIGH BLOOD PRESSURE 6) CLOPIDOGREL BISULFATE 75MG TAB TAKE ONE TABLET BY MOUTH ONCE ACTIVE A DAY TO THIN BLOOD 7) FINASTERIDE 5MG TAB TAKE ONE TABLET BY MOUTH ONCE A DAY ACTIVE SWALLOW WHOLE, DO NOT CRUSH, SPLIT, OR CHEW. Indication: FOR BENIGN PROSTATIC HYPERPLASIA 8) FLUTICASONE PROP 50MCG 120D NASAL INHL INSTILL 1 SPRAY IN ACTIVE NOSTRIL(S) ONCE A DAY (MUST BE USED DIRECTED FOR MINIMUM OF 21 DAYS TO PROVIDE ADEQUATE BENEFITS) Indication: FOR RHINITIS 9) GLIPIZIDE 5MG TAB TAKE ONE-HALF TABLET BY MOUTH ONCE A DAY ACTIVE 30 MINUTES BEFORE MEAL(S) TO LOWER BLOOD SUGAR Indication: FOR DIABETES 10) HYDRALAZINE HCL 25MG TAB TAKE ONE TABLET BY MOUTH THREE HOLD TIMES A DAY 11) HYDRALAZINE HCL 50MG TAB TAKE ONE TABLET BY MOUTH THREE ACTIVE TIMES A DAY 12) LEVETIRACETAM 750MG TAB TAKE ONE-HALF TABLET BY MOUTH TWICE ACTIVE A DAY SWALLOW WHOLE, DO NOT CRUSH OR CHEW. Indication: FOR SEIZURES 13) POLYETHYLENE GLYCOL 3350 ORAL PWDR MIX AND DRINK 2 CAPFULS ACTIVE BY MOUTH ONCE A DAY (MEASURE WITH CAP AND MIX IN 8 OZ OF WATER) Indication: FOR CONSTIPATION 14) SIMVASTATIN 80MG TAB TAKE ONE TABLET BY MOUTH EVERY EVENING ACTIVE TO LOWER CHOLESTEROL (DO NOT TAKE WITH GRAPEFRUIT JUICE) 15) TAMSULOSIN HCL 0.4MG CAP TAKE TWO CAPSULES BY MOUTH EVERY ACTIVE EVENING APPROXIMATELY 30 MINUTES AFTER THE SAME MEAL EACH DAY Indication: FOR BENIGN PROSTATIC HYPERPLASIA 16) TRIAMCINOLONE ACETONIDE 0.1% CREAM APPLY SPARINGLY TO ACTIVE AFFECTED AREA(S) ... OF HANDS AND LEGS 2-3 TIMES WEEKLY NEEDED. MAY APPLY TWICE DAILY FOR UP TO 2 WEEKS FOR FLARES. 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) 10) Tinea 11) Intertrigo * (ICD-9-CM 695.89) 12) Transient global amnesia (SNOMED CT 477958920) 13) Neck pain 14) Restless legs 15) Diabetes mellitus 16) Generalized seizure 17) Elevated PSA 18) CVA - Cerebrovascular accident 19) Bradycardia 20) Exposure to potentially hazardous substance 21) Benign prostatic hyperplasia MEDICATION RECONCILIATION: ACTIVE/ OUTPATIENT MEDICATIONS: MRT1 - Med Reconciliation WARNING: Connection to Remote Data Currently Down INCLUDED IN THIS LIST: Alphabetical list of active outpatient prescriptions dispensed from this DE (local) and dispensed from another DE or [facility] facility (remote) as well as inpatient orders (local pending and active), local clinic medications, locally documented non-VA medications, and local prescriptions that have or been discontinued in the past 90 days. Non-VA Meds Last Documented On: Mar 15, 2018 NOTE The display of VA prescriptions dispensed from another DE or [facility]D facility (remote) is limited to active outpatient prescription entries matched to National Drug File at the originating site and may not include some items such as investigational drugs, compounds, etc. NOT INCLUDED IN THIS LIST: Medications self-entered by the patient into personal health records (i.e. [facility]) are NOT included in this list. Non-VA medications documented outside this [place], remote inpatient orders (regardless of status) and remote clinic medications are NOT included in this list. The patient and provider must always discuss medications the patient is taking, regardless of where the medication was dispensed or obtained. OUTPT AMLODIPINE BESYLATE 10MG TAB (Status = Active) TAKE ONE TABLET BY MOUTH EVERY EVENING TO LOWER BLOOD PRESSURE Rx# [id number] Last Released: 07/24/24 Qty/Days Supply: Rx Expiration Date: 03/23/25 Refills Remainin OUTPT CALCIUM POLYCARBOPHIL 625MG TAB (Status = Active) TAKE ONE TABLET BY MOUTH ONCE A DAY FOR FIBER SUPPLEMENTATION Rx# [id number] Last Released: 06/29/24 Qty/Days Supply: 90 Rx Expiration Date: 10/03/24 Refills Remainin Indication: FOR FIBER SUPPLEMENTATION OUTPT CARVEDILOL 6.25MG TAB (Status = Active) TAKE ONE TABLET BY MOUTH TWICE A DAY FOR HEART FAILURE TAKE WITH FOOD. Rx# [id number] Last Released: 08/07/24 Qty/Days Supply: 180 Rx Expiration Date: 10/03/24 Refills Remainin Indication: FOR HEART FAILURE OUTPT CETIRIZINE HCL 10MG TAB (Status = Active) TAKE ONE TABLET BY MOUTH ONCE A DAY FOR ALLERGY SYMPTOMS Rx# [id number] Last Released: 08/29/24 Qty/Days Supply: Rx Expiration Date: 03/07/25 Refills Remainin Indication: FOR ALLERGY SYMPTOMS OUTPT CHLORTHALIDONE 25MG TAB (Status = Active) TAKE ONE TABLET BY MOUTH ONCE A DAY FOR HIGH BLOOD PRESSURE Rx# [id number] Last Released: 06/25/24 Qty/Days Supply: Rx Expiration Date: 03/23/25 Refills Remainin Indication: FOR HIGH BLOOD PRESSURE OUTPT CLOPIDOGREL BISULFATE 75MG TAB (Status = Active) TAKE ONE TABLET BY MOUTH ONCE A DAY TO THIN BLOOD Rx# [id number] Last Released: 06/23/24 Qty/Days Supply: Rx Expiration Date: 03/31/25 Refills Remainin OUTPT FINASTERIDE 5MG TAB (Status = Active) TAKE ONE TABLET BY MOUTH ONCE A DAY FOR BENIGN PROSTATIC HYPERPLASIA SWALLOW WHOLE, DO NOT CRUSH, SPLIT, OR CHEW. Rx# [id number] Last Released: 08/29/24 Qty/Days Supply: Rx Expiration Date: 03/07/25 Refills Remainin Indication: FOR BENIGN PROSTATIC HYPERPLASIA OUTPT FLUTICASONE PROP 50MCG 120D NASAL INHL (Status = Active) INSTILL 1 SPRAY IN NOSTRIL(S) ONCE A DAY FOR RHINITIS (MUST BE USED DIRECTED FOR MINIMUM OF 21 DAYS TO PROVIDE ADEQUATE BENEFITS) Rx# [id number] Last Released: 08/10/24 Qty/Days Supply: Rx Expiration Date: 03/07/25 Refills Remainin Indication: FOR RHINITIS OUTPT GLIPIZIDE 5MG TAB (Status = Active) TAKE ONE-HALF TABLET BY MOUTH ONCE A DAY FOR DIABETES 30 MINUTES BEFORE MEAL(S) TO LOWER BLOOD SUGAR Rx# [id number] Last Released: 08/07/24 Qty/Days Supply: 45 Rx Expiration Date: 10/03/24 Refills Remainin Indication: FOR DIABETES OUTPT HYDRALAZINE HCL 25MG TAB (Status = Discontinued) TAKE ONE TABLET BY MOUTH THREE TIMES A DAY Rx# [id number] Last Released: 03/22/24 Qty/Days Supply: 270 Rx Expiration Date: 01/09/25 Refills Remainin OUTPT HYDRALAZINE HCL 25MG TAB (Status = On Hold) TAKE ONE TABLET BY MOUTH THREE TIMES A DAY Rx# [id number] Last Released: Qty/Days Supply: Rx Expiration Date: 07/12/25 Refills Remainin OUTPT HYDRALAZINE HCL 50MG TAB (Status = Active) TAKE ONE TABLET BY MOUTH THREE TIMES A DAY Rx# [id number] Last Released: 07/17/24 Qty/Days Supply: 270 Rx Expiration Date: 07/11/25 Refills Remainin OUTPT LEVETIRACETAM 750MG TAB (Status = Active) TAKE ONE-HALF TABLET BY MOUTH TWICE A DAY FOR SEIZURES SWALLOW WHOLE, DO NOT CRUSH OR CHEW. Rx# [id number] Last Released: 08/07/24 Qty/Days Supply: Rx Expiration Date: 11/17/24 Refills Remainin Indication: FOR SEIZURES OUTPT MUPIROCIN 2% OINT (Status = ) APPLY LIGHTLY TO AFFECTED AREA(S) TWICE DAILY NEEDED FOR BACTERIAL INFECTION EXTERNAL USE ONLY. Rx# [id number] Last Released: 07/12/23 Qty/Days Supply: Rx Expiration Date: 07/06/24 Refills Remainin Indication: FOR BACTERIAL INFECTION OUTPT POLYETHYLENE GLYCOL 3350 ORAL PWDR (Status = Active) MIX AND DRINK 2 CAPFULS BY MOUTH ONCE A DAY FOR CONSTIPATION (MEASURE WITH CAP AND MIX IN 8 OZ OF WATER) Rx# [id number] Last Released: 04/11/24 Qty/Days Supply: 0/ Rx Expiration Date: 04/11/25 Refills Remainin Indication: FOR CONSTIPATION OUTPT SIMVASTATIN 80MG TAB (Status = Active) TAKE ONE TABLET BY MOUTH EVERY EVENING TO LOWER CHOLESTEROL (DO NOT TAKE WITH GRAPEFRUIT JUICE) Rx# [id number] Last Released: 06/25/24 Qty/Days Supply: 90 Rx Expiration Date: 03/23/25 Refills Remainin OUTPT TAMSULOSIN HCL 0.4MG CAP (Status = Active) TAKE TWO CAPSULES BY MOUTH EVERY EVENING FOR BENIGN PROSTATIC HYPERPLASIA APPROXIMATELY 30 MINUTES AFTER THE SAME MEAL EACH DAY Rx# [id number] Last Released: 09/10/24 Qty/Days Supply: 180/90 Rx Expiration Date: 03/23/25 Refills Remainin Indication: FOR BENIGN PROSTATIC HYPERPLASIA OUTPT TRIAMCINOLONE ACETONIDE 0.1% CREAM (Status = Active) APPLY SPARINGLY TO AFFECTED AREA(S) ... OF HANDS AND LEGS 2-3 TIMES WEEKLY NEEDED. MAY APPLY TWICE DAILY FOR UP TO 2 WEEKS FOR FLARES. (EXTERNAL USE ONLY) Rx# [id number] Last Released: 04/19/24 Qty/Days Supply: 8030 Rx Expiration Date: 11/09/24 Refills Remainin SUPPLIES OUTPT ACCU-CHEK GUIDE (GLUCOSE) TEST STRIP (Status = ) USE 1 STRIP FOR BLOOD TEST TWO TIMES PER WEEK FOR BLOOD SUGAR MONITORING Rx# [id number] Last Released: 03/23/24 Qty/Days Supply: 50/ Rx Expiration Date: 06/19/24 Refills Remainin Indication: FOR BLOOD SUGAR MONITORING PHARMACY TERMS AND POSSIBLE PATIENT ACTIONS INPT = [place] inpatient order IV = VA intravenous medication OUTPT = DE outpatient prescription PHARMACY POSSIBLE PATIENT TERMS EXPLANATION ACTIONS -------- - ACTIVE A prescription that can be If you have refills, filled at the local [place] pharmacy. you may request a refill of this prescription from your VA pharmacy. CLINIC A medication you received during If you have questions a visit to a [place] clinic or about this medication emergency department. contact your [place] healthcare team. DISCONTINUED A prescription your provider has Contact your [place] stopped. It is no longer healthcare team if you available to be sent to you or need more of this picked up at the [place] pharmacy medication. window. A prescription which is [...] the VA. Or, it may be an wjec-rmz-doibgwy (OTC), herbal, dietary supplements or sample medication. [...] An active prescription that is Contact your [place] not scheduled to be filled yet. pharmacy if you need You should receive it before this medication now. you run out. ==== DISCONTINUED: None ADDED/CHANGES: Increase sennosides NON-VA MEDICATIONS NOT LISTED ABOVE (List, including Herbals and OTC): Reviewed with patient/family members. Copy given to patient. Patient verbalized understanding? Yes ASSESSMENT/IMPRESSION: annual adult well exam -current Hypertension -current Increased fatigue -current Constipation -current Hyperlipidemia -current Diabetes mellitus type 2 -current PLAN OF CARE: Annual adult well exam plan annual labs today Hypertension plan to continue current medications and continue seeing awning hanger helper blood pressure today 133/80 Fatigue plan to draw testosterone level today Constipation plan to increase sennosides and reorder per request continue MiraLAX Hyperlipidemia plan to continue current medication and plan labs Diabetes mellitus type 2 plan to continue current medications and plan lab draw today Follow-up: _12_ months and/or as needed and keep regularly scheduled [...] the After Visit Summary was reviewed with ; opportunity provided to report concerns and ask [...] Medications Reconciled. Time spent 30 minutes. Ellen [facility]EE[facility] APR Float Diabetes Lipid Profile: Lipid profile ordered for patient. /maria esther/ JOSELITO Delgado, MSN, Elena Castellano [facility] Signed: 09/13/2024 08:19 ELLEN JANG [facility] CB Sep 12, 2024 09:36 AM PRIMARY CARE NURSING NOTE: LOCAL TITLE: PRIMARY CARE NURSING PROGRESS NOTE (TEXT) NURSING P STANDARD TITLE: PRIMARY CARE NURSING NOTE DATE OF NOTE: SEP 12, 2024@09:36 ENTRY DATE: SEP 12, 2024@09:36:25 AUTHOR: SILVESTRE TOWNSEND EXP COSIGNER: URGENCY: STATUS: COMPLETED Established Patient NORMA PANDYA IS A 74 YEAR OLD MALE BEING SEEN IN CLINIC SEP 12, 2024. REASON FOR VISIT: 6 month follow constipation taking miralax and senna, Lab draw, Continued sinus issues Are you receiving care any where other than the [facility]? No HEALTH AND SURGICAL HISTORY: no new surgeris Does patient report using home oxygen? No CURRENT ACTIVE MEDICATIONS FOR REVIEW: If the list for review does not include a component, then it was not applicable to this patient. Allergies/ADRs (Tool #5) FACILITY ALLERGY/ADR -------- WARNING: Connection to Remote Data Currently Down [facility] Med. Reconciliation (Tool #1) INCLUDED IN THIS LIST: Alphabetical list of active outpatient prescriptions dispensed from this DE (local) and dispensed from another DE or DoD facility (remote) as well as inpatient orders (local pending and active), local clinic medications, locally documented non-VA medications, and local prescriptions that have or been discontinued in the past 90 days. Non-VA Meds Last Documented On: Mar 15, 2018 NOTE The display of VA prescriptions dispensed from another DE or [facility] facility (remote) is limited to active outpatient prescription entries matched to National Drug File at the originating site and may not include some items such as investigational drugs, compounds, etc. NOT INCLUDED IN THIS LIST: Medications self-entered by the patient into personal health records (i.e. [facility]) are NOT included in this list. Non-VA medications documented outside this DE, remote inpatient orders (regardless of status) and remote clinic medications are NOT included in this list. The patient and provider must always discuss medications the patient is taking, regardless of where the medication was dispensed or obtained. OUTPT AMLODIPINE BESYLATE 10MG TAB (Status = Active) TAKE ONE TABLET BY MOUTH EVERY EVENING TO LOWER BLOOD PRESSURE Rx# [id number] Last Released: 07/24/24 Qty/Days Supply: 90 Rx Expiration Date: 03/23/25 Refills Remainin OUTPT CALCIUM POLYCARBOPHIL 625MG TAB (Status = Active) TAKE ONE TABLET BY MOUTH ONCE A DAY FOR FIBER SUPPLEMENTATION Rx# [id number] Last Released: 06/29/24 Qty/Days Supply: 90 Rx Expiration Date: 10/03/24 Refills Remainin Indication: FOR FIBER SUPPLEMENTATION OUTPT CARVEDILOL 6.25MG TAB (Status = Active) TAKE ONE TABLET BY MOUTH TWICE A DAY FOR HEART FAILURE TAKE WITH FOOD. Rx# [id number] Last Released: 08/07/24 Qty/Days Supply: 180/ Rx Expiration Date: 10/03/24 Refills Remainin Indication: FOR HEART FAILURE OUTPT CETIRIZINE HCL 10MG TAB (Status = Active) TAKE ONE TABLET BY MOUTH ONCE A DAY FOR ALLERGY SYMPTOMS Rx# [id number] Last Released: 08/29/24 Qty/Days Supply: 90/ Rx Expiration Date: 03/07/25 Refills Remainin Indication: FOR ALLERGY SYMPTOMS OUTPT CHLORTHALIDONE 25MG TAB (Status = Active) TAKE ONE TABLET BY MOUTH ONCE A DAY FOR HIGH BLOOD PRESSURE Rx# [id number] Last Released: 06/25/24 Qty/Days Supply: Rx Expiration Date: 03/23/25 Refills Remainin Indication: FOR HIGH BLOOD PRESSURE OUTPT CLOPIDOGREL BISULFATE 75MG TAB (Status = Active) TAKE ONE TABLET BY MOUTH ONCE A DAY TO THIN BLOOD Rx# [id number] Last Released: 06/23/24 Qty/Days Supply: Rx Expiration Date: 03/31/25 Refills Remainin OUTPT FINASTERIDE 5MG TAB (Status = Active) TAKE ONE TABLET BY MOUTH ONCE A DAY FOR BENIGN PROSTATIC HYPERPLASIA SWALLOW WHOLE, DO NOT CRUSH, SPLIT, OR CHEW. Rx# [id number] Last Released: 08/29/24 Qty/Days Supply: Rx Expiration Date: 03/07/25 Refills Remainin Indication: FOR BENIGN PROSTATIC HYPERPLASIA OUTPT FLUTICASONE PROP 50MCG 120D NASAL INHL (Status = Active) INSTILL 1 SPRAY IN NOSTRIL(S) ONCE A DAY FOR RHINITIS (MUST BE USED DIRECTED FOR MINIMUM OF 21 DAYS TO PROVIDE ADEQUATE BENEFITS) Rx# [id number] Last Released: 08/10/24 Qty/Days Supply: Rx Expiration Date: 03/07/25 Refills Remainin Indication: FOR RHINITIS OUTPT GLIPIZIDE 5MG TAB (Status = Active) TAKE ONE-HALF TABLET BY MOUTH ONCE A DAY FOR DIABETES 30 MINUTES BEFORE MEAL(S) TO LOWER BLOOD SUGAR Rx# [id number] Last Released: 08/07/24 Qty/Days Supply: Rx Expiration Date: 10/03/24 Refills Remainin Indication: FOR DIABETES OUTPT HYDRALAZINE HCL 25MG TAB (Status = Discontinued) TAKE ONE TABLET BY MOUTH THREE TIMES A DAY Rx# [id number] Last Released: 03/22/24 Qty/Days Supply: Rx Expiration Date: 01/09/25 Refills Remainin OUTPT HYDRALAZINE HCL 25MG TAB (Status = On Hold) TAKE ONE TABLET BY MOUTH THREE TIMES A DAY Rx# [id number] Last Released: Qty/Days Supply: Rx Expiration Date: 07/12/25 Refills Remainin OUTPT HYDRALAZINE HCL 50MG TAB (Status = Active) TAKE ONE TABLET BY MOUTH THREE TIMES A DAY Rx# [id number] Last Released: 07/17/24 Qty/Days Supply: 270/ Rx Expiration Date: 07/11/25 Refills Remainin OUTPT LEVETIRACETAM 750MG TAB (Status = Active) TAKE ONE-HALF TABLET BY MOUTH TWICE A DAY FOR SEIZURES SWALLOW WHOLE, DO NOT CRUSH OR CHEW. Rx# [id number] Last Released: 08/07/24 Qty/Days Supply: Rx Expiration Date: 11/17/24 Refills Remainin Indication: FOR SEIZURES OUTPT MUPIROCIN 2% OINT (Status = ) APPLY LIGHTLY TO AFFECTED AREA(S) TWICE DAILY NEEDED FOR BACTERIAL INFECTION EXTERNAL USE ONLY. Rx# [id number] Last Released: 07/12/23 Qty/Days Supply: Rx Expiration Date: 07/06/24 Refills Remainin Indication: FOR BACTERIAL INFECTION OUTPT POLYETHYLENE GLYCOL 3350 ORAL PWDR (Status = Active) MIX AND DRINK 2 CAPFULS BY MOUTH ONCE A DAY FOR CONSTIPATION (MEASURE WITH CAP AND MIX IN 8 OZ OF WATER) Rx# [id number] Last Released: 04/11/24 Qty/Days Supply: 1530 Rx Expiration Date: 04/11/25 Refills Remainin Indication: FOR CONSTIPATION OUTPT SIMVASTATIN 80MG TAB (Status = Active) TAKE ONE TABLET BY MOUTH EVERY EVENING TO LOWER CHOLESTEROL (DO NOT TAKE WITH GRAPEFRUIT JUICE) Rx# [id number] Last Released: 06/25/24 Qty/Days Supply: 90 Rx Expiration Date: 03/23/25 Refills Remainin OUTPT TAMSULOSIN HCL 0.4MG CAP (Status = Active) TAKE TWO CAPSULES BY MOUTH EVERY EVENING FOR BENIGN PROSTATIC HYPERPLASIA APPROXIMATELY 30 MINUTES AFTER THE SAME MEAL EACH DAY Rx# [id number] Last Released: 09/10/24 Qty/Days Supply: 180/ Rx Expiration Date: 03/23/25 Refills Remainin Indication: FOR BENIGN PROSTATIC HYPERPLASIA OUTPT TRIAMCINOLONE ACETONIDE 0.1% CREAM (Status = Active) APPLY SPARINGLY TO AFFECTED AREA(S) ... OF HANDS AND LEGS 2-3 TIMES WEEKLY NEEDED. MAY APPLY TWICE DAILY FOR UP TO 2 WEEKS FOR FLARES. (EXTERNAL USE ONLY) Rx# [id number] Last Released: 04/19/24 Qty/Days Supply: 80/30 Rx Expiration Date: 11/09/24 Refills Remainin SUPPLIES OUTPT ACCU-CHEK GUIDE (GLUCOSE) TEST STRIP (Status = ) USE 1 STRIP FOR BLOOD TEST TWO TIMES PER WEEK FOR BLOOD SUGAR MONITORING Rx# [id number] Last Released: 03/23/24 Qty/Days Supply: 50/90 Rx Expiration Date: 06/19/24 Refills Remainin Indication: FOR BLOOD SUGAR MONITORING PHARMACY TERMS AND POSSIBLE PATIENT ACTIONS INPT = DE inpatient order IV = DE intravenous medication OUTPT = DE outpatient prescription PHARMACY POSSIBLE PATIENT TERMS EXPLANATION ACTIONS -------- - ACTIVE A prescription that can be If you have refills, filled at the local [place] pharmacy. you may request a refill of this prescription from your [place] pharmacy. CLINIC A medication you received during If you have questions a visit to a [place] clinic or about this medication emergency department. contact your [place] healthcare team. DISCONTINUED A prescription your provider has Contact your VA stopped. It is no longer healthcare team if you available to be sent to you or need more of this picked up at the [place] pharmacy medication. window. A prescription which is too old Contact your [place] to fill. This does not refer to [...] the VA. Or, it may be an zdjr-cgc-olehdng (OTC), herbal, dietary supplements or sample medication. [...] An active prescription that is Contact your [place] not scheduled to be filled yet. pharmacy if you need You should receive it before this medication now. you run out. ==== Medication list reviewed with Patient Patient/Caregiver reports taking medications as ordered. IS PATIENT TAKING ANY OVER THE COUNTER MEDICATIONS, SUCH VITAMINS OR HERBAL SUPPLEMENTS, INCLUDING ANY MEDICATIONS PRESCRIBED BY ANOTHER PHYSICIAN? Yes, List: Vit D , tumeric, Aspirin 81mg Does patient have any new allergies to report since last visit? NO VITALS: TEMPERATURE: 97.5 F [36.4 C] (09/12/2024 09:31) BP: 133/80 (09/12/2024 09:31) RESP: 18 (09/12/2024 09:31) PULSE: 57 (09/12/2024 09:31) HT: 72.0 in [182.9 cm] (03/06/2024 09:13) WT: 235.5 lb [106.82 kg] (09/12/2024 09:31) BMI: 32.0 PAIN ASSESSMENT: (Most Recent Pain Score in Vitals Package: 5 (09/12/2024 09:31) ) The patient indicated that they and [...] Now let us serve you. At the [facility], we strive to provide you with exceptional [...] Not At All SPIRITUAL ASSESSMENT: Are there restoration practices or spiritual concerns you want the behavioral health consultant, your physician, and other health care team members to immediately know about? No Patient advised to call the clinic for any concerns, questions, or symptoms. Patient and/or caregiver verbalized understanding of plan of care. Suicide Screen - V: C-SSRS Screening [place] Suicide Severity Rating Scale (C-SSRS) screener 1. Over the past month, have you wished you were or wished you could go to sleep and not wake up? No 2. Over the past month, have you had any actual thoughts of killing yourself? No 3. Over the past month, have you been thinking about how you might do this? Response not required due to responses to other questions. 4. Over the past month, have you had these thoughts and had some intention of acting on them? Response not required due to responses to other questions. 5. Over the past month, have you started to work out or worked out the details of how to kill yourself? Response not required due to responses to other questions. 6. If yes, at any time in the past month did you intend to carry out this plan? Response not required due to responses to other questions. 7. In your lifetime, have you ever done anything, started to do anything, or prepared to do anything to end your life (for example, collected pills, obtained a gun, gave away valuables, went to the roof but didn't jump)? No 8. If YES, was this within the past 3 months? Response not required due to responses to other questions. FALL RISK OP PB: NATALEE FALL RISK ASSESSMENT Have you experienced any falls within the last 12 months: 10 = Yes Secondary Dx: 5 = Yes Secondary Dx Ambulatory Aid: 0 = No Gait/Transferrin = Normal/Bedrest/Immobile Mental status: 0 = Oriented to own ability Medications: 5 = High risk meds TOTAL SCORE: 20 Score <30 - patient IS NOT at risk for falls. No action at this time. Reassess annually or if needed. Patient/family/child care sitter reports a recent fall. Fall Documentation Yes - Patient experienced a fall within the last year. Type of fall that occurred: Two or more falls Alcohol Use Screen (AUDIT-C) - V: Alcohol Screen: SCREEN FOR ALCOHOL (AUDIT-C) An alcohol screening test (AUDIT-C) was negative (score=0). 1. How often did you have a drink containing alcohol in the past year? Consider a drink to be a 12 ounce can or bottle of regular beer, 8 ounces of malt liquor, a 5 ounce glass of table wine, or a 1.5 ounce shot of liquor (like scotch, gin, or vodka). Never 2. How many drinks containing alcohol did you have on a typical day when you were drinking in the past year? Response not required due to responses to other questions. 3. How often did you have six or more drinks on one occasion in the past year? Response not required due to responses to other questions. Tobacco Use Screening - AT,DE,L,M,N,P,PH,PS,RT,S,U: The patient is a former cigarette smoker. The patient has never used other types of tobacco. Depression Screening - V: Perform PHQ-2 A PHQ-2 screen was performed. The score was 0 which is a negative screen for depression. Over the past two weeks, how often have you been bothered by the following problems? 1. Little interest or pleasure in doing things Not at all 2. Feeling down, depressed, or hopeless Not at all Sexual Orientation - CP,L,N,P,PH,PS,S,U: The patient thinks of their sexual orientation as: Straight or Heterosexual COVID-19 Immunization-L,N,P,PH,U: Refused Moderna Monovalent COVID-19 vaccine Immunization: COVID-19 (MODERNA), MRNA, LNP-S, PF, 50 MCG/0.5 ML (AGES 12+ YEARS) Refusal Reason: PATIENT DECISION Patient refuses all immunization(s) in the COVID-19 group Date Documented: 09/12/24 09:57 Pain Assessment: - PAIN ASSESSMENT: .. This patient's last pain assessment score was: 5 (09/12/2024 09:31). A detailed pain assessment showed the following: Pain characteristics (per patient's own words) Constant, Aching Location of current pain Low Back Onset/Duration of the current pain. Constant or variable? More than a year Patient's self identified pain goal: 0 Herpes Zoster (Shingles) Vaccine - L,N,P,PH,U: The patient declines to receive the recommended dose of zoster (shingles) vaccine. Immunization: ZOSTER RECOMBINANT Refusal Reason: PATIENT DECISION Patient refuses all immunization(s) in the ZOSTER group Date Documented: 09/12/24 09:58 Patient/Nurse Interview: * * Patient stated that adequate information was received regarding the condition and/or treatment. PAVE Foot Check - L,N,P,PH,PO,PT,U: Patient declined limb care exam. The patient was advised the [place] mandates all patients with diabetes mellitus, end stage renal disease, peripheral vascular disease, or sensory neuropathy should have a complete foot check completed annually. This includes a visual exam of the skin, pedal pulses and a sensory exam. Patients with any abnormality noted during the foot check should be referred to a specialist. Per A Directive 1605.06, wristband documentation: Patient wristband was removed and destroyed by (staff name) Silvestre Townsend and placed in the designated [employer] bin. /es/ LEELA PaulsonN ELENA CASTELLANO [facility] Signed: 09/12/2024 09:[address] [facility]
--- OUTSIDE RECORDS SUMMARY | 2024-09-24 09:40 | XMS_ITS | Encounter Summary ---
Author Name [facility] [place] [facility] [facility] [place] Address [address] [place] [address] Care Team Providers Care Reservations Manager Name Role Phone HOBSONDINESH Primary Care [...] PART A Jan 02, 2013 PART A [id number] [place] PATIENT MEDICARE (WNR) MEDICARE (M) PART A Jan 02, 2013 PART A [id number] [place] PATIENT Selected Encounter This section includes the information on record at [place] for the Encounter. Date/Time Encounter Type Encounter Description Reason Provider Source Sep 24, 2024 02:40 PM [employer] W/I&R EYE TELE SCREENING ICD-10-CM Z13.5 Encounter for screening for eye and ear disorders JUAN WISE [facility] Encounter Template Text not used by [facility] Assessments - Encounter Diagnoses This section includes the primary and secondary diagnoses documented for the Encounter. Date/Time Primary/Secondary Diagnosis Diagnosis Name Provider Source Sep 24, 2024 02:40 PM PRIMARY Encounter for screening for eye and ear disorders JUAN W[facility] Sep 24, 2024 02:40 PM SECONDARY Type 2 diabetes mellitus without complications JUAN WISE [facility] Plan of Treatment: Future Appointments (+ 6 months) and Future Tests (+/- 45 days) The Plan of Treatment section includes future care activities for the patient from all [place] [facility]. This section includes future appointments and future orders which are active, pending or scheduled. Future Appointments This section includes appointments that were scheduled to occur 6 months from the date of the Encounter, up to a maximum of 20 appointments. The data comes from all [place] treatment facilities. Appointment Date/Time Appointment Type Appointme nt Facility Name Sep 25, 2024 02:20 PM AMBULATORY - MEDICINE [facility] Sep 25, 2024 02:30 PM AMBULATORY MEDICINE [facility] Oct 17, 2024 08:40 AM AMBULATORY MEDICINE [facility] Oct 31, 2024 08:40 AM AMBULATORY - MEDICINE [facility] Nov 14, 2024 08:40 AM AMBULATORY - MEDICINE [facility] Nov 28, 2024 08:40 AM AMBULATORY MEDICINE [facility] Dec 12, 2024 08:40 AM AMBULATORY - MEDICINE [facility] Dec 26, 2024 08:40 AM AMBULATORY - MEDICINE [facility] Mar 18, 2025 01:30 PM AMBULATORY - NONE ADY CHAVEZ [facility] Active, Pending, and Scheduled Orders This section includes a listing of several types of active, pending, and scheduled orders, including clinic medications orders, diagnostic test orders, procedure orders and consult orders; where the start date of the order is 45 days before the date of the Encounter or 45 days after the date of theEncounter. The data comes from all [place] [facility]. Test Date/Time Test Type Test Details Facility Name Sep 07, 2024 12:23 PM Consult Order [facility] PB [id number] Cons Honing Machine Operator's Choice ADY HERNANDEZ [facility] Lab Results: +/- 30 days of the encounter This section includes the Chemistry and Hematology Lab Results on record with [place] for the patient. Radiology Reports and Pathology Reports are provided separately, in subsequent sections. Lab Results This section contains the Chemistry/Hematology Results that were resulted 30 days before or 30 daysafter the date of the Encounter. Date/Time Source Result Type Result - Unit Interpretation Reference Range Specimen Type Comment Sep 12, 2024 10:18 AM [facility] CHOLESTEROL PANEL (PB) PLASMA Specimen Type: PLASMA No comment entered. Ordering Provider: KELLI SHUKLA Report Released Date/Time: Sep 12, 2024 09:54 AM Reporting Lab: [place] [facility] [address] [place] [address] Performing Lab: [place] [facility] [address] [place] [address] CHOLESTEROL 121 mg/dL 0-200 TRIGLYCERIDE 128 mg/dL 0-150 CALCULATED LDL 53.2 mg/dL HDL(New) 42.2 mg/dL H >40 HDL % OF TOTAL CHOLESTEROL (PB) 34.9 >25 Sep 12, 2024 10:18 AM [facility] URINE ALBUMIN PROFILE-ih (PB) URINE Specimen Type: URINE No comment entered. Ordering Provider: KELLI SHUKLA Report Released Date/Time: Sep 12, 2024 09:54 AM Reporting Lab: [place] [facility] [address] [place] [address] Performing Lab: [place] [facility] [address] [place] [address] URINE ALBUMIN (PB-STL) 40.74 mg/L uACR (PB-MA) 35.61 mg/g H 0-30 CREATININE URINE/OTHERS 114.41 mg/dL Sep 12, 2024 10:18 AM [facility] VITAMIN D, 25-HYDROXY SERUM Specimen Type: SE RUM No comment entered. Ordering Provider: KELLI SHUKLA Report Released Date/Time: Sep 12, 2024 09:54 AM Reporting Lab: [place] [facility] [address] [place] [address] Performing Lab: [place] [facility] [address] [place] [address] VITAMIN D, 25-HYDROXY 69.3 ng/mL 30-96 Sep 12, 2024 10:18 AM [facility] TSH (MA-PB) SERUM Specimen Typ e: SERUM No comment entered. Ordering Provider: KELLI SHUKLA Report Released Date/Time: Sep 12, 2024 09:54 AM Reporting Lab: [place] [facility] [address] [place] [address] Performing Lab: [place] [facility] [address] [place] [address] TSH 0.941 u[IU]/mL 0.47-5 Sep 12, 2024 10:18 AM [facility] TESTOSTERONE, TOTAL (PB-MA) SERUM Specimen Ty pe: SERUM No comment entered. Ordering Provider: KELLI SHUKLA Report Released Date/Time: Sep 12, 2024 10:13 AM Reporting Lab: [place] [facility] [address] [place] [address] Performing Lab: [place] [facility] [address] [place] [address] TESTOSTERONE, TOTAL (PB-MA) 615.0 ng/dL 221.0-871.0 Sep 12, 2024 10:18 AM [facility] BRAIN NATRIURETIC PEPTIDE PLASMA Specimen Type : PLASMA No comment entered. Ordering Provider: KELLI SHUKLA Report Released Date/Time: Sep 12, 2024 10:14 AM Reporting Lab: [place] [facility] [address] [place] [address] Performing Lab: [place] [facility] [address] [place] [address] BRAIN NATRIURETIC PEPTIDE 20 pg/mL 0-100 Sep 12, 2024 10:18 AM [facility] B12 SERUM Specimen Type: SERUM No comment entered. Ordering Provider: KELLI SHUKLA Report Released Date/Time: Sep 12, 2024 09:54 AM Reporting Lab: [place] [facility] [address] [place] [address] Performing Lab: [place] [facility] [address] [place] [address] B12 579 pg/mL 213-816 Sep 12, 2024 10:18 AM [facility] FOLATE (PB) SERUM Specimen Typ e: SERUM No comment entered. Ordering Provider: KELLI SHUKLA Report Released Date/Time: Sep 12, 2024 09:54 AM Reporting Lab: [place] [facility] [address] [place] [address] Performing Lab: [place] [facility] [address] [place] [address] FOLATE (PB) 15.5 ng/mL 7-20 Sep 12, 2024 10:18 AM [facility] HGA1C BLOOD Specimen Type: BLOOD No comment entered. Ordering Provider: KELLI SHUKLA Report Released Date/Time: Sep 12, 2024 09:54 AM Reporting Lab: [place] [facility] [address] [place] [address] Performing Lab: [place] [facility] [address] [place] [address] HGA1C 6.5 H 4.0-6.0 Sep 12, 2024 10:18 AM [facility] COMPREHENSIVE METABOLIC PANEL PLASMA Specimen Type: PLASMA No comment entered. Ordering Provider: KELLI SHUKLA Report Released Date/Time: Sep 12, 2024 09:54 AM Reporting Lab: [place] [facility] [address] [place] [address] Performing Lab: [place] [facility] [address] [place] [address] CREATININE 0.91 mg/dL 0.7-1.3 UREA NITROGEN 14 [...] 2020) 87 Sep 12, 2024 10:18 AM [facility] CBC BLOOD Specimen Type: BLOOD No comment entered. Ordering Provider: KELLI SHUKLA Report Released Date/Time: Sep 12, 2024 09:54 AM Reporting Lab: [place] [facility] [address] [place] [address] Performing Lab: [place] [facility] [address] [place] [address] WBC 7.9 10*3/uL 3.6-11.2 RBC 4.75 10*6/uL [...] GRANS, AUTO ABS 0.02 10*3/uL 0. 00-0.05 Social History: Smoking Status (Most current) and [...] 2024 09:30 AM VA-TOBACCO USE FORMER CIGARETTES [facility] Tobacco Use History This section includes a history of the smoking, or tobacco-related health factors, that were collected on or before the date of the Encounter. The data comes from the [place] facility where the Encounter took place. 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 [facility] Sep 18, 2021 10:30 AM VA-TOBACCO USE MED NO [facility] Sep 18, 2021 10:30 AM VA-TOBACCO USER SOME DAYS [facility] Sep 15, 2020 01:00 PM VA-TOBACCO DOESNT USE WI 30 MIN [facility] Sep 15, 2020 01:00 PM VA-TOBACCO USE 5 T O 15 YEARS [facility] Sep 15, 2020 01:00 PM VA-TOBACCO USE ADVICE [facility] Sep 15, 2020 01:00 PM VA-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 USE 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 [facility] Sep 15, 2020 01:00 PM VA-TOBACCO USE MED NO [facility] Sep 15, 2020 01:00 PM VA-TOBACCO USER EVERY DAY [facility] Nov 28, 2017 12:02 PM CURRENT TOBACCO USER [facility] Nov 28, 2017 12:02 PM CURRENT TOBACCO US ER (NOT READY TO QUIT) [facility] Nov 28, 2017 12:02 PM TOBACCO CESSATION REFERRAL DECLINED [facility] Nov 28, 2017 12:02 PM TOBACCO MEDS OFFER ED BUT DECLINED [facility] Nov 28, 2017 12:02 PM TOBACCO USER OFFERED MEDS [facility] Oct 14, 2017 01:11 PM CURRENT TOBACCO USER [facility] Oct 14, 2017 01:11 PM CURRENT TOBACCO US ER (NOT READY TO QUIT) [facility] Oct 14, 2017 01:11 PM TOBACCO CESSATION REFERRAL DECLINED [facility] Oct 14, 2017 01:11 PM TOBACCO MEDS OFFER ED BUT DECLINED [facility] Oct 14, 2017 01:11 PM TOBACCO USER OFFERED MEDS [facility] August 05, 2017 02:42 PM CURRENT TOBACCO USER [facility] August 05, 2017 02:42 PM CURRENT TOBACCO US ER (NOT READY TO QUIT) [facility] August 05, 2017 02:42 PM TOBACCO CESSATION REFERRAL [facility] August 05, 2017 02:42 PM TOBACCO MEDS OFFER ED BUT DECLINED [facility] August 05, 2017 02:42 PM TOBACCO USER OFFERED MEDS [facility] Mar 18, 2017 09:26 AM CURRENT TOBACCO USER [facility] Mar 18, 2017 09:26 AM CURRENT TOBACCO US ER (NOT READY TO QUIT) [facility] Mar 18, 2017 09:26 AM TOBACCO CESSATION REFERRAL DECLINED [facility] Mar 18, 2017 09:26 AM TOBACCO MEDS OFFER ED BUT DECLINED [facility] Mar 18, 2017 09:26 AM TOBACCO USER OFFERED MEDS [facility] Apr 28, 2016 07:17 AM CURRENT TOBACCO USER [facility] Apr 28, 2016 07:[address] [facility] Aug 01, 2009 10:10 AM QUIT TOBACCO >7 YEARS AGO [facility] Sep 26, 2007 09:34 AM QUIT TOBACCO >7 YEARS AGO [facility] August 06, 2005 09:10 AM CURRENT NON-TOBACC O USER-HX OF USE [facility] Mar 23, 2005 08:38 AM CURRENT NON-TOBACC O USER-HX OF USE [facility] Oct 01, 2004 09:41 AM CURRENT NON-TOBACC O USER-HX OF USE [facility] Apr 07, 2004 09:49 AM CURRENT NON-TOBACC O USER-HX OF USE [facility] Oct 11, 2003 10:41 AM CURRENT NON-TOBACC O USER-HX OF USE [facility] Apr 05, 2003 10:43 AM CURRENT NON-TOBACC O USER-HX OF USE Quit 15 years ago. [facility] Oct 25, 2002 09:24 AM CURRENT NON-TOBACC O USER-HX OF [place] [facility] Nov 17, 2001 10:31 AM [facility] Jul 27, 2001 01:43 PM CURRENT NON-TOBACC O USER-HX OF USE [facility] May 16, 2001 10:35 AM CURRENT NON-TOBACC O USER-HX OF USE Quit 18 years ago. [facility] Nov 29, 2000 02:03 PM CURRENT NON-TOBACC O USER-HX OF USE QUIT 13 YRS AGO, 1 PK DAY [facility] Encounter Notes: All associated encounter notes This section contains the clinical notes associated to the Encounter. Date/Time Encounter Note(s) Provider Source Sep 24, 2024 02:30 PM OPTOMETRY CONSULT: LOCAL TITLE: TELE-EYE SCREENING CONSULT STANDARD TITLE: OPTOMETRY CONSULT DATE OF NOTE: SEP 24, 2024@14:30 ENTRY DATE: SEP 24, 2024@14:30:11 AUTHOR: GOLD[facility] WISE COSIGNER: URGENCY: STATUS: COMPLETED INITIAL Note PATIENT DEMOGRAPHICS: Sex: MALE Date of : Jan Patient race: WHITE Patient ethnicity: NOT OR REASON FOR REQUEST: Tele-Eye Screening for patient at-risk for the following eye condition(s): Patient is diabetic and at risk for DIABETIC RETINOPATHY: Diabetes Diagnosis Information: Encounter Diagnosis: 09/12/2024@09:30 E11.9 (ICD-10-CM) Type 2 Diabetes Mellitus without Complications rank: SECONDARY Prov. Narr. 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 Narr. - Coronary artery disease ([facility] [id number]) Patient identity was verified with 2 separate identifiers prior to the beginning of visit: Yes Patient was informed that their information and images will be uploaded securely to the [place] computer system and sent to be remotely interpreted by a licensed [place] eye care provider. Findings/recommendations will be conveyed to the primary care provider who will (either directly or by designee) ensure results are communicated timely and follow up care is coordinated as necessary. Patient verbalized understanding of process and consents to proceed: Yes Last Retinal Evaluation: OPTOMETRY CLINIC LOCATION LIST MA Date unknown: Director Of [facility] verified that patient inquiry and record review was performed Method of retinal evaluation: [place] Ret[facility] Comment: 09/21/22 [facility] Information obtained by: Chart documentation Date of Next Eye Appointment: FUTURE EYE APPT No future appointment scheduled: desires eye care through the [place] LABS/VITALS: [facility] - Lab Tests Selected Collection DT Specimen Test Name Result Units Ref Range 09/12/2024 10:18 BLOOD HGA1C 6.5 H % 4.0 - 6.0 09/23/2023 08:58 BLOOD HGA1C 6.6 H % 4.0 - 6.0 HgbA1c range: 6.1-7 Blood Pressure: 133/80 (09/12/2024 09:31) INTRAOCULAR PRESSURE (IOP) SCREENING: IOP measured by teenage babysitter during eye screening Date/Time: Sep@14:30 Device Used: Rebound tonometer (iCare) Right Eye: IOP= 12 Left Eye: IOP= 12 PUPIL DILATION: Pupils NOT dilated by teenage babysitter for eye screening EDUCATION: Patient received patient education on routine eye care and the following: Diabetic Eye Disease, Glaucoma, Macular Degeneration Patient was informed on how and when results should be received. Patient was instructed on how to contact the appropriate clinical area if results are not received within expected timeframe. Yes /maria esther/ [facility] Telehealth Clinical Director Of [facility] Signed: 09/24/2024 14:35 [facility]OLD[facility]
--- OUTSIDE RECORDS SUMMARY | 2024-09-24 10:09 | XMS_ITS | Encounter Summary ---
Author Name [facility] [place] [facility] [place] [facility] [place] Address [address] [place] [address] Care Team Providers Care Ticket Taker Name Role Phone HOBSON, DINESH Primary Care [...] PART A Jan 02, 2013 PART A [id number] [phone] [place] PATIENT MEDICARE (WNR) MEDICARE (M) PART A Jan 02, 2013 PART A [id number] [place] PATIENT Selected Encounter This section includes the information on record at [place] for the Encounter. Date/Time Encounter Type Encounter Description Reason Provider Source Sep 24, 2024 03:09 PM IMG RTA DETC/MNTR DS PHY/QHP EYE TELE SCREENING ICD-10-CM Z13.5 Encounter for screening for eye and ear disorders BRIAN CEE [place] Encounter Template Text not used by [facility] Assessments - Encounter Diagnoses This section includes the primary and secondary diagnoses documented for the Encounter. Date/Time Primary/Secondary Diagnosis Diagnosis Name Provider Source Sep 24, 2024 03:09 PM PRIMARY Encounter for screening for eye and ear disorders BRIAN CEE [place] Sep 24, 2024 03:09 PM SECONDARY Type 2 diabetes mellitus without complications BRIAN CEE [place] Plan of Treatment: Future Appointments (+ 6 months) and Future Tests (+/- 45 days) The Plan of Treatment section includes future care activities for the patient from [facility] This section includes future appointments and future orders which are active, pending or scheduled. Future Appointments This section includes appointments that were scheduled to occur 6 months from the date of the Encounter, up to a maximum of 20 appointments. The data comes from all [facility]. Appointment Date/Time Appointment Type Appointme nt Facility Name Sep 25, 2024 02:20 PM AMBULATORY - MEDICINE [facility] Sep 25, 2024 02:30 PM AMBULATORY - MEDICINE [facility] Oct 17, 2024 08:40 AM AMBULATORY - MEDICINE [facility] Oct 31, 2024 08:40 AM AMBULATORY - MEDICINE [facility] Nov 14, 2024 08:40 AM AMBULATORY - MEDICINE [facility] Nov 28, 2024 08:40 AM AMBULATORY - MEDICINE [facility] Dec 12, 2024 08:40 AM AMBULATORY - MEDICINE [facility] Dec 26, 2024 08:40 AM AMBULATORY - MEDICINE [facility] Mar 18, 2025 01:30 PM AM[facility]ATORY - [facility] ADY CHAVEZ [place] Active, Pending, and Scheduled Orders This section includes a listing of several types of active, pending, and scheduled orders, including clinic medications orders, diagnostic test orders, procedure orders and consult orders; where the start date of the order is 45 days before the date of the Encounter or 45 days after the date of theEncounter. The data comes from all [facility]. Test Date/Time Test Type Test Details Facility Name Sep 07, 2024 12:23 PM Consult Order [facility] PB [id number] Cons [employer] ADY [place]NA[place]Z [place] Lab Results: +/- 30 days of the encounter This section includes the Chemistry and Hematology Lab Results on record with [place] for the patient. Radiology Reports and Pathology Reports are provided separately, in subsequent sections. Lab Results This section contains the Chemistry/Hematology Results that were resulted 30 days before or 30 daysafter the date of the Encounter. Date/Time Source Result Type Result - Unit Interpretation Reference Range Specimen Type Comment Sep 12, 2024 10:18 AM [facility] FOLATE (PB) SERUM Specimen Type: SERUM No comment entered. Ordering Provider: KELLI SHUKLA Report Released Date/Time: Sep 12, 2024 09:54 AM Reporting Lab: [place] [facility] [address] [place] [address] Performing Lab: [place] [facility] [address] [place] [address] FOLATE (PB) 15.5 ng/mL 7-20 Sep 12, 2024 10:18 AM [facility] HGA1C BLOOD Specimen Type: BLOOD No comment entered. Ordering Provider: KELLI SHUKLA Report Released Date/Time: Sep 12, 2024 09:54 AM Reporting Lab: [place] [facility] [address] [place] [address] Performing Lab: [place] [facility] [address] [place] [address] HGA1C 6.5 H 4.0-6.0 Sep 12, 2024 10:18 AM [facility] [place] [facility] B12 SERUM Specimen Type: SERUM No comment entered. Ordering Provider: KELLI SHUKLA Report Released Date/Time: Sep 12, 2024 09:54 AM Reporting Lab: [place] [facility] [address] [place] [address] Performing Lab: [place] [facility] [address] [place] [address] B12 579 pg/mL 213-816 Sep 12, 2024 10:18 AM [facility] VITAMIN D, 25-HYDROXY SERUM Specimen Type: SE RUM No comment entered. Ordering Provider: KELLI SHUKLA Report Released Date/Time: Sep 12, 2024 09:54 AM Reporting Lab: [place] [facility] [address] [place] [address] Performing Lab: [place] [facility] [address] [place] [address] VITAMIN D, 25-HYDROXY 69.3 ng/mL 30-96 Sep 12, 2024 10:18 AM [facility] TSH (MA-PB) SERUM Specimen Typ e: SERUM No comment entered. Ordering Provider: KELLI SHUKLA Report Released Date/Time: Sep 12, 2024 09:54 AM Reporting Lab: [place] [facility] [address] [place] [address] Performing Lab: [place] [facility] [address] [place] [address] TSH 0.941 u[IU]/mL 0.47-5 Sep 12, 2024 10:18 AM [facility] URINE ALBUMIN PROFILE-ih (PB) URINE Specimen Type: URINE No comment entered. Ordering Provider: KELLI SHUKLA Report Released Date/Time: Sep 12, 2024 09:54 AM Reporting Lab: [place] [address] [place] [address] Performing Lab: [place] [facility] [address] [place] [address] URINE ALBUMIN (PB-STL) 40.74 mg/L uACR (PB-MA) 35.61 mg/g H 0-30 CREATININE URINE/OTHERS 114.41 mg/dL Sep 12, 2024 10:18 AM [facility] CHOLESTEROL PANEL (PB) PLASMA Specimen Type: P LASMA No comment entered. Ordering Provider: KELLI SHUKLA Report Released Date/Time: Sep 12, 2024 09:54 AM Reporting Lab: [place] [facility] [address] [place] [address] Performing Lab: [place] [facility] [address] [place] [id number] CHOLESTEROL 121 mg/dL 0-200 TRIGLYCERIDE 128 mg/dL 0-150 CALCULATED LDL 53.2 mg/dL HDL(New) 42.2 mg/dL H >40 HDL % OF TOTAL CHOLESTEROL (PB) 34.9 >25 Sep 12, 2024 10:18 AM [facility] COMPREHENSIVE METABOLIC PANEL PLASMA Specimen Type: PLASMA No comment entered. Ordering Provider: KELLI SHUKLA Report Released Date/Time: Sep 12, 2024 09:54 AM Reporting Lab: [place] [facility] [address] [place] [address] Performing Lab: [place] [facility] [address] [place] [address] CREATININE 0.91 mg/dL 0.7-1.3 UREA NITROGEN 14 [...] Sep 12, 2024 10:18 AM [facility] BRA[facility] NATRIURETIC PEPTIDE PLASMA Specimen Type : PLASMA No comment entered. Ordering Provider: KELLI SHUKLA Report Released Date/Time: Sep 12, 2024 10:14 AM Reporting Lab: [place] [place] [address] [place] [facility] Performing Lab: [place] [address] [place] [address] BRAIN NATRIURETIC PEPTIDE 20 pg/mL 0-100 Sep 12, 2024 10:18 AM [facility] TESTOSTERONE, TOTAL (PB-MA) SERUM Specimen Ty pe: SERUM No comment entered. Ordering Provider: KELLI SHUKLA Report Released Date/Time: Sep 12, 2024 10:13 AM Reporting Lab: [place] [place] [address] [place] [address] Performing Lab: [place] [facility] [address] [place] [address] TESTOSTERONE, TOTAL (PB-MA) 615.0 ng/dL 221.0-871.0 Sep 12, 2024 10:18 AM [facility] CBC BLOOD Specimen Type: BLOOD No comment entered. Ordering Provider: KELLI SHUKLA Report Released Date/Time: Sep 12, 2024 09:54 AM Reporting Lab: [place] [facility] [address] [place] [address] Performing Lab: [place] [facility] [address] [place] [address] WBC 7.9 10*3/uL 3.6-11.2 RBC 4.75 10*6/uL [...] GRANS, AUTO ABS 0.02 10*3/uL 0. 00-0.05 Encounter Notes: All associated encounter notes This section contains the clinical notes associated to the Encounter. Date/Time Encounter Note(s) Provider Source Sep 24, 2024 03:09 PM OPTOMETRY CONSULT: LOCAL TITLE: DIABETIC TELERETINAL IMAGING CONSULT STANDARD TITLE: OPTOMETRY CONSULT DATE OF NOTE: SEP 24, 2024@15:09 ENTRY DATE: SEP 24, 2024@15:09:26 AUTHOR: JOY CEE EXP COSIGNER: URGENCY: STATUS: COMPLETED TELE-EYE SCREENING READER NOTE: IMAGE QUALITY ASSESSMENT: Image quality adequate TELE-EYE SCREENING ASSESSMENT: Diabetic Patient Type 2 RIGHT RETINAL IMAGES: Diabetic Retinopathy Assessment: No Retinopathy Apparent No indication of diabetic macular edema Macula Assessment: No apparent abnormalities Optic Nerve Head Assessment: No apparent abnormalities Other Assessment: No apparent abnormalities LEFT RETINAL IMAGES: Diabetic Retinopathy Assessment: No Retinopathy Apparent No indication of diabetic macular edema Macula Assessment: No apparent abnormalities Optic Nerve Head Assessment: No apparent abnormalities Other Assessment: Other: asteroid hyalosis (variant of normal) EYE SCREENING RESULTS: Diabetic Retinopathy: Normal - No diabetic retinopathy apparent Macular Degeneration: Normal - No macular degeneration apparent Glaucoma: Normal - No glaucomatous nerve damage apparent Other Findings: No other referrable findings TIME-SENSITIVITY: No time-sensitive, urgent, emergent or life-threatening results. RECOMMENDATIONS: Repeat imaging appointment: Return 2 years [place] verifies that a review of past eye clinic records has been completed (if available) and a review for future eye appointments has been completed to help reduce duplication of care. Yes Cumulative time of review and management: Less than 5 minutes * Digital retinal imaging has been shown to be an effective method * * of screening for conditions such as diabetic retinopathy, but it * * cannot substitute for a comprehensive eifm-eh-qwey eye exam. * * * * Comprehensive eye exams are recommended every 1-2 years, or more * * frequently as determined by the presence of risk factors, early * * signs or symptoms, or known history of ocular disease. * * * * [facility] is a self refer/direct-scheduling service that allows * * you to call to schedule an appointment without a referral being * * required. We recommend calling to schedule your appointment at * * least 90 days in advance of the desired appointment date. * Appendix (abbreviations): AC (Anterior Chamber); AREDS (Age Related Eye Disease Study); ARX (Auto Refraction); BID (Two Times Daily); C:D (Cup-to-Disc); CIC (Care In The Community); FLOOR TECH (Cyclophotocoagulation); CSME (Clinically Significant Macular Edema); DFE (Dilated Fundus Exam); Dorz/Timol (Dorzolamide/Timolol); DSEK (Descemet's Stripping Endothelial Keratoplasty); FAF (Fundus Autofluorescence); F/U (Follow up); GCC (Ganglion Cell Complex); Gonio (Gonioscopy); H/O (History Of); HTN (Hypertension); HVF (Singh Visual Field); IOL (Intraocular Lens); IOP (Intraocular Pressure); K (Keratometry); LASIK (Laser-Assisted In Situ Keratomileusis); MD (Mean Deviation when used with visual field); dB (decibels); MRx (Manifest Refraction); NeoPolyDex/Erythro (Neomycin Polymyxin B Dexamethasone/Erythromyci n); NFL (Nerve Fiber Layer); NPDR (Nonproliferative Diabetic Retinopathy); OCT (Optical Coherence Tomography); OD (Right Eye); OS (Left Eye); OU (Both Eyes); PDR (Proliferative Diabetic Retinopathy); PFATs (Preservative Free Artificial Tears); RK (Radial Keratotomy); RNFL (Retinal Nerve Fiber Layer); RTC (Return To Clinic); scVA (Visual Acuity Without Correction/Glasses); ALICIA (Citizen [place] Interactive Threshold Algorithm); TID (Three Times Daily); UV (Ultraviolet); VA (Visual Acuity); WRx (Prescription glasses currently worn); WRx VA (Visual Acuity With Prescription Glasses); YAG (Yttrium Aluminum [place]) /maria esther/ Joy Cee OD [place] [facility] Signed: 09/24/2024 15:10 JOY CEE [place]
--- OUTSIDE RECORDS SUMMARY | 2024-09-24 10:27 | XMS_ITS | Encounter Summary ---
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 Date/Time Encounter Type Encounter Description Reason Provider Source Sep 24, 2024 03:27 PM Outpatient Encounter ADMIN PAT ACTIVTIES (MASNONCT) GOLDEN WISE Encounter Template Text not used by VA [...] 20 appointments. The data comes from all [facility]. Appointment Date/Time Appointment Type Appointme nt Facility Name Sep 25, 2024 02:20 PM AMBULATORY - MEDICINE [facility] Sep 25, 2024 02:30 PM AMBULATORY - MEDICINE [facility] Oct 17, 2024 08:40 AM AMBULATORY - MEDICINE [facility] Oct 31, 2024 08:40 AM AMBULATORY - MEDICINE [facility] Nov 14, 2024 08:40 AM AMBULATORY - MEDICINE [facility] Nov 28, 2024 08:40 AM AMBULATORY - MEDICINE [facility] Dec 12, 2024 08:40 AM AMBULATORY - MEDICINE [facility] Dec 26, 2024 08:40 AM AMBULATORY - MEDICINE [facility] Mar 18, 2025 01:30 PM AMBULATORY - NONE [facility] Active, Pending, and Scheduled Orders This section includes a listing of several types of active, pending, and scheduled orders, including clinic medications orders, diagnostic test orders, procedure orders and consult orders; where the start date of the order is 45 days before the date of the Encounter or 45 days after the date of theEncounter. The data comes from all [facility]. Test Date/Time Test Type Test Details Facility Name Sep 07, 2024 12:23 PM Consult Order [facility]-UROLOGY PB 657A4 Cons Corduroy Cutter Operator's Choice [facility] Lab Results: +/- 30 days of the encounter This section includes the Chemistry and Hematology Lab Results on record with [place] for the patient. Radiology Reports and Pathology Reports are provided separately, in subsequent sections. Lab Results This section contains the Chemistry/Hematology Results that were resulted 30 days before or 30 daysafter the date of the Encounter. Date/Time Source Result Type Result - Unit Interpretation Reference Range Specimen Type Comment Sep 12, 2024 10:18 AM [facility] HGA1C BLOOD Specimen Type: BLOOD No comment entered. Ordering Provider: KELLI SHUKLA Report Released Date/Time: Sep 12, 2024 09:54 AM Reporting Lab: [facility] [address] [place] [address] Performing Lab: [place] [facility] [address] [place] [address] HGA1C 6.5 H 4.0-6.0 Sep 12, 2024 10:18 AM [facility] FOLATE (PB) SERUM Specimen Typ e: SERUM No comment entered. Ordering Provider: KELLI SHUKLA Report Released Date/Time: Sep 12, 2024 09:54 AM Reporting Lab: [place] [facility] [address] [place] [address] Performing Lab: [place] [facility] [address] [place] [address] FOLATE (PB) 15.5 ng/mL 7-20 Sep 12, 2024 10:18 AM [facility] B12 SERUM Specimen Type: SERUM No comment entered. Ordering Provider: KELLI SHUKLA Report Released Date/Time: Sep 12, 2024 09:54 AM Reporting Lab: [place] [facility] [address] [place] [address] Performing Lab: [place] [facility] [address] [place] [address] B12 579 pg/mL 213-816 Sep 12, 2024 10:18 AM [facility] VITAMIN D, 25-HYDROXY SERUM Specimen Type: SE RUM No comment entered. Ordering Provider: KELLI SHUKLA Report Released Date/Time: Sep 12, 2024 09:54 AM Reporting Lab: [place] [facility] [address] [place] [address] Performing Lab: [place] [facility] [address] [place] [address] VITAMIN D, 25-HYDROXY 69.3 ng/mL 30-96 Sep 12, 2024 10:18 AM [facility] URINE ALBUMIN PROFILE-ih (PB) URINE Specimen Type: URINE No comment entered. Ordering Provider: KELLI SHUKLA Report Released Date/Time: Sep 12, 2024 09:54 AM Reporting Lab: [place] [facility] [address] [place] [address] Performing Lab: [place] [facility] [address] [place] [address] URINE ALBUMIN (PB-STL) 40.74 mg/L uACR (PB-MA) 35.61 mg/g H 0-30 CREATININE URINE/OTHERS 114.41 mg/dL Sep 12, 2024 10:18 AM [facility] TSH (MA-PB) SERUM Specimen Typ e: SERUM No comment entered. Ordering Provider: KELLI SHUKLA Report Released Date/Time: Sep 12, 2024 09:54 AM Reporting Lab: [place] [facility] [address] [place] [facility] Performing Lab: [place] [facility] [address] [place] [address] TSH 0.941 u[IU]/mL 0.47-5 Sep 12, 2024 10:18 AM [facility] CHOLESTEROL PANEL (PB) PLASMA Specimen Type: P LASMA No comment entered. Ordering Provider: KELLI SHUKLA Report Released Date/Time: Sep 12, 2024 09:54 AM Reporting Lab: [place] [facility] [address] [place] [facility] Performing Lab: [place] [facility] [address] [place] [facility] CHOLESTEROL 121 mg/dL 0-200 TRIGLYCERIDE 128 mg/dL 0-150 CALCULATED LDL 53.2 mg/dL HDL(New) 42.2 mg/dL H >40 HDL % OF TOTAL CHOLESTEROL (PB) 34.9 >25 Sep 12, 2024 10:18 AM [facility] COMPREHENSIVE METABOLIC PANEL PLASMA Specimen Type: PLASMA No comment entered. Ordering Provider: KELLI SHUKAL Report Released Date/Time: Sep 12, 2024 09:54 AM Reporting Lab: [place] [facility] [address] [place] [address] Performing Lab: [place] [facility] [address] [place] [facility] CREATININE 0.91 mg/dL 0.7-1.3 UREA NITROGEN 14 [...] 2020) 87 Sep 12, 2024 10:18 AM [facility] TESTOSTERONE, TOTAL (PB-MA) SERUM Specimen Ty pe: SERUM No comment entered. Ordering Provider: KELLI SHUKLA Report Released Date/Time: Sep 12, 2024 10:13 AM Reporting Lab: [place] [facility] [address] [place] [address] Performing Lab: [place] [facility] [address] [place] [address] TESTOSTERONE, TOTAL (PB-MA) 615.0 ng/dL 221.0-871.0 Sep 12, 2024 10:18 AM [facility] BRAIN NATRIURETIC PEPTIDE PLASMA Specimen Type : PLASMA No comment entered. Ordering Provider: KELLI SHUKLA Report Released Date/Time: Sep 12, 2024 10:14 AM Reporting Lab: [place] [facility] [address] [place] [address] Performing Lab: [place] [facility] [address] [place] [address] BRAIN NATRIURETIC PEPTIDE 20 pg/mL 0-100 Sep 12, 2024 10:18 AM [facility] CBC BLOOD Specimen Type: BLOOD No comment entered. Ordering Provider: KELLI SHUKLA Report Released Date/Time: Sep 12, 2024 09:54 AM Reporting Lab: [place] [facility] [address] [place] [address] Performing Lab: [place] [facility] [address] [place] [facility] WBC 7.9 10*3/uL 3.6-11.2 RBC 4.75 10*6/uL [...] 2024 09:30 AM VA-TOBACCO USE FORMER CIGARETTES [facility] Tobacco Use History This section includes a history of the smoking, or tobacco-related health factors, that were collected on or before the date of the Encounter. The data comes from the [place] facility where the Encounter took place. Date/Time Smoking Status/Tobacco Use Comment F acility Sep 12, 2024 09:30 AM VA-TOBACCO USE FOR JOSE CIGARETTES [facility] Oct 03, 2023 08:30 AM VA-TOBACCO FORMER USER [facility] Oct 03, 2023 08:30 AM VA-TOBACCO QUIT 1 TO < 5 YRS [facility] Sep 18, 2021 10:30 AM VA-TOBACCO DOESNT USE WI 30 MIN WAKEUP [facility] Sep 18, 2021 10:30 AM VA-TOBACCO USE 30 YEARS OR MORE [facility] [place] [facility] Sep 18, 2021 10:30 AM VA-TOBACCO USE ADVICE [facility] [place] [facility] Sep 18, 2021 10:30 AM VA-TOBACCO USE COATER NO [facility] [place] [facility] Sep 18, 2021 10:30 AM VA-TOBACCO USE MED NO [facility] Sep 18, 2021 10:30 AM VA-TOBACCO USER SOME DAYS [facility] [place] Sep 15, 2020 01:00 PM VA-TOBACCO DOESNT USE WI 30 MIN WAKEUP [facility] [place] [facility] Sep 15, 2020 01:00 PM VA-TOBACCO USE 5 T O 15 YEARS [facility] [place] [facility] Sep 15, 2020 01:00 PM VA-TOBACCO USE ADVICE [facility] [place] [facility] Sep 15, 2020 01:00 PM VA-TOBACCO USE COATER NO [facility] [place] [facility] Sep 15, 2020 01:00 PM VA-TOBACCO USE MED NO [facility] Sep 15, 2020 01:00 PM VA-TOBACCO USER EVERY DAY [facility] [place] [facility] Nov 28, 2017 12:02 PM CURRENT TOBACCO USER [facility] Nov 28, 2017 12:02 PM CURRENT TOBACCO US ER (NOT READY TO QUIT) [facility] Nov 28, 2017 12:02 PM TOBACCO CESSATION REFERRAL DECLINED [facility] [place] [facility] Nov 28, 2017 12:02 PM TOBACCO MEDS OFFER ED BUT DECLINED [facility] [place] [facility] Nov 28, 2017 12:02 PM TOBACCO USER OFFERED MEDS [facility] Oct 14, 2017 01:11 PM CURRENT TOBACCO USER [facility] Oct 14, 2017 01:11 PM CURRENT TOBACCO US ER (NOT READY TO QUIT) [facility] Oct 14, 2017 01:11 PM TOBACCO CESSATION REFERRAL DECLINED [facility] [place] [facility] Oct 14, 2017 01:11 PM TOBACCO MEDS OFFER ED BUT DECLINED [place] [facility] Oct 14, 2017 01:11 PM TOBACCO USER OFFERED MEDS [place] [facility] August 05, 2017 02:42 PM CURRENT TOBACCO USER [facility] [place] [facility] August 05, 2017 02:42 PM CURRENT TOBACCO US ER (NOT READY TO QUIT) [facility] [place] [facility] August 05, 2017 02:42 PM TOBACCO CESSATION REFERRAL DECLINED [place] [place] [facility] August 05, 2017 02:42 PM TOBACCO MEDS OFFER ED BUT DECLINED [place] [facility] August 05, 2017 02:42 PM [facility] Mar 18, 2017 09:26 AM [facility] Mar 18, 2017 09:26 AM CURRENT TOBACCO US ER (NOT READY TO QUIT) [facility] [place] [facility] Mar 18, 2017 09:26 AM TOBACCO CESSATION [facility] Mar 18, 2017 09:26 AM TOBACCO MEDS OFFER ED BUT DECLINED [facility] [place] [facility] Mar 18, 2017 09:26 AM [facility]BAC[facility] Apr 28, 2016 07:17 AM [facility] Apr 28, 2016 07:[address] OP SMOKING CLINIC [facility] Aug 01, 2009 10:10 AM QUIT TOBACCO >7 YEARS AGO [facility] [place] [facility] Sep 26, 2007 09:34 AM QUIT TOBACCO >7 YEARS AGO [facility] [place] [facility] August 06, 2005 09:10 AM CURRENT NON-TOBACC O USER-HX OF USE [facility] Mar 23, 2005 08:38 AM CURRENT NON-TOBACC O USER-HX OF USE [facility] Oct 01, 2004 09:41 AM CURRENT NON-TOBACC O USER-HX OF USE [facility] Apr 07, 2004 09:49 AM CURRENT NON-TOBACC O USER-HX OF USE [facility] Oct 11, 2003 10:41 AM CURRENT NON-TOBACC O USER-HX OF USE [facility] Apr 05, 2003 10:43 AM CURRENT NON-TOBACC O USER-HX OF USE Q[place] 15 years ago. [place] [facility] Oct 25, 2002 09:24 AM CURRENT NON-TOBACC O USER-HX OF USE [facility] Nov 17, 2001 10:31 AM TOB-CURRENT NON-SM OKER BUT HX [place] [facility] Jul 27, 2001 01:43 PM CURRENT NON-TOBACC O USER-HX OF USE [facility] May 16, 2001 10:35 AM CURRENT NON-TOBACC O USER-HX OF USE Quit 18 years ago. [place] [facility] Nov 29, 2000 02:03 PM CURRENT NON-TOBACC O USER-HX OF USE QUIT 13 YRS AGO, 1 PK DAY [facility] Encounter Notes: All associated encounter notes This section contains the clinical notes associated to the Encounter. Date/Time Encounter Note(s) Provider Source Sep 24, 2024 03:27 PM LETTERS: LOCAL TITLE: TELE-EYE RESULTS LETTER STANDARD TITLE: LETTERS DATE OF NOTE: SEP 24, 2024@15:27 ENTRY DATE: SEP 24, 2024@15:27:41 AUTHOR: GOLDEN WISE EXP COSIGNER: URGENCY: STATUS: COMPLETED SEP 24, 2024 NORMA PANDYA [address] [place] [id number] Dear Norma Pandya: You are receiving this letter in regard to your recent [facility] EYE SCREENING. The purpose of the screening is to detect specific vision-threatening conditions such as diabetic retinopathy (if you are diabetic), macular degeneration, and glaucoma. Early detection of eye disease can be important to reduce the risk of permanent vision loss. Your information and testing was reviewed by a licensed [facility] eye care provider. The date of review and findings are noted below: Screening Exam Findings 09/24/2024 No diabetic retinopathy apparent No macular degeneration apparent No glaucoma apparent Recommendations: 09/24/2024 A repeat eye screening in 2 YEARS has been recommended *Please note that incidental findings outside the primary focus of this screening may be noted within the detailed report of the visit. This report can be accessed online through [employer] ([email or web address]) or requested through your [facility] Medical Records/Release of Information office. If you have been seen by a non-VA eye care provider, please bring your records to your next [facility] appointment to be scanned into your medical record. If you are a tobacco user, [place] provides tobacco cessation services which can reduce the risk of eye disease as well as risks to your overall health. Please discuss with your [facility] Primary Care team for more information. Thank you for allowing us to serve you. [facility] Healthcare Team Digital retinal imaging has been shown to be an effective method of screening for specific eye conditions, but cannot substitute for a comprehensive eye exam. Comprehensive eye exams are recommended every 1-2 years, or more frequently as determined by the presence of risk factors, early signs or symptoms, or known history of eye disease. GOLDEN WISE [facility]
--- OUTSIDE RECORDS SUMMARY | 2024-09-25 09:20 | XMS_ITS | Encounter Summary ---
Author Name [facility] [place] [facility] [place] Address [address] [place] [address] Care Team Providers Care Bar Steward Name Role Phone HOBSONDINESH Primary Care Provider [...] PART A Jan 02, 2013 PART A [id number] [place] PATIENT MEDICARE ([place]NR) MEDICARE (M) PART A Jan 02, 2013 PART A [id number] [place] PATIENT Selected Encounter This section includes the information on record at [place] for the Encounter. Date/Time Encounter Type Encounter Description Reason Provider Source Sep 25, 2024 02:20 PM CHIROPRACT MANJ 3-4 [employer] ICD-10-CM M99.02 Segmental and somatic dysfunction of thoracic region ALVAREZ FRITZ Encounter Template Text not used by [facility] Assessments - Encounter Diagnoses This section includes the primary and secondary diagnoses documented for the Encounter. Date/Time Primary/Secondary Diagnosis Diagnosis Name Provider Source Sep 25, 2024 02:29 PM PRIMARY Segmental and somatic dysfunction of thoracic region [facility] Sep 25, 2024 02:29 PM SECONDARY Oth intvrt disc degen, lumbosacr w discog bck & lw extrm pn ALVAREZ FRITZ [facility] Sep 25, 2024 02:29 PM SECONDARY Pain in thoracic spine [facility] Sep 25, 2024 02:29 PM SECONDARY Segmental and somatic dysfunction of lumbar region ALVAREZ FRITZ [facility] Sep 25, 2024 02:29 PM SECONDARY Segmental and somatic dysfunction of pelvic region ALVAREZ FRITZ [facility] Plan of Treatment: Future Appointments (+ 6 months) and Future Tests (+/- 45 days) The Plan of Treatment section includes future care activities for the patient from [facility] [place] [facility] This section includes future appointments and future orders which are active, pending or scheduled. Future Appointments This section includes appointments that were scheduled to occur 6 months from the date of the Encounter, up to a maximum of 20 appointments. The data comes from all [place] treatment [facility]. Appointment Date/Time Appointment Type Appointme nt Facility Name Oct 17, 2024 08:40 AM AMBULATORY - MEDICINE [facility] Oct 31, 2024 08:40 AM AMBULATORY - MEDICINE [facility] Nov 14, 2024 08:40 AM AMBULATORY - MEDICINE [facility] Nov 28, 2024 08:40 AM AMBULATORY - MEDICINE [facility] Dec 12, 2024 08:40 AM AMBULATORY - MEDICINE [facility] Dec 26, 2024 08:40 AM AMBULATORY - MEDICINE [facility] Mar 18, 2025 01:30 PM AMBULATORY - NONE ADY CHAVEZ [facility] Active, Pending, and Scheduled Orders This section includes a listing of several types of active, pending, and scheduled orders, including clinic medications orders, diagnostic test orders, procedure orders and consult orders; where the start date of the order is 45 days before the date of the Encounter or 45 days after the date of theEncounter. The [facility] comes [facility] Test Date/Time Test Type Test Details Facility Name Sep 07, 2024 12:23 PM Consult Order [facility]-UROLOGY PB [id number] Cons Professional Services Specialist's Choice [place] [facility] Lab Results: +/- 30 days of [...] Comment Sep 12, 2024 10:18 AM [facility] [place] [facility] HGA1C BLOOD Specimen Type: BLOOD No comment entered. Ordering Provider: KELLI SHUKLA Report Released Date/Time: Sep 12, 2024 09:54 AM Reporting Lab: [place] [facility] [address] [place] [address] Performing Lab: [place] [facility] [address] [place] [address] HGA1C 6.5 H 4.0-6.0 Sep 12, 2024 10:18 AM [facility] FOLATE (PB) SERUM Specimen Typ e: SERUM No comment entered. Ordering Provider: KELLI SHUKLA Report Released Date/Time: Sep 12, 2024 09:54 AM Reporting Lab: [place] [facility] [address] [place] [address] Performing Lab: [place] [facility] [address] [place] [address] FOLATE (PB) 15.5 ng/mL 7-20 Sep 12, 2024 10:18 AM [facility] B12 SERUM Specimen Type: SERUM No comment entered. Ordering Provider: KELLI SHUKLA Report Released Date/Time: Sep 12, 2024 09:54 AM Reporting Lab: [place] [facility] [address] [place] [address] Performing Lab: [place] [facility] [address] [place] [address] B12 579 pg/mL 213-816 Sep 12, 2024 10:18 AM [facility] VITAMIN D, 25-HYDROXY SERUM Specimen Type: SE RUM No comment entered. Ordering Provider: KELLI SHUKLA Report Released Date/Time: Sep 12, 2024 09:54 AM Reporting Lab: [place] [facility] [address] [place] [address] Performing Lab: [place] [facility] [address] [place] [address] VITAMIN D, 25-HYDROXY 69.3 ng/mL 30-96 Sep 12, 2024 10:18 AM [facility] URINE ALBUMIN PROFILE-ih (PB) URINE Specimen Type: URINE No comment entered. Ordering Provider: KELLI SHUKLA Report Released Date/Time: Sep 12, 2024 09:54 AM Reporting Lab: [place] [facility] [address] [place] [address] Performing Lab: [place] [facility] [address] [place] [phone] URINE ALBUMIN (PB-STL) 40.74 mg/L uACR (PB-MA) 35.61 mg/g H 0-30 CREATININE URINE/OTHERS 114.41 mg/dL Sep 12, 2024 10:18 AM [facility] TSH (MA-PB) SERUM Specimen Typ e: SERUM No comment entered. Ordering Provider: KELLI SHUKLA Report Released Date/Time: Sep 12, 2024 09:54 AM Reporting Lab: [place] [facility] [address] [place] [phone] Performing Lab: [place] [facility] [address] [place] [address] TSH 0.941 u[IU]/mL 0.47-5 Sep 12, 2024 10:18 AM [facility] CHOLESTEROL PANEL (PB) PLASMA Specimen Type: P LASMA No comment entered. Ordering Provider: KELLI SHUKLA Report Released Date/Time: Sep 12, 2024 09:54 AM Reporting Lab: [place] [facility] [address] [place] [facility] Performing Lab: [place] [facility] [address] [place] [phone] CHOLESTEROL 121 mg/dL 0-200 TRIGLYCERIDE 128 mg/dL 0-150 CALCULATED LDL 53.2 mg/dL HDL(New) 42.2 mg/dL H >40 HDL % OF TOTAL CHOLESTEROL (PB) 34.9 >25 Sep 12, 2024 10:18 AM [facility] COMPREHENSIVE METABOLIC PANEL PLASMA Specimen Type: PLASMA No comment entered. Ordering Provider: KELLI SHUKLA Report Released Date/Time: Sep 12, 2024 09:54 AM Reporting Lab: [place] [facility] [address] [place] [address] Performing Lab: [place] [facility] [address] [place] [address] CREATININE 0.91 mg/dL 0.7-1.3 UREA NITROGEN 14 [...] 2020) 87 Sep 12, 2024 10:18 AM [facility] TESTOSTERONE, TOTAL (PB-MA) SERUM Specimen Ty pe: SERUM No comment entered. Ordering Provider: KELLI SHUKLA Report Released Date/Time: Sep 12, 2024 10:13 AM Reporting Lab: [place] [facility] [address] [place] [address] Performing Lab: [place] [facility] [address] [place] [address] TESTOSTERONE, TOTAL (PB-MA) 615.0 ng/dL 221.0-871.0 Sep 12, 2024 10:18 AM [facility] BRAIN NATRIURETIC PEPTIDE PLASMA Specimen Type : PLASMA No comment entered. Ordering Provider: KELLI SHUKLA Report Released Date/Time: Sep 12, 2024 10:14 AM Reporting Lab: [place] [facility] [address] [place] [address] Performing Lab: [place] [facility] [address] [place] [address] BRAIN NATRIURETIC PEPTIDE 20 pg/mL 0-100 Sep 12, 2024 10:18 AM [facility] CBC BLOOD Specimen Type: BLOOD No comment entered. Ordering Provider: KELLI SHUKLA Report Released Date/Time: Sep 12, 2024 09:54 AM Reporting Lab: [facility] [address] [place] [address] Performing Lab: [place] [facility] [address] [facility] [facility] [address] WBC 7.9 10*3/uL 3.6-11.2 RBC 4.75 10*6/uL [...] Height Weight Body Mass Index Source Sep 25, 2024 02:55 PM 97.6 F 62 /min 154/70 mm[Hg] 22 /min 97 % 0 241.1 lb 33 [facility] Sep 25, 2024 02:20 PM 97.8 F 65 /min 153/80 mm[Hg] [facility] [place] [facility] Social History: Smoking [...] 2024 09:30 AM VA-TOBACCO USE FORMER CIGARETTES [facility] Tobacco Use History This section includes a history of the smoking, or tobacco-related health factors, that were collected on or before the date of the Encounter. The data comes from the [place] facility where the Encounter took place. Date/Time Smoking Status/Tobacco Use Comment F acility Sep 12, 2024 09:30 AM VA-TOBACCO USE FOR JOSE CIGARETTES [facility] Oct 03, 2023 08:30 AM VA-TOBACCO FORMER USER [place] [facility] Oct 03, 2023 08:30 AM VA-TOBACCO QUIT 1 TO < 5 YRS [facility] Sep 18, 2021 10:30 AM VA-TOBACCO DOESNT USE WI 30 MIN WAKEUP [facility] Sep 18, 2021 10:30 AM VA-TOBACCO USE 30 YEARS OR MORE [facility] Sep 18, 2021 10:30 AM VA-TOBACCO USE ADVICE [facility] Sep 18, 2021 10:30 AM 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 [facility] Sep 18, 2021 10:30 AM VA-TOBACCO USE MED NO [facility] Sep 18, 2021 10:30 AM VA-TOBACCO USER SOME DAYS [facility] Sep 15, 2020 01:00 PM VA-TOBACCO DOESNT USE WI 30 MIN WAKEUP [facility] Sep 15, 2020 01:00 PM VA-TOBACCO USE 5 T O 15 YEARS [facility] Sep 15, 2020 01:00 PM VA-TOBACCO USE ADVICE [facility] Sep 15, 2020 01:00 PM 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 [facility] Sep 15, 2020 01:00 PM VA-TOBACCO USE MED NO [facility] Sep 15, 2020 01:00 PM VA-TOBACCO USER EVERY DAY [facility] Nov 28, 2017 12:02 PM CURRENT TOBACCO USER [facility] Nov 28, 2017 12:02 PM CURRENT TOBACCO US ER (NOT READY TO QUIT) [facility] Nov 28, 2017 12:02 PM TOBACCO CESSATION REFERRAL DECLINED [facility] Nov 28, 2017 12:02 PM TOBACCO MEDS OFFER ED BUT DECLINED [facility] Nov 28, 2017 12:02 PM TOBACCO USER OFFERED MEDS [facility] Oct 14, 2017 01:11 PM CURRENT TOBACCO USER [facility] [place] [facility] Oct 14, 2017 01:11 PM CURRENT TOBACCO US ER (NOT READY TO QUIT) [facility] [place] Oct 14, 2017 01:11 PM TOBACCO CESSATION REFERRAL DECLINED [facility] Oct 14, 2017 01:11 PM TOBACCO MEDS OFFER ED BUT DECLINED [facility] Oct 14, 2017 01:11 PM TOBACCO USER OFFERED MEDS [facility] August 05, 2017 02:42 PM CURRENT TOBACCO USER [facility] August 05, 2017 02:42 PM CURRENT TOBACCO US ER (NOT READY TO QUIT) [facility] August 05, 2017 02:42 PM TOBACCO CESSATION REFERRAL DECLINED [facility] [place] [facility] August 05, 2017 02:42 PM TOBACCO MEDS OFFER ED BUT DECLINED [facility] August 05, 2017 02:42 PM TOBACCO USER OFFERED MEDS [facility] Mar 18, 2017 09:26 AM CURRENT TOBACCO USER [facility] Mar 18, 2017 09:26 AM CURRENT TOBACCO US ER (NOT READY TO QUIT) [facility] Mar 18, 2017 09:26 AM TOBACCO CESSATION REFERRAL DECLINED [facility] Mar 18, 2017 09:26 AM TOBACCO MEDS OFFER ED BUT DECLINED [facility] Mar 18, 2017 09:26 AM TOBACCO USER OFFERED MEDS [facility] Apr 28, 2016 07:17 AM CURRENT TOBACCO USER [facility] Apr 28, 2016 07:[address] OP SMOKING CLINIC [facility] Aug 01, 2009 10:10 AM QUIT TOBACCO >7 YEARS AGO [facility] [place] [facility] Sep 26, 2007 09:34 AM QUIT TOBACCO >7 YEARS AGO [facility] August 06, 2005 09:10 AM CURRENT NON-TOBACC O USER-HX OF USE [facility] Mar 23, 2005 08:38 AM [...] USER-HX OF USE [facility] [place] Nov 17, 2001 10:31 AM [...] Encounter. Date/Time Encounter Note(s) Provider Source Sep 25, 2024 02:20 PM CHIROPRACTIC NOTE: LOCAL TITLE: CHIROPRACTIC FOLLOW UP NOTE PB STANDARD TITLE: CHIROPRACTIC NOTE DATE OF NOTE: SEP 25, 2024@14:20 ENTRY DATE: SEP 25, 2024@14:20:03 AUTHOR: ALVAREZ FRITZIGNER: URGENCY: STATUS: COMPLETED CHIROPRACTIC FOLLOW-UP VISIT Patient's language preference for health information: Swedish Other Communication Methods Needed: SUBJECTIVE: The Latah is a 74 year old MALE being seen in the Chiropractic clinic for follow-up visit. The states his lower back pain has gradually worsened over the past 1-2 weeks, which he attributes to the amount of time since his last treatment. The is concerned with swelling in his right lower leg and plans to discuss the issue with his PCP today. Today, the rates his pain level as a 6/10. [...] persistent back pain, We will treat The Latah once every two weeks for six treatments. 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
--- OUTSIDE RECORDS SUMMARY | 2024-09-25 09:30 | XMS_ITS | Encounter Summary ---
Author Name [facility] [place] [facility] [place] Address [address], [place] [address] Care Team Providers Care Loadmaster Name Role Phone DINESH HOBSON Primary Care [...] PART A Jan 02, 2013 PART A [id number] [place] PATIENT MEDICARE ([place]NR) MEDICARE ([place]) PART A Jan 02, 2013 PART A [id number] [place] PATIENT Selected Encounter This section includes the information on record at [place] for the Encounter. Date/Time Encounter Type Encounter Description Reason Provider Source Sep 25, 2024 02:30 PM Outpatient Encounter PRIMARY CARE/MEDICINE DINESH HOBSON E III IHE Encounter Template Text not used by [place] Plan of Treatment: Future Appointments (+ 6 [...] 20 appointments. The data comes from all [facility]. Appointment Date/Time Appointment Type Appointme nt Facility Name Oct 17, 2024 08:40 AM AMBULATORY - MEDICINE [facility] Oct 31, 2024 08:40 AM AMBULATORY - MEDICINE [facility] Nov 14, 2024 08:40 AM [facility] Nov 28, 2024 08:40 AM [facility] Dec 12, 2024 08:40 AM AMBULATORY - MEDICINE [facility] Dec 26, 2024 08:40 AM AMBULATORY - MEDICINE [facility] Mar 18, 2025 01:30 PM AMBULATORY - NONE [place] [facility] Active, Pending, and Scheduled Orders This section includes a listing of several types of active, pending, and scheduled orders, including clinic medications orders, diagnostic test orders, procedure orders and consult orders; where the start date of the order is 45 days before the date of the Encounter or 45 days after the date of theEncounter. The data comes from all [facility]. Test Date/Time Test Type Test Details Facility Name Sep 07, 2024 12:23 PM Consult Order COMMUNITY CARE-UROLOGY PB 657A4 Cons Ribbon [facility] Lab Results: +/- 30 days of the encounter This section includes the Chemistry and Hematology Lab Results on record with [place] for the patient. Radiology Reports and Pathology Reports are provided separately, in subsequent sections. Lab Results This section contains the Chemistry/Hematology Results that were resulted 30 days before or 30 daysafter the date of the Encounter. Date/Time Source Result Type Result - Unit Interpretation Reference Range Specimen Type Comment Sep 12, 2024 10:18 AM [facility] B12 SERUM Specimen Type: SERUM No comment entered. Ordering Provider: KELLI SHUKLA Report Released Date/Time: Sep 12, 2024 09:54 AM Reporting Lab: [place] [facility] [address] [place] [address] Performing Lab: [place] [facility] [address] [place] [address] B12 579 pg/mL 213-816 Sep 12, 2024 10:18 AM [facility] FOLATE (PB) SERUM Specimen Typ e: SERUM No comment entered. Ordering Provider: KELLI SHUKLA Report Released Date/Time: Sep 12, 2024 09:54 AM Reporting Lab: [place] [facility] [address] [place] [address] Performing Lab: [place] [facility] [address] [place] [address] FOLATE (PB) 15.5 ng/mL 7-20 Sep 12, 2024 10:18 AM [facility] HGA1C BLOOD Specimen Type: BLOOD No comment entered. Ordering Provider: KELLI SHUKLA Report Released Date/Time: Sep 12, 2024 09:54 AM Reporting Lab: [place] [facility] [address] [place] [address] Performing Lab: [place] [facility] [address] [place] [address] HGA1C 6.5 H 4.0-6.0 Sep 12, 2024 10:18 AM [facility] CHOLESTEROL PANEL (PB) PLASMA Specimen Type: P LASMA No comment entered. Ordering Provider: KELLI SHUKLA Report Released Date/Time: Sep 12, 2024 09:54 AM Reporting Lab: [place] [facility] [address] [place] [address] Performing Lab: [place] [facility] [address] [place] [address] CHOLESTEROL 121 mg/dL 0-200 TRIGLYCERIDE 128 mg/dL 0-150 CALCULATED LDL 53.2 mg/dL HDL(New) 42.2 mg/dL H >40 HDL % OF TOTAL CHOLESTEROL (PB) 34.9 >25 Sep 12, 2024 10:18 AM [facility] VITAMIN D, 25-HYDROXY SERUM Specimen Type: SE RUM No comment entered. Ordering Provider: KELLI SHUKLA Report Released Date/Time: Sep 12, 2024 09:54 AM Reporting Lab: [place] [facility] [address] [place] [address] Performing Lab: [place] [facility] [address] [place] [address] VITAMIN D, 25-HYDROXY 69.3 ng/mL 30-96 Sep 12, 2024 10:18 AM [facility] TSH (MA-PB) SERUM Specimen Typ e: SERUM No comment entered. Ordering Provider: KELLI SHUKLA Report Released Date/Time: Sep 12, 2024 09:54 AM Reporting Lab: [place] [facility] [address] [place] [address] Performing Lab: [place] [facility] [address] [place] [facility] TSH 0.941 u[IU]/mL 0.47-5 Sep 12, 2024 10:18 AM [facility] URINE ALBUMIN PROFILE-ih (PB) URINE Specimen Type: URINE No comment entered. Ordering Provider: KELLI SHUKLA Report Released Date/Time: Sep 12, 2024 09:54 AM Reporting Lab: [place] [facility] [address] [place] [address] Performing Lab: [place] [facility] [address] [place] [address] URINE ALBUMIN (PB-STL) 40.74 mg/L uACR (PB-MA) 35.61 mg/g H 0-30 CREATININE URINE/OTHERS 114.41 mg/dL Sep 12, 2024 10:18 AM [facility] COMPREHENSIVE METABOLIC PANEL PLASMA Specimen Type: PLASMA No comment entered. Ordering Provider: KELLI SHUKLA Report Released Date/Time: Sep 12, 2024 09:54 AM Reporting Lab: [place] [facility] [address] [place] [facility] Performing Lab: [place] [facility] [address] [place] [address] CREATININE 0.91 mg/dL 0.7-1.3 UREA NITROGEN 14 [...] 2020) 87 Sep 12, 2024 10:18 AM [facility] CBC BLOOD Specimen Type: BLOOD No comment entered. Ordering Provider: KELLI SHUKLA Report Released Date/Time: Sep 12, 2024 09:54 AM Reporting Lab: [place] [facility] [address] [place] [facility] [address] Performing Lab: [place] [facility] [address] [facility] [address] WBC 7.9 10*3/uL 3.6-11.2 RBC 4.75 10*6/uL [...] 0. 00-0.05 Sep 12, 2024 10:18 AM [facility] BRAIN NATRIURETIC PEPTIDE PLASMA Specimen Type : PLASMA No comment entered. Ordering Provider: KELLI SHUKLA Report Released Date/Time: Sep 12, 2024 10:14 AM Reporting Lab: [place] [facility] [address] [place] [address] Performing Lab: [place] [facility] [address] [place] [address] BRAIN NATRIURETIC PEPTIDE 20 pg/mL 0-100 Sep 12, 2024 10:18 AM [facility] TESTOSTERONE, TOTAL (PB-MA) SERUM Specimen Ty pe: SERUM No comment entered. Ordering Provider: KELLI SHUKLA Report Released Date/Time: Sep 12, 2024 10:13 AM Reporting Lab: [place] [facility] [address] [place] [address] Performing Lab: [place] [facility] [address] [place] [address] TESTOSTERONE, TOTAL (PB-MA) 615.0 ng/dL 221.0-871.0 Vital Signs: All taken on the encounter date This section contains inpatient and outpatient Vital Signs collected on the date of the Encounter. Date/Time Temperature Pulse Blood Pressure Respiratory Rate SP02 Pain Height Weight Body Mass Index Source Sep 25, 2024 02:55 PM 97.6 F 62 /min 154/70 mm[Hg] 22 /min 97 % 0 241.1 lb 33 [facility] Sep 25, 2024 02:20 PM 97.8 F 65 /min 153/80 mm[Hg] [facility] Social History: Smoking Status (Most [...] took place. Date/Time Current Smoking Status Comment Genevieve ity Sep 12, 2024 09:30 AM [place]-TOBACCO USE FORMER CIGARETTES [facility] Tobacco Use History This section includes a history of the smoking, or tobacco-related health factors, that were collected on or before the date of the Encounter. The data comes from the [place] facility where the Encounter took place. 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 NO [facility] Sep 18, 2021 10:30 AM VA-TOBACCO USE MED NO [facility] Sep 18, 2021 10:30 AM VA-TOBACCO USER SOME DAYS [facility] Sep 15, 2020 01:00 PM VA-TOBACCO DOESNT USE [place] 30 MIN WAKEUP [facility] Sep 15, 2020 01:00 PM VA-TOBACCO USE 5 T O 15 YEARS [facility] Sep 15, 2020 01:00 PM VA-TOBACCO USE ADVICE [place] [facility] Sep 15, 2020 01:00 PM VA-TOBACCO USE TRANSFILL TECHNICIAN NO [facility] Sep 15, 2020 01:00 PM VA-TOBACCO USE MED NO [facility] Sep 15, 2020 01:00 PM VA-TOBACCO USER EVERY DAY [facility] Nov 28, 2017 12:02 PM CURRENT TOBACCO USER [facility] Nov 28, 2017 12:02 PM CURRENT TOBACCO US ER (NOT READY TO QUIT) [facility] Nov 28, 2017 12:02 PM TOBACCO CESSATION REFERRAL DECLINED [facility] Nov 28, 2017 12:02 PM TOBACCO MEDS OFFER ED BUT DECLINED [place] [facility] Nov 28, 2017 12:02 PM TOBACCO USER OFFERED MEDS [place] [facility] Oct 14, 2017 01:11 PM CURRENT TOBACCO USER [facility] Oct 14, 2017 01:11 PM CURRENT TOBACCO US ER (NOT READY TO QUIT) [facility] Oct 14, 2017 01:11 PM TOBACCO CESSATION REFERRAL DECLINED [place] [facility] Oct 14, 2017 01:11 PM TOBACCO MEDS OFFER ED BUT DECLINED [place] [facility] Oct 14, 2017 01:11 PM TOBACCO USER OFFERED MEDS [facility] August 05, 2017 02:42 PM CURRENT TOBACCO USER [place] [facility] August 05, 2017 02:42 PM CURRENT TOBACCO US ER (NOT READY TO QUIT) [facility] August 05, 2017 02:42 PM TOBACCO CESSATION REFERRAL DECLINED [facility] August 05, 2017 02:42 PM TOBACCO MEDS OFFER ED BUT DECLINED [facility] August 05, 2017 02:42 PM TOBACCO USER OFFERED MEDS [facility] Mar 18, 2017 09:26 AM CURRENT TOBACCO USER [facility] Mar 18, 2017 09:26 AM CURRENT TOBACCO US ER (NOT READY TO QUIT) [facility] Mar 18, 2017 09:26 AM TOBACCO CESSATION REFERRAL DECLINED [facility] Mar 18, 2017 09:26 AM TOBACCO MEDS OFFER ED BUT DECLINED [facility] Mar 18, 2017 09:26 AM TOBACCO USER OFFERED MEDS [place] [facility] Apr 28, 2016 07:17 AM CURRENT [place]BACCO USER [place] [facility] Apr 28, 2016 07:[address] [facility] Aug 01, 2009 10:10 AM QUIT TOBACCO >7 YEARS AGO [facility] Sep 26, 2007 09:34 AM QUIT TOBACCO >7 YEARS AGO [facility] August 06, 2005 09:10 AM CURRENT NON-TOBACC O USER-HX OF USE [facility] Mar 23, 2005 08:38 AM CURRENT NON-TOBACC O USER-HX OF USE [facility] Oct 01, 2004 09:41 AM CURRENT NON-TOBACC O USER-[place]X OF [place] [facility] Apr 07, 2004 09:49 AM CURRENT NON-TOBACC O USER-HX OF [place] [facility] Oct 11, 2003 10:41 AM CURRENT NON-TOBACC O USER-HX OF USE [place] [facility] Apr 05, 2003 10:43 AM CURRENT NON-TOBACC O USER-HX OF USE Quit 15 years ago. [place] [facility] Oct 25, 2002 09:24 AM CURRENT NON-TOBACC O USER-HX OF USE [facility] Nov 17, 2001 10:31 AM TOB-CURRENT NON-SM OKER BUT HX [place] [facility] Jul 27, 2001 01:43 PM CURRENT NON-TOBACC O USER-HX OF USE [place] [facility] May 16, 2001 10:35 AM CURRENT NON-TOBACC O USER-HX OF USE Quit 18 years ago. [facility] Nov 29, 2000 02:03 PM CURRENT NON-TOBACC O USER-HX OF USE QUIT 13 YRS AGO, 1 DAY [facility] Encounter Notes: All associated encounter notes This section contains the clinical notes associated to the Encounter. Date/Time Encounter Note(s) Provider Source Sep 25, 2024 03:48 PM PRIMARY CARE PROGR ESS NOTE: LOCAL TITLE: PRIMARY CARE CLINIC PROGRESS NOTE PB STANDARD TITLE: PRIMARY CARE PROGRESS NOTE DATE OF NOTE: SEP 25, 2024@15:48 ENTRY DATE: SEP 25, 2024@15:48:41 AUTHOR: DINESH HOBSON III EXP COSIGNER: URGENCY: STATUS: COMPLETED CC: Leg swelling HPI: 74-year-old gentleman walks in today for swollen right leg. This apparently happened quite rapidly over the last several days. He admits he is not golfing as much as he used to but he denies any injury. There is no significant pain in the leg but he does have some tingling in the foot. He is on Plavix and is taking this. No previous history of DVT. 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 8) FLUTICASONE PROP 50MCG 120D NASAL INHL [...] OZ OF WATER) Indication: FOR CONSTIPATION 14) SENNOSIDES 8.6MG TAB TAKE FOUR TABLETS BY MOUTH EVERY ACTIVE MORNING Indication: FOR CONSTIPATION 15) SIMVASTATIN 80MG TAB TAKE ONE TABLET BY MOUTH EVERY EVENING ACTIVE TO LOWER CHOLESTEROL (DO NOT TAKE WITH GRAPEFRUIT JUICE) 16) TAMSULOSIN HCL 0.4MG CAP TAKE TWO CAPSULES BY MOUTH EVERY ACTIVE EVENING APPROXIMATELY 30 MINUTES AFTER THE SAME MEAL EACH DAY 17) TRIAMCINOLONE ACETONIDE 0.1% CREAM APPLY SPARINGLY TO ACTIVE AFFECTED AREA(S) ... OF HANDS AND LEGS 2-3 TIMES WEEKLY NEEDED. MAY APPLY TWICE DAILY FOR UP TO 2 WEEKS FOR FLARES. (EXTERNAL USE ONLY) OBJECTIVE: Vital Signs Temperature: 97.6 F [36.4 C] (09/25/2024 14:55) Respiratory Rate: 22 (09/25/2024 14:55) Pulse Rate: 62 (09/25/2024 14:55) Blood Pressure: 154/70 (09/25/2024 14:55) HT: 72.0 in [182.9 cm] (03/06/2024 09:13) WT: 241.1 lb [109.36 kg] (09/25/2024 14:55) BMI: 32.8 97% (09/25/2024 14:55) Physical Exam General: NAD noted, A&Ox3, pleasant, appears stated age HEENT: NCAT, oropharynx clear Resp: Lungs CTA bilaterally, respirations even and unlabored Abdomen: Round otherwise grossly benign Ext: Significant edema in the right lower extremity. He chronically has some in his ankle but this proceeds all the way up the leg. At about the same spot on both legs I measured 11 inches on the right and 9 inches on the left. Distal neurovascular is grossly intact. Neuro: Grossly intact Psych: Affect normal, answers questions appropriately throughout visit Assessment/Plan: Swollen leg with tingling and foot> send to ER for venous Doppler/rule out If this turns out negative, rest and elevate. RTC for annual and as needed All questions answered; agrees to plan of care. Follow up as listed above, annually, and as needed. Keep all appointments. Medications Reconciled. /maria esther/ MD ELENA IRBY III [facility] Signed: 09/25/2024 15:53 DINESH HOBSON III [facility] Sep 25, 2024 02:57 PM PRIMARY CARE NURSI MEY NOTE: LOCAL TITLE: PRIMARY CARE NURSING PROGRESS NOTE (TEXT) NURSING P STANDARD TITLE: PRIMARY CARE NURSING NOTE DATE OF NOTE: SEP 25, 2024@14:57 ENTRY DATE: SEP 25, 2024@14:57:16 AUTHOR: NORMA FUENTES EXP COSIGNER: URGENCY: STATUS: COMPLETED Established Patient NORMA PANDYA IS A 74 YEAR OLD MALE BEING SEEN IN CLINIC SEP 25, 2024. == == REASON FOR VISIT: Here for complaint of swelling to right leg that started 1-2 days ago. He also states his right foot has been tingling like crazy for past 1-2 days as well. Denies pain. No redness or warm areas. Are you receiving care any where other than the [facility]? No HEALTH AND SURGICAL HISTORY: Does patient report using home oxygen? CURRENT ACTIVE MEDICATIONS FOR REVIEW: If the list for review does not include a component, then it was not applicable to this patient. Allergies/ADRs (Tool #5) FACILITY ALLERGY/ADR -------- No Remote Allergy/ADR Data available for this patient [facility] Med. Reconciliation (Tool #1) INCLUDED IN THIS LIST: Alphabetical list of active outpatient prescriptions dispensed from this [facility] (local) and dispensed from another VA or DoD facility (remote) as well as inpatient orders (local pending and active), local clinic medications, locally documented non-VA medications, and local prescriptions that have or been discontinued in the past 90 days. Non-VA Meds Last Documented On: Mar 15, 2018 NOTE The display of VA prescriptions dispensed from another VA or DoD facility (remote) is limited to active outpatient prescription entries matched to National Drug File at the originating site and may not include some items such as investigational drugs, compounds, etc. NOT INCLUDED IN THIS LIST: Medications self-entered by the patient into personal health records (i.e. [place]) are NOT included in this list. Non-VA medications documented outside this [place], remote inpatient orders (regardless of status) and remote clinic medications are NOT included in this list. The patient and provider must always discuss medications the patient is taking, regardless of where the medication was dispensed or obtained. OUTPT AMLODIPINE BESYLATE 10MG TAB (Status = Active) TAKE ONE TABLET BY MOUTH EVERY EVENING TO LOWER BLOOD PRESSURE Rx# [id number] Last Released: 07/24/24 Qty/Days Supply: Rx Expiration Date: 03/23/25 Refills Remainin OUTPT CALCIUM POLYCARBOPHIL 625MG TAB (Status = Active) TAKE ONE TABLET BY MOUTH ONCE A DAY FOR FIBER SUPPLEMENTATION Rx# [id number] Last Released: 06/29/24 Qty/Days Supply: Rx Expiration Date: 10/03/24 Refills Remainin Indication: FOR FIBER SUPPLEMENTATION OUTPT CARVEDILOL 6.25MG TAB (Status = Active) TAKE ONE TABLET BY MOUTH TWICE A DAY FOR HEART FAILURE TAKE WITH FOOD. Rx# [id number] Last Released: 08/07/24 Qty/Days Supply: 180/ Rx Expiration Date: 10/03/24 Refills Remainin Indication: FOR HEART FAILURE OUTPT CETIRIZINE HCL 10MG TAB (Status = Active) TAKE ONE TABLET BY MOUTH ONCE A DAY FOR ALLERGY SYMPTOMS Rx# [id number] Last Released: 08/29/24 Qty/Days Supply: Rx Expiration Date: 03/07/25 Refills Remainin Indication: FOR ALLERGY SYMPTOMS OUTPT CHLORTHALIDONE 25MG TAB (Status = Active) TAKE ONE TABLET BY MOUTH ONCE A DAY FOR HIGH BLOOD PRESSURE Rx# [id number] Last Released: 09/14/24 Qty/Days Supply: Rx Expiration Date: 03/23/25 Refills Remainin Indication: FOR HIGH BLOOD PRESSURE OUTPT CLOPIDOGREL BISULFATE 75MG TAB (Status = Active) TAKE ONE TABLET BY MOUTH ONCE A DAY TO THIN BLOOD Rx# [id number] Last Released: 06/23/24 Qty/Days Supply: 90 Rx Expiration Date: 03/31/25 Refills Remainin OUTPT FINASTERIDE 5MG TAB (Status = Discontinued) TAKE ONE TABLET BY MOUTH ONCE A DAY FOR BENIGN PROSTATIC HYPERPLASIA SWALLOW WHOLE, DO NOT CRUSH, SPLIT, OR CHEW. Rx# [id number] Last Released: 08/29/24 Qty/Days Supply: Rx Expiration Date: 03/07/25 Refills Remainin Indication: FOR BENIGN PROSTATIC HYPERPLASIA OUTPT FINASTERIDE 5MG TAB (Status = Active) TAKE ONE TABLET BY MOUTH ONCE A DAY SWALLOW WHOLE, DO NOT CRUSH, SPLIT, OR CHEW. Rx# [id number] Last Released: 09/25/24 Qty/Days Supply: Rx Expiration Date: 09/21/25 Refills Remainin OUTPT FLUTICASONE PROP 50MCG 120D NASAL INHL (Status = Active) INSTILL 1 SPRAY IN NOSTRIL(S) ONCE A DAY FOR RHINITIS (MUST BE USED DIRECTED FOR MINIMUM OF 21 DAYS TO PROVIDE ADEQUATE BENEFITS) Rx# [id number] Last Released: 08/10/24 Qty/Days Supply: Rx Expiration Date: 03/07/25 Refills Remainin Indication: FOR RHINITIS OUTPT GLIPIZIDE 5MG TAB (Status = Active) TAKE ONE-HALF TABLET BY MOUTH ONCE A DAY FOR DIABETES 30 MINUTES BEFORE MEAL(S) TO LOWER BLOOD SUGAR Rx# [id number] Last Released: 08/07/24 Qty/Days Supply: 45 Rx Expiration Date: 10/03/24 Refills Remainin Indication: FOR DIABETES OUTPT HYDRALAZINE HCL 25MG TAB (Status = Discontinued) TAKE ONE TABLET BY MOUTH THREE TIMES A DAY Rx# [id number] Last Released: 03/22/24 Qty/Days Supply: Rx Expiration Date: 01/09/25 Refills Remainin OUTPT HYDRALAZINE HCL 25MG TAB (Status = On Hold) TAKE ONE TABLET BY MOUTH THREE TIMES A DAY Rx# [id number] Last Released: Qty/Days Supply: Rx Expiration Date: 07/12/25 Refills Remainin OUTPT HYDRALAZINE HCL 50MG TAB (Status = Active) TAKE ONE TABLET BY MOUTH THREE TIMES A DAY Rx# [id number] Last Released: 07/17/24 Qty/Days Supply: 270 Rx Expiration Date: 07/11/25 Refills Remainin OUTPT LEVETIRACETAM 750MG TAB (Status = Active) TAKE ONE-HALF TABLET BY MOUTH TWICE A DAY FOR SEIZURES SWALLOW WHOLE, DO NOT CRUSH OR CHEW. Rx# [id number] Last Released: 08/07/24 Qty/Days Supply: Rx Expiration Date: 11/17/24 Refills Remainin Indication: FOR SEIZURES OUTPT MUPIROCIN 2% OINT (Status = ) APPLY LIGHTLY TO AFFECTED AREA(S) TWICE DAILY NEEDED FOR BACTERIAL INFECTION EXTERNAL USE ONLY. Rx# [id number] Last Released: 07/12/23 Qty/Days Supply: Rx Expiration Date: 07/06/24 Refills Remainin Indication: FOR BACTERIAL INFECTION OUTPT POLYETHYLENE GLYCOL 3350 ORAL PWDR (Status = Discontinued) MIX AND DRINK 2 CAPFULS BY MOUTH ONCE A DAY FOR CONSTIPATION (MEASURE WITH CAP AND MIX IN 8 OZ OF WATER) Rx# [id number] Last Released: 04/11/24 Qty/Days Supply: Rx Expiration Date: 04/11/25 Refills Remainin Indication: FOR CONSTIPATION OUTPT POLYETHYLENE GLYCOL 3350 ORAL PWDR (Status = Active) MIX AND DRINK 2 CAPFULS BY MOUTH ONCE A DAY FOR CONSTIPATION (MEASURE WITH CAP AND MIX IN 8 OZ OF WATER) Rx# [id number] Last Released: 09/14/24 Qty/Days Supply: Rx Expiration Date: 09/13/25 Refills Remainin Indication: FOR CONSTIPATION OUTPT SENNOSIDES 8.6MG TAB (Status = Active) TAKE FOUR TABLETS BY MOUTH EVERY MORNING FOR CONSTIPATION Rx# [id number] Last Released: 09/13/24 Qty/Days Supply: Rx Expiration Date: 09/13/25 Refills Remainin Indication: FOR CONSTIPATION OUTPT SIMVASTATIN 80MG TAB (Status = Active) TAKE ONE TABLET BY MOUTH EVERY EVENING TO LOWER CHOLESTEROL (DO NOT TAKE WITH GRAPEFRUIT JUICE) Rx# [id number] Last Released: 06/25/24 Qty/Days Supply: Rx Expiration Date: 03/23/25 Refills Remainin OUTPT TAMSULOSIN HCL 0.4MG CAP (Status = Discontinued) TAKE TWO CAPSULES BY MOUTH EVERY EVENING FOR BENIGN PROSTATIC HYPERPLASIA APPROXIMATELY 30 MINUTES AFTER THE SAME MEAL EACH DAY Rx# [id number] Last Released: 09/10/24 Qty/Days Supply: 180 Rx Expiration Date: 03/23/25 Refills Remainin Indication: FOR BENIGN PROSTATIC HYPERPLASIA OUTPT TAMSULOSIN HCL 0.4MG CAP (Status = Active) TAKE TWO CAPSULES BY MOUTH EVERY EVENING APPROXIMATELY 30 MINUTES AFTER THE SAME MEAL EACH DAY Rx# [id number] Last Released: Supply: 180 Rx Expiration Date: 09/21/25 Refills Remainin OUTPT TRIAMCINOLONE ACETONIDE 0.1% CREAM (Status = Active) APPLY SPARINGLY TO AFFECTED AREA(S) ... OF HANDS AND LEGS 2-3 TIMES WEEKLY NEEDED. MAY APPLY TWICE DAILY FOR UP TO 2 WEEKS FOR FLARES. (EXTERNAL USE ONLY) Rx# [id number] Last Released: 04/19/24 Qty/Days Supply: 80/30 Rx Expiration Date: 11/09/24 Refills Remainin SUPPLIES PHARMACY TERMS AND POSSIBLE PATIENT ACTIONS [place]PT = [place] IV = [place] intravenous medication OUTPT = [place] outpatient prescription PHARMACY POSSIBLE PATIENT TERMS EXPLANATION ACTIONS -------- ----- ACTIVE A prescription that can be If you have refills, filled at the local [place] pharmacy. you may request a refill of this prescription from [facility]. CLINIC A medication you received during If you have questions a visit to a [facility] clinic or about this medication emergency department. contact your [facility] healthcare team. DISCONTINUED A prescription your provider has Contact your [facility] stopped. It is no longer healthcare team if you available to be sent to you or need more of this picked up at the [place] pharmacy medication. window. A prescription which is [...] the [facility]. Or, it may be an [id number] (OTC), herbal, dietary supplements or sample medication. [...] An active prescription that is Contact your [place] not scheduled to be filled yet. pharmacy if you need You should receive it before this medication now. you run out. Medication list reviewed with Patient IS PATIENT TAKING ANY OVER THE COUNTER MEDICATIONS, SUCH VITAMINS OR HERBAL SUPPLEMENTS, INCLUDING ANY MEDICATIONS PRESCRIBED BY ANOTHER PHYSICIAN? No Does patient have any new allergies to report since last visit? VITALS: TEMPERATURE: 97.6 F [36.4 C] (09/25/2024 14:55) BP: 154/70 (09/25/2024 14:55) RESP: 22 (09/25/2024 14:55) PULSE: 62 (09/25/2024 14:55) HT: 72.0 in [182.9 cm] (03/06/2024 09:13) WT: 241.1 lb [109.36 kg] (09/25/2024 14:55) BMI: 32.8 PAIN ASSESSMENT: (Most Recent Pain Score in Vitals Package: 0 (09/25/2024 14:55) ) The patient indicated that they and [...] Now let us serve you. At the [facility], we strive to provide you [...] Not At All SPIRITUAL ASSESSMENT: Are there zoroastrian practices or spiritual concerns you want the internet designer, your physician, and other health care team members to immediately know about? Patient advised to call the clinic for any concerns, questions, or symptoms. Patient and/or caregiver verbalized understanding of plan of care. /maria esther/ NORMA FUENTES LPN Signed: 09/25/2024 15:15 NORMA FUENTES [facility]
--- OUTSIDE RECORDS SUMMARY | 2024-09-25 12:15 | XMS_ITS | Continuity of Care Document ---
Author Name [facility] Organization [facility] Care Team Providers Care Miscellaneous Machine Operator Name Role Phone [facility] Unavailable Unavailable Problems Combined list of problems from Department of Defense and Veterans Affairs facilities. It does not include entries that were removed or entered in error. Problem Status Onset Date Problem Type Date of Resolution Comments Source Benign prostatic hyperplasia Active Condition [place] [facility] Bradycardia Active Condition Sep 18, 2021 Entered By: WES SHARMA Comment: Likely due to Atenolol. Asymtomatic. [place] [facility] Coronary artery disease (SNOMED CT 93614148) Active Condition [place] [facility] CVA - Cerebrovascular accident Active Condition Jun 08, 2021 Entered By: WES SHARMA Comment: 06/2021. [place] [facility] Diabetes mellitus Active Condition [place] [facility] Elevated PSA Active Condition Sep 16, 2020 Entered By: WES SHARMA Comment: 7.02 September 2020.Sep 22, 2022 Entered By: WES SHARMA Comment: 6.9-- 09/2022. [place] [facility] Essential hypertension (SNOMED CT 32146292) Active Condition [place] [facility] Exposure to potentially hazardous substance Active Condition [place] [facility] Generalised seizure Active Condition Sep 15, 2020 Entered By: WES SHARMA Comment: 09/2020....Po ssible. [place] [facility] Gout (SNOMED CT 98477992) Active Condition [place] [facility] HISTORY OF TOBACCO USE Active Condition [place] [facility] Hyperlipidemia (SNOMED CT 90696092) Active Condition [place] [facility] Intertrigo * (ICD-9-CM 695.89) Active Condition [place] [facility] Low Back Pain Active Condition [place] [facility] Neck pain Active Condition [place] [facility] Restless legs Active Condition [place] [facility] Tendinitis * (ICD-9-CM 726.90) Active Condition Sep 22 Entered By: WES SHARMA Comment: 15 September 2021. 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) Active Condition [place] [facility] Xerosis (ICD-9-CM 706.8) Active Condition [place] [facility] Laboratory Procedures (ICD-9-CM V72.6) Inactive Condition 11/16/2018 [place] [facility] SCREENING FOR ALCOHOLISM Inactive Condition 11/16/2018 [place] [facility] SCREENING FOR DEPRESSION Inactive Condition 11/16/2018 [place] [facility] Unresolved Inactive Condition 09/24/2019 [place] [facility] Diagnosis: ICD-10-CM M99.02 Segmental and somatic dysfunction of thoracic region Active Diagnosis [facility] Diagnosis: ICD-10-CM Z13.5 Encounter for screening for eye and ear disorders Active Diagnosis [place] [facility] Diagnosis: ICD-10-CM Z00.01 Encounter for general adult medical exam w abnormal findings Active Diagnosis [facility] Diagnosis: ICD-10-CM G47.33 Obstructive sleep apnea (adult) (pediatric) Active Diagnosis [place] [facility] Diagnosis: ICD-10-CM K59.00 Constipation, unspecified Active Diagnosis [facility] Diagnosis: ICD-10-CM J01.80 Other acute sinusitis Active Diagnosis [facility] Diagnosis: ICD-10-CM R09.81 Nasal congestion Active Diagnosis [facility] Diagnosis: ICD-10-CM Z23 Encounter for immunization Active Diagnosis [facility] Diagnosis: ICD-10-CM L08.9 Local infection of the skin and subcutaneous tissue, unsp Active Diagnosis [facility] Diagnosis: ICD-10-CM S51.802A Unspecified open wound of left forearm, initial encounter Active Diagnosis [facility] Diagnosis: ICD-10-CM J09.X2 Flu due to ident novel influenza A virus w oth resp manifest Active Diagnosis [facility] Medications Combined list of outpatient medications from Department of Defense and Veterans Affairs facilities.Medications provided include 1) outpatient medications from the last 15 months, and 2) patient-reported medications. Medication Details Route Status Patient Instructions Prescription Expires Prescription Number Last Dispense Date Ordering Provider Order Date Order Qty Source AMLODIPINE BESYLATE 10MG TAB TAKE ONE TABLET BY MOUTH EVERY EVENING TO LOWER BLOOD PRESSURE ORAL ACTIVE 03/23/2025 [id number] FAREED RAMIREZ 2024 90 [facility] AMLODIPINE BESYLATE 10MG TAB TAKE ONE TABLET BY MOUTH EVERY EVENING TO LOWER BLOOD PRESSURE ORAL DISCONT INUED 03/11/2024 [id number] CORBIN SHARMA [address] [place] [address] [facility] CALCIUM POLYCARBOPH [place] 625MG TAB TAKE ONE TABLET BY MOUTH ONCE A DAY FOR FIBER SUPPLEME NTATION ORAL ACTIVE 10/03/2024 [id number] 5 ILSA SHUKLA ISTEL G [address] [place] [address] [facility] CARVEDILOL 6.25MG TAB TAKE ONE TABLET BY MOUTH TWICE A DAY FOR HEART FAILURE TAKE WITH FOOD. ORAL ACTIVE 10/03/2024 [id number] 5 ILSA SHUKLA ISTEL G 2023 180 [facility] CARVEDILOL 6.25MG TAB TAKE ONE-HALF TABLET BY MOUTH TWICE A DAY FOR HEART. TAKE WITH FOOD. ORAL DISCONT INUED (EDIT) 03/11/2024 [id number] CORBIN SHARMA [address] [place] [address] [facility] CETIRIZINE HCL 10MG TAB TAKE ONE TABLET BY MOUTH ONCE A DAY FOR ALLERGY SYMPTOMS ORAL ACTIVE 03/07/2025 [id number] 5 ILSA SHUKLA ISTEL G [address] [place] [address] [place] [facility] CHLORTHALID ONE 25MG TAB TAKE ONE TABLET BY MOUTH ONCE A DAY FOR HIGH BLOOD PRESSURE ORAL ACTIVE 03/23/2025 [id number] 5 FAREED RAMIREZ 2024 90 [facility] CHLORTHALID ONE 25MG TAB TAKE ONE TABLET BY MOUTH ONCE A DAY FOR HIGH BLOOD PRESSURE ORAL DISCONT INUED 03/11/2024 [id number] 4 CORBIN SHARMA Deb [address] [place] [address] CHLORTHALID ONE 25MG TAB TAKE ONE TABLET BY MOUTH ONCE A DAY FOR HIGH BLOOD PRESSURE ORAL DISCONT INUED 03/22/2025 [id number] Cammie PALAFOX Q [address] [place] [address] CLOPIDOGREL BISULFATE 75MG TAB TAKE ONE TABLET BY MOUTH ONCE A DAY TO THIN BLOOD ORAL ACTIVE 03/31/2025 [id number] 5 ILSA SHUKLATEL Kishore [address] [place] [address] CLOPIDOGREL BISULFATE 75MG TAB TAKE ONE TABLET BY MOUTH ONCE A DAY TO THIN BLOOD ORAL DISCONT INUED 03/11/2024 [id number] ZACHARY CORBIN Deb [address] [place], [place] [address]OC FINASTERIDE 5MG TAB TAKE ONE TABLET BY MOUTH ONCE A DAY SWALLOW WHOLE, DO NOT CRUSH, SPLIT, OR CHEW. ORAL ACTIVE 09/21/2025 [id number] 5 LUCIANA TURK 2024 90 [place] [facility] FINASTERIDE 5MG TAB TAKE ONE TABLET BY MOUTH ONCE A DAY FOR BENIGN PROSTATI C HYPERPLA QUIN SWALLOW WHOLE, DO NOT CRUSH, SPLIT, OR CHEW. ORAL DISCONT INUED 03/07/2025 [id number] 5 ILSA SHUKLATEMaria Isabel Novak [address] [place] [address] FINASTERIDE 5MG TAB TAKE ONE TABLET BY MOUTH ONCE A DAY FOR 90 DAYS SWALLOW WHOLE, DO NOT CRUSH, SPLIT, OR CHEW. ORAL DISCONT INUED 11/21/2024 [id number] 4 LUCIANA TURK 2023 90 [place] [facility] FLUTICASONE PROPIONATE 50MCG/SPRAY SOLN,NASAL, 16GM INSTILL 1 SPRAY IN NOSTRIL( S) ONCE A DAY FOR RHINITIS (MUST BE USED DIRECTED FOR MINIMUM OF 21 DAYS TO PROVIDE ADEQUATE BENEFITS ) NASAL ACTIVE 03/07/2025 [id number] 5 ILSA SHUKLATEMaria Isabel Novak [address] [place] [address] [facility] GLIPIZIDE 5MG TAB TAKE ONE-HALF TABLET BY MOUTH ONCE A DAY FOR DIABETES 30 MINUTES BEFORE MEAL(S) TO LOWER BLOOD SUGAR ORAL ACTIVE 10/03/2024 [id number] 5 ILSA SHUKLA 2023 45 [facility] GLIPIZIDE 5MG TAB TAKE ONE-HALF TABLET BY MOUTH ONCE A DAY 30 MINUTES BEFORE MEAL(S) TO LOWER BLOOD SUGAR ORAL DISCONT INUED (EDIT) 03/11/2024 [id number] 4 CORBIN SHARMA 2023 45 [facility] HYDRALAZINE HCL 25MG TAB TAKE ONE TABLET BY MOUTH THREE TIMES A DAY ORAL HOLD 07/12/2025 [id number] 5 ILSA SHUKLA 2024 270 [facility] HYDRALAZINE HCL 25MG TAB TAKE ONE TABLET BY MOUTH THREE TIMES A DAY ORAL DISCONT INUED 01/09/2025 [id number] SHAVON GARIBAY MD 2023 270 [place] [facility] HYDRALAZINE HCL 50MG TAB TAKE ONE TABLET BY MOUTH THREE TIMES A DAY ORAL ACTIVE 07/11/2025 [id number] SHAVON GARIBAY MD 2024 270 [place] [facility] LEVETIRACET AM 750MG TAB TAKE ONE-HALF TABLET BY MOUTH TWICE A DAY FOR SEIZURES SWALLOW WHOLE, DO NOT CRUSH OR CHEW. ORAL ACTIVE 11/17/2024 [id number] 5 FAREED RAMIREZ 2023 90 [facility] LEVETIRACET AM 750MG TAB TAKE ONE TABLET BY MOUTH TWICE A DAY FOR SEIZURES SWALLOW WHOLE, DO NOT CRUSH OR CHEW. ORAL 09/22/2023 [id number] CORBIN SHARMA 2022 60 [facility] MUPIROCIN 2% OINT,TOP APPLY LIGHTLY TO AFFECTED AREA(S) TWICE DAILY NEEDED FOR BACTERIA L INFECTIO N EXTERNAL USE ONLY. TOPICA L 07/06/2024 [id number] 4 ILSA SHUKLA 2023 22 [facility] POLYETHYLEN E GLYCOL 3350 PWDR,ORAL MIX AND DRINK 2 CAPFULS BY MOUTH ONCE A DAY FOR CONSTIPA TION (MEASURE WITH CAP AND MIX IN 8 OZ OF WATER) ORAL ACTIVE 09/13/2025 [id number] 5 ILSA SHUKLA ISTEL G 2024 1530 [facility] POLYETHYLEN E GLYCOL 3350 PWDR,ORAL MIX AND DRINK 2 CAPFULS BY MOUTH ONCE A DAY FOR CONSTIPA TION (MEASURE WITH CAP AND MIX IN 8 OZ OF WATER) ORAL DISCONT INUED (EDIT) 04/11/2025 [id number] 5 ILSA SHUKLA ISTEL G 2024 1530 [facility] SENNOSIDES 8.6MG TAB TAKE FOUR TABLETS BY MOUTH EVERY MORNING FOR CONSTIPA TION ORAL ACTIVE 09/13/2025 [id number] 5 ILSA SHUKLA ISTEL G 2024 400 [facility] SENNOSIDES 8.6MG TAB TAKE THREE TABLETS BY MOUTH ONCE A DAY FOR CONSTIPA TION ORAL DISCONT INUED BY KHARI R 10/03/2024 [id number] 4 GAYLAILSA ISTEL G 2023 300 [facility] SIMVASTATIN 80MG TAB TAKE ONE TABLET BY MOUTH EVERY EVENING TO LOWER CHOLESTE ROL (DO NOT TAKE WITH GRAPEFRU IT JUICE) ORAL ACTIVE 03/23/2025 [id number] 5 FAREED RAMIREZ 2023 90 [facility] SIMVASTATIN 80MG TAB TAKE ONE TABLET BY MOUTH EVERY EVENING TO LOWER CHOLESTE ROL (DO NOT TAKE WITH GRAPEFRU IT JUICE) ORAL DISCONT INUED 03/11/2024 [id number] CORBIN SHARMA 2022 90 [facility] TAMSULOSIN HCL 0.4MG CAP TAKE TWO CAPSULES BY MOUTH EVERY EVENING APPROXIM ATELY 30 MINUTES AFTER THE SAME MEAL EACH DAY ORAL ACTIVE 09/21/2025 [id number] 5 LUCIANA TURK 2024 180 [place] [facility] TAMSULOSIN HCL 0.4MG CAP TAKE TWO CAPSULES BY MOUTH EVERY EVENING FOR BENIGN PROSTATI C HYPERPLA QUIN APPROXIM ATELY 30 MINUTES AFTER THE SAME MEAL EACH DAY ORAL DISCONT INUED 03/23/2025 [id number] FAREED RAMIREZ 2024 180 [facility] TAMSULOSIN HCL 0.4MG CAP TAKE TWO CAPSULES BY MOUTH EVERY EVENING FOR BENIGN PROSTATI C HYPERPLA QUIN APPROXIM ATELY 30 MINUTES AFTER THE SAME MEAL EACH DAY ORAL DISCONT INUED 03/11/2024 [id number] CORBIN SHARMA 2023 180 [facility] TRIAMCINOLO NE ACETONIDE 0.1% CREAM,TOP APPLY SPARINGL Y TO AFFECTED AREA(S) ... OF HANDS AND LEGS 2-3 TIMES WEEKLY NEEDED. MAY APPLY TWICE DAILY FOR UP TO 2 WEEKS FOR FLARES. (EXTERNA L USE ONLY) TOPICA L ACTIVE 11/09/2024 [id number] 5 BARRY KAMINSKI 2023 80 [place] [facility] TRIAMCINOLO NE ACETONIDE 0.1% CREAM,TOP APPLY SPARINGL Y TO AFFECTED AREA(S) TWICE A DAY FOR 3 WEEKS, THEN APPLY SPARINGL Y ONCE A DAY FOR 3 WEEKS, THEN APPLY SPARINGL Y 2-3X WEEKLY NEEDED APPLY TO AFFECTED AREA OF HANDS AND LEGS TOPICA L DISCONT INUED 05/19/2024 [id number] 4 BARRY KAMINSKI [address] [facility] Allergies, Adverse Reactions, Alerts Combined list of allergies from Department of Defense and Veterans Affairs facilities. It does not include entries that were removed or entered in error. Substance Category Reaction Severity Reaction type Status Date Reported Comments Source LISINOPRIL Propensity to adverse reactions to drug (finding) Cough active [address] [facility] Immunizations Combined list of available immunizations from the Department of Defense and Veterans Affairs facilities. Immunization Series Date Given Administered By Site Reaction Lot Number CVX Code Drug Digital Service Engineer Status Comments Source INFLUENZA, HIGH-DOSE, TRIVALENT, PF 2023 CALLY WOMACK LEFT DELTO ID [id number] A 135 complet ed [facility] INFLUENZA, HIGH-DOSE, QUADRIVALENT 2022 DENA KAPLAN LEFT DELTO ID [id number] A 197 complet ed [facility] INFLUENZA, INJECTABLE, QUADRIVALENT, PRESERVATIVE FREE 2021 150 complet ed [facility] INFLUENZA, INJECTABLE, QUADRIVALENT, PRESERVATIVE FREE 2020 150 complet ed [facility] COVID-19 (PRIMO), VECTOR-NR, [id number], PF, 0.5 ML 1 2020 212 complet ed HISTORICA L INFORMATI ON - FROM OTHER REGISTRY, [facility] INFLUENZA, INJECTABLE, QUADRIVALENT, PRESERVATIVE FREE 2019 150 complet ed [facility] INFLUENZA, INJECTABLE, QUADRIVALENT, PRESERVATIVE FREE 2018 150 complet ed [facility] INFLUENZA, INJECTABLE, QUADRIVALENT, PRESERVATIVE FREE 2017 150 complet ed [facility] INFLUENZA, SEASONAL, INJECTABLE, PRESERVATIVE FREE 2016 140 complet ed Right Deltoid [place] [facility] TDAP 2016 115 complet ed [facility] INFLUENZA, SEASONAL, INJECTABLE, PRESERVATIVE FREE 2015 140 complet ed [facility] PNEUMOCOCCAL POLYSACCHARID E PPV23 2015 33 complet ed [facility] INFLUENZA, SEASONAL, INJECTABLE, PRESERVATIVE FREE 2014 140 complet ed [place] [facility] PNEUMOCOCCAL CONJUGATE PCV 13 2014 133 complet ed [facility] INFLUENZA, LIVE, INTRANASAL 2013 111 complet ed [facility] INFLUENZA, UNSPECIFIED FORMULATION 2013 88 complet ed [place] [facility] INFLUENZA, UNSPECIFIED FORMULATION 2012 88 complet ed [facility] INFLUENZA, UNSPECIFIED FORMULATION 2011 88 complet ed [facility] ZOSTER LIVE 2011 NICOLETTE FARIA 121 comple t ed [place] [facility] INFLUENZA, UNSPECIFIED FORMULATION 2010 88 complet ed [place] [facility] INFLUENZA, UNSPECIFIED FORMULATION 2009 88 complet ed [place] [facility] PNEUMOCOCCAL, UNSPECIFIED FORMULATION 2009 109 complet ed Left Deltoid, lot# [id number] exp. date 03/07/10 [place] [facility] INFLUENZA (HISTORICAL) 2008 88 complet ed [place] [facility] INFLUENZA, UNSPECIFIED FORMULATION 2007 88 complet ed [place] [facility] INFLUENZA, UNSPECIFIED FORMULATION 2006 88 complet ed [place] [facility] INFLUENZA (HISTORICAL) 2005 88 complet ed [place] [facility] INFLUENZA (HISTORICAL) 2003 88 complet ed [facility] INFLUENZA, UNSPECIFIED FORMULATION 2002 88 complet ed [place] [facility] TD(ADULT) UNSPECIFIED FORMULATION 2002 139 complet ed [facility] TD(ADULT) UNSPECIFIED FORMULATION 2001 139 complet ed [facility] Results Combined list of recent chemistry, hematology and other laboratory results from Department of Defense and Veterans Affairs, ranging from 15 months to all on record, depending upon the facility. Order Name Results Value Reference Range Date Interpretation Specimen Comments Source FOLATE (PB) FOLATE [MASS/VOLUME] IN SERUM OR PLASMA 15.5 ng/mL 7 - 20 09/12 Specimen Type: SERUM No comment entered. Ordering Provider: ILSA SHUKLA Report Released Date/Time : Sep 12, 2024 09:54 AM Reporting Lab: [place] [facility] [address] [place] [address] Performin g Lab: [place] [facility] [address] [place] [address] [facility] HGA1C HEMOGLOBIN A1C/HEMOGLOBI N.TOTAL IN BLOOD 6.5 4.0 - 6.0 09/12 H Specimen Type: BLOOD No comment entered. Ordering Provider: ILSA SHUKLA Report Released Date/Time : Sep 12, 2024 09:54 AM Reporting Lab: [place] [facility] [address] [place] [address] Performin g Lab: [place] [facility] [address] [place] [address] [facility] B12 COBALAMIN (VITAMIN B12) [MASS/VOLUME] IN SERUM OR PLASMA 579 pg/mL 213 - 816 09/12 Specimen Type: SERUM No comment entered. Ordering Provider: ILSA SHUKLA Report Released Date/Time : Sep 12, 2024 09:54 AM Reporting Lab: [place] [facility] [address] [place] [address] Performin g Lab: [place] [facility] [address] [place] [address] [facility] VITAMIN D, 25-HYDROXY 25-HYDROXYVIT [place] D3 [MASS/VOLUME] IN SERUM OR PLASMA 69.3 ng/mL 30 - 96 09/12 Specimen Type: SERUM No comment entered. Ordering Provider: ILSA SHUKLA Report Released Date/Time : Sep 12, 2024 09:54 AM Reporting Lab: [place] [facility] [address] [place] [address] Performin g Lab: [place] [facility] [address] [place] [address] [facility] TSH (MA-PB) THYROTROPIN [UNITS/VOLUME ] IN SERUM OR PLASMA 0.941 u[IU]/ mL 0.47 - 5 09/12 Specimen Type: SERUM No comment entered. Ordering Provider: ILSA SHUKLA Report Released Date/Time : Sep 12, 2024 09:54 AM Reporting Lab: [place] [facility] [address] [place] [address] Performin g Lab: [place] [facility] [address] [place] [address] [facility] URINE ALBUMIN PROFILE-ih (PB) ALBUMIN [MASS/VOLUME] IN URINE 40.74 mg/L 09/12 Specimen Type: URINE No comment entered. Ordering Provider: ILSA SHUKLA Report Released Date/Time : Sep 12, 2024 09:54 AM Reporting Lab: [place] [facility] [address] [place] [address] Performin g Lab: [place] [facility] [address] [place] [address] [facility] URINE ALBUMIN PROFILE-ih (PB) ALBUMIN/CREAT ININE [MASS RATIO] IN URINE 35.61 mg/g 0 - 30 09/12 H Specimen Type: URINE No comment entered. Ordering Provider: ILSA SHUKLA Report Released Date/Time : Sep 12, 2024 09:54 AM Reporting Lab: [place] [facility] [address] [place] [address] Performin g Lab: [place] [facility] [address] [place] [address] [facility] URINE ALBUMIN PROFILE-ih (PB) CREATININE [MASS/VOLUME] IN URINE 114.41 mg/dL 09/12 Specimen Type: URINE No comment entered. Ordering Provider: ILSA SHUKLA Report Released Date/Time : Sep 12, 2024 09:54 AM Reporting Lab: [place] [facility] [address] [place] [address] Performin g Lab: [place] [facility] [address] [place] [address] [facility] CHOLESTEROL PANEL (PB) CHOLESTEROL [MASS/VOLUME] IN SERUM OR PLASMA 121 mg/dL 0 - 200 09/12 Specimen Type: PLASMA No comment entered. Ordering Provider: ILSA SHUKLA Report Released Date/Time : Sep 12, 2024 09:54 AM Reporting Lab: [place] [facility] [address] [place] [address] Performin g Lab: [place] [facility] [address] [place] [address] [facility] CHOLESTEROL PANEL (PB) TRIGLYCERIDE [MASS/VOLUME] IN SERUM OR PLASMA 128 mg/dL 0 - 150 09/12 Specimen Type: PLASMA No comment entered. Ordering Provider: ILSA SHUKLA Report Released Date/Time : Sep 12, 2024 09:54 AM Reporting Lab: [place] [facility] [address] [place] [address] Performin g Lab: [place] [facility] [address] [place] [address] [facility] CHOLESTEROL PANEL (PB) CHOLESTEROL IN LDL [MASS/VOLUME] IN SERUM OR PLASMA BY CALCULATION 53.2 mg/dL 09/12 Specimen Type: PLASMA No comment entered. Ordering Provider: ILSA SHUKLA Report Released Date/Time : Sep 12, 2024 09:54 AM Reporting Lab: [place] [facility] [address] [place] [address] Performin g Lab: [place] [facility] [address] [place] [address] [facility] CHOLESTEROL PANEL (PB) CHOLESTEROL IN HDL [MASS/VOLUME] IN SERUM OR PLASMA 42.2 mg/dL 40 09/12 H Specimen Type: PLASMA No comment entered. Ordering Provider: ILSA SHUKLA Report Released Date/Time : Sep 12, 2024 09:54 AM Reporting Lab: [place] [facility] [address] [place] [address] Performin g Lab: [place] [facility] [address] [place] [address] [facility] CHOLESTEROL PANEL (PB) CHOLESTEROL IN HDL/CHOLESTER OL.TOTAL [MASS RATIO] IN SERUM OR PLASMA 34.9 25 09/12 Specimen Type: PLASMA No comment entered. Ordering Provider: ILSA SHUKLA Report Released Date/Time : Sep 12, 2024 09:54 AM Reporting Lab: [place] [facility] [address] [place] [address] Performin g Lab: [place] [facility] [address] [place] [address] [facility] COMPREHENSI VE METABOLIC PANEL CREATININE [MASS/VOLUME] IN SERUM OR PLASMA 0.91 mg/dL 0.7 - 1.3 09/12 Specimen Type: PLASMA No comment entered. Ordering Provider: ILSA SHUKLA Report Released Date/Time : Sep 12, 2024 09:54 AM Reporting Lab: [place] [facility] [address] [place] [address] Performin g Lab: [place] [facility] [address] [place] [address] [facility] COMPREHENSI VE METABOLIC PANEL UREA NITROGEN [MASS/VOLUME] IN SERUM OR PLASMA 14 mg/dL 9 - 25 09/12 Specimen Type: PLASMA No comment entered. Ordering Provider: ILSA SHUKLA Report Released Date/Time : Sep 12, 2024 09:54 AM Reporting Lab: [place] [facility] [address] [place] [address] Performin g Lab: [place] [facility] [address] [place] [address] [facility] COMPREHENSI VE METABOLIC PANEL GLUCOSE [MASS/VOLUME] IN SERUM OR PLASMA 119 mg/dL 72 - 99 09/12 H Specimen Type: PLASMA No comment entered. Ordering Provider: ILSA SHUKLA Report Released Date/Time : Sep 12, 2024 09:54 AM Reporting Lab: [place] [facility] [address] [place] [address] Performin g Lab: [place] [facility] [address] [place] [phone] [facility] COMPREHENSI VE METABOLIC PANEL SODIUM [MOLES/VOLUME ] IN SERUM OR PLASMA 133 meq/L 136 - 145 09/12 L Specimen Type: PLASMA No comment entered. Ordering Provider: ILSA SHUKLA Report Released Date/Time : Sep 12, 2024 09:54 AM Reporting Lab: [place] [facility] [address] [place] [address] Performin g Lab: [place] [facility] [address] [place] [phone] [facility] COMPREHENSI VE METABOLIC PANEL POTASSIUM [MOLES/VOLUME ] IN SERUM OR PLASMA 3.3 meq/L 3.5 - 5 09/12 L Specimen Type: PLASMA No comment entered. Ordering Provider: ILSA SHUKLA Report Released Date/Time : Sep 12, 2024 09:54 AM Reporting Lab: [place] [facility] [address] [place] [address] Performin g Lab[place] [facility] [address] [place] [address] [facility] COMPREHENSI VE METABOLIC PANEL CHLORIDE [MOLES/VOLUME ] IN SERUM OR PLASMA 95 meq/L 98 - 107 09/12 L Specimen Type: PLASMA No comment entered. Ordering Provider: ILSA SHUKLA Report Released Date/Time : Sep 12, 2024 09:54 AM Reporting Lab: [place] [facility] [address] [place] [address] Performin g Lab: [place] [facility] [address] [place] [address] [facility] COMPREHENSI VE METABOLIC PANEL CARBON DIOXIDE, TOTAL [MOLES/VOLUME ] IN SERUM OR PLASMA 29 meq/L 22 - 31 09/12 Specimen Type: PLASMA No comment entered. Ordering Provider: ILSA SHUKLA Report Released Date/Time : Sep 12, 2024 09:54 AM Reporting Lab: [place] [facility] [address] [place] [address] Performin g Lab: [place] [facility] [address] [place] [address] [facility] COMPREHENSI VE METABOLIC PANEL CALCIUM [MASS/VOLUME] IN SERUM OR PLASMA 9.6 mg/dL 8.4 - 10.4 09/12 Specimen Type: PLASMA No comment entered. Ordering Provider: ILSA SHUKLA Report Released Date/Time : Sep 12, 2024 09:54 AM Reporting Lab: [place] [facility] [address] [place] [address] Performin g Lab: [place] [facility] [address] [place] [address] [facility] COMPREHENSI VE METABOLIC PANEL PROTEIN [MASS/VOLUME] IN SERUM OR PLASMA 7.3 g/dL 6 - 8.6 09/12 Specimen Type: PLASMA No comment entered. Ordering Provider: ILSA SHUKLA Report Released Date/Time : Sep 12, 2024 09:54 AM Reporting Lab: [place] [facility] [address] [place] [address] Performin g Lab: [place] [facility] [address] [place] [address] [facility] COMPREHENSI VE METABOLIC PANEL ALBUMIN [MASS/VOLUME] IN SERUM OR PLASMA 4.7 g/dL 3.4 - 5 09/12 Specimen Type: PLASMA No comment entered. Ordering Provider: ILSA SHUKLA Report Released Date/Time : Sep 12, 2024 09:54 AM Reporting Lab: [place] [facility] [address] [place] [address] Performin g Lab: [place] [facility] [address] [place] [address] [facility] COMPREHENSI VE METABOLIC PANEL BILIRUBIN.TOT AL [MASS/VOLUME] IN SERUM OR PLASMA 1.2 mg/dL 0.2 - 1.2 09/12 Specimen Type: PLASMA No comment entered. Ordering Provider: ILSA SHUKLA Report Released Date/Time : Sep 12, 2024 09:54 AM Reporting Lab: [place] [facility] [address] [place] [address] Performin g Lab: [place] [facility] [address] [place] [address] [facility] COMPREHENSI VE METABOLIC PANEL ALKALINE PHOSPHATASE [ENZYMATIC ACTIVITY/VOLU ME] IN SERUM OR PLASMA 82 U/L 40 - 150 09/12 Specimen Type: PLASMA No comment entered. Ordering Provider: ILSA SHUKLA Report Released Date/Time : Sep 12, 2024 09:54 AM Reporting Lab: [place] [facility] [address] [place] [address] Performin g Lab: [place] [facility] [address] [place] [address] [facility] COMPREHENSI VE METABOLIC PANEL ASPARTATE AMINOTRANSFER ASE [ENZYMATIC ACTIVITY/VOLU ME] IN SERUM OR PLASMA 25 U/L 5 - 34 09/12 Specimen Type: PLASMA No comment entered. Ordering Provider: ILSA SHUKLA Report Released Date/Time : Sep 12, 2024 09:54 AM Reporting Lab: [place] [facility] [address] [place] [address] Performin g Lab: [place] [facility] [address] [place] [address] [facility] COMPREHENSI VE METABOLIC PANEL ALANINE AMINOTRANSFER ASE [ENZYMATIC ACTIVITY/VOLU ME] IN SERUM OR PLASMA 18 U/L 8 - 40 09/12 Specimen Type: PLASMA No comment entered. Ordering Provider: ILSA SHUKLA Report Released Date/Time : Sep 12, 2024 09:54 AM Reporting Lab: [place] [facility] [address] [place] [address] Performin g Lab: [place] [facility] [address] [place] [address] [facility] COMPREHENSI VE METABOLIC PANEL GLOMERULAR FILTRATION RATE/1.73 SQ M.PREDICTED [VOLUME RATE/AREA] IN SERUM, PLASMA OR BLOOD BY CREATININE-BA SED FORMULA (CKD-EPI 2020) 87 09/12 Specimen Type: PLASMA No comment entered. Ordering Provider: ILSA SHUKLA Report Released Date/Time : Sep 12, 2024 09:54 AM Reporting Lab: [place] [facility] [address] [place] [address] Performin g Lab: [place] [facility] [address] [place] [address] [facility] BRAIN NATRIURETIC PEPTIDE NATRIURETIC PEPTIDE B [MASS/VOLUME] IN SERUM OR PLASMA 20 pg/mL 0 - 100 09/12 Specimen Type: PLASMA No comment entered. Ordering Provider: ILSA SHUKLA Report Released Date/Time : Sep 12, 2024 10:14 AM Reporting Lab: [place] [facility] [address] [place] [address] Performin g Lab: [place] [facility] [address] [place] [address] [facility] TESTOSTERON E, TOTAL (PB-MA) TESTOSTERONE [MASS/VOLUME] IN SERUM OR PLASMA 615.0 ng/dL 221.0 - 871.0 09/12 Specimen Type: SERUM No comment entered. Ordering Provider: ILSA SHUKLA Report Released Date/Time : Sep 12, 2024 10:13 AM Reporting Lab: [place] [facility] [address] [place] [address] Performin g Lab: [place] [facility] [address] [place] [address] [facility] [place] [place] [facility] Vital Signs Combined list of inpatient and outpatient Vital Signs from Department of Defense and Veterans Affairs, ranging from 12 months to all on record, depending upon the facility. Vital Sign Value Date Comments Source SYSTOLIC BLOOD PRESSURE 153 09/25/2024 14:20:00 [place] [facility] DIASTOLIC BLOOD PRESSURE 80 09/25/2024 14:20:00 [place] [facility] TEMPERATURE 97.8 09/25/2024 14:20:00 [facility] [place] [facility] PULSE 65 09/25/2024 14:20:00 [place] [facility] SYSTOLIC BLOOD PRESSURE 133 09/12/2024 09:31:00 [place] [facility] DIASTOLIC BLOOD PRESSURE 80 09/12/2024 09:31:00 [place] [facility] PULSE OXIMETRY 95 09/12/2024 09:31:00 [facility] WEIGHT 235.5 09/12/2024 09:31:00 [place] [facility] BMI 32 kg/m2 09/12/2024 09:31:00 [place] [facility] PAIN 5 09/12/2024 09:31:00 [place] [facility] TEMPERATURE 97.5 09/12/2024 09:31:00 [place] [facility] PULSE 57 09/12/2024 09:31:00 [place] [facility] RESPIRATION 18 09/12/2024 09:31:00 [place] [facility] SYSTOLIC BLOOD PRESSURE 139 09/06/2024 09:20:00 [place] [facility] DIASTOLIC BLOOD PRESSURE 65 09/06/2024 09:20:00 [place] [facility] TEMPERATURE 97.8 09/06/2024 09:20:00 [place] [facility] PULSE 65 09/06/2024 09:20:00 [place] [facility] SYSTOLIC BLOOD PRESSURE 158 08/23/2024 09:00:00 [place] [facility] DIASTOLIC BLOOD PRESSURE 72 08/23/2024 09:00:00 [facility] 97.8 08/23/2024 09:00:00 [facility] PULSE 58 08/23/2024 09:00:00 [facility] SYSTOLIC BLOOD PRESSURE 145 08/02/2024 09:20:00 [facility] DIASTOLIC BLOOD PRESSURE 70 08/02/2024 09:20:00 [facility] TEMPERATURE 97.7 08/02/2024 09:20:00 [facility] PULSE 55 08/02/2024 09:20:00 [facility] Encounters Combined list of: 1) Encounters from Department of [facility] Affairs facilities going backup to the last 18 months, not all VA inpatient encounters are included; 2) Encounters from the Department of Defense facilities going backup to 280 months. Location Location Details Encounter Type Encounter Number Reason For Visit Attending Provider ADM Date DC Date Status Dis[facility] Source [facility] PHY/QHP [id number] Diagnos is: ICD-10- CM J09.X2 Flu due to ident novel influen za A virus w oth resp manifes t LANG,AN MARY ANNE D 04/11 [facility] En[facility] [id number] 05/12 [facility] Encounter [id number] 05/16 [facility] Outpatient Encounter [id number] 05/19 [facility] Encounter [id number] [facility] En[facility] [id number] 05/31 [facility] OFF/OP EST MAY X REQ PHY/QHP [id number] Diagnos is: ICD-10- CM S51.802 A Unspeci fied open wound of left forearm , initial encount er BILLY RUBIO Xiomara 07/05 [facility] OFFICE O/P EST LOW 20 MIN [id number] Diagnos is: ICD-10- CM L08.9 Local infecti on of the skin and subcuta neous tissue, unsp MANISHA SHUKLA G 07/05 [facility] Outpatient Encounter [id number] 07/06 [facility] Outpatient Encounter [id number] 07/07 [facility] Outpatient Encounter [id number] 07/12 [facility] OFFICE O/P EST MOD 30 MIN [id number] Diagnos is: ICD-10- CM Z00.01 Encount er for general adult medical exam w abnorma l finding s MANISHA SHUKLA G 10/02 [facility] Outpatient Encounter [id number] 10/09 [facility] Outpatient Encounter [id number] 10/11 [facility] Outpatient Encounter [id number] 10/19 [facility] Outpatient Encounter [id number] 10/31 [facility] [place] [facility] Outpatient Encounter [id number] Diagnos is: ICD-10- CM G47.33 Obstruc tive sleep apnea (adult) (pediat wes) OLIMPIA CRAIG 10/31 [facility] OFFICE O/P NEW LOW 30 MIN [id number] Diagnos is: ICD-10- CM M99.02 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 LANDY FRITZ DENISE E 11/15 [facility] En[facility] [id number] 11/16 [facility] Outpatient Encounter [id number] 11/21 [facility] [place] 3-4 [place] [id number] Diagnos is: ICD-10- CM M99.02 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 LANDY FRITZ DENISE Monae 12/19 [facility] [place] 3-4 [place] [id number] Diagnos is: ICD-10- CM M99.02 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 LANDY FRITZ E 01/02 [facility] Outpatient Encounter [id number] 01/10 [facility] Outpatient Encounter [id number] 01/10 [facility] X REQ PHY/QHP [id number] Diagnos is: ICD-10- CM Z23 Encount er for immuniz cecily WOMACKCammie FINA SMITH 01/16 [facility] [place] [place] [facility] [id number] Diagnos is: ICD-10- CM M99.02 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 LANDY FRITZ E 01/16 [facility] Outpatient Encounter [id number] 01/17 [facility] Out[facility] Encounter [id number] 01/17 [facility] [place] [facility] POS AIRWAY PRESSURE CPAP [id number] [id number] Diagnos is: ICD-10- CM G47.33 Obstruc tive sleep apnea (adult) (pediat wes) LALITHA EGAN 01/17 [place] [facility] MAN 3-4 REGIONS [id number] [id number] Diagnos is: ICD-10- CM M99.02 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 LANDY FRITZ 01/30 [facility] [place] 3-4 [place] [id number] Diagnos is: ICD-10- CM M99.02 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 LANDY FRITZ 02/13 [facility] Outpatient Encounter [id number] 02/23 [facility] [place] 3-4 [place] [id number] Diagnos is: ICD-10- CM M99.02 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 CATRINALANDY DENISE E 02/27 [facility] Outpatient Encounter [id number] BILLY RUBIO A 03/02 [facility] OFFICE O/P EST MOD 30 MIN [id number] Diagnos is: ICD-10- CM J01.80 Other acute sinusit is MANISHA SHUKLA Kishore 03/06 [facility] Outpatient Encounter [id number] 03/16 [facility] En[facility] [id number] [place] RAFAELA E 03/19 [place] [facility] [place] [place] 3-4 [place] [id number] Diagnos is: ICD-10- CM M99.02 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 LANDY FRITZ E 03/20 [facility] Outpatient Encounter [id number] 03/21 [facility] Outpatient Encounter [id number] 03/22 [facility] Outpatient Encounter [id number] 03/22 [facility] Outpatient Encounter [id number] 03/27 [facility] Out[facility] Encounter [id number] 03/29 [facility] [place] [facility] OFF/OP EST MAY X REQ PHY/QHP [id number] Diagnos is: ICD-10- CM R09.81 Nasal congest ion RAFAELA LANG D 03/30 [facility] [place] [facility] OFF[facility] O/P EST MOD 30 MIN [id number] Diagnos is: ICD-10- CM J01.80 Other acute sinusit is MANISHA SHUKLA G 03/30 [facility] [place] [id number] [id number] Diagnos is: ICD-10- CM M99.02 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 LANDY FRITZ 04/10 [facility] OFFICE O/P EST MOD 30 MIN [id number] Diagnos is: ICD-10- CM K59.00 Constip ation, unspeci fied MANISHA SHUKLAMaria Isabel G 04/10 [facility] [place] [id number] Diagnos is: ICD-10- CM M99.02 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 LANDY FRITZ 05/08 [facility] [place] [place] [id number] Diagnos is: ICD-10- CM M99.02 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 LANDY FRITZ DENISE E 05/17 [facility] [place] [id number] Diagnos is: ICD-10- CM M99.02 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 LANDY FRITZ E 06/05 [facility] [place] 3[place] [id number] Diagnos is: ICD-10- CM M99.02 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 LANDY FRITZ 06/19 [facility] Outpatient Encounter [id number] 06/26 [facility] Outpatient Encounter [id number] 07/02 [facility] PH[facility] ASSMT&MGMT NQHP 21-30 [id number] [id number] Diagnos is: ICD-10- CM G47.33 Obstruc tive sleep apnea (adult) (pediat wes) KIARAOLIMPIA Brown 07/02 [facility] [place] [facility] [id number] Diagnos is: ICD-10- CM M99.02 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 LANDY FRITZ 07/05 [facility] Outpatient Encounter [id number] 07/10 [facility] [place] [id number] Diagnos is: ICD-10- CM M99.02 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 LANDY FRITZ Letha 07/19 [facility] [place] [place] [facility] [id number] Diagnos is: ICD-10- CM M99.02 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 LANDY FRITZ Letah 08/02 [place] [facility] [place] [facility] [place] [id number] Diagnos is: ICD-10- CM M99.02 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 LANDY FRITZ 08/16 [facility] [place] 3[place]4 [place] [id number] [id number] Diagnos is: ICD-10- CM M99.02 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 [id number] 09/06 [facility]counter [id number] 09/10 [facility] [id number] 09/12 [facility] OFFICE O/P EST MOD 30 MIN [id number] [id number] Diagnos is: ICD-10- CM Z00.01 Encount er for general adult medical exam w abnorma l finding s MANISHA SHUKLA 09/12 [facility] Outpatient Encounter [id number] 09/12 [facility] [place] [facility] FUNDUS PHOTOGRAPH Y W/I&R [id number] [id number] Diagnos is: ICD-10- CM Z13.5 Encount er for screeni ng for eye and ear disorde rs NAYELI WISE 09/24 [place] [facility] [place] [facility] RTA DETC/MNTR DS PHY/QHP [id number] [id number] Diagnos is: ICD-10- CM Z13.5 Encount er for screeni ng for eye and ear disorde rs Maia MADISON 09/24 [place] [facility] Outpatient Encounter [id number] NAYELI WISE L 09/24 [place] [facility] [place] [facility] [place] [id number] Diagnos is: ICD-10- CM M99.02 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 LANDY FRITZ LAS E 09/25 [place] [facility] [place] [facility] [place] En[place] [id number] KAYLEIGH HOBSON ER E III 09/25 [place] [facility] Social History Combined list of available smoking, tobacco, and other social history from Department of Defense and Veterans Affairs facilities. Social History Type Response Date Comment Source Tobacco smoking status NJIS VA-TOBACCO USE FORMER CIGARETTES 09/12/2024 [place] [facility] History of tobacco use VA-TOBACCO NEVER USED OTHER TYPE 09/12/2024 [place] [facility] History of tobacco use VA-TOBACCO FORMER USER 10/03/2023 [place] [facility] History of tobacco use VA-TOBACCO USER SOME DAYS 09/18/2021 [place] [facility] History of tobacco use VA-TOBACCO DOESNT USE WI 30 MIN WAKEUP 09/15/2020 [place] [facility] History of tobacco use TOBACCO USER OFFERED MEDS 11/28/2017 [place] [facility] History of tobacco use TOBACCO USER OFFERED MEDS 10/14/2017 [place] [facility] History of tobacco use TOBACCO USER OFFERED MEDS 08/05/2017 [facility] History of tobacco use TOBACCO USER OFFERED MEDS 03/18/2017 [facility] History of tobacco use TOBACCO OFFERED STOP SMOKING CLINIC 04/28/2016 [facility] History of tobacco use QUIT TOBACCO >7 YEARS AGO 08/01/2009 [facility] History of tobacco use LIFETIME NON-USER OF TOBACCO 02/16/[address] [facility] History of tobacco use QUIT TOBACCO >7 YEARS AGO 09/26/2007 [facility] History of tobacco use CURRENT NON-TOBACCO USER-HX OF USE 08/06/2005 [facility] History of tobacco use CURRENT NON-TOBACCO USER-HX OF USE 03/23/2005 [facility] History of tobacco use CURRENT NON-TOBACCO USER-HX OF USE 10/01/2004 [facility] History of tobacco use CURRENT NON-TOBACCO USER-HX OF USE 04/07/2004 [facility] History of tobacco use CURRENT NON-TOBACCO USER-HX OF USE 10/11/2003 [facility] History of tobacco use CURRENT NON-TOBACCO USER-HX OF USE 04/05/2003 Quit 15 years ago. [facility] History of tobacco use CURRENT NON-TOBACCO USER-HX OF USE 10/25/2002 [facility] History of tobacco use TOB-CURRENT NON-SMOKER BUT HX 11/17/2001 [facility] History of tobacco use CURRENT NON-TOBACCO USER-HX OF USE 07/27/2001 [facility] History of tobacco use CURRENT NON-TOBACCO USER-HX OF USE 05/16/2001 Quit 18 years ago. [facility] History of tobacco use CURRENT NON-TOBACCO USER-HX OF USE 11/29/2000 QUIT 13 YRS AGO, 1 PK DAY [facility] Plan of Care List of future care activities from Department of Veterans Affairs facilities. Additional future care activities may be listed in the Assessment and Plan section. Date/Time Care Activity Care Activity Detail Facili ty 09/25/2024 AMBULATORY - MEDICINE AMBULATORY - MEDICI NE [facility]
[2024-09-25 15:15] VITALS: BP 174/75; PULSE 64; RESP 18; TEMP 36.4; O2SAT 95
--- NOTE | 2024-09-25 15:20 | USR_ITS ---
PROCEDURE INFORMATION: Exam: US Duplex Right Lower Extremity Veins, Limited Exam date and time: 09/25/2024 4:09 PM Age: 74 years old Clinical indication: Pain; Leg, lower; Right; Additional info: Pain and swelling TECHNIQUE: Imaging protocol: Real-time duplex ultrasound of the right extremity with 2-D horne scale, color Doppler flow and spectral waveform analysis including responses to compression and other maneuvers (when performed) with image documentation. Limited exam was focused on the right lower extremity veins. COMPARISON: CT abdomen pelvis w con* [id number] 11/24/2020 4:12 AM FINDINGS: Right deep veins: Unremarkable. The common femoral, femoral, proximal profunda femoral and popliteal veins are patent without thrombus. Normal Doppler waveforms. Normal compressibility and/or augmentation response. Superficial veins: Greater saphenous vein at the saphenofemoral junction is patent without thrombus. Soft tissues: Unremarkable. US/[place] [id number] IMPRESSION: No evidence of deep vein thrombosis.
--- NOTE | 2024-09-25 15:27 | W.ED.EXTPRO ---
HPI - Extremity Problem General: Chief complaint: Extremity Injury, Lower Stated complaint: [facility] Time Seen by Provider: 09/25/24 15:20 History of Present Illness: 74-year-old male presents emergency room with complaints of swelling in his lower legs prickly his right calf. He has mild swelling in his lower extremities. No recent injury. Denies chest pain orthopnea shortness of breath. Was seen his primary care earlier today directed here because of concern for blood clot Associated symptoms: Deny chest pain, fever(s) or rash Related Data Home Medications ?Medication ?Instructions ?Recorded ?Confirmed amlodipine 10 mg tablet 10 mg PO DAILY 11/06/19 07/10/24 aspirin 81 mg tablet,delayed 81 mg PO DAILY 11/06/19 07/10/24 release (Adult Low Dose Aspirin) glipizide 5 mg tablet 2.5 mg PO QAM see pharmacy comment 11/06/19 07/10/24 multivitamin 1 tab PO DAILY 11/06/19 07/10/24 turmeric 400 mg capsule 400 mg PO DAILY 09/08/20 07/10/24 cholecalciferol (vitamin D3) 125 125 mcg PO DAILY 10/02/20 07/10/24 mcg (5,000 unit) capsule Senegalese Amarilis 2 tab PO BID 02/11/21 07/10/24 tamsulosin 0.4 mg capsule 0.4 mg PO DAILY 12/23/22 07/10/24 calcium polycarbophil 625 mg tablet 1,250 mg PO DAILY 07/10/24 07/10/24 cetirizine 10 mg tablet 10 mg PO DAILY PRN 07/10/24 07/10/24 finasteride 5 mg tablet 5 mg PO DAILY 07/10/24 07/10/24 sennosides 8.6 mg tablet 8.6 mg PO TID 07/10/24 07/10/24 Previous Rx's ?Medication ?Instructions ?Recorded clopidogrel 75 mg tablet (Plavix) 75 mg PO DAILY #15 tabs 06/05/21 simvastatin 20 mg tablet 80 mg (4 x 20 mg) PO DAILY #15 tabs 06/05/21 carvedilol 6.25 mg tablet 6.25 mg PO BID 90 days #180 tabs 03/01/22 chlorthalidone 25 mg tablet 25 mg PO DAILY 30 days #30 tabs 06/03/22 levetiracetam 750 mg tablet 750 mg PO DAILY #90 tabs 03/01/23 hydralazine 50 mg tablet 50 mg PO TID #270 tabs 07/10/24 furosemide 20 mg tablet (Lasix) 20 mg PO DAILY #5 tabs 09/25/24 Allergies Allergy/AdvReac Type Severity Reaction Status Date / Time No Known Allergies Allergy Verified 07/10/24 14:04 Review of Systems Const: Denies: fever(s) or chills Card: Reports: edema and swelling of feet/ankles; Denies: chest pain Resp: Denies: dyspnea GI: Denies: abdominal pain : Denies: dysuria, urinary frequency or urinary urgency Musc: Denies: neck pain or back pain Skin/Breast: Denies: rash PFSH ED PFSH: Medical History Tubular adenoma of colon Grand mal seizure Hx of colonic polyps Cholelithiasis Elevated troponin Central sleep apnea Cryptogenic stroke Bradycardia ASHD (arteriosclerotic heart disease) Hypertension Hyperlipidemia Diabetes Surgical History Hx of cataract extraction History of loop recorder History of hernia repair Hx of shoulder surgery Stented coronary artery History of loop recorder Family History Other CAD (coronary artery disease) Cancer Diabetes Suicide Denies family history of Clotting disorder Dementia Chronic kidney disease (CKD) Anesthesia complication Bleeding disorder Lung disease Stroke Social History Smoking and tobacco/nicotine status: former use of tobacco/nicotine Alcohol intake: never Substance/Drug Use: never Physical Exam Const: COMMON NORMALS: no acute distress GENERAL APPEARANCE: cooperative and comfortable ORIENTATION/CONSCIOUSNESS: Yes awake, Yes oriented to person, Yes oriented to place and Yes oriented to time HENMT: COMMON NORMALS: normocephalic, atraumatic and hearing grossly normal bilaterally HEAD & SCALP: normocephalic and atraumatic Resp: COMMON NORMALS: normal respiratory effort, No retractions, No use of accessory muscles and clear to auscultation bilaterally AUSCULTATION: clear to auscultation bilaterally Cardio: COMMON NORMALS: regular rate, regular rhythm and No murmurs present (Cardio) RATE: regular rate RHYTHM: regular rhythm GI: COMMON NORMALS: Soft to palpation and No hepatosplenomegaly present AUSCULTATION: Yes normoactive bowel sounds PALPATION: Yes Soft to palpation, No Tenderness to palpation present (GI), No Guarding due to palpation present (GI) and Yes No hepatosplenomegaly present Extremity: OTHER: Patient is 2+ edema in the lower extremities on the right 1+ on the left there is some chronic skin changes. No sign of induration or infection. Neuro: SENSORIUM/ORIENTATION: Yes oriented to person, Yes oriented to place and Yes oriented to time Skin: COMMON NORMALS: no rashes or lesions noted GENERAL SKIN EXAM: no rashes or lesions noted Course Vital Signs: Vital signs: Vital Signs Temperature 97.5 F L 09/25/24 15:15 Pulse Rate 64 09/25/24 15:15 Respiratory Rate 18 09/25/24 15:15 Blood Pressure 174/75 09/25/24 15:15 Pulse Oximetry 95 09/25/24 15:15 Oxygen Delivery Me thod Room Air 09/25/24 15:15 MDM - Extremity (Nontraumatic) Medical Decision Making No DVT will discharge patient home start Lasix 20 mg daily for next 5 days and have the patient follow-up with primary care in the next 4 to 5 days. Return to the emergency room if worsens or changes. Medical Records I reviewed the patient's medical records. Lab Data I reviewed the patient's lab results. 09/25/24 15:48 09/25/24 15:48 Laboratory Results WBC 6.88 10^3/uL (3.29-11.43) 09/25/24 15:48 RBC 4.52 10^6/uL (3.85-5.65) 09/25/24 15:48 Hgb 14.20 g/dL (11.27-16.99) 09/25/24 15:48 Hct 40.3 % (37-53) 09/25/24 15:48 MCV 89.2 fl (82-101) 09/25/24 15:48 MCH 31.4 pg (27-33) 09/25/24 15:48 MCHC 35.2 g/dL (30-55) 09/25/24 15:48 RDW 12.4 % (12.1-15.1) 09/25/24 15:48 Plt Count 181 10^3/cmm (157-399) 09/25/24 15:48 MPV 9.8 fL (7.4-10.4) 09/25/24 15:48 Neut % (Auto) 69.0 % 09/25/24 15:48 Lymph % (Auto) 18.5 % 09/25/24 15:48 [place] % (Auto) 9.3 % 09/25/24 15:48 Eos % (Auto) 2.3 % 09/25/24 15:48 Baso % (Auto) 0.6 % 09/25/24 15:48 Neut # (Auto) 4.75 10^3/uL (1.8-7.7) 09/25/24 15:48 Lymph # (Auto) 1.3 10^3/uL (0.8-4.8) 09/25/24 15:48 [place] # (Auto) 0.6 10^3/uL (0.2-0.9) 09/25/24 15:48 Eos # (Auto) 0.2 10^3/uL (0.0-0.8) 09/25/24 15:48 Baso # (Auto) 0.0 10^3/uL (0.0-0.1) 09/25/24 15:48 Nucleated RBC % (auto) 0 % 09/25/24 15:48 Nucleated RBCs # 0.0 /100WBC 09/25/24 15:48 Sodium 131 mmol/L (136-145) L 09/25/24 15:48 Potassium 3.1 mmol/L (3.5-5.1) L 09/25/24 15:48 Chloride 92 mmol/L (98-107) L 09/25/24 15:48 Carbon Dioxide 29 mmol/L (22-29) 09/25/24 15:48 Anion Gap 13.1 (5-19) 09/25/24 15:48 BUN 15 mg/dL (8-23) 09/25/24 15:48 Creatinine 0.8 mg/dL (0.7-1.2) 09/25/24 15:48 GFR Calculation Not Reportable 09/25/24 15:48 Glucose 108 mg/dL (65-115) 09/25/24 15:48 Calculated Osmolality 273 mOsm/kg (285-295) L 09/25/24 15:48 Calcium 9.4 mg/dL (8.5-10.5) 09/25/24 15:48 Total Bilirubin 0.7 mg/dL (0.15-1.2) 09/25/24 15:48 AST 17 U/L (0-40) 09/25/24 15:48 ALT 18 U/L (0-41) 09/25/24 15:48 Alkaline Phosphatase 92 U/L (40-130) 09/25/24 15:48 Total Protein 7.0 g/dL (6.6-8.7) 09/25/24 15:48 Albumin 4.2 g/dL (3.5-5.2) 09/25/24 15:48 Globulin 2.8 g/dL (1.3-4.6) 09/25/24 15:48 Amorphous Sediment Not Reportable 09/25/24 16:42 All radiology interpretation(s) finalized by discharge Discharge Plan Discharge Patient Disposition: Home Clinical Impression: Leg edema, right Condition: Stable Prescriptions: New furosemide [Lasix] 20 mg tablet 20 mg PO DAILY Qty: 5 0RF No Action cholecalciferol (vitamin D3) 125 mcg (5,000 unit) capsule 125 mcg PO DAILY aspirin [Adult Low Dose Aspirin] 81 mg tablet,delayed release (DR/EC) 81 mg PO DAILY multivitamin Tablet 1 tab PO DAILY amlodipine 10 mg tablet 10 mg PO DAILY glipizide 5 mg tablet 2.5 mg PO QAM carvedilol 6.25 mg tablet 6.25 mg PO BID 90 Days Qty: 180 0RF Rx Instructions: must administer with a meal/food chlorthalidone 25 mg tablet 25 mg PO DAILY 30 Days Qty: 30 5RF tamsulosin 0.4 mg capsule 0.4 mg PO DAILY levetiracetam 750 mg tablet 750 mg PO DAILY Qty: 90 3RF calcium polycarbophil 625 mg tablet 1,250 mg PO DAILY sennosides 8.6 mg tablet 8.6 mg PO TID finasteride 5 mg tablet 5 mg PO DAILY cetirizine 10 mg tablet 10 mg PO DAILY PRN hydralazine 50 mg tablet 50 mg PO TID Qty: 270 3RF turmeric 400 mg Capsule 400 mg PO DAILY Senegalese Amarilis 2 tab PO BID clopidogrel [Plavix] 75 mg tablet 75 mg PO DAILY Qty: 15 0RF simvastatin 20 mg tablet 80 mg PO DAILY Qty: 15 0RF Discharge Orders: Discharge ED (Routine); Ordered 09/25/24 Ordered By: Fransisco Palomo Referrals: Ellen Jang APRN [Primary Care Provider, Family Practice] Discharge Diet: Usual diet Discharge Activity: Increase activity as tolerated Patient Instructions: Opioid Safety, Pain Management, Patient Portal & Leonid Instructions Activity Restrictions/Additional Instructions: Thank you for choosing [facility] for your healthcare needs today. It is very important that you follow up as instructed or that you return to the Emergency Department should you have concerns or if your condition changes or worsens in any way. You were seen in the emergency room with swelling in your right leg. Ultrasound did not show any acute DVT. Will discharge you home elevate the leg whenever you are able follow-up with your primary care provider. Continue current medications. Will add Lasix 20 mg daily for the next 5 days. Print Language: Italian Coding Level of Care Code ED Transport Nurse for Noa Abdi
[2024-09-25 16:04] LABS: Basophils % 0.6 %; Eosinophils # 0.2 10^3/uL (0.0-0.8); Eosinophils % 2.3 %; Hematocrit 40.3 % (37-53); Lymphocytes # 1.3 10^3/uL (0.8-4.8); Lymphocytes % 18.5 %; Mean Corpuscular HGB Conc 35.2 g/dL (30-55); Mean Corpuscular Hemoglobin 31.4 pg (27-33); Mean Corpuscular Volume 89.2 fl (82-101); Mean Platelet Volume 9.8 fL (7.4-10.4); Monocytes # 0.6 10^3/uL (0.2-0.9); Monocytes % 9.3 %; Neutrophils # 4.75 10^3/uL (1.8-7.7); Nucleated Red Blood Cells % 0 %; Platelet Count 181 10^3/cmm (157-399); Red Blood Count 4.52 10^6/uL (3.85-5.65); Red Cell Distribution Width 12.4 % (12.1-15.1); White Blood Count 6.88 10^3/uL (3.29-11.43)
[2024-09-25 16:22] LABS: Alanine Aminotransferase 18 U/L (0-41); Albumin Level 4.2 g/dL (3.5-5.2); Alkaline Phosphatase 92 U/L (40-130); Anion Gap 13.1 (5-19); Aspartate Amino Transferase 17 U/L (0-40); Blood Urea Nitrogen 15 mg/dL (8-23); Calcium 9.4 mg/dL (8.5-10.5); Carbon Dioxide 29 mmol/L (22-29); Chloride 92 mmol/L (98-107); Globulin 2.8 g/dL (1.3-4.6); Glucose 108 mg/dL (65-115); Osmolality Calculated 273 mOsm/kg (285-295); Potassium 3.1 mmol/L (3.5-5.1); Sodium 131 mmol/L (136-145); Total Bilirubin 0.7 mg/dL (0.15-1.2)
[2024-09-25 16:47] LABS: Bilirubin Urine Negative (Negative); Blood Urine 2+ (Negative); Glucose Urine UA Negative (Normal); Ketones Urine Negative (Negative); Leukocyte Esterase Urine Negative (Negative); Nitrate Urine Negative (Negative); Protein Urine Negative (Negative); Specific Gravity, Urine 1.005 (1.005-1.030); Urine Appearance Clear (CLEAR); Urobilinogen Urine 0.2 mg/dL (Negative)
[2024-09-25 16:52] LABS: Add Urine Microscopic? YES; Bacteria Urine None Seen /hpf; Hyaline Casts Urine 0-4 /lpf; RBC Urine >100 /hpf (0-2); Squamous Epithelial Cell Urine 0-5 /hpf (0-5); WBC Urine 0-5 /hpf (0-5)
[2024-09-25 16:56] LABS: Add Urine Culture? Yes; Urine Color Orange (Yellow)
--- OUTSIDE RECORDS SUMMARY | 2024-09-25 17:18 | XMS_ITS | Clinical Summary ---
Author Organization [facility] Address [address] As[place]io: Epic Prelude [place]T [place] [address] Care Team Providers Care Bus And Sys Integration Senior Manager Name Role Phone Rebeka Fuentes MD Primary Care Provider Unavailab le Allergies No known active allergies Medications gabapentin (NEURONTIN) 600 mg tablet Take 1 Tablet (600 mg) by mouth 3 times daily. 90 Tablet 1 07/13/2018 Active TURMERIC ORAL Take by mouth. 03/16/2018 Active aspirin (KAYODE) 325 mg tablet Take 325 mg by mouth daily. 03/16/2018 Active amLODIPine (NORVASC) 10 mg tabletIndication s:Spinal stenosis in cervical region,Right shoulder pain Take 10 mg by mouth daily. 04/02/2015 Active simvastatin (ZOCOR) 20 mg tabletIndication s:Spinal stenosis in cervical region,Right shoulder pain Take 20 mg by mouth Daily LATE. 04/02/2015 Active lisinopriL (PRINIVIL) 20 mg tabletIndication s:Spinal stenosis in cervical region,Right shoulder pain Take 20 mg by mouth daily. 04/02/2015 Active allopurinoL (ZYLOPRIM) 300 mg tabletIndication s:Spinal stenosis in cervical region,Right shoulder pain Take 300 mg by mouth daily. 04/02/2015 Active atenoloL (TENORMIN) 50 mg tabletIndication s:Spinal stenosis in cervical region,Right shoulder pain Take 50 mg by mouth daily. 04/02/2015 Active glipiZIDE (GLUCOTROL) 5 mg tabletIndication s:Spinal stenosis in cervical region,Right shoulder pain Take 5 mg by mouth daily with breakfast. 04/02/2015 Active cholecalciferol, vitamin D3, (CHOLECALCIFEROL , VIT D3,,BULK, MISC) 800 Units by [employer].(Non-D rug; Combo Route) route daily. 06/16/2015 Active folic acid (FOLVITE) 1 mg tablet Take 1 mg by mouth daily. 06/16/2015 Active Active Problems Problem Noted Date Diagnosed Date Shoulder impingement 06/16/2015 Pseudophakia of right eye 06/10/2015 Pinguecula of both eyes 06/10/2015 PCO (posterior capsular opacification) 6 Pterygium of eye 06/10/2015 Epiretinal membrane 06/10/2015 Senile cataract of left eye 06/10/2015 Type 2 diabetes mellitus without retinopathy OU 06/10/2015 Hypertensive retinopathy of both eyes, grade 1 0 06/10/2015 Family History Medical History Relation Name Comments Heart Disease Brother Other Brother Healthy Father Heart Disease Mother Relation Name Status Comments Brother Father Mother Social History Tobacco Use Types Packs/Day Years Used Date Smoking Tobacco: Every Day Cigarettes Smokeless Tobacco: Never Comments:Quit smokin-3 c igarettes per day Alcohol Use Standard Drinks/Week Comments No 0 (1 standard drink = 0.6 oz pur e alcohol) Sex and Gender Information Value Date Recorded Sex Assigned at Not on file Legal Sex Male 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 Gender Identity Not on file Sexual Orientation Not on file Last Filed Vital Signs Vital Sign Reading Time Taken Comments Blood Pressure 141/77 08/01/2018 12:19 PM CDT Pulse 49 08/01/2018 12:19 PM CDT Temperature 36.6 C (97.8 F) 08/01/2018 11:31 AM CDT Respiratory Rate 16 08/01/2018 12:19 PM CDT Oxygen Saturation - - Inhaled Oxygen Concentration - - Weight 101.2 kg (223 lb) 08/01/2018 11:31 AM CDT Height 182.9 cm (6') 08/01/2018 11:31 AM CDT Body Mass Index 30.24 08/01/2018 11:31 AM CDT Plan of Treatment Health Maintenance Due Date Last Done Comments DIABETES ANNUAL FOOT EXAM 01/29/1966 DIABETES HBA1C Q 6 MONTHS 01/29/1966 DIABETES MICROALBUMIN ANNUAL SCREEN 01/29/1966 LDL CHOLESTEROL ANNUAL 01/29/1966 DTAP/TDAP/TD VACCINES (1 - Tdap) 01/29/1967 PNEUMOCOCCAL VACCINE 50+ YEA RS (1 of 2 - PCV) 01/29/1967 ZOSTER VACCINE (1 of 2) 01/29/1998 DIABETES ANNUAL RETINAL EXAM 06/09/201611/2015, 06/10/2015, 06/10/2015, Additional history exists RSV VACCINE (60+ or ) (1 - 1-dose 75+ series) 01/29/2023 INFLUENZA VACCINE (#1) 2023 Medical Devices Implanted Type Area Bench Hand Device Identifier Shelf Expiration Date Model / Serial / Lot Screw Prox [employer] Sys Ar-2290 - [id number] Implanted:Qty: 1 on 07/17/2015 by Donald Carrasquillo MD Screw Right: Shoulder [employer] 12/17/2019 AR-2290 / / [id number] Procedures Procedure Name Priority Date/Time Associated Diagnosis Comments OPHTHALMIC DIAGNOSTIC IMAGE RETINA FELICITAS Routine 06/10/2015 12:11 PM NEUROPSYCHOLOGY MEDICAL CONSULTANT Epiretinal membrane, right from Last 3 Months or Most Recently Relevant to Health Maintenance Results * OPHTHALMIC DIAGNOSTIC IMAGE RETINA FELICITAS (06/10/2015 12:11 PM NEUROPSYCHOLOGY MEDICAL CONSULTANT) Narrative INTERFACE SYSTEM - 06/10/2015 12:11 PM NEUROPSYCHOLOGY MEDICAL CONSULTANT Kapil Chan DO 06/10/2015 12:11 PM OCT: An OCT of the retina/macula both eyes was taken at today's visit. The results of this OCT were reviewed as well as discussed with the patient at today's visit. The findings are: OD: normal macular architecture and thickness, subtle ERM OS: normal macular architecture and thickness All questions regarding the OCT were answered to patient's satisfaction. Proper action depending on the results of the OCT are being undertaken. Procedure Note Conversion, Auto Data - 07/08/2021 Kapil Chan DO 06/10/2015 12:11 PM OCT: An OCT of the retina/macula both eyes was taken at today's visit. The results of this OCT were reviewed as well as discussed with the patient at today's visit. The findings are: OD: normal macular architecture and thickness, subtle ERM OS: normal macular architecture and thickness All questions regarding the OCT were answered to patient's satisfaction. Proper action depending on the results of the OCT are being undertaken. us Kapil Chan DO OPHTH OTHER Final Result INTERFACE SYSTEM Refer to clinic/hospital department from Last 3 Months or Most Recently Relevant to Health Maintenance Care Teams Bus And Sys Integration Senior Manager Relationship Specialty Start Date End Date Rebeka Fuentes MD NO ADDRESS ON FILE PCP - General Mineral Surveying Technician 07/30/14
--- OUTSIDE RECORDS SUMMARY | 2024-09-25 17:19 | XMS_ITS | Clinical Summary ---
Author Organization [facility] Address [address] [place] [address] Phone Care Team Providers Care Quarantine Officer Name Role Phone Rebeka Fuentes MD Primary Care Provider Unavailab le Allergies No known active allergies Medications glipiZIDE (GLUCOTROL) 5 mg tabletIndication s:Spinal stenosis in cervical region,Right shoulder pain Take 5 mg by mouth daily with breakfast. Active atenolol (TENORMIN) 50 mg tabletIndication s:Spinal stenosis in cervical region,Right shoulder pain Take 50 mg by mouth daily. Active lisinopril (PRINIVIL) 20 mg tabletIndication s:Spinal stenosis in cervical region,Right shoulder pain Take 20 mg by mouth daily. Active simvastatin (ZOCOR) 20 mg tabletIndication s:Spinal stenosis in cervical region,Right shoulder pain Take 20 mg by mouth Daily LATE. Active amLODIPine (NORVASC) 10 mg tabletIndication s:Spinal stenosis in cervical region,Right shoulder pain Take 10 mg by mouth daily. Active allopurinol (ZYLOPRIM) 300 mg tabletIndication s:Spinal stenosis in cervical region,Right shoulder pain Take 300 mg by mouth daily. Active folic acid (FOLVITE) 1 mg tablet Take 1 mg by mouth daily. Active CHOLECALCIFEROL, VITAMIN D3, (CHOLECALCIFEROL , VIT D3,,BULK, MISC) 800 Units by Misc.(Non-D rug; Combo Route) route daily. Active aspirin (KAYODE) 325 mg tablet Take 325 mg by mouth daily. Active TURMERIC ORAL Take by mouth. Active gabapentin (NEURONTIN) 600 mg tablet Take 1 Tablet (600 mg) by mouth 3 times daily. 90 Tablet 1 07/13/2018 Active Active Problems Problem Noted Date Diagnosed Date Shoulder impingement 06/16/2015 Pterygium of eye 06/10/2015 Pinguecula of both eyes 06/10/2015 Pseudophakia of right eye 06/10/2015 Senile cataract of left eye 06/10/2015 PCO (posterior capsular opacification) 6 Epiretinal membrane 06/10/2015 Type 2 diabetes mellitus without retinopathy OU 06/10/2015 Hypertensive retinopathy of both eyes, grade 1 0 06/10/2015 Family History Medical History Relation Name Comments Heart Disease Brother Other Brother Healthy Father Heart Disease Mother Relation Name Status Comments Brother Father Mother Social History Tobacco Use Types Packs/Day Years Used Date Smoking Tobacco: Every Day Cigarettes Smokeless Tobacco: Never Comments:2-3 cigarettes per day Alcohol Use Standard Drinks/Week Comments No 0 (1 standard drink = 0.6 oz pur e alcohol) Sex and Gender Information Value Date Recorded Sex Assigned at Not on file 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 Gender Identity Not on file Sexual Orientation Not on file Last Filed Vital Signs Vital Sign Reading Time Taken Comments Blood Pressure 141/77 08/01/2018 12:19 PM CDT Pulse 49 08/01/2018 12:19 PM CDT Temperature 36.6 C (97.8 F) 08/01/2018 11:31 AM CDT Respiratory Rate 16 08/01/2018 12:19 PM CDT Oxygen Saturation 96% 08/01/2018 12:19 PM CDT Inhaled Oxygen Concentration - - Weight 101.2 [...] (#1) 2023 Medical Devices Implanted Type Area Delivery Truck Driver Device Identifier Shelf Expiration Date Model / Serial / Lot Screw Prox [employer] Sys Ar-2290 - [id number] Implanted:Qty: 1 on 07/17/2015 by Donald Carrasquillo MD at [facility] Screw Right: Shoulder [employer] 12/17/2019 AR-2290 / / [id number] Procedures Procedure Name Priority Date/Time Associated Diagnosis Comments OPHTHALMIC DIAGNOSTIC IMAGE RETINA FELICITAS Routine 06/10/2015 12:11 PM PAPER CUP MACHINE TENDER Epiretinal membrane (very mild), right from Last 3 Months or Most Recently Relevant to Health Maintenance Results * OPHTHALMIC DIAGNOSTIC IMAGE RETINA FELICITAS (06/10/2015 12:11 PM PAPER CUP MACHINE TENDER) Narrative [facility] - 06/10/2015 12:11 PM PAPER CUP MACHINE TENDER Kapil Chan DO 06/10/2015 12:11 PM OCT: [...] results of the OCT are being undertaken. Kapil Chan DO OPH OTHER Final Result [facility] [place] from Last 3 Months or Most Recently Relevant to Health Maintenance Insurance [facility] Advance Directives For more information, please contact: [phone] * Full Code (Latest Code Status on File) Date Activated Date Inactivated Comments 07/17/2015 7:17 AM 07/17/2015 1:54 PM * Full Code Date Activated Date Inactivated Comments 07/17/2015 6:27 AM 07/17/2015 7:17 AM * Full Code Date Activated Date Inactivated Comments 07/17/2015 5:55 AM 07/17/2015 6:27 AM Care Teams Quarantine Officer Relationship Specialty Start Date End Date Rebeka Fuentes MD PCP - General Marketing Compliance Manager 07/30/14
--- OUTSIDE RECORDS SUMMARY | 2024-09-25 17:19 | XMS_ITS | Encounter Summary ---
Author Organization [facility] Address [address] [place] [address] Care Team Providers Care Service Center Representative Name Role Phone Rebeka Fuentes MD Primary Care Provider Unavailab le Encounter Details Date Type Department Care Team (Latest Contact Info) Description 12/03/1999 Outpatient Historical [facility] Chan Mallory MD [address] [place] [address] Anxiety state, unspecified (Primary Dx) Social History Tobacco Use Types Packs/Day Years Used Date Smoking Tobacco: Never Assessed Sex and Gender Information Value Date Recorded Sex Assigned at Not on file Legal 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
--- OUTSIDE RECORDS SUMMARY | 2024-09-25 17:19 | XMS_ITS | Encounter Summary ---
Author Organization [facility] Address [address] [place] [address] Care Team Providers Care County Program Technician Name Role Phone Rebeka Fuentes MD Primary Care Provider Unavailab le Encounter Details Date Type Department Care Team (Latest Contact Info) Description 06/04/2003 Outpatient Historical [facility] Cardiology- [place] [address] [place] [address] Ravinder Ponce MD NO ADDRESS ON FILE CORON ATHEROSCL HAVASUPAI CORON VESSEL (Primary Dx); MIXED HYPERLIPIDEMIA Social History Tobacco Use Types Packs/Day Years Used Date Smoking Tobacco: Never Assessed Sex and Gender Information Value Date Recorded Sex Assigned at Not on file Legal Sex Male 3:34 AM WAITER/WAITRESS SECOND CLASS Gender Identity Not on file Sexual Orientation Not on file documented as of this encounter Plan of Treatment Not on file documented as of this encounter Visit Diagnoses Diagnosis Coronary atherosclerosis of [place] coronary artery- Primary Mixed hyperlipidemia documented in this encounter Care Teams County Program Technician Relationship Specialty Start Date End Date Rebeka Fuentes MD PCP - General National Stormwater Leader 07/30/14 documented as of this encounter
--- OUTSIDE RECORDS SUMMARY | 2024-09-25 17:19 | XMS_ITS | Encounter Summary ---
Author Organization [facility] Address [address] [place] [address] Care Team Providers Care Staff Nuclear Medicine Technologist Name Role Phone Rebeka Fuentes MD Primary Care Provider Unavailab le Encounter Details Date Type Department Care Team (Latest Contact Info) Description 03/19/2003 Inpatient Historical [facility] Emergency Department [address] 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
--- OUTSIDE RECORDS SUMMARY | 2024-09-25 17:19 | XMS_ITS | Encounter Summary ---
Author Organization [facility] Address [address] [place] [address] Care Team Providers Care Motorcycle Racer Name Role Phone Rebeka Fuentes MD Primary Care Provider Unavail le Encounter Details Date Type Department Care Team (Latest Contact Info) Description 09/17/2004 Outpatient Historical [facility] [place] [address] [place] [address] Aide Casanova FNP [address] [place] [address] CORON ATHEROSCL ASA'CARSARMI[place] CORON VESSEL (Primary Dx); MIXED HYPERLIPIDEMIA Social History Tobacco Use Types Packs/Day Years Used Date Smoking Tobacco: Never Assessed Sex and Gender Information Value Date Recorded Sex Assigned at Not on file Legal Sex Male 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
== END 2024-09-25 17:04 | disposition home or self-care (01) ==
PROVIDERS: Emergency Provider Family Medicine; PCP Nurse Practitioner Family
DX: R60.0 Localized edema (principal); Z79.82 Long term (current) use of aspirin; Z79.02 Long term (current) use of antithrombotics/antiplatelets; Z87.891 Personal history of nicotine dependence; E11.9 Type 2 diabetes mellitus without complications; E78.5 Hyperlipidemia, unspecified; I10 Essential (primary) hypertension
CPT/HCPCS: 36415; 80053; 81001; 85025; 87086; 93971; 99284

== ENCOUNTER → 2025-01-08 13:39 | Outpatient (BNVA) | payer OTHER, SELFPAY | PROVIDERS: PCP Nurse Practitioner Family; Visit Provider Internal Medicine Cardiovascular Disease | DX: I25.10 Atherosclerotic heart disease of native coronary artery without angina pectoris (principal); E78.5 Hyperlipidemia, unspecified; I10 Essential (primary) hypertension; D69.6 Thrombocytopenia, unspecified; M79.89 Other specified soft tissue disorders; R53.82 Chronic fatigue, unspecified; Z95.818 Presence of other cardiac implants and grafts; Z87.891 Personal history of nicotine dependence | CPT/HCPCS: 99214 ==

== ENCOUNTER → 2025-03-13 10:34 | Outpatient (BNVA) | payer OTHER, SELFPAY | PROVIDERS: PCP Nurse Practitioner Family; Visit Provider Specialist | DX: I63.429 Cerebral infarction due to embolism of unspecified anterior cerebral artery (principal); R56.9 Unspecified convulsions; I63.9 Cerebral infarction, unspecified | CPT/HCPCS: 99213 ==